=== PATIENT | male | born 1945 | race Caucasian/White ===

== ENCOUNTER 2016-10-24 09:00 | Inpatient (IN) | payer MEDICARE, OTHER ==
[~2016-10-24] VITALS: Ht 170.2 cm; Wt 122.5 kg
[~2016-10-24 09:00] MED LIST: ADVI200C5 PO; ARTH650T PO; BUPR15TA PO; FOLI1TAB2 PO; FURO40TA2 PO; KLOR1TAB77 PO; LOTRCRE TOP; MULTCAP PO; NATU400T PO; OCEA0.654; OMEP20CA3 PO; SERT-138 PO; SIMV20TA2 PO; THERTAB30 PO; THIA100T PO; VITA100T18 PO; VITA100T60 PO; VITA400C2 PO; WELLTAB40 PO; ZOCO20TA PO; kcl PO
[2016-10-24] MEDS: FUROSEMIDE 20 MG TAB PO SCH (09:00)
[2016-10-24 09:52] LABS: BASO % 0.3 % (0.0-1.0); EOS # 0.3 K/mm3 (0.0-0.50); LARGE UNSTAINED CELL # 0.1 K/mm3 (0.0-0.4); LARGE UNSTAINED CELL % 1.4 % (0.0-4.0); LYMPH # 1.2 K/mm3 (1.5-4.5); LYMPH % 13.5 % (24.0-44.0); MEAN CORPUSCULAR HGB CONC 35.1 g/dl (32.0-36.5); MEAN CORPUSCULAR VOLUME 88.4 fl (80.0-96.0); MONO # 0.5 K/mm3 (0.0-0.8); MONO % 5.9 % (0.0-5.0); NEUTROPHILS % 75.9 % (36.0-66.0); PLATELET COUNT, AUTOMATED 403 k/mm3 (150-450); WHITE BLOOD COUNT 9.2 K/mm3 (4.0-10.0)
[2016-10-24 10:09] LABS: ALBUMIN 3.5 GM/DL (3.2-5.2); ALBUMIN/GLOBULIN RATIO 0.67 (1.00-1.93); ALKALINE PHOSPHATASE 104 U/L (45-117); ALT/SGPT 16 U/L (12-78); ANION GAP 10 MEQ/L (8-16); AST/SGOT 18 U/L (15-37); BILIRUBIN,TOTAL 0.9 MG/DL (0.2-1.0); BLOOD UREA NITROGEN 11 MG/DL (7-18); CALCIUM LEVEL 9.4 MG/DL (8.8-10.2); CARBON DIOXIDE LEVEL 26 MEQ/L (21-32); CHLORIDE LEVEL 103 MEQ/L (98-107); CREATININE FOR GFR 0.94 MG/DL (0.70-1.30); GLOMERULAR FILTRATION RATE > 60.0 (>49); GLUCOSE, FASTING 123 MG/DL (80-110); POTASSIUM SERUM 3.8 MEQ/L (3.5-5.1); SODIUM LEVEL 139 MEQ/L (136-145); TOTAL PROTEIN 8.7 GM/DL (6.4-8.2)
--- NOTE | 2016-10-24 10:26 | REP ---
Bilateral hand series: Eight views. History: Question osteomyelitis. Swelling, redness and oozing. Findings: Four views of each hand are obtained. On the right hand, there is diffuse swelling dorsally over the metacarpals as well as along the radial side of the index finger and diffusely involving the thumb. There is some swelling on the right involving the proximal phalanges of the long, ring and small finger as well. No soft tissue gas is seen. No opaque foreign body is noted. No fracture or bony erosive change is seen to suggest osteomyelitis by radiographic criteria. On the left, there is some diffuse soft tissue swelling involving the thumb and to a lesser extent the index finger. No acute bony abnormality is seen. There is mild spurring of some of the DIP joints and the IP joint of the thumb as well as the first MCP joint of the thumb. There is a tiny opaque and probably metallic foreign body in the soft tissues of the index finger adjacent to the distal end of the proximal phalanx dorsally. No other abnormality. Impression: Bilateral areas of soft tissue swelling as above. Osteoarthritic changes. No evidence of osteomyelitis. Tiny metallic foreign body in the dorsal soft tissues of the index finger on the left. Signed by Isma Nieto MD 10/24/2016 06:33 P
[2016-10-24] MEDS ORDERED: CEFTAROLINE FOSAMIL 600 MG VIAL (TEFLARO) As Ordered ONE (10:37)
[2016-10-24 10:47] LABS: ERYTHROCYTE SEDIMENTATION RATE 49 mm/hr (0-20)
[2016-10-24] MEDS ORDERED: VITMTA PO (12:05)
[2016-10-24] MEDS ORDERED: SM A PO (12:05)
[2016-10-24] MEDS ORDERED: FURO20TA2 PO (12:05)
[2016-10-24] MEDS ORDERED: TRAM50TA2 PO (12:05)
[2016-10-24] MEDS ORDERED: NORCO, ANEXSIA 5/325MG TABLET (HYDROcodone/ACETAMINOPHEN) PO PRN (13:15)
[2016-10-24] MEDS ORDERED: ACETAMINOPHEN 650 MG SUPP PR PRN (13:15)
--- NOTE | 2016-10-24 15:13 | EDDOCDS ---
Physician Documentation [facility] Name: Elio Garcia Age: 71 yrs Sex: Male : 1945 Arrival Date: 10/24/2016 Time: 09:00 Bed I3 / M3 Private MD: Disposition: 10/24/16 10:44 Hospitalization ordered by Garcia Herrera for Inpatient Admission. Preliminary diagnosis are Cutaneous abscess of hand - bilateral, Cellulitis of right finger, Cellulitis of left finger. - Bed requested for 4 [place]. - Status is Inpatient Admission. jmk - Condition is Stable. - Problem is new. - Symptoms are unchanged. Historical: - Allergies: No known drug Allergies; - Home Meds: 1. bupropion HCl 300 mg Oral Tb24 1 tab once daily 2. Lasix 20 mg Oral tab 1 tab once daily 3. tramadol 50 mg Oral tab 1 tab every 6 hours as needed 4. aspirin 500 mg Oral tab every 4 hours as needed - PMHx: CHF; Depression; spinal stenosis; Arthritis; - PSHx: Appendectomy; left and right knee surgery; - Social history: Smoking status: Patient states former smoker of tobacco. No barriers to communication noted, The patient speaks fluent Yakut, Speaks appropriately for age. - Family history: Not pertinent. - : The pt / caregiver states he / she is not on anticoagulants. Home medication list is obtained from the patient. - Exposure Risk Screening:: None identified. Vital Signs: 10/24 09:14 BP 141 / 94; Pulse 93; Resp 16; Temp 98.6(TE); Pulse Ox 96% on R/A; Weight 121.56 kg / mlb1 267.99 lbs (R); Height 5 ft. 7 in. (170.18 cm) (R); Pain 0/10; 14:21 nb2 09:14 Body Mass Index 41.97 (121.56 kg, 170.18 cm) mlb1 14:21 Pt refused vital signs at this time. nb2 MDM: 09:19 IV Saline Lock ordered. btw 09:19 -Blood Culture (Adults Only), peripheral from different site, or from device/port/PICC btw etc. if present ordered. 09:20 CBC with Diff Ordered. EDMS 09:20 Complete Comphrensive Metabolic Ordered. EDMS 09:20 ESR Ordered. EDMS 09:20 CRP Ordered. EDMS 09:20 Lactic Acid (Pereira tube on ice) Ordered. EDMS 09:20 -Blood Culture Ordered. EDMS 09:21 Hand, Complete Ordered. EDMS 09:22 Wound Culture & GS - Most Extremities Ordered. EDMS 09:30 BLOOD CULTURES Ordered. EDMS 10:03 CBC with Diff Reviewed. btw 10:04 Financial registration complete. lg 10:19 -Blood Culture (Adults Only), peripheral from different site, or from device/port/PICC nb2 etc. if present complete. 10:19 Complete Comphrensive Metabolic Reviewed. btw 10:19 CRP Reviewed. btw 10:19 Lactic Acid (Pereira tube on ice) Reviewed. btw 10:22 ON LICENSE OF [facility] Payment Agreement was scanned into [employer] and attached to record. lg 10:31 Ceftaroline Fosamil 600 mg IV at calculated rate once over 30 mins; reconstitute with btw 20mL NS or SW, then dilulte in 50mL of NS, D5W or LR ordered. 12:42 CBC with Diff Reviewed. btw 12:42 ESR Reviewed. btw 12:42 Wound Culture & GS - Most Extremities Reviewed. btw 12:42 Hand, Complete Reviewed. btw 12:43 BED REQUEST+ADM ordered. EDMS 13:25 Admission / Observation Status ordered. EDMS 13:25 REGULAR DIET ordered. EDMS 14:43 Admission / Observation Status ordered. EDMS Administered Medications: 10:57 Drug: Ceftaroline Fosamil 600 mg [ceftaroline fosamil 600 mg intravenous solution] emma Route: IV; Rate: calculated rate; Infused Over: 30 mins; Site: left antecubital; 11:58 Follow up: Response: No Adverse Reaction; IV Status: Completed infusion; IV Intake: 50mlead Signatures: Dispatcher [employer] EDMS Kelsey Johnson RN Serjio HernandezRN RN Santo Padilla, Humberto Reg lg Benito Foreman RN RN mlb1 Dane Kowalski PA PA btw Kkia Michel,RN RN Sharon Zuniga2 The chart was reviewed and I authenticate all verbal orders and agree with the evaluation and treatment provided.Attachments: 10:22 ON LICENSE OF [facility] Payment Agreement lg MTDD
--- NOTE | 2016-10-24 15:13 | EDDOCDS ---
Nurse's Notes [facility] Name: Elio Garcia Age: 71 yrs Sex: Male : 1945 Arrival Date: 10/24/2016 Time: 09:00 Bed I3 / M3 Private MD: Diagnosis: Cutaneous abscess of hand-bilateral;Cellulitis of right finger;Cellulitis of left finger Presentation: 10/24 09:06 Presenting complaint: Patient states: Bilateral hand swelling with blisters and foul mlb1 smelling drainage states began Saturday. Adult Sepsis Screening: The patient does not have new or worsening altered mentation. Adult Sepsis Screening: Patient's respiratory rate is less than 22. Systolic blood pressure is greater than 100. Patient has a qSOFA score of 0- Negative Sepsis Screen. Suicide/Homicide risk assessment- the patient denies having any suicidal and/or homicidal ideations and does not present with any other emotional, behavioral or mental health complaints. Status: Patient is not a career services director or dependent. Transition of care: patient was not received from another setting of care. 09:06 Acuity: TARYN Level 3 mlb1 09:06 Method Of Arrival: Walkin/Carried/Asstd mlb1 Triage Assessment: 09:13 General: Appears in no apparent distress, Behavior is appropriate for age, cooperative. mlb1 Pain: Location: right hand and left hand Pain currently is 0 out of 10 on a pain scale. At worst was 9 out of 10 on a pain scale. Derm: Swollen area noted on right hand and left hand. Historical: - Allergies: No known drug Allergies; - Home Meds: 1. bupropion HCl 300 mg Oral Tb24 1 tab once daily 2. Lasix 20 mg Oral tab 1 tab once daily 3. tramadol 50 mg Oral tab 1 tab every 6 hours as needed 4. aspirin 500 mg Oral tab every 4 hours as needed - PMHx: CHF; Depression; spinal stenosis; Arthritis; - PSHx: Appendectomy; left and right knee surgery; - Social history: Smoking status: Patient states former smoker of tobacco. No barriers to communication noted, The patient speaks fluent Zimbabwean, Speaks appropriately for age. - Family history: Not pertinent. - : The pt / caregiver states he / she is not on anticoagulants. Home medication list is obtained from the patient. - Exposure Risk Screening:: None identified. Assessment: 09:36 General: Appears in no apparent distress, Behavior is appropriate for age, cooperative. ead Pain: Location: left hand and right hand. Neurological: Level of Consciousness is awake, alert, obeys commands, Oriented to person, place, time. Respiratory: Airway is patent Respiratory effort is even, unlabored. Derm: Skin is fragile, has lesions on right hand Skin is purple on right hand Swollen area noted on left hand and right hand. Musculoskeletal: Swelling present in left hand and right hand. 11:03 General: Appears reinforced NPO. antibiotics initiated. jmk 11:52 General: Appears in no apparent distress, comfortable. Neurological: No deficits noted. ead Respiratory: Airway is patent Respiratory effort is even, unlabored. 13:30 General: Appears examined by Ortho. awaiting admission orders.. jmk 15:08 General: Appears refused VS. assessment of hands is unchanged. SL intact. admitted/. [facility] Vital Signs: 09:14 BP 141 / 94; Pulse 93; Resp 16; Temp 98.6(TE); Pulse Ox 96% on R/A; Weight 121.56 kg mlb1 (R); Height 5 ft. 7 in. (170.18 cm) (R); Pain 0/10; 14:21 nb2 09:14 Body Mass Index 41.97 (121.56 kg, 170.18 cm) mlb1 14:21 Pt refused vital signs at this time. nb2 ED Course: 09:01 Patient visited by Danilo Suarez. mm15 09:01 Patient moved to Waiting mm15 09:06 Patient visited by Benito Foreman, NISREEN. mlb1 09:08 Patient moved to Triage 2 mcp 09:09 Dane Kowalski PA is PHCP. btw 09:09 Nicki Sanchez MD is Attending Physician. btw 09:09 Patient visited by Dane Kowalski PA. btw 09:09 Triage Initiated mlb1 09:15 Patient visited by Benito Foreman, NISREEN. mlb1 09:25 Patient moved to I3 / M3 jmk 09:32 Wound Culture & GS - Most Extremities Sent. jmk 09:34 Patient visited by Kika Michel RN. ead 09:34 -Blood Culture Sent. ead 09:34 Lactic Acid (Pereira tube on ice) Sent. ead 09:35 Complete Comphrensive Metabolic Sent. ead 09:35 CRP Sent. ead 09:35 ESR Sent. ead 09:35 CBC with Diff Sent. ead 09:35 Inserted saline lock: 20 gauge in left antecubital area and blood collected. The ead patient tolerated the procedure well. 10:22 [facility]LY [facility] Payment Agreement was scanned into [employer] and attached to record. lg 10:38 Patient visited by Kika Michel RN. ead 10:42 Garcia Herrera is Hospitalizing Provider. btw 11:04 Hand, Complete Returned. EDMS 13:30 Patient visited by Serjio Jaquez,NISREEN. jmk 14:22 Patient visited by Sharon Joseph. nb2 15:06 Carlos Alberto Griggs fish processor. nq 15:08 The patient / caregiver is instructed regarding the plan of care and ED course. jmk 15:08 No procedures done that require assistance. rehanak Administered Medications: 10:57 Drug: Ceftaroline Fosamil 600 mg [ceftaroline fosamil 600 mg intravenous solution] valeri Route: IV; Rate: calculated rate; Infused Over: 30 mins; Site: left antecubital; 11:58 Follow up: Response: No Adverse Reaction; IV Status: Completed infusion; IV Intake: 50mlead Intake: 11:58 IV: 50.00ml; Total: 50.00ml. ead Order Results: Lab Order: CBC with Diff; SPEC'M 10/24/16 09:27 Test: WHITE BLOOD COUNT; Value: 9.2; Range: 4.0-10.0; Units: K/mm3; Status: F Test: RED BLOOD COUNT; Value: 5.31; Range: 4.30-6.10; Units: M/mm3; Status: F Test: HEMOGLOBIN; Value: 16.5; Range: 14.0-18.0; Units: g/dl; Status: F Test: HEMATOCRIT; Value: 47.0; Range: 42.0-52.0; Units: %; Status: F Test: MEAN CORPUSCULAR VOLUME; Value: 88.4; Range: 80.0-96.0; Units: fl; Status: F Test: MEAN CORPUSCULAR HEMOGLOBIN; Value: 31.0; Range: 27.0-33.0; Units: pg; Status: F Test: MEAN CORPUSCULAR HGB CONC; Value: 35.1; Range: 32.0-36.5; Units: g/dl; Status: F Test: RED CELL DISTRIBUTION WIDTH; Value: 13.0; Range: 11.5-14.5; Units: %; Status: F Test: PLATELET COUNT, AUTOMATED; Value: 403; Range: 150-450; Units: k/mm3; Status: F Test: NEUTROPHILS %; Value: 75.9; Range: 36.0-66.0; Abnormal: Above high normal; Units: %; Status: F Test: LYMPH %; Value: 13.5; Range: 24.0-44.0; Abnormal: Below low normal; Units: %; Status: F Test: MONO %; Value: 5.9; Range: 0.0-5.0; Abnormal: Above high normal; Units: %; Status: F Test: EOS %; Value: 3.0; Range: 0.0-3.0; Units: %; Status: F Test: BASO %; Value: 0.3; Range: 0.0-1.0; Units: %; Status: F Test: LARGE UNSTAINED CELL %; Value: 1.4; Range: 0.0-4.0; Units: %; Status: F Test: NEUTROPHILS #; Value: 7.0; Range: 1.8-7.7; Units: K/mm3; Status: F Test: LYMPH #; Value: 1.2; Range: 1.5-4.5; Abnormal: Below low normal; Units: K/mm3; Status: F Test: MONO #; Value: 0.5; Range: 0.0-0.8; Units: K/mm3; Status: F Test: EOS #; Value: 0.3; Range: 0.0-0.50; Units: K/mm3; Status: F Test: BASO #; Value: 0.0; Range: 0.0-0.2; Units: K/mm3; Status: F Test: LARGE UNSTAINED CELL #; Value: 0.1; Range: 0.0-0.4; Units: K/mm3; Status: F Lab Order: Complete Comphrensive Metabolic; SPEC'M 10/24/16 09:27 Test: GLUCOSE, FASTING; Value: 123; Range: 80-110; Abnormal: Above high normal; Units: MG/DL; Status: F Test: BLOOD UREA NITROGEN; Value: 11; Range: 7-18; Units: MG/DL; Status: F Test: CREATININE FOR GFR; Value: 0.94; Range: 0.70-1.30; Units: MG/DL; Status: F Test: GLOMERULAR FILTRATION RATE; Value: > 60.0; Range: >49; Status: F Test: SODIUM LEVEL; Value: 139; Range: 136-145; Units: MEQ/L; Status: F Test: POTASSIUM SERUM; Value: 3.8; Range: 3.5-5.1; Units: MEQ/L; Status: F Test: CHLORIDE LEVEL; Value: 103; Range: 98-107; Units: MEQ/L; Status: F Test: CARBON DIOXIDE LEVEL; Value: 26; Range: 21-32; Units: MEQ/L; Status: F Test: ANION GAP; Value: 10; Range: 8-16; Units: MEQ/L; Status: F Test: CALCIUM LEVEL; Value: 9.4; Range: 8.8-10.2; Units: MG/DL; Status: F Test: AST/SGOT; Value: 18; Range: 15-37; Units: U/L; Status: F Test: ALT/SGPT; Value: 16; Range: 12-78; Units: U/L; Status: F Test: ALKALINE PHOSPHATASE; Value: 104; Range: 45-117; Units: U/L; Status: F Test: BILIRUBIN,TOTAL; Value: 0.9; Range: 0.2-1.0; Units: MG/DL; Status: F Test: TOTAL PROTEIN; Value: 8.7; Range: 6.4-8.2; Abnormal: Above high normal; Units: GM/DL; Status: F Test: ALBUMIN; Value: 3.5; Range: 3.2-5.2; Units: GM/DL; Status: F Test: ALBUMIN/GLOBULIN RATIO; Value: 0.67; Range: 1.00-1.93; Abnormal: Below low normal; Status: F Test Note: ; Units are mL/min/1.73 m2 Chronic Kidney Disease Staging per NKF: Stage I & II GFR >=60 Normal to Mildly Decreased Stage III GFR 30-59 Moderately Decreased Stage IV GFR 15-29 Severely Decreased Stage V GFR <15 Very Little GFR Left ESRD GFR <15 on PRESS BOX CUSTODIAN Lab Order: ESR; SPEC'M 10/24/16 Test: ERYTHROCYTE SEDIMENTATION RATE; Value: 49; Range: 0-20; Abnormal: Above high normal; Units: mm/hr; Status: F Lab Order: CRP; SPEC'M 10/24/16 Test: C REACTIVE PROTEIN QUANTITATIV; Value: 8.63; Range: 0.00-0.30; Abnormal: Above high normal; Units: MG/DL; Status: F Lab Order: Lactic Acid (Pereira tube on ice); SPEC'M 10/24/16 Test: LACTIC ACID LEVEL, LACTATE; Value: 1.9; Range: 0.4-2.0; Units: MMOL/L; Status: F Lab Order: Wound Culture & GS - Most Extremities; SPECM 10/24/16 Test: GRAM STAIN; Value: GRAM STAIN RESULT; Status: F Test: GRAM STAIN; Value: NO CELLS SEEN; Status: F Test: GRAM STAIN; Value: NO ORGANISMS SEEN; Status: F Radiology Order: Hand, Complete Test: Hand, Complete REASON FOR EXAMINATION: ? osteomyelitis; Bilateral hand series: Eight views.; ; History: Question osteomyelitis. Swelling, redness and oozing.; ; Findings: Four views of each hand are obtained. On the right hand, there is; diffuse swelling dorsally over the metacarpals as well as along the radial side; of the index finger and diffusely involving the thumb. There is some swelling on; the right involving the proximal phalanges of the long, ring and small finger as; well. No soft tissue gas is seen. No opaque foreign body is noted. No fracture; or bony erosive change is seen to suggest osteomyelitis by radiographic; criteria.; ; On the left, there is some diffuse soft tissue swelling involving the thumb and; to a lesser extent the index finger. No acute bony abnormality is seen. There; is mild spurring of some of the DIP joints and the IP joint of the thumb as well; as the first MCP joint of the thumb. There is a tiny opaque and probably; metallic foreign body in the soft tissues of the index finger adjacent to the; distal end of the proximal phalanx dorsally. No other abnormality.; ; Impression:; ; Bilateral areas of soft tissue swelling as above. Osteoarthritic changes. No; evidence of osteomyelitis. Tiny metallic foreign body in the dorsal soft tissues; of the index finger on the left.; ; ; ; ; Unreviewed; Outcome: 10:44 Decision to Hospitalize by Provider. btw 15:08 Discharge Assessment: Patient awake, alert and oriented x 3. No cognitive and/or k functional deficits noted. Patient verbalized understanding of disposition instructions. patient administered narcotics - no. The following High Risk Discharge criteria are identified: None. Admitted to Med/Surg accompanied by tech, via wheelchair, with chart. Condition: good. No special radiology studies were completed. Admission hand-off: Report called to anya purcell. Property :Personal belongings accompany Pt. 15:12 Patient left the ED. emma Signatures: Dispatcher [employer] EDSerjio Magaña,RN Simona Saldana RN Santo Chaudhry mcp, Benito Rasheed lg RN RN mlb1 Dane Kowalski PA PA btw Carlos Alberto Griggs Marlynn mm15 Kika Michel,RN RN Sharon Zuniga2 MONISHA
[2016-10-24 15:30] VITALS: BP 150/92
--- NOTE | 2016-10-24 15:58 | CR.PDOC ---
[facility] Consultation Consultation 10/24/16 Consultation PCP: [place] Allison Lawn CC: B/L Hand cellulitis HPI: 71yoM with a past medical history significant for osteoarthritis, history of CHF, depression who states he went to [email or web address] Saturday morning for shopping and notes that Saturday afternoon where he had been holding the cart there was a rash on his hands bilaterally. This subsequently quickly progressed with small erythematous fluid-filled blisters, erythema of his hands bilaterally , edema of his hands bilaterally and tenderness of the hands. He subsequently noted large fluid-filled pustules of the thumbs bilaterally which she states he drained a yellowish clear fluid prior to coming to the emergency department. At home he had been applying dry bandages, applying rubbing alcohol to his hands bilaterally and applying Neosporin however it did not seem to be helping. Denies any fevers, chills, weakness, fatigue, PETERS, CP, SOB, cough, palpitations, abdominal pain, N/V/D or changes in bowel or bladder habits. Upon presentation to the hospital the patient was found to have bilateral hand cellulitis, the patient was admitted to the orthopedic service. The hospitalist team was consulted to assist with medical management. PMHx: Depression Hyperlipidemia GERD Osteoarthritis-low back, bilateral knees History of esophageal varices- Bleed 2004 in [place], transfused x 4 units. History of cirrhosis CHF Morbid obesity. BMI 42 Alcohol use PSHX: Tonsillectomy Appendectomy Bilateral knee arthroscopy SOCHX: Resides in: [facility], lives alone. Relocated from [place] in 2004. 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 Illicit Drugs: Denies Recent travel: Denies Advanced directives: Denies FAMHX: Mother: , lung cancer Father: , old age Siblings: One brother Alive, well Children: Alive, well Unexpected deaths due to medical reasons: None. ROS: As noted in HPI, otherwise 11pt ROS of systems reviewed and remarkable only for reports right upper rib cage discomfort which he states is from a recent fall. He states he lost his balance getting up from his office chair. Denies any bruising. Does not recall when this occurred. PE: GEN: 71 yo M, appears stated age. Well-nourished, well developed. No acute distress. Alert and oriented x 3. Pleasant, interactive. HEENT: Normocephalic, atraumatic. Pupils are equal, round, and reactive to light. Extraocular movements are intact. No nystagmus appreciated. Sclera are nonicteric. Conjunctiva without injection. Nose midline. Nasal turbinates without bogginess. EACs both patent BL. TMs both visualized and smallwood with good cone of light, no bulging or erythema. No facial asymmetry. Moist mucous membranes. Dentition fair. Pharynx pink and moist, no cobblestoning. Neck supple , trachea midline. No lymphadenopathy or thyromegaly appreciated. CHEST: Regular rate and rhythm, +S1, +S2 LUNGS: Clear to auscultation bilaterally. No wheezes, rales, or rhonchi. Breathing appears symmetric and easy. Patient is speaking in full sentences. No accessory muscle use. ABD: Round, soft, non-tender, non-distended. +Bowel sounds throughout. No rebound or guarding. No costovertebral angle tenderness. Mild tenderness with palpation is noted in the right upper rib area. EXT: Pulses 2+ bilaterally dorsalis pedis and radial. No lower extremity edema appreciated. SKIN: There is diffuse erythema of the right thumb with previously appearing drained blister. There is diffuse erythema and edema of the index finger with pustules extending to the palmar aspect of the hand with warmth to palpation extending up to the wrist. There is also erythema and edema noted of the left thumb with previously drained blister as well as pustules noted of the left index finger with erythema and mild edema. Mild warmth with palpation. NEURO: Alert and oriented x 3. Cranial nerves III-XII are intact. No focal deficits appreciated. Bilateral hand XR: Bilateral areas of soft tissue swelling as above. Osteoarthritic changes. No evidence of osteomyelitis. Tiny metallic foreign body in the dorsal soft tissues of the index finger on the left. BLOOD CULTURES: 2 pending Wound culture pending A&P: 71yoM with a past medical history significant for osteoarthritis, history of CHF, depression who states he went to [email or web address] Saturday morning for shopping and notes that Saturday afternoon where he had been holding the cart there was a rash on his hands bilaterally. This subsequently quickly progressed with small erythematous fluid-filled blisters, erythema of his hands bilaterally , edema of his hands bilaterally and tenderness of the hands. He subsequently noted large fluid-filled pustules of the thumbs bilaterally which she states he drained a yellowish clear fluid prior to coming to the emergency department. The patient will be admitted to orthopedic service. Patient will be followed by Dr. Brown. Patient is discussed with Dr. Griggs. 1. Bilateral hand cellulitis. Possibly contact dermatitis with superimposed infection. Continue with IV Ceftaroline. Apply cool compresses. Trend CRP. Consider infectious disease/dermatology consultation if no improvement. Tylenol as needed/[place] as needed for pain. 2. CHF. Continue Lasix 20 mg by mouth daily. 3. Depression. Continue Wellbutrin 300 mg by mouth daily. 4. Osteoarthritis/chronic knee pain. Pain control as noted above. 5. History of alcohol use. Monitor for signs of withdrawal. Add Multivitamin/ folate/thiamine. DVT prophylaxis. The patient is a full code Vital Signs/I&O 141/94 93 16 98.6 96 room air Laboratory Data Labs 24H Laboratory Tests 2 10/24/16 09:27: Blood Urea Nitrogen 11, Creatinine 0.94, Sodium Level 139, Potassium Level 3.8, Chloride Level 103, Carbon Dioxide Level 26, Calcium Level 9.4, Aspartate Amino Transf (AST/SGOT) 18, Alanine Aminotransferase (ALT/SGPT) 16, Alkaline Phosphatase 104, Total Bilirubin 0.9, Total Protein 8.7H, Albumin 3.5, Albumin/ Globulin Ratio 0.67L, Anion Gap 10, White Blood Count 9.2, Red Blood Count 5.31 , Hemoglobin 16.5, Hematocrit 47.0, Mean Corpuscular Volume 88.4, Mean Corpuscular Hemoglobin 31.0, Mean Corpuscular Hemoglobin Concent 35.1, Red Cell Distribution Width 13.0, Platelet Count 403, Neutrophils (%) (Auto) 75.9H, Lymphocytes (%) (Auto) 13.5L, Monocytes (%) (Auto) 5.9H, Eosinophils (%) (Auto) 3.0, Basophils (%) (Auto) 0.3, Neutrophils # (Auto) 7.0, Lymphocytes # (Auto) 1.2L, Monocytes # (Auto) 0.5, Eosinophils # (Auto) 0.3, Basophils # (Auto) 0.0, C-Reactive Protein, Quantitative 8.63H, Erythrocyte Sedimentation Rate 49H, Glomerular Filtration Rate > 60.0, Lactic Acid Level 1.9, Large Unclassified Cells # 0.1, Large Unclassified Cells % 1.4 CBC/BMP Laboratory Tests 10/24/16 09:27 Calcium Level 9.4, Aspartate Amino Transf (AST/SGOT) 18, Alanine Aminotransferase (ALT/SGPT) 16, Alkaline Phosphatase 104, Total Bilirubin 0.9, Total Protein 8.7 H, Albumin 3.5, Red Blood Count 5.31, Mean Corpuscular Volume 88.4, Mean Corpuscular Hemoglobin 31.0, Mean Corpuscular Hemoglobin Concent 35.1 , Red Cell Distribution Width 13.0, Neutrophils (%) (Auto) 75.9 H, Lymphocytes ( %) (Auto) 13.5 L, Monocytes (%) (Auto) 5.9 H, Eosinophils (%) (Auto) 3.0, Basophils (%) (Auto) 0.3, Neutrophils # (Auto) 7.0, Lymphocytes # (Auto) 1.2 L, Monocytes # (Auto) 0.5, Eosinophils # (Auto) 0.3, Basophils # (Auto) 0.0 Microbiology Microbiology 10/24/16 Blood Culture, Received Pending 10/24/16 Blood Culture, Received Pending 10/24/16 Gram Stain - Final, Resulted 10/24/16 Wound Culture, Resulted Pending Allergies Coded Allergies: Ether (Verified Allergy, Unknown, ANAPHYLAXIS, 10/11/14) Eggs or Egg-derived Products (Verified Adverse Reaction, Intermediate, RASH, 10/24/16) Home Medications Scheduled Aspirin (Sm Aspirin) 325 Mg Tab 650 MG PO BID (Reported) Bupropion HCl (Wellbutrin Xl) 300 Mg Tab 300 MG PO QAM (Reported) Furosemide (Furosemide) 20 Mg Tab 20 MG PO BID (Reported) Multivitamins *[facility] STOCKED* (Thera M Plus *[facility] STOCKED*) 1 Tab Tab 1 TAB PO DAILY (Reported) Scheduled PRN Tramadol HCl (Tramadol HCl) 50 Mg Tab 50 MG PO Q6H PRN PRN PAIN (Reported) Edyta Luis Oct 24, 2016 15:58
[2016-10-24] MEDS: THIAMINE 100 MG TAB PO SCH (17:07)
[2016-10-24] MEDS: FOLIC ACID 1 MG TAB PO SCH (17:07)
[2016-10-24] MEDS: MULTIVITAMINS/MINERALS THERAP 1 TAB PO SCH (17:07)
[2016-10-24] MEDS: NORCO, ANEXSIA 5/325MG TABLET (HYDROcodone/ACETAMINOPHEN) PO PRN (18:03)
[2016-10-24 22:00] VITALS: BP 158/73
[2016-10-24] MEDS: CEFTAROLINE FOSAMIL 600 MG in D5W MINI-BAG PLUS 50 ML IV SCH (22:55)
[2016-10-25 06:00] VITALS: BP 137/79
[2016-10-25 06:50] LABS: MEAN CORPUSCULAR HEMOGLOBIN 31.1 pg (27.0-33.0); MEAN CORPUSCULAR HGB CONC 34.3 g/dl (32.0-36.5); MEAN CORPUSCULAR VOLUME 90.7 fl (80.0-96.0); WHITE BLOOD COUNT 7.7 K/mm3 (4.0-10.0)
[2016-10-25 06:53] LABS: ANION GAP 8 MEQ/L (8-16); BLOOD UREA NITROGEN 15 MG/DL (7-18); CALCIUM LEVEL 8.3 MG/DL (8.8-10.2); CARBON DIOXIDE LEVEL 26 MEQ/L (21-32); CHLORIDE LEVEL 106 MEQ/L (98-107); GLOMERULAR FILTRATION RATE > 60.0 (>49); GLUCOSE, FASTING 110 MG/DL (80-110); POTASSIUM SERUM 3.8 MEQ/L (3.5-5.1); SODIUM LEVEL 140 MEQ/L (136-145)
[2016-10-25] MEDS: FUROSEMIDE 20 MG TAB PO SCH (08:25)
[2016-10-25] MEDS: NORCO, ANEXSIA 5/325MG TABLET (HYDROcodone/ACETAMINOPHEN) PO PRN ×2 (08:25→22:08)
[2016-10-25] MEDS: THIAMINE 100 MG TAB PO SCH (08:26)
[2016-10-25] MEDS: FOLIC ACID 1 MG TAB PO SCH (08:26)
[2016-10-25] MEDS: MULTIVITAMINS/MINERALS THERAP 1 TAB PO SCH (08:26)
[2016-10-25] MEDS: CEFTAROLINE FOSAMIL 600 MG in D5W MINI-BAG PLUS 50 ML IV SCH ×2 (11:01→22:07)
[2016-10-25] MEDS: buPROPion **XL** TABLET 150MG (WELLBUTRIN XL) PO SCH (11:01)
--- NOTE | 2016-10-25 11:46 | IPN ---
DATE: 10/25/2016 Patient seen and examined at the bedside. Chart has been reviewed. This morning, patient complains of significant discomfort and pain in the right hand between the thumb and the first digit. He continues to have some serous drainage at the site. He complains of insomnia requesting for the examination and interview to be cut short due to feeling very tired and "groggy". Patient otherwise denies any fever or chills. No prior episode. States that this happened when he used his referral agent and a wipe to wipe down the shopping cart at [email or web address] with worsening symptoms for the past few days including blistering and serous drainage, worsening edema and pain at the site. Vital signs: Temperature 97.2, pulse 64, respiratory rate 18, blood pressure 137/79, 94% on room air. Generally, patient is awake, alert, oriented times three, slightly irritable due to lack of sleep. No icterus, no jaundice. Dry mucous membranes. Lungs: Clear to auscultation, no wheezing, rales or rhonchi. Heart: S1, S2. Sinus rhythm. Abdomen: Obese, soft, nontender, nondistended. Positive bowel sounds. Extremities: Patient has bilateral blistering erythematous painful blisters on bilateral hands between the thumb and the forefinger on the right. Diffuse erythema with blisters and pustules on finger, warm to palpation, extremely tender. LAB DATA: White count 7.7, hemoglobin 14. Hematocrit 42, platelet count 307. Sed rate 49, sodium 140, potassium 3.8, chloride 106, bicarbonate 26, BUN 15, creatinine 0.7, glucose 110, lactic acid 1.9. C-reactive protein of 6.65. Microbiology: Wound culture coagulase negative staphylococcus. Two sets of blood cultures are pending. ASSESSMENT AND PLAN: This is a 71-year-old male with history of depression, hyperlipidemia, reflux, osteoarthritis bilateral knees, esophageal varices with bleed 2005 transfuse 4 units of blood, liver cirrhosis, congestive heart failure (CHF), morbid obesity, body mass index (BMI) of 42, alcohol abuse, tonsillectomy , appendectomy, bilateral knee arthroplasty, presents to the emergency room with complaints of erythema, pain and swelling of bilateral hands after going to [email or web address] shopping and use the referral agent and referral agent wipe on the shopping cart. Patient then developed fluid filled blisters, significant erythema, pain and swelling, yellowish discharge from the site. Despite using rubbing alcohol and Neosporin, patient had worsening symptoms, presented for admission. IMPRESSION: 1. Contact dermatitis with possible secondary bacterial infection. Patient did receive IV ceftaroline. Continue with elevation. Dr. Zaidi, advanced wound care physician, will be consulted. Recommended elevation, non-adhesive dressing with foam, anti-inflammatories for pain. Dr. Brandi Orellana has also been consulted and continued on ceftaroline due to purulent drainage with possible secondary bacterial infection. Continue with full supportive care for now. Monitor for worsening symptoms. Rule out streptococcal infection No significant crepitus on examination. The rest of the hand and arm appear to be unaffected. 2. Congestive heart failure (CHF), compensated. Continue home medication, strict input and output, monitor patient's weight daily. 3. History of liver cirrhosis with esophageal varices with bleed in 2004 status post transfusion 4 units at that time. No active gastrointestinal (GI) bleed. No complaints or coffee ground emesis or black tarry stools, melena. 4. Morbid obesity. Body mass index (BMI) 42. Monitor for sleep apnea. Supplemental oxygen if desaturates at night. 5. Hyperlipidemia, stable. Check lipid panel. 6. Depression. Resume home medication. 7. Reflux. Continue on PPI. MTDD
--- NOTE | 2016-10-25 14:43 | HPE ---
DATE OF ADMISSION: 10/24/2016 REASON FOR ADMISSION: Bilateral hand infections. HISTORY OF PRESENT ILLNESS: He is a 71-year-old old right hand dominant male who was in his usual state of health until he came back from [employer] about 5 days ago after pushing the shopping cart around and he developed blistering over the thenar eminence and in the first web space between the index and thumb of both hands. It gradually got worse. He started treated it with Neosporin and alcohol wipes and hand land planner. Over the ensuing few days, he developed significant blistering and redness and then eventually the blisters popped, especially in the left hand, it started feeling better but on his right hand blistering is still in the process of evolving causing him pain, soreness and inability to flex and extend, especially the right index finger. The blistering did pop on the thumb on both hands and now that is feeling much better. He has not had any fevers or chills associated with this. But he presented to the emergency room and was seen by the emergency room staff and some of the drainage from some of the blistering were sent for culture and he was started Teflaro antibiotic. I was called because of the appearance of his hands to evaluate this and for treatment recommendations. PAST MEDICAL HISTORY: He has a past medical history of some depression and alcoholism, congestive heart failure, spinal stenosis, bilateral osteoarthritis of the knees. PAST SURGICAL HISTORY: Appendectomy and right and left arthroscopic surgeries on his knees. He gets his medical care mainly through the [place]. ALLERGIES: No known drug allergies. SOCIAL HISTORY: He has been a smoker in the past and he has tried to cut back on his drinking. He has a daughter who tends to watch over him but he lives independently in the [place], [place] area. 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 Again his care is through the [place] hospital. His last admission was for an alcohol-related withdrawal problems back in September of 2014, two years ago. It is also noteworthy that there has been a history of esophageal varices requiring transfusion. The last time he was here for that was in 2002. When I examined him, he is a very pleasant male here with his daughter. He is alert and oriented. He is morbidly obese but his blood pressure is 141/94, pulse 93, respirations 16, temperature 98.6, oxygen saturation is 96% on room air. He weights 121.56 kg, 5 feet 7 inches tall giving him a body mass index (BMI) of 42. His upper extremity examination on the right hand shows some significant redness, swelling and some induration but no fluctuance over the dorsum of the index finger extending down toward the dorsum of the index metacarpal and the thumb and there is early blistering all throughout that region. There is absolutely no erythema or tenderness along the volar aspect of his index finger. There is no tenderness over the flexor tendon into the palm. He actually can flex the DIP and the PIP joint fairly comfortably except he has pain dorsally because of the swelling there. In the thumb, flexor tendons are intact and there is no flexor tenosynovitis or tenderness along the volar aspect of the thumb. The thenar eminence itself, I don't detect its fluctuance of abscess in that region. But there is marked ecchymosis and redness throughout the dorsum of the that right hand. X-rays of the right hand do not show any acute fractures or lytic or blastic lesions or signs of osteomyelitis. The left hand shows that he has purplish discoloration and evidence of ruptured blistering that is now stabilized and is nontender over the thumb and the dorsum of the left index finger. Flexor tendon function is intact and there is no evidence of flexor tenosynovitis. X-rays of that left hand show no acute fractures. His laboratory studies show a white count of 9.2, hematocrit of 47 and a platelet count of 403. Glucose is 120, CRP is elevated at 8.63 with a sed rate of 49, lactate was 1.9. Gram stain of the fluid showed no cells and no organisms. His BMP shows a glucose of 123, BUN 11, creatinine 0.94, sodium 139, potassium 3.8, chloride 103, bicarbonate 26. Liver functions were actually normal. Albumin was normal at 3.5, and his total protein was actually a little bit elevated at 8.7. My impression overall is this has the appearance of some type of a severe contact dermitis or a skin inflammation reaction, probably to some type of a contact with some type of a chemical or a chemical burn. There does seem to be some associated cellulitis over the dorsum, especially the right hand. The left hand seems to be improve on its own. But I would advise that we admit him to the hospital for elevation and warm, moist soaks for especially the right hand and IV antibiotics and observation and hopefully, this will not turn into a surgical abscess that needs to be drained. Presently, I do not detect that but we will keep him on the IV Teflaro, which as already been started and will monitor his progress.
[2016-10-25 22:00] VITALS: BP 129/80
--- NOTE | 2016-10-26 00:20 | CR ---
DATE OF CONSULTATION: 10/25/2016 INFECTIOUS DISEASE CONSULTATION Asked to consult by Dr. Brown for evaluation of blistering lesions of both hands. HISTORY OF PRESENT ILLNESS: Mr. Garcia is a 71-year-old morbidly obese gentleman with a history of alcoholic liver cirrhosis who presented to the hospital with bilateral lesions of both hands involving the first and second fingers that occurred over 5 days. The patient states that it all started on Saturday after he went to [employer] to do some shopping. After he cleaned his cart and grabbed on the handle, he went home. He then developed that night lesions that were serous blisters that he started on the index fingers and they extended. They subsequently developed large vesicles and then became hemorrhagic. The patient kept cleaning them with rubbing alcohol and Neosporin. He said he probably cleaned about three times a day. He also did break one of the blisters with his knife after he sterilized it with alcohol. He came finally to the hospital after the pain in the hands was severe enough that he was concerned. He denied having any fever or chills. No nausea, vomiting or diarrhea. No abdominal pain, fever or chills. No increased shortness of breath. No cough or palpitations. He had no other complaints. The patient states he never had a history of significant dermatologic disease except eczema as a kid when he ate chocolate. He has no history of psoriasis. He has a history of continued alcohol abuse, and he has no interest in quitting. He denied any recent travel. PAST MEDICAL HISTORY: Significant for depression, hyperlipidemia, gastroesophageal reflux disease, osteoarthritis of both knees and back, history of esophageal varices with a bleed, alcoholic liver cirrhosis with continued alcohol abuse, congestive heart failure, morbid obesity. PAST SURGICAL HISTORY: Tonsillectomy, appendectomy, bilateral knee arthroscopy. ALLERGIES: To [facility] when he was 7 years old and had his appendectomy. SOCIAL HISTORY: He lives in [place]. He lives alone. He moved from [place] in 2004. He is . He has one daughter. 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 He drinks a quart of liquor per month, but I think he drinks more than that and he states he would like whiskey right now. FAMILY HISTORY: Mother of lung cancer. REVIEW OF SYSTEMS: Pretty benign except for some discomfort in the right upper acute ribcage and pain in both fingers. Lack of sleep for the past 5 days due to pain in his fingers and not being able to eat because of the pain in his fingers and he could not prepare himself food. He denies any nausea, vomiting, diarrhea , fever, chills, upper or lower extremity weakness. He states that both knees hurt and that he needs bilateral total knee replacement. On physical exam, obese gentleman in no acute distress, irritable, does not want to be bothered, especially by the exam and too many physicians. Temperature is 97.2, pulse 64, respirations 18, blood pressure 137/69, oxygen saturation 94% on room air. Heart: Normal S1, S2 distant. No murmurs, rubs or gallops. Abdomen: Morbidly obese, soft, nontender. He has a caput medusae on the abdomen and varicose veins superficially. He has bilateral gynecomastia. Lungs are clear. No wheezes, rales or rhonchi. Back: No costovertebral angle or lumbosacral tenderness. Extremities: Some varicose veins on lower extremities, but no clubbing, cyanosis or edema. No rashes. Skin: The whole body has no rash except for both hands, both thumb and index finger. He has large bullous lesions that are hemorrhagic, tender. On his left hand, he has two distinct very well circumscribed lesions that are nodular in shape and tender and are not contiguous; they measure about 2 x 1 cm each. Lesions on the right hand are contiguous and some of the blisters are older and have been popped open and are dried out at this point. There is some surrounding erythema of the hand, maybe extending 1 cm outside the margin of the bullous lesions. Joints: Normal range of motion. Back: Mild lumbosacral tenderness. LABORATORY DATA: White count is 9.2, hemoglobin 16.5, hematocrit 47, platelets 403. Usually his platelets are 120s from liver cirrhosis. ESR 49. Sodium 140, potassium 3.8, chloride 106, bicarbonate 26, BUN 15, creatinine 0.7, glucose 110 , calcium 8.3, CRP 6.65 down from 8.63. AST 18, ALT 16, alkaline phosphatase 104, total protein 8.7, albumin 3.5. Hand x-ray shows bilateral hand swelling with possibility of a foreign body on the dorsal aspect of the left index. IMPRESSION: This is a 71-year-old gentleman with a history of alcoholic liver cirrhosis, esophageal varices and bleed who has developed this bullous hemorrhagic lesions on both hands, both first and second fingers. This is not associated with any systemic symptoms. No white count, no fever, night sweats or other symptoms. This occurred 5 days ago. He clinically looks very well. He states he did try to pop one of the blisters with his house knife after cleaning it with alcohol and he might have developed a superficial infection. Differential for bullous hemorrhagic lesions is broad. This could be infectious in origin, although this does not look infectious. The patient could have had a superimposed bacterial infection due to trying to pop his blisters himself at home, a staph or strep. Cultures have been done and all there was with staph coag negative. Blood cultures have been negative. Vibrio vulnificus is a cause of cellulitis in alcoholics but usually not on fingers and bilaterally. Nonbacterial causes could be herpetic naveed, although, again, you do not expect it to be on both fingers. Less likely bullous pyoderma gangrenosum, atypical pyoderma could also have this manifestation. Vasculitis or definitely bullous cutaneous vasculitis is definitely in the differential as well. The differential would be also atypical porphyria or drug-induced porphyria. Will have to ask the patient if he has any new drug exposures. PLAN: Consult Dr. Hudson. I have called her already, and she is agreeable to see the patient tomorrow for possible biopsy. Continue ceftaroline for the time being, but he could probably be switched to some oral antibiotic. Methicillin-resistant Staphylococcus aureus (MRSA) screen was sent. Herpes PCR was ordered. Hepatitis C testing was done in 2014 and was negative. Thank you for consultation. MONISHA
[2016-10-26 06:00] VITALS: BP 135/71
[2016-10-26 06:30] LABS: MEAN CORPUSCULAR HEMOGLOBIN 29.9 pg (27.0-33.0); MEAN CORPUSCULAR VOLUME 90.6 fl (80.0-96.0); WHITE BLOOD COUNT 6.6 K/mm3 (4.0-10.0)
[2016-10-26 06:50] LABS: ANION GAP 11 MEQ/L (8-16); BLOOD UREA NITROGEN 17 MG/DL (7-18); CALCIUM LEVEL 8.4 MG/DL (8.8-10.2); CARBON DIOXIDE LEVEL 26 MEQ/L (21-32); CHLORIDE LEVEL 105 MEQ/L (98-107); CREATININE FOR GFR 0.72 MG/DL (0.70-1.30); GLOMERULAR FILTRATION RATE > 60.0 (>49); GLUCOSE, FASTING 108 MG/DL (80-110); POTASSIUM SERUM 3.6 MEQ/L (3.5-5.1); SODIUM LEVEL 142 MEQ/L (136-145)
[2016-10-26] MEDS ORDERED: LORazepam 2 MG/ML VIAL (J2060) IV PRN (07:00)
[2016-10-26] MEDS ORDERED: OXAZEPAM 10 MG CAP PO PRN (07:00)
[2016-10-26] MEDS: MULTIVITAMINS/MINERALS THERAP 1 TAB PO SCH (09:28)
[2016-10-26] MEDS: buPROPion **XL** TABLET 150MG (WELLBUTRIN XL) PO SCH (09:28)
[2016-10-26] MEDS: THIAMINE 100 MG TAB PO SCH (09:28)
[2016-10-26] MEDS: FUROSEMIDE 20 MG TAB PO SCH (09:28)
[2016-10-26] MEDS: FOLIC ACID 1 MG TAB PO SCH (09:29)
[2016-10-26] MEDS: CEFTAROLINE FOSAMIL 600 MG in D5W MINI-BAG PLUS 50 ML IV SCH ×2 (10:14→22:02)
[2016-10-26 12:00] VITALS: BP 142/73
--- NOTE | 2016-10-26 12:04 | IPN ---
DATE OF SERVICE: 10/24/2016 Patient seen and examined at the bedside. Chart has been reviewed. This morning, patient states that he continues to have severe tenderness at the right hand. Blistered area has been significantly improved from yesterday. No fever or chills. VITAL SIGNS: Temperature 97.4, pulse 66, respiratory rate 18, blood pressure 135/71, 86% on room air. GENERAL: Awake, alert, oriented times three. Answering questions appropriately. LUNGS: Clear to auscultation. No wheezing, rales or rhonchi. HEART: S1, S2. Sinus rhythm. ABDOMEN: Obese. Soft, nontender, nondistended. EXTREMITIES: Trace edema. SKIN EXAMINATION: Patient has blistering. Erythematous, painful blisters bilateral hands, between the thumb and forefinger on the right. Extremely tender to palpation. Improved erythema from yesterday. Right forefinger has, on the dorsal aspect between the MCP and PIP joint, full <<1:36>> lesion, which is hemorrhagic. Older blisters which have been popped open and dried out with surrounding erythema. LABORATORY DATA: White count 6.6, hemoglobin 13, hematocrit 42, platelet count 298. Sodium 142, potassium 2.6, chloride 105, bicarbonate 26, BUN 17, creatinine 0.72, glucose 108. C-reactive protein 4.6, decreased from admission of 8.63. MICROBIOLOGY: Right hand wound culture coag negative staphylococcus. Repeat wound culture at 10/25/2016 pending. Methicillin-resistant Staphylococcus aureus (MRSA) screen is pending. 10/25/2016, two sets of blood cultures, 10/24/2016 are still pending. No growth after 48 hours. 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 He then developed fluid-filled blisters, erythema and pain with rapid edema within a few hours. Patient treated this with alcohol and antibiotic ointments at home. Blisters opened and he developed significant spread of erythema, pain and swelling. IMPRESSION: 1. Bullous hemorrhagic lesions on the first and second digits of bilateral hand. Differential includes infectious versus inflammatory vasculitis. Due to the serosanguineous drainage, wound cultures obtained. Both cultures were obtained and patient is being empirically treated for contact dermatitis with underlying secondary bacterial infection. Currently on ceftaroline. Methicillin-resistant Staphylococcus aureus (MRSA) screen is still pending. Wound culture is current coag-negative. Staphylococcus preliminary read. We have consulted Dr. Brandi Orellana, who agrees with the present. Dr. Vicki Hudson, the electrical helper, has been consulted for biopsy to provide other differential diagnoses. 2. Congestive heart failure (CHF). Appears to be compensated on Lasix 20 mg daily. 3. Alcohol abuse. Currently on Serax, Ativan as needed, folic acid, multivitamin and thiamine. 4. Morbid obesity and probable sleep apnea. Oxygen supplement, if needed. 5. History of liver cirrhosis with esophageal varices, with bleed in 2004. Status post four units of blood transfusion at that time. No active complains of coffee-ground emesis, bloody or black stools or melena. Continue to watch patient's hemoglobin and hematocrit (H and H). No indication for transfusion. I believe him to be stable. 6. Depression. Stable. 7. Reflux. Continue on PPI. DISPOSITION: Patient is adamant about being discharged tomorrow; however, I did explain that we seem to be improving on IV ceftaroline and will need a month long course.
[2016-10-26 14:00] VITALS: BP 142/73
--- NOTE | 2016-10-26 14:44 | CR ---
DATE OF CONSULTATION: [id number] I was asked to see Mr. Garcia today for the evaluation of his hand rash. Mr. Garcia son was admitted on 10/25/2016 for the evaluation of a very painful blistering rash. The patient says that it began on Saturday evening. He attributes it to an event Saturday where he went to [employer]. He used Purell on the carts, which he saturated the surface before using and when he got home he washed his hands. Saw some blisters and applied alcohol, followed by Neosporin to the surface. That night and progressing through the next few days he began noticing more painful swelling and blisters symmetrically located on the dorsum of his hands, right greater than left. He finally came to the emergency room on Saturday. The patient denies any contact with fish tanks. He denied any fevers or chills. He denies having any lesions like this in the past and denies any other lesions on his skin. Since hospitalization, he has improved. Initially he was cultured, which only grew out one bottle of Staphylococcus epidermidis. He has been placed on a combination of ceftaroline and pain medications with improvement. PMHx: Past medical history is notable for alcoholic cirrhosis and depression. Allergies: The patient denies any allergies. PE: On physical examination today I view a chronically ill-appearing, but lively and conversant man in no apparent distress. He has a remarkable combination of violaceous erythema, edema and bulla formation involving the dorsum of his right hand thumb and index finger but not involving his third, fourth or fifth fingers and without involvement of his palm, and a dry hemorrhagic desquamating area on his left thumb and several deeply violaceous hemorrhagic bullae over several joints on his left index finger. The affected area seem mildly tender to touch. He allowed me to debride a large portion of the roof of the bulla over the right index finger without much discomfort. Cultures were obtained for herpes simplex (PCR) and bacterial culture. LABORATORIES: He has an improving white count and C-reactive protein (CRP) over the last three days, although his WBC was never outside the range of normal. He has normal liver and renal function. An antinuclear antibody (YFN), herpes simplex virus (HSV), immunoglobulin G (IgG) are pending. A bacterial culture from skin shows only Staph epi at this time. IMPRESSION: Mr. Garcia has a very interesting appearing eruption on both hands. If he had this only on one hand I would be convinced it was infectious, either atypical mycobacterial, bacterial, or herpes simplex virus, but with it being in a symmetrical pattern on both hands with the right much worse in the left, and having somewhat linear border on the dorsum of the right hand, I think this is likely to be some type of caustic burn complicated by secondary infection. Additional differential could include a vasculitis or an atypical pyoderma gangrenosum or Sweet's-like picture. His laboratories do not support Sweet's syndrome. RECOMMENDATIONS: 1. I will send other culture after debriding the roof of the blister for herpes simplex virus (HSV) and bacteria. 2. I would just suggest a aircraft engine specialist, like Dr. Zaidi, see him and make recommendations for caring for these wounds. Until then, I applied some Vaseline gauze and draped them loosely over the exposed tissue. 3. If he develops any new lesions, I would consider taking a biopsy. As he is improving at this time and is not anxious for a procedure, I think we can put off the biopsy now. 4. It does appear that the antibiotics have helped and I would continue those as per infectious disease (ID). 5. Would advise against him applying the purell and alcohol to his hands in the future even though we are not entirely sure what combination of products caused this reaction 6. Please contact me if you think his eruption is spreading, involving additional sites or fails to improve with current treatment and I will do a biopsy. PROCEDURE: In a sterile manner, the eschar and hemorrhagic debris was debrided from his right hand and index finger using scissors and forceps without any pain or bleeding. The patient tolerated well and the wound is loosely dressed with petrolatum impregnated gauze. Thank you for this consultation. Vicki Hudson MD [facility]
--- NOTE | 2016-10-26 16:13 | EDDOCDS ---
Physician Documentation [facility] Name: Elio Garcia Age: 71 yrs Sex: Male : 1945 Arrival Date: 10/24/2016 Time: 09:00 Bed I3 / M3 Private MD: Disposition: 10/24/16 10:44 Hospitalization ordered by Garcia Herrera for Inpatient Admission. Preliminary diagnosis are Cutaneous abscess of hand - bilateral, Cellulitis of right finger, Cellulitis of left finger. - Bed requested for 4 [place]. - Status is Inpatient Admission. jmk - Condition is Stable. - Problem is new. - Symptoms are unchanged. Historical: - Allergies: No known drug Allergies; - Home Meds: 1. bupropion HCl 300 mg Oral Tb24 1 tab once daily 2. Lasix 20 mg Oral tab 1 tab once daily 3. tramadol 50 mg Oral tab 1 tab every 6 hours as needed 4. aspirin 500 mg Oral tab every 4 hours as needed - PMHx: CHF; Depression; spinal stenosis; Arthritis; - PSHx: Appendectomy; left and right knee surgery; - Social history: Smoking status: Patient states former smoker of tobacco. No barriers to communication noted, The patient speaks fluent Syriac, Speaks appropriately for age. - Family history: Not pertinent. - : The pt / caregiver states he / she is not on anticoagulants. Home medication list is obtained from the patient. - Exposure Risk Screening:: None identified. Vital Signs: 10/24 09:14 BP 141 / 94; Pulse 93; Resp 16; Temp 98.6(TE); Pulse Ox 96% on R/A; Weight 121.56 kg / mlb1 267.99 lbs (R); Height 5 ft. 7 in. (170.18 cm) (R); Pain 0/10; 14:21 nb2 09:14 Body Mass Index 41.97 (121.56 kg, 170.18 cm) mlb1 14:21 Pt refused vital signs at this time. nb2 MDM: 09:19 IV Saline Lock ordered. btw 09:19 -Blood Culture (Adults Only), peripheral from different site, or from device/port/PICC btw etc. if present ordered. 09:20 CBC with Diff Ordered. EDMS 09:20 Complete Comphrensive Metabolic Ordered. EDMS 09:20 ESR Ordered. EDMS 09:20 CRP Ordered. EDMS 09:20 Lactic Acid (Pereira tube on ice) Ordered. EDMS 09:20 -Blood Culture Ordered. EDMS 09:21 Hand, Complete Ordered. EDMS 09:22 Wound Culture & GS - Most Extremities Ordered. EDMS 09:30 BLOOD CULTURES Ordered. EDMS 10:03 CBC with Diff Reviewed. btw 10:04 Financial registration complete. lg 10:19 -Blood Culture (Adults Only), peripheral from different site, or from device/port/PICC nb2 etc. if present complete. 10:19 Complete Comphrensive Metabolic Reviewed. btw 10:19 CRP Reviewed. btw 10:19 Lactic Acid (Pereira tube on ice) Reviewed. btw 10:22 [facility] Payment Agreement was scanned into [employer] and attached to record. lg 10:31 Ceftaroline Fosamil 600 mg IV at calculated rate once over 30 mins; reconstitute with btw 20mL NS or SW, then dilulte in 50mL of NS, D5W or LR ordered. 12:42 CBC with Diff Reviewed. btw 12:42 ESR Reviewed. btw 12:42 Wound Culture & GS - Most Extremities Reviewed. btw 12:42 Hand, Complete Reviewed. btw 12:43 BED REQUEST+ADM ordered. EDMS 13:25 Admission / Observation Status ordered. EDMS 13:25 REGULAR DIET ordered. EDMS 14:43 Admission / Observation Status ordered. EDMS 01 12:13 T-Sheet-- Draft Copy was scanned into [employer] and attached to record. gb Administered Medications: 10/24 10:57 Drug: Ceftaroline Fosamil 600 mg [ceftaroline fosamil 600 mg intravenous solution] emma Route: IV; Rate: calculated rate; Infused Over: 30 mins; Site: left antecubital; 11:58 Follow up: Response: No Adverse Reaction; IV Status: Completed infusion; IV Intake: 50mlead Signatures: Dispatcher [employer] EDMS Kelsey Johnson RN Serjio Hernandez,RN RN Monica Oshea, Reg Reg gb Santo Hoang, Reg Reg lg Benito Foreman RN RN mlb1 Dane Kowalski PA PA btw Kika Michel,RN RN Sharon Zuniga2 The chart was reviewed and I authenticate all verbal orders and agree with the evaluation and treatment provided.Attachments: 10: [facility] Payment Agreement lg 10/25 12:13 T-Sheet-- Draft Copy gb Chart Complete MTDD
--- NOTE | 2016-10-26 16:14 | EDDOCDS ---
Nurse's Notes [facility] Name: Elio Garcia Age: 71 yrs Sex: Male : 1945 Arrival Date: 10/24/2016 Time: 09:00 Bed I3 / M3 Private MD: Diagnosis: Cutaneous abscess of hand-bilateral;Cellulitis of right finger;Cellulitis of left finger Presentation: 10/24 09:06 Presenting complaint: Patient states: Bilateral hand swelling with blisters and foul mlb1 smelling drainage states began Saturday. Adult Sepsis Screening: The patient does not have new or worsening altered mentation. Adult Sepsis Screening: Patient's respiratory rate is less than 22. Systolic blood pressure is greater than 100. Patient has a qSOFA score of 0- Negative Sepsis Screen. Suicide/Homicide risk assessment- the patient denies having any suicidal and/or homicidal ideations and does not present with any other emotional, behavioral or mental health complaints. Status: Patient is not a mechanical service specialist or dependent. Transition of care: patient was not received from another setting of care. 09:06 Acuity: TARYN Level 3 mlb1 09:06 Method Of Arrival: Walkin/Carried/Asstd mlb1 Triage Assessment: 09:13 General: Appears in no apparent distress, Behavior is appropriate for age, cooperative. mlb1 Pain: Location: right hand and left hand Pain currently is 0 out of 10 on a pain scale. At worst was 9 out of 10 on a pain scale. Derm: Swollen area noted on right hand and left hand. Historical: - Allergies: No known drug Allergies; - Home Meds: 1. bupropion HCl 300 mg Oral Tb24 1 tab once daily 2. Lasix 20 mg Oral tab 1 tab once daily 3. tramadol 50 mg Oral tab 1 tab every 6 hours as needed 4. aspirin 500 mg Oral tab every 4 hours as needed - PMHx: CHF; Depression; spinal stenosis; Arthritis; - PSHx: Appendectomy; left and right knee surgery; - Social history: Smoking status: Patient states former smoker of tobacco. No barriers to communication noted, The patient speaks fluent Canadian, Speaks appropriately for age. - Family history: Not pertinent. - : The pt / caregiver states he / she is not on anticoagulants. Home medication list is obtained from the patient. - Exposure Risk Screening:: None identified. Assessment: 09:36 General: Appears in no apparent distress, Behavior is appropriate for age, cooperative. ead Pain: Location: left hand and right hand. Neurological: Level of Consciousness is awake, alert, obeys commands, Oriented to person, place, time. Respiratory: Airway is patent Respiratory effort is even, unlabored. Derm: Skin is fragile, has lesions on right hand Skin is purple on right hand Swollen area noted on left hand and right hand. Musculoskeletal: Swelling present in left hand and right hand. 11:03 General: Appears reinforced NPO. antibiotics initiated. jmk 11:52 General: Appears in no apparent distress, comfortable. Neurological: No deficits noted. ead Respiratory: Airway is patent Respiratory effort is even, unlabored. 13:30 General: Appears examined by Ortho. awaiting admission orders.. jmk 15:08 General: Appears refused VS. assessment of hands is unchanged. SL intact. admitted/. [facility] Vital Signs: 09:14 BP 141 / 94; Pulse 93; Resp 16; Temp 98.6(TE); Pulse Ox 96% on R/A; Weight 121.56 kg mlb1 (R); Height 5 ft. 7 in. (170.18 cm) (R); Pain 0/10; 14:21 nb2 09:14 Body Mass Index 41.97 (121.56 kg, 170.18 cm) mlb1 14:21 Pt refused vital signs at this time. nb2 ED Course: 09:01 Patient visited by Danilo Suarez. mm15 09:01 Patient moved to Waiting mm15 09:06 Patient visited by Benito Foreman, NISREEN. mlb1 09:08 Patient moved to Triage 2 mcp 09:09 Dane Kowalski PA is PHCP. btw 09:09 Nicki Sanchez MD is Attending Physician. btw 09:09 Patient visited by Dane Kowalski PA. btw 09:09 Triage Initiated mlb1 09:15 Patient visited by Benito Foreman, NISREEN. mlb1 09:25 Patient moved to I3 / M3 jmk 09:32 Wound Culture & GS - Most Extremities Sent. jmk 09:34 Patient visited by Kika Michel RN. ead 09:34 -Blood Culture Sent. ead 09:34 Lactic Acid (Pereira tube on ice) Sent. ead 09:35 Complete Comphrensive Metabolic Sent. ead 09:35 CRP Sent. ead 09:35 ESR Sent. ead 09:35 CBC with Diff Sent. ead 09:35 Inserted saline lock: 20 gauge in left antecubital area and blood collected. The ead patient tolerated the procedure well. 10:22 [facility] Payment Agreement was scanned into [employer] and attached to record. lg 10:38 Patient visited by Kika Michel,RN. ead 10:42 Garcia Herrera is Hospitalizing Provider. btw 11:04 Hand, Complete Returned. EDMS 13:30 Patient visited by Serjio Jaquez,NISREEN. jmk 14:22 Patient visited by Sharon Joseph. nb2 15:06 Carlos Alberto Griggs trust operations assistant. nq 15:08 The patient / caregiver is instructed regarding the plan of care and ED course. jmk 15:08 No procedures done that require assistance. jmk 10/25 12:13 T-Sheet-- Draft Copy was scanned into [employer] and attached to record. gb Administered Medications: 10/24 10:57 Drug: Ceftaroline Fosamil 600 mg [ceftaroline fosamil 600 mg intravenous solution] [facility] Route: IV; Rate: calculated rate; Infused Over: 30 mins; Site: left antecubital; 11:58 Follow up: Response: No Adverse Reaction; IV Status: Completed infusion; IV Intake: 50mlead Intake: 11:58 IV: 50.00ml; Total: 50.00ml. ead Order Results: Lab Order: CBC with Diff; SPEC'M 10/24/16 09:27 Test: WHITE BLOOD COUNT; Value: 9.2; Range: 4.0-10.0; Units: K/mm3; Status: F Test: RED BLOOD COUNT; Value: 5.31; Range: 4.30-6.10; Units: M/mm3; Status: F Test: HEMOGLOBIN; Value: 16.5; Range: 14.0-18.0; Units: g/dl; Status: F Test: HEMATOCRIT; Value: 47.0; Range: 42.0-52.0; Units: %; Status: F Test: MEAN CORPUSCULAR VOLUME; Value: 88.4; Range: 80.0-96.0; Units: fl; Status: F Test: MEAN CORPUSCULAR HEMOGLOBIN; Value: 31.0; Range: 27.0-33.0; Units: pg; Status: F Test: MEAN CORPUSCULAR HGB CONC; Value: 35.1; Range: 32.0-36.5; Units: g/dl; Status: F Test: RED CELL DISTRIBUTION WIDTH; Value: 13.0; Range: 11.5-14.5; Units: %; Status: F Test: PLATELET COUNT, AUTOMATED; Value: 403; Range: 150-450; Units: k/mm3; Status: F Test: NEUTROPHILS %; Value: 75.9; Range: 36.0-66.0; Abnormal: Above high normal; Units: %; Status: F Test: LYMPH %; Value: 13.5; Range: 24.0-44.0; Abnormal: Below low normal; Units: %; Status: F Test: MONO %; Value: 5.9; Range: 0.0-5.0; Abnormal: Above high normal; Units: %; Status: F Test: EOS %; Value: 3.0; Range: 0.0-3.0; Units: %; Status: F Test: BASO %; Value: 0.3; Range: 0.0-1.0; Units: %; Status: F Test: LARGE UNSTAINED CELL %; Value: 1.4; Range: 0.0-4.0; Units: %; Status: F Test: NEUTROPHILS #; Value: 7.0; Range: 1.8-7.7; Units: K/mm3; Status: F Test: LYMPH #; Value: 1.2; Range: 1.5-4.5; Abnormal: Below low normal; Units: K/mm3; Status: F Test: MONO #; Value: 0.5; Range: 0.0-0.8; Units: K/mm3; Status: F Test: EOS #; Value: 0.3; Range: 0.0-0.50; Units: K/mm3; Status: F Test: BASO #; Value: 0.0; Range: 0.0-0.2; Units: K/mm3; Status: F Test: LARGE UNSTAINED CELL #; Value: 0.1; Range: 0.0-0.4; Units: K/mm3; Status: F Lab Order: Complete Comphrensive Metabolic; SPEC'M 10/24/16 09:27 Test: GLUCOSE, FASTING; Value: 123; Range: 80-110; Abnormal: Above high normal; Units: MG/DL; Status: F Test: BLOOD UREA NITROGEN; Value: 11; Range: 7-18; Units: MG/DL; Status: F Test: CREATININE FOR GFR; Value: 0.94; Range: 0.70-1.30; Units: MG/DL; Status: F Test: GLOMERULAR FILTRATION RATE; Value: > 60.0; Range: >49; Status: F Test: SODIUM LEVEL; Value: 139; Range: 136-145; Units: MEQ/L; Status: F Test: POTASSIUM SERUM; Value: 3.8; Range: 3.5-5.1; Units: MEQ/L; Status: F Test: CHLORIDE LEVEL; Value: 103; Range: 98-107; Units: MEQ/L; Status: F Test: CARBON DIOXIDE LEVEL; Value: 26; Range: 21-32; Units: MEQ/L; Status: F Test: ANION GAP; Value: 10; Range: 8-16; Units: MEQ/L; Status: F Test: CALCIUM LEVEL; Value: 9.4; Range: 8.8-10.2; Units: MG/DL; Status: F Test: AST/SGOT; Value: 18; Range: 15-37; Units: U/L; Status: F Test: ALT/SGPT; Value: 16; Range: 12-78; Units: U/L; Status: F Test: ALKALINE PHOSPHATASE; Value: 104; Range: 45-117; Units: U/L; Status: F Test: BILIRUBIN,TOTAL; Value: 0.9; Range: 0.2-1.0; Units: MG/DL; Status: F Test: TOTAL PROTEIN; Value: 8.7; Range: 6.4-8.2; Abnormal: Above high normal; Units: GM/DL; Status: F Test: ALBUMIN; Value: 3.5; Range: 3.2-5.2; Units: GM/DL; Status: F Test: ALBUMIN/GLOBULIN RATIO; Value: 0.67; Range: 1.00-1.93; Abnormal: Below low normal; Status: F Test Note: ; Units are mL/min/1.73 m2 Chronic Kidney Disease Staging per NKF: Stage I & II GFR >=60 Normal to Mildly Decreased Stage III GFR 30-59 Moderately Decreased Stage IV GFR 15-29 Severely Decreased Stage V GFR <15 Very Little GFR Left ESRD GFR <15 on WOOL HANDLER Lab Order: ESR; [facility] 10/24/16 Test: ERYTHROCYTE SEDIMENTATION RATE; Value: 49; Range: 0-20; Abnormal: Above high normal; Units: mm/hr; Status: F Lab Order: CRP; [facility] 10/24/16 Test: C REACTIVE PROTEIN QUANTITATIV; Value: 8.63; Range: 0.00-0.30; Abnormal: Above high normal; Units: MG/DL; Status: F Lab Order: Lactic Acid (Pereira tube on ice); [facility] 10/24/16 Test: LACTIC ACID LEVEL, LACTATE; Value: 1.9; Range: 0.4-2.0; Units: MMOL/L; Status: F Lab Order: Wound Culture & GS - Most Extremities; [facility] 10/24/16 Test: GRAM STAIN; Value: GRAM STAIN RESULT; Status: F Test: GRAM STAIN; Value: NO CELLS SEEN; Status: F Test: GRAM STAIN; Value: NO ORGANISMS SEEN; Status: F Radiology Order: Hand, Complete Test: Hand, Complete REASON FOR EXAMINATION: ? osteomyelitis; Bilateral hand series: Eight views.; ; History: Question osteomyelitis. Swelling, redness and oozing.; ; Findings: Four views of each hand are obtained. On the right hand, there is; diffuse swelling dorsally over the metacarpals as well as along the radial side; of the index finger and diffusely involving the thumb. There is some swelling on; the right involving the proximal phalanges of the long, ring and small finger as; well. No soft tissue gas is seen. No opaque foreign body is noted. No fracture; or bony erosive change is seen to suggest osteomyelitis by radiographic; criteria.; ; On the left, there is some diffuse soft tissue swelling involving the thumb and; to a lesser extent the index finger. No acute bony abnormality is seen. There; is mild spurring of some of the DIP joints and the IP joint of the thumb as well; as the first MCP joint of the thumb. There is a tiny opaque and probably; metallic foreign body in the soft tissues of the index finger adjacent to the; distal end of the proximal phalanx dorsally. No other abnormality.; ; Impression:; ; Bilateral areas of soft tissue swelling as above. Osteoarthritic changes. No; evidence of osteomyelitis. Tiny metallic foreign body in the dorsal soft tissues; of the index finger on the left.; ; ; ; ; Unreviewed; Outcome: 10:44 Decision to Hospitalize by Provider. btw 15:08 Discharge Assessment: Patient awake, alert and oriented x 3. No cognitive and/or k functional deficits noted. Patient verbalized understanding of disposition instructions. patient administered narcotics - no. The following High Risk Discharge criteria are identified: None. Admitted to Med/Surg accompanied by tech, via wheelchair, with chart. Condition: good. No special radiology studies were completed. Admission hand-off: Report called to anya purcell. Property :Personal belongings accompany Pt. 15:12 Patient left the ED. [facility] Signatures: Dispatcher [employer] EDMS Serjio JaquezRN Simona Saldana RN Monica Muniz mcp, Reg Reg gb Santo Hoang, Reg Reg lg Benito Foreman RN RN mlb1 Dane Kowalski PA PA btw Carlos Alberto Griggs Marlynn mm15 Kika Michel,RN RN Sharon Zuniga nb2 Chart Complete MTDD
--- NOTE | 2016-10-26 16:14 | EDDOCDS ---
Physician Documentation [facility] Name: Elio Garcia Age: 71 yrs Sex: Male : 1945 Arrival Date: 10/24/2016 Time: 09:00 Bed I3 / M3 Private MD: Disposition: 10/24/16 10:44 Hospitalization ordered by Garcia Herrera for Inpatient Admission. Preliminary diagnosis are Cutaneous abscess of hand - bilateral, Cellulitis of right finger, Cellulitis of left finger. - Bed requested for 4 [place]. - Status is Inpatient Admission. jmk - Condition is Stable. - Problem is new. - Symptoms are unchanged. Historical: - Allergies: No known drug Allergies; - Home Meds: 1. bupropion HCl 300 mg Oral Tb24 1 tab once daily 2. Lasix 20 mg Oral tab 1 tab once daily 3. tramadol 50 mg Oral tab 1 tab every 6 hours as needed 4. aspirin 500 mg Oral tab every 4 hours as needed - PMHx: CHF; Depression; spinal stenosis; Arthritis; - PSHx: Appendectomy; left and right knee surgery; - Social history: Smoking status: Patient states former smoker of tobacco. No barriers to communication noted, The patient speaks fluent Polish, Speaks appropriately for age. - Family history: Not pertinent. - : The pt / caregiver states he / she is not on anticoagulants. Home medication list is obtained from the patient. - Exposure Risk Screening:: None identified. Vital Signs: 10/24 09:14 BP 141 / 94; Pulse 93; Resp 16; Temp 98.6(TE); Pulse Ox 96% on R/A; Weight 121.56 kg / mlb1 267.99 lbs (R); Height 5 ft. 7 in. (170.18 cm) (R); Pain 0/10; 14:21 nb2 09:14 Body Mass Index 41.97 (121.56 kg, 170.18 cm) mlb1 14:21 Pt refused vital signs at this time. nb2 MDM: 09:19 IV Saline Lock ordered. btw 09:19 -Blood Culture (Adults Only), peripheral from different site, or from device/port/PICC btw etc. if present ordered. 09:20 CBC with Diff Ordered. EDMS 09:20 Complete Comphrensive Metabolic Ordered. EDMS 09:20 ESR Ordered. EDMS 09:20 CRP Ordered. EDMS 09:20 Lactic Acid (Pereira tube on ice) Ordered. EDMS 09:20 -Blood Culture Ordered. EDMS 09:21 Hand, Complete Ordered. EDMS 09:22 Wound Culture & GS - Most Extremities Ordered. EDMS 09:30 BLOOD CULTURES Ordered. EDMS 10:03 CBC with Diff Reviewed. btw 10:04 Financial registration complete. lg 10:19 -Blood Culture (Adults Only), peripheral from different site, or from device/port/PICC nb2 etc. if present complete. 10:19 Complete Comphrensive Metabolic Reviewed. btw 10:19 CRP Reviewed. btw 10:19 Lactic Acid (Pereira tube on ice) Reviewed. btw 10:22 [facility] Payment Agreement was scanned into [email or web address] and attached to record. lg 10:31 Ceftaroline Fosamil 600 mg IV at calculated rate once over 30 mins; reconstitute with btw 20mL NS or SW, then dilulte in 50mL of NS, D5W or LR ordered. 12:42 CBC with Diff Reviewed. btw 12:42 ESR Reviewed. btw 12:42 Wound Culture & GS - Most Extremities Reviewed. btw 12:42 Hand, Complete Reviewed. btw 12:43 BED REQUEST+ADM ordered. EDMS 13:25 Admission / Observation Status ordered. EDMS 13:25 REGULAR DIET ordered. EDMS 14:43 Admission / Observation Status ordered. EDMS 01 12:13 T-Sheet-- Draft Copy was scanned into [email or web address] and attached to record. gb Administered Medications: 10/24 10:57 Drug: Ceftaroline Fosamil 600 mg [ceftaroline fosamil 600 mg intravenous solution] emma Route: IV; Rate: calculated rate; Infused Over: 30 mins; Site: left antecubital; 11:58 Follow up: Response: No Adverse Reaction; IV Status: Completed infusion; IV Intake: 50mlead Signatures: Dispatcher [employer] EDMS Kelsey Johnson RN Serjio Hernandez,RN RN Monica Oshea, Reg Reg gb Santo Hoang, Reg Reg lg Benito Foreman RN RN mlb1 Dane Kowalski PA PA btw Kika Michel,RN RN Sharon Zuniga2 The chart was reviewed and I authenticate all verbal orders and agree with the evaluation and treatment provided.Attachments: 10: [facility] Payment Agreement lg 10/25 12:13 T-Sheet-- Draft Copy gb Chart Complete MTDD
[2016-10-26] MEDS: NORCO, ANEXSIA 5/325MG TABLET (HYDROcodone/ACETAMINOPHEN) PO PRN (20:28)
[2016-10-26] MEDS ORDERED: BACITAB3 PO (21:35)
[2016-10-26] MEDS ORDERED: BACT800T5 PO (21:35)
[2016-10-26 22:00] VITALS: BP 128/60
--- NOTE | 2016-10-26 23:07 | IPN ---
DATE: 10/26/2016 Mr. Garcia seems to be doing much better today. He is less irritable. He states the pain is a little better. He had no fever or chills. On physical exam the blisters are more dry. He has deeply vivacious papules over several joints of the left index finger that are mildly tender to touch. Dr. Hudson debrided right index finger without discomfort. Cultures were sent for herpes as well as bacterial culture. No biopsy was done. Temperature is 97.2, pulse 65, respirations 18, blood pressure 142/73, O2 saturation 95% on room air. White count is 6.6, hemoglobin 32.9, hematocrit 42.2, platelets 290. Sodium 142, potassium 3.6 chloride 105, bicarb 26, BUN 17, creatinine 0.72, glucose 108, calcium 8.4, magnesium 4.61 down from 8.63. Blood cultures two sets are negative. Wound culture had staph coag negative. A repeat wound culture was done as well as herpes PCR and they are pending. IMPRESSION: Cutaneous bullous lesions on the dorsum of both hands, symmetrical. Unusual manifestation of an infectious disease to be bilateral like that. Bacterial culture and herpes have been sent and are pending. The patient has improved with broad-spectrum antibiotics. While waiting for results of cultures, the patient could be discharged home tomorrow on Bactrim DS 1 tablet by mouth twice a day for one more week. Case has been discussed with Dr. Hudson who agrees with the plan. Some other labs are still pending, an YFN, HSC 1 and 2. IgG and will be reviewed when available.
[2016-10-27 06:00] VITALS: BP 145/82
[2016-10-27 06:05] LABS: MEAN CORPUSCULAR HEMOGLOBIN 30.3 pg (27.0-33.0); MEAN CORPUSCULAR HGB CONC 33.1 g/dl (32.0-36.5); MEAN CORPUSCULAR VOLUME 91.5 fl (80.0-96.0); WHITE BLOOD COUNT 6.6 K/mm3 (4.0-10.0)
[2016-10-27 06:21] LABS: ANION GAP 9 MEQ/L (8-16); BLOOD UREA NITROGEN 16 MG/DL (7-18); CALCIUM LEVEL 8.6 MG/DL (8.8-10.2); CARBON DIOXIDE LEVEL 26 MEQ/L (21-32); CHLORIDE LEVEL 106 MEQ/L (98-107); CREATININE FOR GFR 0.86 MG/DL (0.70-1.30); GLOMERULAR FILTRATION RATE > 60.0 (>49); GLUCOSE, FASTING 117 MG/DL (80-110); POTASSIUM SERUM 3.8 MEQ/L (3.5-5.1); SODIUM LEVEL 141 MEQ/L (136-145)
[2016-10-27 09:00] VITALS: BP 130/67
[2016-10-27] MEDS: THIAMINE 100 MG TAB PO SCH (09:02)
[2016-10-27] MEDS: MULTIVITAMINS/MINERALS THERAP 1 TAB PO SCH (09:03)
[2016-10-27] MEDS: FUROSEMIDE 20 MG TAB PO SCH (09:03)
[2016-10-27] MEDS: FOLIC ACID 1 MG TAB PO SCH (09:03)
[2016-10-27] MEDS: buPROPion **XL** TABLET 150MG (WELLBUTRIN XL) PO SCH (09:03)
[2016-10-27] MEDS ORDERED: BACT800T5 PO (09:47)
[2016-10-27] MEDS ORDERED: BACITAB3 PO (09:47)
[2016-10-27] MEDS: CEFTAROLINE FOSAMIL 600 MG in D5W MINI-BAG PLUS 50 ML IV SCH (10:04)
--- NOTE | 2016-10-29 08:30 | DSES ---
DATE OF ADMISSION: 10/24/2016 DATE OF DISCHARGE: CONSULTANTS DURING THIS ADMISSION: Dr. Garcia Herrera, orthopedic surgery. Infectious disease specialist, Dr. Brandi Orellana. Windscreen Fitter, Dr. Vicki Hudson. PRIMARY DISCHARGE DIAGNOSIS: 1. Contact dermatitis with secondary bacterial infection and staphylococcus aureus. 2. Congestive heart failure (CHF) compensated. 3. Alcohol abuse. 4. Stable morbid obesity. 5. Probable sleep apnea. 6. History of liver cirrhosis. 7. Esophageal varices with prior bleed in 2004. 8. Depression. 9. Reflux. DISCHARGE MEDICATIONS: - Bactrim one table by mouth twice daily to complete a 7 day course, 14 tablets dispensed - Bacid one tablet by mouth twice daily with meals for 7 days, 14 tablets - aspirin 325 - Wellbutrin 300 daily every morning - Lasix 20 twice daily - multivitamin one tablet daily - Tramadol 50 every 6 hours as needed HOSPITAL COURSE: This is a 71-year-old male with history of morbid obesity, alcoholic liver cirrhosis, presented to the emergency room with complaints of lesions on bilateral hands involving the first and second digits over the past week which began when he went to [employer] to do some shopping, cleaned his cart and he grabbed onto the handles. In the evening, patient developed blisters on the index finger which extended, became hemorrhagic with large vesicular lesions. Patient then cleaned them with alcohol and placed Neosporin, cleaning about 3 times a day. Patient took a knife after sterilizing the area with alcohol, then opened the blisters. Patient developed a rapidly spreading erythema, purulent drainage and presented to the emergency room for evaluation. He was found to have a severe secondary bacterial infection secondary to opening the skin with underlying chemical burn and contact dermatitis. Wound cultures. Dr. Garcia Herrera evaluated the patient. No surgical need for debridement. Wound cultures grew out staphylococcus aureus which were sensitive to oxacillin. He was placed on ceftaroline with significant improvement over the next [address] Vicki Hudson was consulted for biopsy and debridement. Patient had significant clinical improvement and was stabilized for discharge to followup with Dr. Zaidi, wound care technician, general surgeon within a week of discharge. Recommendations from infectious disease was to continue Bactrim for the next 7 days as well as dressing changes per Dr. Zaidi were to be Xeroform dressing between the affected areas on the fingers, wrapped on Kerlix, to be changed every other day with immediate followup within a week in his office. LABS ON DISCHARGE: White count 6.6, hemoglobin 4, hematocrit 42, platelet count 354. Sodium 141, potassium 3.8, chloride 106, bicarbonate 26, BUN 16, creatinine 0.86, glucose 117. C-reactive protein on admission was 8.6, discharge of 3.9. MICROBIOLOGY: Right hand wound culture staphylococcus aureus sensitive to oxacillin. Imaging study: Hand x-ray 10/24/2016 bilateral soft tissue swelling , osteoarthritis, no evidence of osteomyelitis, tiny metallic foreign body in the dorsal soft tissue of the index finger on the left. MONISHA
== END 2016-10-27 12:18 | disposition home or self-care (01) | DRG 603 ==
LOC: M ED 09:00 → INTOOBSV 13:12 → M ED INP 13:12 → M MSPAV 15:29 → OBSVTOIN 15:38
PROVIDERS: ADMIT Orthopaedic Surgery; ATTEND General Practice
PROC: 0HCFXZZ Extirpation of Matter from Right Hand Skin, External Approach (ICD-10-PCS; principal; 2016-10-26)
DX: L03.113 Cellulitis of right upper limb (principal); Z68.41 Body mass index [BMI] 40.0-44.9, adult; I85.00 Esophageal varices without bleeding; L03.114 Cellulitis of left upper limb; E66.01 Morbid (severe) obesity due to excess calories; G47.30 Sleep apnea, unspecified; K21.9 Gastro-esophageal reflux disease without esophagitis; F32.9 Major depressive disorder, single episode, unspecified; K70.30 Alcoholic cirrhosis of liver without ascites; E78.5 Hyperlipidemia, unspecified; I50.9 Heart failure, unspecified; F10.10 Alcohol abuse, uncomplicated; B95.61 Methicillin susceptible Staphylococcus aureus infection as the cause of diseases classified elsewhere; L25.3 Unspecified contact dermatitis due to other chemical products; M17.0 Bilateral primary osteoarthritis of knee; Z91.012 Allergy to eggs; Z91.09 Other allergy status, other than to drugs and biological substances; Z79.899 Other long term (current) drug therapy

== ENCOUNTER 2017-11-27 09:16 | Day surgery (SDC) | payer MEDICARE ==
[~2017-11-27 09:16] MED LIST changes: -ADVI200C5 PO; -ARTH650T PO; -BUPR15TA PO; -FOLI1TAB2 PO; -FURO40TA2 PO; -KLOR1TAB77 PO; +LIDOCAINE 2% INJ 100 MG/5 ML SDV (FOR ANES.) As Ordered; -LOTRCRE TOP; -MULTCAP PO; -NATU400T PO; -OCEA0.654; -OMEP20CA3 PO; +PROPOFOL 200 MG/20 ML VIAL As Ordered; -SERT-138 PO; -SIMV20TA2 PO; -THERTAB30 PO; -THIA100T PO; -VITA100T18 PO; -VITA100T60 PO; -VITA400C2 PO; -WELLTAB40 PO; -ZOCO20TA PO; -kcl PO
[2017-11-27] MEDS: NS 1,000 ML IV (09:42)
== END 2017-11-27 11:25 | disposition home or self-care (01) ==
LOC: M OPP 09:16
DX: Z12.11 Encounter for screening for malignant neoplasm of colon (principal); K57.30 Diverticulosis of large intestine without perforation or abscess without bleeding; E11.9 Type 2 diabetes mellitus without complications; M19.90 Unspecified osteoarthritis, unspecified site; M54.9 Dorsalgia, unspecified; F41.9 Anxiety disorder, unspecified; F32.9 Major depressive disorder, single episode, unspecified; J00 Acute nasopharyngitis [common cold]; J45.909 Unspecified asthma, uncomplicated; Z91.012 Allergy to eggs; Z91.048 Other nonmedicinal substance allergy status; Z79.82 Long term (current) use of aspirin; Z79.899 Other long term (current) drug therapy; Z87.891 Personal history of nicotine dependence; Z80.1 Family history of malignant neoplasm of trachea, bronchus and lung
CPT/HCPCS: G0121

== ENCOUNTER 2018-07-16 20:44 | Inpatient (IN) | payer MEDICARE ==
[2018-07-16] MEDS: NS 500 ML IV (21:45)
[2018-07-16 22:05] LABS: BASO % 0.4 % (0.0-1.0); EOS # 0.1 10^3/uL (0.0-0.50); EOS % 0.8 % (0.0-3.0); HEMOGLOBIN 16.1 g/dl (13.5-17.5); IMMATURE GRANULOCYTE % 0.4 % (0-3.0); LYMPH # 1.2 10^3/uL (1.5-4.5); LYMPH % 13.9 % (24.0-44.0); MEAN CORPUSCULAR HGB CONC 35.8 g/dl (32.0-36.5); MEAN CORPUSCULAR VOLUME 89.5 fl (80.0-96.0); MONO # 0.6 10^3/uL (0.0-0.8); MONO % 7.5 % (0.0-5.0); NEUTROPHILS # 6.4 10^3/uL (1.8-7.7); PLATELET COUNT, AUTOMATED 207 10^3/uL (150-450); RED BLOOD COUNT 5.03 10^6/uL (4.30-6.10); RED CELL DISTRIBUTION WIDTH 13.2 % (11.5-14.5); WHITE BLOOD COUNT 8.3 10^3/uL (4.0-10.0)
[2018-07-16 22:15] LABS: INR 1.16
[2018-07-16 22:16] LABS: PARTIAL THROMBOPLASTIN TIME 27.5 SECONDS (25.4-37.6)
[2018-07-16 22:26] LABS: AMMONIA 20 uMOL/L (<32)
[2018-07-16 22:31] LABS: ALBUMIN/GLOBULIN RATIO 1.08 (1.00-1.93); ALKALINE PHOSPHATASE 110 U/L (45-117); ALT/SGPT 53 U/L (12-78); AMYLASE 34 U/L (25-115); ANION GAP 14 MEQ/L (8-16); AST/SGOT 93 U/L (7-37); BILIRUBIN,DIRECT 0.9 MG/DL (0.0-0.2); BILIRUBIN,TOTAL 2.5 MG/DL (0.2-1.0); BLOOD UREA NITROGEN 16 MG/DL (7-18); CALCIUM LEVEL 10.6 MG/DL (8.8-10.2); CARBON DIOXIDE LEVEL 27 MEQ/L (21-32); CHLORIDE LEVEL 98 MEQ/L (98-107); CPK CREATINE PHOSPHOKINASE 176 U/L (39-308); CREATININE FOR GFR 0.92 MG/DL (0.70-1.30); ETHYL ALCOHOL (ETHANOL) 0.008 % (0.000-0.010); GLOMERULAR FILTRATION RATE > 60.0 (>42); GLUCOSE, FASTING 164 MG/DL (70-100); LIPASE 491 U/L (73-393); MB/CK RELATIVE INDEX 0.74 (< OR =4); SODIUM LEVEL 139 MEQ/L (136-145); TOTAL PROTEIN 7.7 GM/DL (6.4-8.2); TROPONIN I < 0.02 NG/ML (< 0.10)
[2018-07-16 23:30] LABS: MAGNESIUM LEVEL 1.4 MG/DL (1.8-2.4)
[2018-07-16] MEDS: KCL 10MEQ/100ML SWI (KRUN) 10 MEQ in APPROPRIATE DILUENT 1 EA IV (23:44)
[2018-07-16] MEDS: NS 1,000 ML IV (23:44)
[2018-07-17] MEDS ORDERED: ONDANSETRON 4MG/2ML VIAL (J2405) IV (00:30)
[2018-07-17] MEDS: MAG SULF 1GM/100ML (MAG RUN) 1 GM in APPROPRIATE DILUENT 1 EA IV ×2 (01:59→17:27)
[2018-07-17] MEDS: NS 1,000 ML IV ×3 (01:59→20:24)
[2018-07-17] MEDS: PANTOPRAZOLE 40MG INJ (PROTONIX) (C9113) IV (06:06)
[2018-07-17 07:09] LABS: MEAN CORPUSCULAR HGB CONC 35.9 g/dl (32.0-36.5); PLATELET COUNT, AUTOMATED 138 10^3/uL (150-450); RED BLOOD COUNT 4.38 10^6/uL (4.30-6.10); RED CELL DISTRIBUTION WIDTH 13.2 % (11.5-14.5)
[2018-07-17 07:39] LABS: ALKALINE PHOSPHATASE 92 U/L (45-117); ALT/SGPT 47 U/L (12-78); ANION GAP 9 MEQ/L (8-16); AST/SGOT 80 U/L (7-37); BLOOD UREA NITROGEN 16 MG/DL (7-18); CARBON DIOXIDE LEVEL 27 MEQ/L (21-32); CHLORIDE LEVEL 106 MEQ/L (98-107); CREATININE FOR GFR 0.64 MG/DL (0.70-1.30); GLOMERULAR FILTRATION RATE > 60.0 (>42); GLUCOSE, FASTING 139 MG/DL (70-100); POTASSIUM SERUM 2.4 MEQ/L (3.5-5.1); SODIUM LEVEL 142 MEQ/L (136-145)
[2018-07-17 07:40] LABS: ALBUMIN/GLOBULIN RATIO 0.83 (1.00-1.93); BILIRUBIN,TOTAL 2.3 MG/DL (0.2-1.0); TOTAL PROTEIN 6.6 GM/DL (6.4-8.2)
[2018-07-17] MEDS: KCL 10MEQ/100ML SWI (KRUN) 10 MEQ in APPROPRIATE DILUENT 1 EA IV (08:12)
[2018-07-17 08:29] LABS: MAGNESIUM LEVEL 1.8 MG/DL (1.8-2.4)
[2018-07-17] MEDS: THIAMINE HCL 200 MG/2 ML VIAL (J3411) IV (10:53)
[2018-07-17] MEDS: POTASSIUM CHLORIDE 10 MEQ SR TABLET PO ×2 (10:54→20:23)
[2018-07-17] MEDS: FOLIC ACID 1 MG in NS 50 ML IV (10:55)
[2018-07-17] MEDS ORDERED: PILL CRUSHER/CUTTER 1 EACH XX (12:00)
[2018-07-17] MEDS ORDERED: GLUCOSE 4 GM CHEW TABLET PO (15:15)
[2018-07-17] MEDS ORDERED: DEXTROSE 50% 50 ML SYRINGE IV (15:15)
[2018-07-17] MEDS ORDERED: GLUCAGON FOR INJ 1 MG VIAL (J1610) SC (15:15)
[2018-07-17] MEDS: NYSTATIN 100,000 UNITS/GM TOPICAL PWD 15 GM TOP ×2 (15:25→20:25)
[2018-07-17 16:44] LABS: BEDSIDE GLUCOSE 137 MG/DL (83-110)
[2018-07-17] MEDS: HumaLOG INSULIN (NovoLOG) PER UNIT SC ×2 (17:28→18:00)
[2018-07-17 20:15] LABS: BEDSIDE GLUCOSE 144 MG/DL (83-110)
[2018-07-17] MEDS: MORPHINE 4 MG/ML 1ML VIAL/SYRINGE (J2270) IV (20:23)
[2018-07-17 23:57] LABS: BEDSIDE GLUCOSE 111 MG/DL (83-110)
[2018-07-18] MEDS: HumaLOG INSULIN (NovoLOG) PER UNIT SC ×4 (06:00→18:43)
[2018-07-18] MEDS: PANTOPRAZOLE 40MG INJ (PROTONIX) (C9113) IV (06:28)
[2018-07-18] MEDS: NS 1,000 ML IV (06:28)
[2018-07-18 06:37] LABS: ALBUMIN 2.8 GM/DL (3.2-5.2); ALBUMIN/GLOBULIN RATIO 0.82 (1.00-1.93); ALKALINE PHOSPHATASE 88 U/L (45-117); ALT/SGPT 47 U/L (12-78); ANION GAP 6 MEQ/L (8-16); AST/SGOT 74 U/L (7-37); BILIRUBIN,TOTAL 1.2 MG/DL (0.2-1.0); BLOOD UREA NITROGEN 19 MG/DL (7-18); CALCIUM LEVEL 8.2 MG/DL (8.8-10.2); CARBON DIOXIDE LEVEL 30 MEQ/L (21-32); CHLORIDE LEVEL 106 MEQ/L (98-107); GLOMERULAR FILTRATION RATE > 60.0 (>42); GLUCOSE, FASTING 114 MG/DL (70-100); POTASSIUM SERUM 3.6 MEQ/L (3.5-5.1); SODIUM LEVEL 142 MEQ/L (136-145); TOTAL PROTEIN 6.2 GM/DL (6.4-8.2)
[2018-07-18] MEDS: FOLIC ACID 1 MG in NS 50 ML IV (09:06)
[2018-07-18] MEDS: THIAMINE HCL 200 MG/2 ML VIAL (J3411) IV (09:06)
[2018-07-18] MEDS: POTASSIUM CHLORIDE 10 MEQ SR TABLET PO ×2 (09:07→21:07)
[2018-07-18] MEDS: FLUBLOK(EGG FREE)(QUAD)INFLUENZA VACC 0.5ML SYRINGE (90682)18YRS&OLDER IM (09:08)
[2018-07-18] MEDS: NYSTATIN 100,000 UNITS/GM TOPICAL PWD 15 GM TOP ×2 (09:09→21:09)
[2018-07-18 12:00] LABS: BEDSIDE GLUCOSE 136 MG/DL (83-110)
[2018-07-18] MEDS ORDERED: OXAZEPAM 10 MG CAP PO (13:15)
[2018-07-18] MEDS: MORPHINE 4 MG/ML 1ML VIAL/SYRINGE (J2270) IV (14:53)
[2018-07-18] MEDS: ASPIRIN 325 MG TAB PO ×2 (15:11→21:08)
[2018-07-18] MEDS: GABAPENTIN 100 MG CAP PO ×2 (15:12→21:08)
[2018-07-18] MEDS: buPROPion **XL** TABLET 150MG (WELLBUTRIN XL) PO (15:13)
[2018-07-18 18:21] LABS: BEDSIDE GLUCOSE 122 MG/DL (83-110)
[2018-07-18] MEDS: LORazepam 2 MG/ML VIAL (J2060) IV (21:08)
[2018-07-18] MEDS: ACETAMINOPHEN TAB 650MG DOSE (2X325MG) PO (21:08)
[2018-07-19 00:41] LABS: BEDSIDE GLUCOSE 107 MG/DL (83-110)
[2018-07-19] MEDS: HumaLOG INSULIN (NovoLOG) PER UNIT SC ×4 (06:00→18:27)
[2018-07-19 06:05] LABS: HEMATOCRIT 36.8 % (42.0-52.0); HEMOGLOBIN 12.6 g/dl (13.5-17.5); MEAN CORPUSCULAR HEMOGLOBIN 32.2 pg (27.0-33.0); MEAN CORPUSCULAR HGB CONC 34.2 g/dl (32.0-36.5); MEAN CORPUSCULAR VOLUME 94.1 fl (80.0-96.0); PLATELET COUNT, AUTOMATED 136 10^3/uL (150-450); RED BLOOD COUNT 3.91 10^6/uL (4.30-6.10); RED CELL DISTRIBUTION WIDTH 14.1 % (11.5-14.5); WHITE BLOOD COUNT 4.6 10^3/uL (4.0-10.0)
[2018-07-19 06:48] LABS: ALBUMIN 2.7 GM/DL (3.2-5.2); ALBUMIN/GLOBULIN RATIO 0.79 (1.00-1.93); ALKALINE PHOSPHATASE 85 U/L (45-117); ALT/SGPT 44 U/L (12-78); ANION GAP 8 MEQ/L (8-16); AST/SGOT 68 U/L (7-37); BLOOD UREA NITROGEN 16 MG/DL (7-18); CARBON DIOXIDE LEVEL 27 MEQ/L (21-32); CHLORIDE LEVEL 108 MEQ/L (98-107); CREATININE FOR GFR 0.54 MG/DL (0.70-1.30); GLOMERULAR FILTRATION RATE > 60.0 (>42); GLUCOSE, FASTING 88 MG/DL (70-100); POTASSIUM SERUM 3.2 MEQ/L (3.5-5.1); SODIUM LEVEL 143 MEQ/L (136-145); TOTAL PROTEIN 6.1 GM/DL (6.4-8.2)
[2018-07-19 06:48] LABS: BEDSIDE GLUCOSE 100 MG/DL (83-110)
[2018-07-19 07:59] LABS: MAGNESIUM LEVEL 1.8 MG/DL (1.8-2.4)
[2018-07-19] MEDS: THIAMINE 100 MG TAB PO (09:17)
[2018-07-19] MEDS: FOLIC ACID 1 MG TAB PO (09:17)
[2018-07-19] MEDS: GABAPENTIN 100 MG CAP PO (09:17)
[2018-07-19] MEDS: POTASSIUM CHLORIDE 10 MEQ SR TABLET PO ×2 (09:17→21:37)
[2018-07-19] MEDS: MULTIVITAMINS/MINERALS THERAP 1 TAB PO (09:17)
[2018-07-19] MEDS: ASPIRIN 325 MG TAB PO ×2 (09:17→21:37)
[2018-07-19] MEDS: NYSTATIN 100,000 UNITS/GM TOPICAL PWD 15 GM TOP ×2 (09:18→21:38)
[2018-07-19] MEDS: buPROPion **XL** TABLET 150MG (WELLBUTRIN XL) PO (09:19)
[2018-07-19 11:59] LABS: BEDSIDE GLUCOSE 94 MG/DL (83-110)
[2018-07-19] MEDS: MAG SULF 1GM/100ML (MAG RUN) 1 GM in APPROPRIATE DILUENT 1 EA IV (16:08)
[2018-07-19 17:56] LABS: BEDSIDE GLUCOSE 155 MG/DL (83-110)
[2018-07-19] MEDS: ACETAMINOPHEN TAB 650MG DOSE (2X325MG) PO (21:36)
[2018-07-20 01:40] LABS: BEDSIDE GLUCOSE 179 MG/DL (83-110)
[2018-07-20] MEDS: HumaLOG INSULIN (NovoLOG) PER UNIT SC ×4 (06:00→18:00)
[2018-07-20 06:21] LABS: HEMATOCRIT 36.2 % (42.0-52.0); HEMOGLOBIN 12.2 g/dl (13.5-17.5); MEAN CORPUSCULAR HEMOGLOBIN 31.5 pg (27.0-33.0); MEAN CORPUSCULAR HGB CONC 33.7 g/dl (32.0-36.5); MEAN CORPUSCULAR VOLUME 93.5 fl (80.0-96.0); PLATELET COUNT, AUTOMATED 147 10^3/uL (150-450); RED BLOOD COUNT 3.87 10^6/uL (4.30-6.10); RED CELL DISTRIBUTION WIDTH 14.2 % (11.5-14.5); WHITE BLOOD COUNT 4.4 10^3/uL (4.0-10.0)
[2018-07-20 06:34] LABS: BEDSIDE GLUCOSE 97 MG/DL (83-110)
[2018-07-20 06:48] LABS: ALBUMIN 2.6 GM/DL (3.2-5.2); ALBUMIN/GLOBULIN RATIO 0.74 (1.00-1.93); ALKALINE PHOSPHATASE 131 U/L (45-117); ALT/SGPT 49 U/L (12-78); ANION GAP 8 MEQ/L (8-16); AST/SGOT 81 U/L (7-37); BILIRUBIN,TOTAL 0.6 MG/DL (0.2-1.0); BLOOD UREA NITROGEN 13 MG/DL (7-18); CALCIUM LEVEL 8.3 MG/DL (8.8-10.2); CARBON DIOXIDE LEVEL 26 MEQ/L (21-32); CHLORIDE LEVEL 107 MEQ/L (98-107); CREATININE FOR GFR 0.55 MG/DL (0.70-1.30); GLOMERULAR FILTRATION RATE > 60.0 (>42); GLUCOSE, FASTING 96 MG/DL (70-100); POTASSIUM SERUM 3.4 MEQ/L (3.5-5.1); SODIUM LEVEL 141 MEQ/L (136-145); TOTAL PROTEIN 6.1 GM/DL (6.4-8.2)
[2018-07-20] MEDS: ASPIRIN 325 MG TAB PO ×2 (09:33→21:47)
[2018-07-20] MEDS: THIAMINE 100 MG TAB PO (09:34)
[2018-07-20] MEDS: buPROPion **XL** TABLET 150MG (WELLBUTRIN XL) PO (09:34)
[2018-07-20] MEDS: POTASSIUM CHLORIDE 10 MEQ SR TABLET PO ×2 (09:34→21:47)
[2018-07-20] MEDS: MULTIVITAMINS/MINERALS THERAP 1 TAB PO (09:34)
[2018-07-20] MEDS: FOLIC ACID 1 MG TAB PO (09:34)
[2018-07-20] MEDS: NYSTATIN 100,000 UNITS/GM TOPICAL PWD 15 GM TOP ×2 (09:35→21:48)
[2018-07-20 11:56] LABS: BEDSIDE GLUCOSE 143 MG/DL (83-110)
[2018-07-20 17:31] LABS: BEDSIDE GLUCOSE 131 MG/DL (83-110)
[2018-07-21 00:18] LABS: BEDSIDE GLUCOSE 142 MG/DL (83-110)
[2018-07-21] MEDS: HumaLOG INSULIN (NovoLOG) PER UNIT SC ×2 (00:40→06:00)
[2018-07-21 06:09] LABS: BEDSIDE GLUCOSE 97 MG/DL (83-110)
[2018-07-21 06:26] LABS: HEMATOCRIT 36.5 % (42.0-52.0); HEMOGLOBIN 12.5 g/dl (13.5-17.5); MEAN CORPUSCULAR HEMOGLOBIN 32.1 pg (27.0-33.0); MEAN CORPUSCULAR HGB CONC 34.2 g/dl (32.0-36.5); MEAN CORPUSCULAR VOLUME 93.6 fl (80.0-96.0); PLATELET COUNT, AUTOMATED 172 10^3/uL (150-450); RED CELL DISTRIBUTION WIDTH 14.6 % (11.5-14.5); WHITE BLOOD COUNT 4.8 10^3/uL (4.0-10.0)
[2018-07-21 06:52] LABS: ALBUMIN 2.7 GM/DL (3.2-5.2); ALBUMIN/GLOBULIN RATIO 0.77 (1.00-1.93); ALKALINE PHOSPHATASE 122 U/L (45-117); ALT/SGPT 47 U/L (12-78); ANION GAP 6 MEQ/L (8-16); AST/SGOT 64 U/L (7-37); BILIRUBIN,TOTAL 0.7 MG/DL (0.2-1.0); BLOOD UREA NITROGEN 8 MG/DL (7-18); CALCIUM LEVEL 8.3 MG/DL (8.8-10.2); CARBON DIOXIDE LEVEL 27 MEQ/L (21-32); CHLORIDE LEVEL 109 MEQ/L (98-107); CREATININE FOR GFR 0.63 MG/DL (0.70-1.30); GLOMERULAR FILTRATION RATE > 60.0 (>42); GLUCOSE, FASTING 102 MG/DL (70-100); SODIUM LEVEL 142 MEQ/L (136-145); TOTAL PROTEIN 6.2 GM/DL (6.4-8.2)
[2018-07-21] MEDS: ASPIRIN 325 MG TAB PO (09:05)
[2018-07-21] MEDS: FOLIC ACID 1 MG TAB PO (09:05)
[2018-07-21] MEDS: buPROPion **XL** TABLET 150MG (WELLBUTRIN XL) PO (09:05)
[2018-07-21] MEDS: THIAMINE 100 MG TAB PO (09:05)
[2018-07-21] MEDS: MULTIVITAMINS/MINERALS THERAP 1 TAB PO (09:05)
[2018-07-21] MEDS: POTASSIUM CHLORIDE 10 MEQ SR TABLET PO (09:05)
[2018-07-21] MEDS: NYSTATIN 100,000 UNITS/GM TOPICAL PWD 15 GM TOP (09:06)
[2018-07-21 11:30] LABS: BEDSIDE GLUCOSE 155 MG/DL (83-110)
== END 2018-07-21 15:44 | disposition home health service (06) | DRG 440 ==
LOC: M ED INP 07-17 00:16 → M MSPAV 07-17 01:25 → M ED 20:44
DX: K85.20 Alcohol induced acute pancreatitis without necrosis or infection (principal); F32.9 Major depressive disorder, single episode, unspecified; J44.9 Chronic obstructive pulmonary disease, unspecified; E87.6 Hypokalemia; E83.42 Hypomagnesemia; F10.129 Alcohol abuse with intoxication, unspecified; F41.9 Anxiety disorder, unspecified

== ENCOUNTER 2018-09-17 09:00 | Emergency (ER) | payer MEDICARE ==
[~2018-09-17] VITALS: Ht 172.7 cm; Wt 105.9 kg
[~2018-09-17 09:00] MED LIST changes: +ADVI200C5 PO; +ARTH650T11 PO; +ASPI325T PO; +BACITAB PO; +BACT800T5 PO; +BUPR15TA PO; +FOLI1TAB5 PO; +FURO20TA2 PO; +FURO40TA2 PO; +GLUC500T53 PO; +JOINCAP2 PO; +KLOR1TAB77 PO; -LIDOCAINE 2% INJ 100 MG/5 ML SDV (FOR ANES.) As Ordered; +LOTRCRE TOP; +MULTCAP PO; +NATU400T PO; +OCEA0.654; +OMEP20CA3 PO; -PROPOFOL 200 MG/20 ML VIAL As Ordered; +SERT-138 PO; +SIMV20TA2 PO; +SM A PO; +THERTAB30 PO; +THIA100T7 PO; +TRAM50TA2 PO; +VITA100T60 PO; +VITA100T8 PO; +VITA100T88 PO; +VITA400C7 PO; +VITMTA PO; +WELLTAB40 PO; +ZOCO20TA PO; +kcl PO
[2018-09-17 09:41] LABS: BASO % 0.6 % (0.0-1.0); EOS # 0.2 10^3/uL (0.0-0.50); EOS % 2.5 % (0.0-3.0); HEMATOCRIT 41.9 % (42.0-52.0); HEMOGLOBIN 14.4 g/dl (13.5-17.5); LYMPH # 0.9 10^3/uL (1.5-4.5); LYMPH % 13.6 % (24.0-44.0); MEAN CORPUSCULAR HEMOGLOBIN 31.2 pg (27.0-33.0); MEAN CORPUSCULAR HGB CONC 34.4 g/dl (32.0-36.5); MEAN CORPUSCULAR VOLUME 90.9 fl (80.0-96.0); MONO # 0.4 10^3/uL (0.0-0.8); NEUTROPHILS # 5.3 10^3/uL (1.8-7.7); NEUTROPHILS % 76.9 % (36.0-66.0); PLATELET COUNT, AUTOMATED 215 10^3/uL (150-450); RED BLOOD COUNT 4.61 10^6/uL (4.30-6.10); WHITE BLOOD COUNT 6.8 10^3/uL (4.0-10.0)
--- NOTE | 2018-09-17 09:42 | REP ---
CT cervical spine without contrast HISTORY: Fall COMPARISON: None There is no acute fracture or subluxation. Disc bulges with associated osteophyte formation are present at the C3-4 through C6-7 levels. There is minimal narrowing of the spinal canal. Uncinate process and/or facet hypertrophy are present at the C2-3 through C7-T1 levels. These findings produce minimal to severe narrowing of the neural foramina. The C2-3 through C7-T1 intervertebral discs are decreased in height consistent with disc degeneration. There are 2 mm of anterior subluxation of C7 on T1. IMPRESSION: 1. There is no acute fracture or subluxation. 2. There is cervical spondylosis at the C2-3 through C7-T1 levels. Electronically Signed by Karthik Cruz MD 09/17/2018 09:34 A
--- NOTE | 2018-09-17 09:44 | REP ---
CT Head without contrast HISTORY: Trauma COMPARISON: None Areas of decreased attenuation are present in the periventricular white matter. This represents small-vessel ischemic disease. There is no intraparenchymal hemorrhage, acute infarct, mass or midline shift. The ventricular system and cortical sulci as well as subarachnoid space in the posterior fossa are dilated consistent with moderate volume loss. There is no extra cerebral collection. There is no fracture. The visualized sinuses are clear. IMPRESSION: 1. Small vessel ischemic disease. 2. Moderate volume loss. Electronically Signed by Karthik Cruz MD 09/17/2018 09:36 A
[2018-09-17] MEDS ORDERED: MECLIZINE 25 MG TABLET PO ONE (09:45)
[2018-09-17] MEDS ORDERED: ONDANSETRON 4MG/2ML VIAL (J2405) IV ONE (09:45)
[2018-09-17 09:51] LABS: INR 1.14; PARTIAL THROMBOPLASTIN TIME 35.4 SECONDS (25.4-37.6); PROTHROMBIN TIME 14.7 SECONDS (12.1-14.4)
--- NOTE | 2018-09-17 09:57 | REP ---
Chest x-ray: Sitting AP view. History: Trauma. Comparison study: October 12, 2014. Findings: The lungs are symmetrically aerated. There is a diffuse interstitial fibrosis pattern in the periphery of the lung noriega unchanged. No new infiltrate is seen. Pleural angles are sharp. Heart is not enlarged. Mediastinum is not widened. The aorta slightly tortuous. No rib or other fracture is appreciated. There are osteoarthritic changes in the right shoulder. Impression: No active disease. Some interstitial fibrosis. Electronically Signed by Isma Nieto MD 09/17/2018 08:28 P
[2018-09-17 10:22] LABS: ALBUMIN 3.4 GM/DL (3.2-5.2); ALT/SGPT 26 U/L (12-78); AMYLASE 18 U/L (25-115); BILIRUBIN,DIRECT 0.3 MG/DL (0.0-0.2); BLOOD UREA NITROGEN 9 MG/DL (7-18); CALCIUM LEVEL 8.5 MG/DL (8.8-10.2); CARBON DIOXIDE LEVEL 24 MEQ/L (21-32); CHLORIDE LEVEL 106 MEQ/L (98-107); CK-MB VALUE MASS < 1.0 NG/ML (<3.6); CPK CREATINE PHOSPHOKINASE 99 U/L (39-308); CREATININE FOR GFR 0.53 MG/DL (0.70-1.30); ETHYL ALCOHOL (ETHANOL) < 0.003 % (0.000-0.010); GLOMERULAR FILTRATION RATE > 60.0 (>42); GLUCOSE, FASTING 90 MG/DL (70-100); LIPASE 48 U/L (73-393); MB/CK RELATIVE INDEX 1.01 (< OR =4); POTASSIUM SERUM 4.1 MEQ/L (3.5-5.1); SODIUM LEVEL 141 MEQ/L (136-145); TOTAL PROTEIN 6.8 GM/DL (6.4-8.2); TROPONIN I < 0.02 NG/ML (< 0.10)
[2018-09-17 10:24] LABS: AMPHETAMINES LEVEL URINE NEGATIVE (NEGATIVE); BARBITURATES URINE NEGATIVE (NEGATIVE); BENZODIAZEPINES URINE NEGATIVE (NEGATIVE); CANNABINOIDS URINE NEGATIVE (NEGATIVE); COCAINE METABOLITE URINE NEGATIVE (NEGATIVE); METHADONE URINE NEGATIVE (NEGATIVE); OPIATES URINE NEGATIVE (NEGATIVE); PHENCYCLIDINE URINE NEGATIVE (NEGATIVE)
--- NOTE | 2018-09-17 10:38 | ECGEPIP ---
Stationary ECG Study [facility] - ED Test Date: 2018-09-17 Pat Name: TYSON NGUYEN Department: Room: - Gender: M Records Associate: [facility] : 1945 Requested By: Fransisca Griffin Order Number: [id number] Reading MD: Laura Lugo Measurements Intervals [place] Rate: 69 P: 12 [place]: 156 QRS: -18 QRSD: 89 T: 8 QT: 421 QTc: 454 Interpretive Statements SINUS RHYTHM POSSIBLE ANTERIOR MYOCARDIAL INFARCTION, PROBABLY OLD ?PRIOR INFERIOR INFARCT DECREASED RATE 07/16/18 Electronically Signed On 09-17-2018 10:38:34 EST by Laura Lugo
[2018-09-17] MEDS ORDERED: MECL-86 PO (12:38)
[2018-09-17 12:44] VITALS: BP 186/84
== END 2018-09-17 12:50 | disposition home or self-care (01) ==
LOC: M ED 09:00 → EDBD 09:00 → M ED 12:50
DX: S06.0X0A Concussion without loss of consciousness, initial encounter (principal); R42 Dizziness and giddiness; X58.XXXA Exposure to other specified factors, initial encounter; Y92.410 Unspecified street and highway as the place of occurrence of the external cause; I50.9 Heart failure, unspecified; E11.9 Type 2 diabetes mellitus without complications; F32.9 Major depressive disorder, single episode, unspecified; F41.9 Anxiety disorder, unspecified
CPT/HCPCS: 36415; 70450; 71045; 72125; 80048; 80076; 80307; 82150; 82550; 82553; 83605; 83690; 84484; 85025; 85610; 85730; 86850; 86900; 86901; 93005; 93041; 94760; 96374; 99285; G0480; J2405

== ENCOUNTER 2018-10-11 21:42 | Emergency (ER) | payer MEDICARE, OTHER ==
[~2018-10-11 21:42] MED LIST changes: +FOLI1TAB11 PO; -FOLI1TAB5 PO; +MECL-86 PO
[2018-10-11] MEDS ORDERED: PANTOPRAZOLE 40MG INJ (PROTONIX) (C9113) IV ONE (22:15)
[2018-10-11] MEDS ORDERED: METOCLOPRAMIDE INJ 10MG/2ML VIAL (J2765) IV ONE (22:15)
[2018-10-11] MEDS ORDERED: NS 1,000 ML IV ONE (22:15)
[2018-10-11 22:53] LABS: BASO % 0.7 % (0.0-1.0); EOS # 0.1 10^3/uL (0.0-0.50); HEMOGLOBIN 14.5 g/dl (13.5-17.5); LYMPH # 0.7 10^3/uL (1.5-4.5); MEAN CORPUSCULAR HEMOGLOBIN 31.8 pg (27.0-33.0); MEAN CORPUSCULAR HGB CONC 34.5 g/dl (32.0-36.5); MEAN CORPUSCULAR VOLUME 92.1 fl (80.0-96.0); MONO # 0.7 10^3/uL (0.0-0.8); MONO % 12.4 % (0.0-5.0); NEUTROPHILS # 4.5 10^3/uL (1.8-7.7); NEUTROPHILS % 74.6 % (36.0-66.0); PLATELET COUNT, AUTOMATED 162 10^3/uL (150-450); RED BLOOD COUNT 4.56 10^6/uL (4.30-6.10)
[2018-10-11 23:15] LABS: ALBUMIN 3.7 GM/DL (3.2-5.2); ALT/SGPT 41 U/L (12-78); BILIRUBIN,DIRECT 0.4 MG/DL (0.0-0.2); BILIRUBIN,TOTAL 0.8 MG/DL (0.2-1.0); BLOOD UREA NITROGEN 9 MG/DL (7-18); CALCIUM LEVEL 8.5 MG/DL (8.8-10.2); CARBON DIOXIDE LEVEL 19 MEQ/L (21-32); CHLORIDE LEVEL 99 MEQ/L (98-107); CREATININE FOR GFR 0.74 MG/DL (0.70-1.30); GLOMERULAR FILTRATION RATE > 60.0 (>42); GLUCOSE, FASTING 118 MG/DL (70-100); LIPASE 251 U/L (73-393); POTASSIUM SERUM 3.5 MEQ/L (3.5-5.1); SODIUM LEVEL 138 MEQ/L (136-145); TOTAL PROTEIN 7.8 GM/DL (6.4-8.2)
[2018-10-11] MEDS ORDERED: PROT1TAB2 PO (23:23)
[2018-10-11] MEDS ORDERED: ZOFR4TAB16 PO (23:23)
[2018-10-12 00:01] VITALS: BP 140/92
--- NOTE | 2018-10-12 08:51 | REP ---
KUB: Two views presented. History: Constipation. No comparison study. Findings: Two views of the abdomen demonstrate an S-shaped lumbar roto scoliotic curve and fairly advanced degenerative disc disease in the lumbar spine. There are mild osteoarthritic changes at the hips and some vascular calcifications noted. The bowel gas pattern is normal. There are three calcified gallstones visible in the right upper quadrant. Psoas margins are symmetric. Flank stripes appear intact. No mass organomegaly is seen. Impression: Cholelithiasis. Normal bowel gas pattern. Degenerative spondylosis and scoliosis in the lumbar spine. Electronically Signed by Isma Nieto MD 10/12/2018 08:43 A
== END 2018-10-12 00:03 | disposition home or self-care (01) ==
LOC: M ED 21:42
DX: K52.9 Noninfective gastroenteritis and colitis, unspecified (principal); R05 Cough; E11.9 Type 2 diabetes mellitus without complications; I10 Essential (primary) hypertension; K21.9 Gastro-esophageal reflux disease without esophagitis; F10.10 Alcohol abuse, uncomplicated; F17.200 Nicotine dependence, unspecified, uncomplicated; Z91.012 Allergy to eggs; Z91.048 Other nonmedicinal substance allergy status; Z79.899 Other long term (current) drug therapy; Z79.82 Long term (current) use of aspirin
CPT/HCPCS: 74018; 80048; 80076; 83690; 85025; 96374; 96375; 99284; C9113; J2765

== ENCOUNTER 2018-10-14 10:23 | Emergency (ER) | payer OTHER ==
[~2018-10-14] VITALS: Ht 175.3 cm; Wt 105.5 kg
[~2018-10-14 10:23] MED LIST changes: +PROT1TAB2 PO; +ZOFR4TAB16 PO
[2018-10-14 10:52] LABS: BASO % 0.5 % (0.0-1.0); EOS # 0.2 10^3/uL (0.0-0.50); EOS % 4.5 % (0.0-3.0); HEMATOCRIT 38.4 % (42.0-52.0); HEMOGLOBIN 13.7 g/dl (13.5-17.5); LYMPH # 0.5 10^3/uL (1.5-4.5); LYMPH % 13.8 % (24.0-44.0); MEAN CORPUSCULAR HEMOGLOBIN 32.2 pg (27.0-33.0); MEAN CORPUSCULAR HGB CONC 35.7 g/dl (32.0-36.5); MEAN CORPUSCULAR VOLUME 90.4 fl (80.0-96.0); MONO # 0.4 10^3/uL (0.0-0.8); MONO % 11.2 % (0.0-5.0); NEUTROPHILS # 2.6 10^3/uL (1.8-7.7); NEUTROPHILS % 69.5 % (36.0-66.0); PLATELET COUNT, AUTOMATED 103 10^3/uL (150-450); RED BLOOD COUNT 4.25 10^6/uL (4.30-6.10); WHITE BLOOD COUNT 3.8 10^3/uL (4.0-10.0)
[2018-10-14 11:05] LABS: INR 1.21; PROTHROMBIN TIME 15.5 SECONDS (12.1-14.4)
[2018-10-14 11:06] LABS: PARTIAL THROMBOPLASTIN TIME 32.5 SECONDS (25.4-37.6)
--- NOTE | 2018-10-14 11:18 | REP ---
CT Head without contrast HISTORY: Fall COMPARISON: 09/17/2018 Areas of decreased attenuation are present in the periventricular white matter. This represents small-vessel ischemic disease. There is no intraparenchymal hemorrhage, acute infarct, mass or midline shift. The ventricular system and cortical sulci as well as subarachnoid space in the posterior fossa are dilated consistent with moderate volume loss. There is no extra cerebral collection. There is no fracture. The visualized sinuses are clear. IMPRESSION: 1. Small vessel ischemic disease. 2. Moderate volume loss. Electronically Signed by Karthik Cruz MD 10/14/2018 11:09 A
[2018-10-14 11:21] LABS: ACETAMINOPHEN LEVEL < 2.0 UG/ML (10.0-30.0); ALBUMIN 3.5 GM/DL (3.2-5.2); ALT/SGPT 90 U/L (12-78); BILIRUBIN,DIRECT 0.6 MG/DL (0.0-0.2); BILIRUBIN,TOTAL 1.2 MG/DL (0.2-1.0); BLOOD UREA NITROGEN 3 MG/DL (7-18); CALCIUM LEVEL 8.7 MG/DL (8.8-10.2); CARBON DIOXIDE LEVEL 27 MEQ/L (21-32); CHLORIDE LEVEL 101 MEQ/L (98-107); CK-MB VALUE MASS < 1.0 NG/ML (<3.6); CPK CREATINE PHOSPHOKINASE 128 U/L (39-308); ETHYL ALCOHOL (ETHANOL) 0.198 % (0.000-0.010); FREE T4 1.18 NG/DL (0.76-1.46); GLOMERULAR FILTRATION RATE > 60.0 (>42); GLUCOSE, FASTING 142 MG/DL (70-100); LIPASE 297 U/L (73-393); MB/CK RELATIVE INDEX 0.78 (< OR =4); POTASSIUM SERUM 3.1 MEQ/L (3.5-5.1); SALICYLATE LEVEL < 1.7 MG/DL (5.0-30.0); SODIUM LEVEL 139 MEQ/L (136-145); THYROID STIMULATING HORMONE 0.729 uIU/ML (0.358-3.740); TOTAL PROTEIN 7.3 GM/DL (6.4-8.2); TROPONIN I < 0.02 NG/ML (< 0.10)
--- NOTE | 2018-10-14 11:23 | REP ---
CT cervical spine without contrast HISTORY: Fall COMPARISON: 09/17/2018 There is no acute fracture. Disc bulges with associated osteophyte formation are present at the C3-4 through C6-7 levels. There is minimal narrowing of the spinal canal. Uncinate process and/or facet hypertrophy are present at the C2-3 through C7-T1 levels. These findings produce minimal to severe narrowing of the neural foramina. The C2-3 through C7-T1 intervertebral discs are decreased in height consistent with disc degeneration. There are 2 mm of anterior subluxation of C7 on T1. IMPRESSION: 1. There is no acute fracture. 2. There is cervical spondylosis at the C2-3 through C7-T1 levels. Electronically Signed by Karthik Cruz MD 10/14/2018 11:15 A
--- NOTE | 2018-10-14 11:52 | REP ---
CHEST X-RAY: Single AP view. HISTORY: Chest pain. COMPARISON STUDY: September 17, 2018. FINDINGS: EKG monitoring electrodes overlie the chest. Interstitial markings are somewhat prominent as on prior study consistent with peripheral pattern of interstitial fibrosis. Heart is not enlarged. No acute infiltrate is seen. The aorta is tortuous. IMPRESSION: Prominent interstitial markings. No acute disease seen. Electronically Signed by Isma Nieto MD 10/14/2018 06:01 P
--- NOTE | 2018-10-14 11:53 | REP ---
AP PELVIS, ONE VIEW: HISTORY: Fall. There is no acute fracture or dislocation. There is mild and minimal narrowing of the right and left hip joint spaces respectively. There is sclerosis in the acetabulum bilaterally. IMPRESSION: Degenerative change as described above. Electronically Signed by Karthik Cruz MD 10/14/2018 12:08 P
--- NOTE | 2018-10-14 12:00 | REP ---
BILATERAL HIPS, FOUR VIEWS: HISTORY: Fall. RIGHT HIP: There is no acute fracture or dislocation. There is mild narrowing of the joint space with associated sclerosis. IMPRESSION: There is no acute fracture or dislocation. LEFT HIP: There is no acute fracture or dislocation. There is minimal narrowing of the joint space with associated sclerosis. IMPRESSION: There is no acute fracture or dislocation. Electronically Signed by Karthik Cruz MD 10/14/2018 12:08 P
[2018-10-14 13:45] LABS: AMPHETAMINES LEVEL URINE NEGATIVE (NEGATIVE); BARBITURATES URINE NEGATIVE (NEGATIVE); BENZODIAZEPINES URINE NEGATIVE (NEGATIVE); CANNABINOIDS URINE NEGATIVE (NEGATIVE); COCAINE METABOLITE URINE NEGATIVE (NEGATIVE); METHADONE URINE NEGATIVE (NEGATIVE); OPIATES URINE NEGATIVE (NEGATIVE); PHENCYCLIDINE URINE NEGATIVE (NEGATIVE)
[2018-10-14 14:00] VITALS: BP 165/81
--- NOTE | 2018-10-14 20:02 | ECGEPIP ---
Stationary ECG Study [facility] - ED Test Date: 2018-10-14 Pat Name: TYSON NGUYEN Department: Room: - Gender: M Financial Services Rep: : 1945 Requested By: Fransisca Griffin Order Number: [id number] Reading MD: Fransisca Griffin Measurements Intervals [place] Rate: 79 P: 5 [place]: 134 QRS: -15 QRSD: 91 T: -8 QT: 393 QTc: 451 Interpretive Statements SINUS RHYTHM SHORT [place] INTERVAL POSSIBLE ANTERIOR MYOCARDIAL INFARCTION, PROBABLY OLD NONSPECIFIC ST T WAVE CHANGES INFERIOR WALL MA AGE UNDETERMINED CW RATE INCREASED NONSPECIFIC ST T WAVE CHANGES Electronically Signed On 10-14-2018 20:02:24 EST by Fransisca Griffin
== END 2018-10-14 14:01 | disposition home or self-care (01) ==
LOC: EDBD 10:23 → M ED 10:23
DX: S09.90XA Unspecified injury of head, initial encounter (principal); F10.10 Alcohol abuse, uncomplicated; W01.0XXA Fall on same level from slipping, tripping and stumbling without subsequent striking against object, initial encounter; Y92.098 Other place in other non-institutional residence as the place of occurrence of the external cause; M25.551 Pain in right hip; M25.552 Pain in left hip; K21.9 Gastro-esophageal reflux disease without esophagitis; Z87.19 Personal history of other diseases of the digestive system; M54.9 Dorsalgia, unspecified; F41.9 Anxiety disorder, unspecified; F32.9 Major depressive disorder, single episode, unspecified; J45.909 Unspecified asthma, uncomplicated; Z91.012 Allergy to eggs; Z91.048 Other nonmedicinal substance allergy status; Z79.899 Other long term (current) drug therapy; Z79.82 Long term (current) use of aspirin
CPT/HCPCS: 36415; 70450; 71045; 72125; 72170; 73502; 80048; 80076; 80307; 82550; 82553; 83690; 84439; 84443; 84484; 85025; 85610; 85730; 93005; 93041; 94760; 99285; G0480

== ENCOUNTER 2019-02-24 19:19 | Inpatient (IN) | payer MEDICARE, OTHER ==
[~2019-02-24] VITALS: Ht 170.2 cm; Wt 112.9 kg
[~2019-02-24 19:19] MED LIST changes: +ASPI-1 PO; -ASPI325T PO; +ASPI325T55 PO; -SM A PO
--- NOTE | 2019-02-24 20:26 | REP ---
Clinical: Trauma. Comparison: 09/17/2018 . Findings: Age-related atrophy with periventricular leukomalacia and microvascular ischemic changes are appreciated. The ventricles and sulci are symmetric. Pereira-white differentiation is maintained. There is no evidence for acute intracranial hemorrhage, mass/mass effect, pathology or infarction. No extra-axial fluid collection. Calvarium is intact. Paranasal sinuses and mastoid air cells are clear. Impression: Atrophy and microvascular ischemic changes. No acute intracranial hemorrhage, infarction, or mass/mass effect. Electronically Signed by Henry Cantu MD 02/24/2019 08:18 P
--- NOTE | 2019-02-24 20:33 | REP ---
Clinical: Trauma. Technique: Axial noncontrast images from the lung bases to the pubic symphysis with coronal and sagittal re-formations. Comparison: None Findings: Lung bases demonstrate fibrosis and scarring. Visualized heart and pericardium normal. The liver appears shrunken with a multi nodular contour consistent with cirrhosis. Spleen, pancreas, bilateral adrenal glands and kidneys are normal for noncontrast evaluation. Cholelithiasis noted without acute cholecystitis. The enteric system is without obstruction or acute inflammatory process. Pelvis demonstrates normal bladder and age appropriate prostate/seminal vesicles. No ascites. No free air. No significant adenopathy. Abdominal aorta without aneurysm. Musculoskeletal structures demonstrate advanced degenerative disc osteophyte complexes without obvious acute fracture. Impression: 1. No acute abdominopelvic pathology or trauma/injury appreciated. No ascites. No focal inflammatory stranding. No free air. No adenopathy. 2. Shrunken nodular liver most compatible with cirrhosis. 3. Cholelithiasis. 4. Fibrosis and scarring at the bilateral lung bases. Electronically Signed by Henry Cantu MD 02/24/2019 08:24 P
--- NOTE | 2019-02-24 20:37 | REP ---
Clinical: Trauma. Technique: Axial noncontrast images from T11 through mid sacrum with coronal and sagittal re-formations. Findings: Advanced degenerative disc osteophyte complexes noted throughout the entire lumbosacral spine including marked osteophytosis, subchondral sclerosis/heterogeneity, disc space narrowing / obliteration, and significant hypertrophic facet changes. There is no evidence for acute fracture / compression injury or subluxation. Alignment is relatively maintained. The spinous processes are intact. The paravertebral soft tissues are normal. Impression: Marked degenerative disc osteophyte complexes throughout the lumbosacral spine without evidence for acute fracture / compression injury or subluxation. Electronically Signed by Henry Cantu MD 02/24/2019 08:29 P
--- NOTE | 2019-02-24 20:39 | REP ---
Clinical: Trauma. Technique: PA and lateral views of the left knee. Findings: Moderate/early advanced tricompartmental osteoarthritic degenerative changes are appreciated. No definite acute fracture dislocation. Impression: No definite acute fracture. Electronically Signed by Henry Cantu MD 02/24/2019 08:30 P
[2019-02-24 20:45] LABS: BASO # 0.1 10^3/uL (0.0-0.2); BASO % 0.7 % (0.0-1.0); EOS # 0.2 10^3/uL (0.0-0.50); HEMATOCRIT 41.1 % (42.0-52.0); HEMOGLOBIN 14.4 g/dl (13.5-17.5); LYMPH # 0.9 10^3/uL (1.5-4.5); LYMPH % 7.5 % (24.0-44.0); MEAN CORPUSCULAR HEMOGLOBIN 32.1 pg (27.0-33.0); MEAN CORPUSCULAR VOLUME 91.7 fl (80.0-96.0); MONO # 0.8 10^3/uL (0.0-0.8); MONO % 6.6 % (0.0-5.0); NEUTROPHILS # 10.1 10^3/uL (1.8-7.7); NEUTROPHILS % 82.6 % (36.0-66.0); PLATELET COUNT, AUTOMATED 254 10^3/uL (150-450); RED BLOOD COUNT 4.48 10^6/uL (4.30-6.10); WHITE BLOOD COUNT 12.2 10^3/uL (4.0-10.0)
[2019-02-24 21:10] LABS: ALBUMIN 2.8 GM/DL (3.2-5.2); ALT/SGPT 45 U/L (12-78); BILIRUBIN,DIRECT 0.7 MG/DL (0.0-0.2); BILIRUBIN,TOTAL 1.8 MG/DL (0.2-1.0); BLOOD UREA NITROGEN 11 MG/DL (7-18); CALCIUM LEVEL 7.8 MG/DL (8.8-10.2); CARBON DIOXIDE LEVEL 32 MEQ/L (21-32); CHLORIDE LEVEL 98 MEQ/L (98-107); CREATININE FOR GFR 0.58 MG/DL (0.70-1.30); ETHYL ALCOHOL (ETHANOL) < 0.003 % (0.000-0.010); FREE THYROXINE INDEX 3.3 % (1.4-3.8); GLOMERULAR FILTRATION RATE > 60.0 (>42); GLUCOSE, FASTING 133 MG/DL (70-100); SODIUM LEVEL 140 MEQ/L (136-145); T UPTAKE 36 % (33-40); THYROXINE (T4) 9.2 UG/DL (4.5-12.0); TOTAL PROTEIN 7.1 GM/DL (6.4-8.2)
[2019-02-24] MEDS ORDERED: MULTIVITAMIN -ADULT INJECTION 10 ML, THIAMINE INJection 100 MG, FOLIC ACID 1 MG in NS 1... IV ONE (21:30)
[2019-02-24] MEDS ORDERED: POTASSIUM CHLORIDE 10 MEQ SR TABLET PO ONE (21:30)
[2019-02-24] MEDS ORDERED: OMEP-218 PO (22:02)
[2019-02-24] MEDS ORDERED: NYST10CR EXT (22:02)
[2019-02-24] MEDS ORDERED: VIAG100T PO (22:02)
[2019-02-24] MEDS ORDERED: ONDA4TAB5 PO (22:02)
[2019-02-24] MEDS ORDERED: THIA100T7 PO (22:02)
[2019-02-24] MEDS ORDERED: FURO20TA2 PO (22:02)
[2019-02-24] MEDS ORDERED: ONDANSETRON 4 MG TAB (S0181) PO PRN (23:30)
[2019-02-24] MEDS ORDERED: LORazepam 2 MG TAB PO PRN (23:30)
[2019-02-24 23:40] VITALS: BP_SYST 137; BP_SYST 143; BP_DIAS 78; BP_DIAS 90
[2019-02-25] MEDS: LORazepam 1 MG TAB PO SCH ×4 (00:49→17:57)
[2019-02-25 01:20] LABS: CPK CREATINE PHOSPHOKINASE 543 U/L (39-308)
--- NOTE | 2019-02-25 03:16 | HPEPDOC ---
General Date of Admission February 24, 2019 at 22:01 Date of Service: February 25, 2019 Other Providers Primary care provider: [facility] Attending Physician: ALFREDITO FU MD Chief Complaint The patient is a 74-year-old male admitted with a reason for visit of FALL. Source: Patient, Family, Old records Exam Limitations: No limitations Associated Symptoms: Weakness History of Present Illness Mr. Garcia is a 74-year-old male who presents to [facility]'s Emergency Department for fall. Patient is accompanied by his only daughter who provides a significant portion of his history. She states that the patient is a chronic alcoholic who consumes excessive amounts of whiskey which she is unable to quantify. She states that she had called her father on Saturday and he made no mention of the fact that he had fallen. She attempted to call him Saturday and Saturday, but he did not answer the phone. She says that when he did not answer the door at his low income apartment, she had the door opened and found him on the ground laying in his own excrement. The patient states that he had fallen secondary to his "bad knees" and that he was unable to reach the phone consistently. He was unable to call for help as it was over the holiday weekend. His daughter says that his apartment is in a deplorable state and uninhabitable. She states that his bathroom is covered in feces. However, patient states that he is not incontinent of stool or urine and is able to perform ADLs. The patient's daughter states that she already has patient established with Medicaid and has an application in at [facility]. She had previously filed ELY paperwork in August; however, that paperwork is only valid for 60 or 90 days and has since relapsed. Daughter states that she is physically and emotionally unable to care for her father, but keeps returning to care for him because she is an only child and her father has no one else. She states that he did briefly live with her and her family for 2.5 months from June 2018 to September 2018 until his current living arrangement was made. She states that his previous living arrangement kept his belongings to off-set the cost of damages. She has previously called [employer], but that her father will not allow them access to his home so they are unable to intervene. She states that his current living arrangement may not last much longer. Patient and daughter state that he is visually hallucinating. He says that he is watching TV on the ceiling. It is not a good show as it is something Estonian and he cannot understand it. He does not have the sensation of bugs crawling on him. He is alert and oriented and able to correctly give me his name, date of , and current year. He states that he does have chronic back pain and that he is developing some numbness/tingling in his right small finger. Emergency Department evaluation revealed a mild neutrophilic leukocytosis of 12.2, mild hypokalemia fo 3.0, indirect hyperbilirubinemia of 1.1, AST > ALT (65, 45), normal platelets, prolonged PTT of 15.5, negative EtOH level of < 0.003. CT lumbar spine, knee x-ray, and CT head were unremarkable. CT abdomen and pelvis revealed cirrhosis and cholelithiasis. Hospitalist service was consulted and patient was admitted for further medical management. Home Medications Scheduled Aspirin (Aspirin) 325 Mg Tab, 650 MG PO BID, (Reported) Bupropion HCl (Wellbutrin Xl) 300 Mg Tab, 300 MG PO DAILY, (Reported) Furosemide (Furosemide) 20 Mg Tablet, 20 MG PO DAILY, (Reported) Multivitamins (Thera M Plus Tablet) 1 Tab Tab, 1 TAB PO DAILY, (Reported) Omeprazole (Omeprazole) 20 Mg Capsule.dr, 20 MG PO DAILY, (Reported) Thiamine HCl (Thiamine HCl) 100 Mg Tablet, 100 MG PO DAILY, (Reported) Scheduled PRN Nystatin (Nystatin) 15 Gm Cream..g., 1 DOSE EXT TID PRN for RASH, (Reported) USES UNDER BREASTS Ondansetron HCl (Ondansetron HCl) 4 Mg Tablet, 4 MG PO Q8H PRN for NAUSEA, (Reported) Sildenafil Citrate (Viagra) 100 Mg Tablet, 100 MG PO DAILY PRN for ERECTILE DYSFUNCTION, (Reported) Allergies Coded Allergies: ether (Verified Allergy, Severe, ANAPHYLAXIS, 02/24/19) egg (Verified Allergy, Mild, RASH, 02/24/19) GME ATTESTATION My faculty preceptor for this patient encounter was physically present during the encounter and was fully available. All aspects of the patient interview, examination, medical decision making process, and medical care plan development were reviewed and approved by the faculty preceptor. The faculty preceptor is aware and concurs with the plan as stated in the body of this note and will attest to such by his/her cosignature. Past Medical History Medical History 1. Alcoholic cirrhosis 2. Alcohol dependence 3. History of alcoholic hepatitis 4. Pancreatitis 5. Anxiety 6. Erectile dysfunction 7. GERD 8. Nausea Surgical History 1. EGD 2. Colonoscopy 3. Appendectomy 4. B/L knee surgery Family History Father: , 60s, cancer Mother: , 69, lung cancer Siblings - Brother: Alive, 77, healthy Social History * Smoker: former Smoker Alcohol: heavy Drugs: marijuana (remote history) Patient lives independently in low income housing. He has been twice. He has one adult daughter. He has a remote history of tobacco dependence. He currently consumes copious amounts of alcohol daily. He completed basic tim anya in the . 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 A-FIB/CHADSVASC A-FIB History Current/History of A-Fib/PAF?: No Review of Systems Constitutional: Reports: Weakness; Denies: Chills, Fever, Night Sweats Eyes: Denies: Pain, Vision change, Conjunctivae inflammation, Eyelid inflammation ENT: Denies: Head Aches, Dysphagia, Sinus Congestion, Post Nasal Drip, Sore Th roat, Epistaxis Skin: Denies: Rash, Lesions, Jaundice Pulmonary: Denies: Dyspnea, Cough, Pleuritic Chest Pain Cardiovascular: Denies: Chest Pain, Palpitations, Orthopnea, Paroxysmal Noc. Dyspnea, Edema, Lt Headedness Gastrointestinal: Denies: Nausea, Vomiting, Abdominal Pain, Diarrhea, Constipation, Melena, Hematochezia Genitourinary: Denies: Dysuria, Frequency, Incontinence, Hematuria Hematologic: Denies: Bruising, Bleeding Excessively Endocrine: Denies: Polydipsia, Polyphagia Musculoskeletal: Reports: Back Pain; Denies: Neck Pain Neurological: Reports: Weakness; Denies: Numbness Physical Examination General Exam: Positive: Alert, Cooperative Eye Exam: Positive: PERRLA, Conjunctiva & lids normal, EOMI; Negative: Sclera icteric, Ptosis ENT Exam: Positive: Mucous membr. moist/pink, Pharynx Normal, Tongue Midline, Nares Patent, Other ENT (abrasion on left cheondoism, upper and lower dentures in poor repair); Negative: Pharyngeal Edema Neck Exam: Positive: Supple, +2 carotid pulse wo bruit; Negative: JVD, thyromegaly, Lymphadenopathy Chest Exam: Positive: Clear to auscultation, Normal air movement; Negative: Rales, Rhonchi, Wheezing, Diminished Heart Exam: Positive: Rate Normal, Regular Rhythm, Normal S1, Normal S2; Negative: Gallops, Murmurs, Rubs Telemetry: Positive: Sinus Abdomen Exam: Positive: Normal bowel sounds, Soft; Negative: Tenderness, Hepatospenomegaly, Mass, Hernia Extremity Exam: Positive: Edema (trace, B/L), Normal pulses, Tenderness (along anterior tibia, right); Negative: Clubbing, Cyanosis Skin Exam: Positive: Breakdown (low back, buttocks), Other skin issue (excoritated erythematous confluent macular rash noted under B/L breasts, B/L inguinal folds, posterior thighs); Negative: Rash Neuro Exam: Positive: Normal Speech, Cranial Nerves 3-12 NL, Other (B/L LE myoclonus, B/L UE tremulousness) Psych Exam: Positive: Oriented x [address] Other physical findings 1. CT lumbar spine without contrast on 02/24/2019 - Marked degenerative disc osteophyte complexes throughout the lumbosacral spine without evidence for acute fracture / compression injury or subluxation. 2. Left AP/lateral knee x-ray on 02/24/2019 - No definite acute fracture. 3. CT head without contrast on 02/24/2019 - Atrophy and microvascular ischemic changes. No acute intracranial hemorrhage, infarction, or mass/mass effect. 4. CT abdomen and pelvis without contrast on 02/24/2019 - No acute abdominopelvic pathology or trauma/injury appreciated. No ascites. No focal inflammatory stranding. No free air. No adenopathy. Shrunken nodular liver most compatible with cirrhosis. Cholelithiasis. Fibrosis and scarring at the bilateral lung bases. Vital Signs Vital Signs Date Time Temp Pulse Resp B/P (MAP) Pulse Ox O2 Delivery O2 Flow Rate FiO2 02/24/19 23:25 137/78 02/24/19 23:04 80 20 98 Room Air 02/24/19 21:11 99.2 Laboratory Data Labs 24H Laboratory Tests 2 02/24/19 20:16: Immature Granulocyte % (Auto) 0.6, White Blood Count 12.2H, Red Blood Count 4. 48, Hemoglobin 14.4, Hematocrit 41.1L, Mean Corpuscular Volume 91.7, Mean Corpuscular Hemoglobin 32.1, Mean Corpuscular Hemoglobin Concent 35.0, Red Cell Distribution Width 14.2, Platelet Count 254, Neutrophils (%) (Auto) 82.6H, Lymphocytes (%) (Auto) 7.5L, Monocytes (%) (Auto) 6.6H, Eosinophils (%) (Auto) 2.0, Basophils (%) (Auto) 0.7, Neutrophils # (Auto) 10.1H, Lymphocytes # (Auto) 0.9L, Monocytes # (Auto) 0.8, Eosinophils # (Auto) 0.2, Basophils # (Auto) 0.1, Nucleated Red Blood Cells % (auto) 0.0, Anion Gap 10, Glomerular Filtration Rate > 60.0, Calcium Level 7.8L, Aspartate Amino Transf (AST/SGOT) 65H, Alanine Aminotransferase (ALT/SGPT) 45, Alkaline Phosphatase 109, Total Bilirubin 1.8H, Direct Bilirubin 0.7H, Ammonia 27, Total Protein 7.1, Albumin 2.8L, Albumin/Globulin Ratio 0.65L, Thyroid Stimulating Hormone (TSH) 2.510, Free Thyroxine Index 3.3, Thyroxine (T4) 9.2, Triiodothyronine (T3) Uptake 36, Ethyl Alcohol Level < 0.003 CBC/BMP Laboratory Tests 02/24/19 20:16 Red Blood Count 4.48, Mean Corpuscular Volume 91.7, Mean Corpuscular Hemoglobin 32.1, Mean Corpuscular Hemoglobin Concent 35.0, Red Cell Distribution Width 14.2, Neutrophils (%) (Auto) 82.6 H, Lymphocytes (%) (Auto) 7.5 L, Monocytes (%) (Auto) 6.6 H, Eosinophils (%) (Auto) 2.0, Basophils (%) (Auto) 0.7, Neutrophils # (Auto) 10.1 H, Lymphocytes # (Auto) 0.9 L, Monocytes # (Auto) 0.8, Eosinophils # (Auto) 0.2, Basophils # (Auto) 0.1 Plan / VTE VTE Prophylaxis Ordered?: Yes (TEDs and sequentials) Plan Plan 1. Fall - Likely mechanical. No head trauma sustained. Imaging unremarkable. No syncope. Lactic acid unremarkable. Obtaining CPK level. Patient at high risk for deep tissue injury and infection due to length of time spent on the ground without assistance. Wound care ordered. Fall risk precautions in place. 2. Alcohol dependence with alcohol withdrawal - Patient is hallucinating. CIWA protocol initiated with Lorazepam PRN. Lorazepam 1mg PO Q6H. Complete banana bag. Initiate Folic Acid, multivitamin, and Thiamine. Patient may have a regular diet. EtOH level unremarkable. No physical stigmata of liver disease noted on examination, including caput medusa or spider telangiectasias. Ammonia level unremarkable. 3. Neutrophilic leukocytosis - Likely reactive given that there are no other s ystemic or constitutional symptoms indicating an infective process. Monitor with daily labs. 4. Electrolyte abnormalities - Likely result of nutritional deficiency. Potassium supplementation provided. Corrected calcium is 8.8. No supplementation required at this time. 5. Indirect hyperbilirubinemia with transaminitis - Likely secondary to alcohol dependence. Monitor with daily labs. Ammonia level unremarkable. 6. Rhabdomyolysis and weakness - Completed banana bag. Initiated NS @ 125 mL s/hr. Daily labs. PT and OT ordered. 7. GERD - Continue Omeprazole. 8. Anxiety/depression - Continue Bupropion. 9. Intertrigo - Continue Nystatin. 10. Deep tissue injuries - Wound care had been ordered. Due to patient reported as being found down on ground for an extended amount of time he is at significantly increased risk for deep tissue injuries, pressure wounds, ulcers, and infection. Disposition Admit: Med/Surg Anticipated hospitalization: Observation Attending: Diet: Continue Current (regular diet) Activity: Continue Current (OOB encourage ambulation with assist) Therapy: PT, OT Pt and Family Services: Other PFS (potential placement) Medications: Replete Electrolytes PO Diagnostics: Check Labs, Repeat Labs in AM, Obtain Cultures Anticipated Discharge: Assisted EILEEN GARCIA DO February 25, 2019 00:36 ALFREDITO FU MD February 25, 2019 06:06
[2019-02-25] MEDS: NS 1,000 ML IV SCH ×3 (03:45→18:54)
[2019-02-25 06:00] VITALS: BP 136/65
[2019-02-25 07:03] LABS: HEMATOCRIT 41.2 % (42.0-52.0); HEMOGLOBIN 13.9 g/dl (13.5-17.5); MEAN CORPUSCULAR HEMOGLOBIN 31.2 pg (27.0-33.0); MEAN CORPUSCULAR HGB CONC 33.7 g/dl (32.0-36.5); MEAN CORPUSCULAR VOLUME 92.6 fl (80.0-96.0); PLATELET COUNT, AUTOMATED 219 10^3/uL (150-450); RED BLOOD COUNT 4.45 10^6/uL (4.30-6.10); WHITE BLOOD COUNT 9.6 10^3/uL (4.0-10.0)
[2019-02-25 07:36] LABS: ALBUMIN 2.7 GM/DL (3.2-5.2); ALT/SGPT 38 U/L (12-78); BILIRUBIN,TOTAL 1.7 MG/DL (0.2-1.0); BLOOD UREA NITROGEN 11 MG/DL (7-18); CALCIUM LEVEL 7.9 MG/DL (8.8-10.2); CARBON DIOXIDE LEVEL 28 MEQ/L (21-32); CHLORIDE LEVEL 102 MEQ/L (98-107); CPK CREATINE PHOSPHOKINASE 407 U/L (39-308); CREATININE FOR GFR 0.65 MG/DL (0.70-1.30); GLOMERULAR FILTRATION RATE > 60.0 (>42); GLUCOSE, FASTING 103 MG/DL (70-100); POTASSIUM SERUM 2.8 MEQ/L (3.5-5.1); SODIUM LEVEL 140 MEQ/L (136-145); TOTAL PROTEIN 6.9 GM/DL (6.4-8.2)
[2019-02-25 08:00] VITALS: BP 136/65
[2019-02-25] MEDS ORDERED: POTASSIUM CHLORIDE 10 MEQ SR TABLET PO ONE (08:00)
[2019-02-25 08:59] LABS: MAGNESIUM LEVEL 1.3 MG/DL (1.8-2.4)
[2019-02-25] MEDS ORDERED: THIAMINE 100 MG TAB PO SCH (09:00)
[2019-02-25] MEDS ORDERED: FUROSEMIDE 20 MG TAB PO SCH (09:00)
[2019-02-25] MEDS: buPROPion **XL** TABLET 150MG (WELLBUTRIN XL) PO SCH (10:32)
[2019-02-25] MEDS: OMEPRAZOLE 20 MG CAP PO SCH (10:32)
[2019-02-25] MEDS: FOLIC ACID 1 MG TAB PO SCH (10:33)
[2019-02-25] MEDS: ASPIRIN 325 MG TAB PO SCH ×2 (10:33→21:39)
[2019-02-25] MEDS: MULTIVITAMINS/MINERALS THERAP 1 TAB PO SCH (10:33)
[2019-02-25] MEDS: BALMEX CREAM 60GM TOP SCH ×2 (10:34→21:40)
--- NOTE | 2019-02-25 11:24 | IPNPDOC ---
Subjective Date Seen The patient was seen on 02/25/19. Subjective Chief Complaint/HPI As per patient, his visual hallucination are going away again interviewed patient in detail. He drinks about a liter and a half of a letter every other day. Denies any other new complaints at the present time General: Denies: ROS Unobtainable, Chills, Night Sweats, Fatigue, Malaise, Normal Appetite, Other Symptoms Constitutional: Denies: Chills, Fever, Malaise, Night Sweats, Weakness, Fatigue, Weight Loss, Lethargy, Other Eyes: Denies: Pain, Vision change, Conjunctivae inflammation, Eyelid inflammation, Redness, Other ENT: Denies: Head Aches, Ear Pain, Dysphagia, Sinus Congestion, Post Nasal Drip, Sore Throat, Epistaxis, Other Symptoms Skin: Denies: Rash, Lesions, Jaundice, Bruising, Itching, Dry, Breakdown, Nail Changes, Other Pulmonary: Denies: Dyspnea, Cough, Pleuritic Chest Pain, Other Symptoms Cardiovascular: Denies: Chest Pain, Palpitations, Orthopnea, Paroxysmal Noc. Dyspnea, Edema, Lt Headedness, Other Symptoms Gastrointestinal: Denies: Nausea, Vomiting, Abdominal Pain, Diarrhea, Constipation, Melena, Hematochezia, Other Symptoms Genitourinary: Denies: Dysuria, Frequency, Incontinence, Hematuria, Retention, Other Symptoms Hematologic: Denies: Bruising, Bleeding Excessively, Petecchia, Purpura, Enla rged Lymph Nodes, Other Hematologic Endocrine: Denies: Polydipsia, Polyphagia, Polyuria, Heat Intolerance, Cold Intolerance, Other Endocrine Sx Musculoskeletal: Denies: Neck Pain, Back Pain, Shoulder Pain, Arm Pain, Hand Pain, Leg Pain, Foot Pain, Joint Pain, Muscle Pain, Spasms, Other Symptoms Neurological: Denies: Weakness, Numbness, Incoordination, Change in speech, Confusion, Seizures, Other Symptoms Psych: Reports: Other Psych (visual hallucinations) Objective Physical Examination General Exam: Positive: Alert, Cooperative Eye Exam: Positive: PERRLA, Conjunctiva & lids normal, EOMI; Negative: Sclera icteric, Ptosis ENT Exam: Positive: Mucous membr. moist/pink, Pharynx Normal, Tongue Midline, Nares Patent, Other ENT (abrasion on left mandaeism, upper and lower dentures in poor repair); Negative: Pharyngeal Edema Neck Exam: Positive: Supple, +2 carotid pulse wo bruit; Negative: JVD, thyromegaly, Lymphadenopathy Chest Exam: Positive: Clear to auscultation, Normal air movement; Negative: Rales, Rhonchi, Wheezing, Diminished Heart Exam: Positive: Rate Normal, Regular Rhythm, Normal S1, Normal S2; Negative: Gallops, Murmurs, Rubs Telemetry: Positive: Sinus Abdomen Exam: Positive: Normal bowel sounds, Soft; Negative: Tenderness, Hepatospenomegaly, Mass, Hernia Extremity Exam: Positive: Edema (trace, B/L), Normal pulses, Tenderness (along anterior tibia, right); Negative: Clubbing, Cyanosis Skin Exam: Positive: Breakdown (low back, buttocks), Other skin issue (excoritated erythematous confluent macular rash noted under B/L breasts, B/L inguinal folds, posterior thighs); Negative: Rash Neuro Exam: Positive: Normal Speech, Cranial Nerves 3-12 NL, Other (B/L LE myoclonus, B/L UE tremulousness) Psych Exam: Positive: Oriented x 3 Assessment /Plan Problems (1) Alcohol withdrawal hallucinosis Status: Acute Response to Treatment: Stable Problem Text: Will start patient on CIWAprotocol Start benzodiazepine, thiamine, folic acid and multivitamins Close monitoring IV fluids Patient has a placement issues discussed with case management. We'll try to find a placement for him Plan/VTE VTE Prophylaxis Ordered?: Yes (TEDs and sequentials) Plan Diet: Continue Current (regular diet) Activity: Continue Current (OOB encourage ambulation with assist) Therapy: PT, OT Pt and Family Services: Other PFS (potential placement) Medications: Replete Electrolytes PO Diagnostics: Check Labs, Repeat Labs in AM, Obtain Cultures Anticipated Discharge: Intermediate VS, I&O, 24H, Fishbone Vital Signs/I&O Vital Signs Date Time Temp Pulse Resp B/P (MAP) Pulse Ox O2 Delivery O2 Flow Rate FiO2 02/25/19 06:00 98.6 86 18 136/65 (88) 95 02/24/19 23:04 Room Air I&O- Last 24 Hours up to 6 AM 02/25/19 06:00 Intake Total 600 ml Output Total 0 ml Balance 600 ml Laboratory Data 24H LABS Laboratory Tests 2 02/24/19 20:16: Immature Granulocyte % (Auto) 0.6, White Blood Count 12.2H, Red Blood Count 4.48, Hemoglobin 14.4, Hematocrit 41.1L, Mean Corpuscular Volume 91.7, Mean Corpuscular Hemoglobin 32.1, Mean Corpuscular Hemoglobin Concent 35.0, Red Cell Distribution Width 14.2, Platelet Count 254, Neutrophils (%) (Auto) 82.6H, Lymphocytes (%) (Auto) 7.5L, Monocytes (%) (Auto) 6.6H, Eosinophils (%) (Auto) 2.0, Basophils (%) (Auto) 0.7, Neutrophils # (Auto) 10.1H, Lymphocytes # (Auto) 0.9L, Monocytes # (Auto) 0.8, Eosinophils # (Auto) 0.2, Basophils # (Auto) 0.1, Nucleated Red Blood Cells % (auto) 0.0, Anion Gap 10, Glomerular Filtration Rate > 60.0, Calcium Level 7.8L, Aspartate Amino Transf (AST/SGOT) 65H, Alanine Aminotransferase (ALT/SGPT) 45, Alkaline Phosphatase 109, Total Bilirubin 1.8H, Direct Bilirubin 0.7H, Ammonia 27, Total Creatine Kinase 543H, Total Protein 7.1, Albumin 2.8L, Albumin/Globulin Ratio 0.65L, Thyroid Stimulating Hormone (TSH) 2.510, Free Thyroxine Index 3.3, Thyroxine (T4) 9.2, Triiodothyronine (T3) Uptake 36, Ethyl Alcohol Level < 0.003 02/25/19 06:31: Nucleated Red Blood Cells % (auto) 0.0, Anion Gap 10, Glomerular Filtration Rate > 60.0, Calcium Level 7.9L, Aspartate Amino Transf (AST/SGOT) 55H, Alanine Aminotransferase (ALT/SGPT) 38, Alkaline Phosphatase 103, Total Bilirubin 1.7H, Total Creatine Kinase 407H, Total Protein 6.9, Albumin 2.7L, Albumin/Globulin Ratio 0.64L, Blood Urea Nitrogen 11, Creatinine 0.65L, Sodium Level 140, Potassium Level 2.8*L, Chloride Level 102, Carbon Dioxide Level 28, Magnesium Level 1.3L CBC/BMP Laboratory Tests 02/24/19 20:16 Red Blood Count 4.48, Mean Corpuscular Volume 91.7, Mean Corpuscular Hemoglobin 32.1, Mean Corpuscular Hemoglobin Concent 35.0, Red Cell Distribution Width 14.2, Neutrophils (%) (Auto) 82.6 H, Lymphocytes (%) (Auto) 7.5 L, Monocytes (%) (Auto) 6.6 H, Eosinophils (%) (Auto) 2.0, Basophils (%) (Auto) 0.7, Neutrophils # (Auto) 10.1 H, Lymphocytes # (Auto) 0.9 L, Monocytes # (Auto) 0.8, Eosinophils # (Auto) 0.2, Basophils # (Auto) 0.1 02/25/19 06:31 Red Blood Count 4.45, Mean Corpuscular Volume 92.6, Mean Corpuscular Hemoglobin 31.2, Mean Corpuscular Hemoglobin Concent 33.7, Red Cell Distribution Width 14.5, Calcium Level 7.9 L, Aspartate Amino Transf (AST/SGOT) 55 H, Alanine Aminotransferase (ALT/SGPT) 38, Total Creatine Kinase 407 H, Alkaline Phosphatase 103, Total Bilirubin 1.7 H, Total Protein 6.9, Albumin 2.7 L ISHA TOMPKINS MD February 25, 2019 11:24
[2019-02-25] MEDS ORDERED: LORazepam 2 MG TAB PO PRN (11:30)
[2019-02-25 14:00] VITALS: BP 148/73
[2019-02-25] MEDS: ACETAMINOPHEN TAB 650MG DOSE (2X325MG) PO PRN (17:57)
[2019-02-25] MEDS: THIAMINE 100 MG TAB PO SCH (21:39)
[2019-02-25 22:00] VITALS: BP 124/62
[2019-02-26] MEDS: LORazepam 1 MG TAB PO SCH ×3 (00:07→12:56)
[2019-02-26] MEDS: NS 1,000 ML IV SCH ×3 (02:55→19:55)
[2019-02-26 06:00] VITALS: BP_SYST 123; BP_SYST 124; BP_DIAS 62
[2019-02-26 06:15] LABS: HEMATOCRIT 35.9 % (42.0-52.0); HEMOGLOBIN 12.2 g/dl (13.5-17.5); MEAN CORPUSCULAR HEMOGLOBIN 32.5 pg (27.0-33.0); MEAN CORPUSCULAR VOLUME 95.7 fl (80.0-96.0); PLATELET COUNT, AUTOMATED 150 10^3/uL (150-450); RED BLOOD COUNT 3.75 10^6/uL (4.30-6.10); WHITE BLOOD COUNT 6.4 10^3/uL (4.0-10.0)
[2019-02-26 06:36] LABS: ALBUMIN 2.3 GM/DL (3.2-5.2); ALT/SGPT 34 U/L (12-78); BILIRUBIN,TOTAL 0.8 MG/DL (0.2-1.0); BLOOD UREA NITROGEN 10 MG/DL (7-18); CALCIUM LEVEL 7.3 MG/DL (8.8-10.2); CARBON DIOXIDE LEVEL 26 MEQ/L (21-32); CHLORIDE LEVEL 109 MEQ/L (98-107); CPK CREATINE PHOSPHOKINASE 251 U/L (39-308); GLOMERULAR FILTRATION RATE > 60.0 (>42); GLUCOSE, FASTING 103 MG/DL (70-100); MAGNESIUM LEVEL 1.1 MG/DL (1.8-2.4); POTASSIUM SERUM 2.9 MEQ/L (3.5-5.1); SODIUM LEVEL 143 MEQ/L (136-145); TOTAL PROTEIN 5.9 GM/DL (6.4-8.2)
[2019-02-26] MEDS ORDERED: POTASSIUM CHLORIDE 10 MEQ SR TABLET PO ONE ×2 (06:56→09:00)
[2019-02-26] MEDS ORDERED: MAG SULF 1GM/100ML (MAG RUN) 1 GM in APPROPRIATE DILUENT 1 EA IV ONE ×2 (08:15→17:00)
[2019-02-26] MEDS ORDERED: FOLIC ACID 1 MG TAB PO SCH (09:00)
[2019-02-26] MEDS ORDERED: MULTIVITAMINS/MINERALS THERAP 1 TAB PO SCH (09:00)
[2019-02-26] MEDS: FOLIC ACID 1 MG TAB PO SCH (10:04)
[2019-02-26] MEDS: buPROPion **XL** TABLET 150MG (WELLBUTRIN XL) PO SCH (10:05)
[2019-02-26] MEDS: OMEPRAZOLE 20 MG CAP PO SCH (10:05)
[2019-02-26] MEDS: MULTIVITAMINS/MINERALS THERAP 1 TAB PO SCH (10:05)
[2019-02-26] MEDS: THIAMINE 100 MG TAB PO SCH ×2 (10:05→20:39)
[2019-02-26] MEDS: ASPIRIN 325 MG TAB PO SCH ×2 (10:05→20:39)
[2019-02-26] MEDS: ACETAMINOPHEN TAB 650MG DOSE (2X325MG) PO PRN (10:05)
[2019-02-26] MEDS: BALMEX CREAM 60GM TOP SCH ×2 (10:07→20:39)
[2019-02-26 14:00] VITALS: BP 127/72
[2019-02-26] MEDS: POTASSIUM CHLORIDE 10 MEQ SR TABLET PO SCH (20:38)
[2019-02-26 22:00] VITALS: BP 121/68
[2019-02-27] MEDS: NS 1,000 ML IV SCH ×3 (03:44→20:06)
[2019-02-27 06:00] VITALS: BP 122/68
[2019-02-27 07:12] LABS: HEMATOCRIT 35.9 % (42.0-52.0); HEMOGLOBIN 12.2 g/dl (13.5-17.5); MEAN CORPUSCULAR HEMOGLOBIN 32.8 pg (27.0-33.0); MEAN CORPUSCULAR VOLUME 96.5 fl (80.0-96.0); PLATELET COUNT, AUTOMATED 156 10^3/uL (150-450); RED BLOOD COUNT 3.72 10^6/uL (4.30-6.10); WHITE BLOOD COUNT 5.2 10^3/uL (4.0-10.0)
[2019-02-27 08:04] LABS: ALBUMIN 2.1 GM/DL (3.2-5.2); ALT/SGPT 36 U/L (12-78); BILIRUBIN,TOTAL 0.8 MG/DL (0.2-1.0); BLOOD UREA NITROGEN 6 MG/DL (7-18); CALCIUM LEVEL 6.8 MG/DL (8.8-10.2); CARBON DIOXIDE LEVEL 25 MEQ/L (21-32); CHLORIDE LEVEL 111 MEQ/L (98-107); CPK CREATINE PHOSPHOKINASE 236 U/L (39-308); CREATININE FOR GFR 0.56 MG/DL (0.70-1.30); GLOMERULAR FILTRATION RATE > 60.0 (>42); GLUCOSE, FASTING 104 MG/DL (70-100); MAGNESIUM LEVEL 1.5 MG/DL (1.8-2.4); POTASSIUM SERUM 3.7 MEQ/L (3.5-5.1); SODIUM LEVEL 143 MEQ/L (136-145); TOTAL PROTEIN 6.1 GM/DL (6.4-8.2)
[2019-02-27] MEDS: NYSTATIN 100,000 UNITS/GM TOPICAL PWD 15 GM TOP SCH ×2 (09:00→20:07)
[2019-02-27] MEDS: BALMEX CREAM 60GM TOP SCH ×2 (09:49→20:06)
[2019-02-27] MEDS: buPROPion **XL** TABLET 150MG (WELLBUTRIN XL) PO SCH (09:50)
[2019-02-27] MEDS: POTASSIUM CHLORIDE 10 MEQ SR TABLET PO SCH ×2 (09:50→20:06)
[2019-02-27] MEDS: MULTIVITAMINS/MINERALS THERAP 1 TAB PO SCH (09:50)
[2019-02-27] MEDS: OMEPRAZOLE 20 MG CAP PO SCH (09:50)
[2019-02-27] MEDS: FOLIC ACID 1 MG TAB PO SCH (09:50)
[2019-02-27] MEDS: NYSTATIN CREAM 15 GM EXT PRN (09:50)
[2019-02-27] MEDS: ASPIRIN 325 MG TAB PO SCH ×2 (09:50→20:06)
[2019-02-27] MEDS: THIAMINE 100 MG TAB PO SCH ×2 (09:50→20:06)
[2019-02-27 14:00] VITALS: BP 124/67
[2019-02-27] MEDS ORDERED: HumaLOG INSULIN (NovoLOG) PER UNIT SC ONE (18:15)
[2019-02-27 22:00] VITALS: BP 133/74
[2019-02-28] MEDS: NS 1,000 ML IV SCH ×3 (04:00→20:48)
[2019-02-28 06:00] VITALS: BP 134/76
[2019-02-28 06:41] LABS: HEMATOCRIT 37.4 % (42.0-52.0); HEMOGLOBIN 12.5 g/dl (13.5-17.5); MEAN CORPUSCULAR HEMOGLOBIN 31.3 pg (27.0-33.0); MEAN CORPUSCULAR HGB CONC 33.4 g/dl (32.0-36.5); MEAN CORPUSCULAR VOLUME 93.7 fl (80.0-96.0); PLATELET COUNT, AUTOMATED 145 10^3/uL (150-450); RED BLOOD COUNT 3.99 10^6/uL (4.30-6.10); WHITE BLOOD COUNT 5.8 10^3/uL (4.0-10.0)
[2019-02-28 07:04] LABS: ALBUMIN 2.3 GM/DL (3.2-5.2); ALT/SGPT 43 U/L (12-78); BILIRUBIN,TOTAL 0.7 MG/DL (0.2-1.0); BLOOD UREA NITROGEN 5 MG/DL (7-18); CALCIUM LEVEL 7.8 MG/DL (8.8-10.2); CARBON DIOXIDE LEVEL 24 MEQ/L (21-32); CHLORIDE LEVEL 107 MEQ/L (98-107); CPK CREATINE PHOSPHOKINASE 156 U/L (39-308); CREATININE FOR GFR 0.56 MG/DL (0.70-1.30); GLOMERULAR FILTRATION RATE > 60.0 (>42); GLUCOSE, FASTING 114 MG/DL (70-100); POTASSIUM SERUM 4.2 MEQ/L (3.5-5.1); SODIUM LEVEL 140 MEQ/L (136-145); TOTAL PROTEIN 6.6 GM/DL (6.4-8.2)
[2019-02-28 08:34] VITALS: BP 165/86
[2019-02-28] MEDS: OMEPRAZOLE 20 MG CAP PO SCH (08:54)
[2019-02-28] MEDS: buPROPion **XL** TABLET 150MG (WELLBUTRIN XL) PO SCH (08:55)
[2019-02-28] MEDS: FOLIC ACID 1 MG TAB PO SCH (08:55)
[2019-02-28] MEDS: MULTIVITAMINS/MINERALS THERAP 1 TAB PO SCH (08:55)
[2019-02-28] MEDS: POTASSIUM CHLORIDE 10 MEQ SR TABLET PO SCH ×2 (08:56→20:47)
[2019-02-28] MEDS: ASPIRIN 325 MG TAB PO SCH ×2 (08:56→20:47)
[2019-02-28] MEDS: NYSTATIN CREAM 15 GM EXT PRN (08:57)
[2019-02-28] MEDS: BALMEX CREAM 60GM TOP SCH ×2 (08:58→20:47)
[2019-02-28] MEDS: NYSTATIN 100,000 UNITS/GM TOPICAL PWD 15 GM TOP SCH ×2 (08:58→20:48)
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
[2019-02-28 14:00] VITALS: BP 134/76
[2019-02-28 22:00] VITALS: BP 131/81
[2019-03-01] MEDS: ACETAMINOPHEN TAB 650MG DOSE (2X325MG) PO PRN ×2 (04:40→20:52)
[2019-03-01 06:00] VITALS: BP 129/66
[2019-03-01 06:35] LABS: HEMOGLOBIN 13.4 g/dl (13.5-17.5); MEAN CORPUSCULAR HEMOGLOBIN 31.5 pg (27.0-33.0); MEAN CORPUSCULAR HGB CONC 33.5 g/dl (32.0-36.5); MEAN CORPUSCULAR VOLUME 94.1 fl (80.0-96.0); PLATELET COUNT, AUTOMATED 151 10^3/uL (150-450); RED BLOOD COUNT 4.25 10^6/uL (4.30-6.10); WHITE BLOOD COUNT 5.9 10^3/uL (4.0-10.0)
[2019-03-01 07:22] LABS: ALBUMIN 2.5 GM/DL (3.2-5.2); ALT/SGPT 49 U/L (12-78); BILIRUBIN,TOTAL 1.1 MG/DL (0.2-1.0); BLOOD UREA NITROGEN 6 MG/DL (7-18); CALCIUM LEVEL 8.4 MG/DL (8.8-10.2); CARBON DIOXIDE LEVEL 27 MEQ/L (21-32); CHLORIDE LEVEL 107 MEQ/L (98-107); CPK CREATINE PHOSPHOKINASE 96 U/L (39-308); GLOMERULAR FILTRATION RATE > 60.0 (>42); GLUCOSE, FASTING 103 MG/DL (70-100); MAGNESIUM LEVEL 1.6 MG/DL (1.8-2.4); POTASSIUM SERUM 4.9 MEQ/L (3.5-5.1); SODIUM LEVEL 141 MEQ/L (136-145)
[2019-03-01] MEDS: OMEPRAZOLE 20 MG CAP PO SCH (08:26)
[2019-03-01] MEDS: ASPIRIN 325 MG TAB PO SCH ×2 (08:26→20:52)
[2019-03-01] MEDS: POTASSIUM CHLORIDE 10 MEQ SR TABLET PO SCH ×3 (08:26→20:51)
[2019-03-01] MEDS: MULTIVITAMINS/MINERALS THERAP 1 TAB PO SCH (08:26)
[2019-03-01] MEDS: FOLIC ACID 1 MG TAB PO SCH (08:26)
[2019-03-01] MEDS: buPROPion **XL** TABLET 150MG (WELLBUTRIN XL) PO SCH (08:26)
[2019-03-01] MEDS: NYSTATIN 100,000 UNITS/GM TOPICAL PWD 15 GM TOP SCH ×2 (08:27→20:52)
[2019-03-01] MEDS: BALMEX CREAM 60GM TOP SCH ×2 (08:27→20:52)
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
[2019-03-01 14:00] VITALS: BP 142/80
[2019-03-01 22:00] VITALS: BP 123/74
[2019-03-02 06:00] VITALS: BP 139/88
[2019-03-02 06:22] LABS: HEMATOCRIT 38.9 % (42.0-52.0); MEAN CORPUSCULAR HEMOGLOBIN 32.2 pg (27.0-33.0); MEAN CORPUSCULAR HGB CONC 33.4 g/dl (32.0-36.5); MEAN CORPUSCULAR VOLUME 96.3 fl (80.0-96.0); PLATELET COUNT, AUTOMATED 153 10^3/uL (150-450); RED BLOOD COUNT 4.04 10^6/uL (4.30-6.10); WHITE BLOOD COUNT 5.6 10^3/uL (4.0-10.0)
[2019-03-02 06:55] LABS: ALBUMIN 2.3 GM/DL (3.2-5.2); ALT/SGPT 51 U/L (12-78); BILIRUBIN,TOTAL 0.8 MG/DL (0.2-1.0); BLOOD UREA NITROGEN 11 MG/DL (7-18); CALCIUM LEVEL 7.9 MG/DL (8.8-10.2); CARBON DIOXIDE LEVEL 27 MEQ/L (21-32); CHLORIDE LEVEL 107 MEQ/L (98-107); CPK CREATINE PHOSPHOKINASE 59 U/L (39-308); CREATININE FOR GFR 0.65 MG/DL (0.70-1.30); GLOMERULAR FILTRATION RATE > 60.0 (>42); GLUCOSE, FASTING 120 MG/DL (70-100); POTASSIUM SERUM 4.2 MEQ/L (3.5-5.1); SODIUM LEVEL 139 MEQ/L (136-145)
[2019-03-02 06:56] LABS: TOTAL PROTEIN 6.8 GM/DL (6.4-8.2)
[2019-03-02] MEDS: ASPIRIN 325 MG TAB PO SCH ×2 (08:19→21:05)
[2019-03-02] MEDS: OMEPRAZOLE 20 MG CAP PO SCH (08:19)
[2019-03-02] MEDS: MULTIVITAMINS/MINERALS THERAP 1 TAB PO SCH (08:20)
[2019-03-02] MEDS: BALMEX CREAM 60GM TOP SCH ×2 (08:20→21:06)
[2019-03-02] MEDS: buPROPion **XL** TABLET 150MG (WELLBUTRIN XL) PO SCH (08:20)
[2019-03-02] MEDS: FOLIC ACID 1 MG TAB PO SCH (08:20)
[2019-03-02] MEDS: NYSTATIN 100,000 UNITS/GM TOPICAL PWD 15 GM TOP SCH ×2 (08:21→21:07)
[2019-03-02] MEDS: POTASSIUM CHLORIDE 10 MEQ SR TABLET PO SCH ×2 (09:41→21:06)
[2019-03-02] MEDS: ACETAMINOPHEN TAB 650MG DOSE (2X325MG) PO PRN ×2 (09:41→21:06)
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
[2019-03-02 14:00] VITALS: BP 136/85
[2019-03-02] MEDS: FLUCONAZOLE 100 MG TAB PO SCH (21:05)
[2019-03-02 22:00] VITALS: BP 104/64
[2019-03-03 06:00] VITALS: BP 148/86
[2019-03-03 06:09] LABS: HEMATOCRIT 40.1 % (42.0-52.0); HEMOGLOBIN 13.4 g/dl (13.5-17.5); MEAN CORPUSCULAR HEMOGLOBIN 32.4 pg (27.0-33.0); MEAN CORPUSCULAR HGB CONC 33.4 g/dl (32.0-36.5); MEAN CORPUSCULAR VOLUME 97.1 fl (80.0-96.0); PLATELET COUNT, AUTOMATED 164 10^3/uL (150-450); RED BLOOD COUNT 4.13 10^6/uL (4.30-6.10); WHITE BLOOD COUNT 4.9 10^3/uL (4.0-10.0)
[2019-03-03 06:37] LABS: ALBUMIN 2.6 GM/DL (3.2-5.2); ALT/SGPT 52 U/L (12-78); BILIRUBIN,TOTAL 0.6 MG/DL (0.2-1.0); BLOOD UREA NITROGEN 11 MG/DL (7-18); CALCIUM LEVEL 8.6 MG/DL (8.8-10.2); CARBON DIOXIDE LEVEL 25 MEQ/L (21-32); CHLORIDE LEVEL 108 MEQ/L (98-107); CPK CREATINE PHOSPHOKINASE 52 U/L (39-308); CREATININE FOR GFR 0.71 MG/DL (0.70-1.30); GLOMERULAR FILTRATION RATE > 60.0 (>42); GLUCOSE, FASTING 108 MG/DL (70-100); POTASSIUM SERUM 4.3 MEQ/L (3.5-5.1); SODIUM LEVEL 140 MEQ/L (136-145); TOTAL PROTEIN 7.1 GM/DL (6.4-8.2)
[2019-03-03] MEDS: FOLIC ACID 1 MG TAB PO SCH (09:19)
[2019-03-03] MEDS: buPROPion **XL** TABLET 150MG (WELLBUTRIN XL) PO SCH (09:19)
[2019-03-03] MEDS: POTASSIUM CHLORIDE 10 MEQ SR TABLET PO SCH ×2 (09:19→21:55)
[2019-03-03] MEDS: ASPIRIN 325 MG TAB PO SCH (09:19)
[2019-03-03] MEDS: OMEPRAZOLE 20 MG CAP PO SCH (09:19)
[2019-03-03] MEDS: MULTIVITAMINS/MINERALS THERAP 1 TAB PO SCH (09:19)
[2019-03-03] MEDS: BALMEX CREAM 60GM TOP SCH ×2 (09:20→21:56)
[2019-03-03] MEDS: NYSTATIN 100,000 UNITS/GM TOPICAL PWD 15 GM TOP SCH ×2 (09:20→21:56)
[2019-03-03] MEDS: FLUCONAZOLE 100 MG TAB PO SCH ×2 (09:20→21:55)
[2019-03-03 14:00] VITALS: BP 140/82
--- NOTE | 2019-03-03 17:14 | IPNPDOC ---
Subjective Date Seen The patient was seen on 03/03/19. Subjective Chief Complaint/HPI The patient has no complaints. His appetite is very good. He feels unsteady while ambulating. Denies a fever, chills, nausea, vomiting, or diarrhea. Denies chest pain or palpitation. General: Reports: Normal Appetite Constitutional: Denies: Chills, Fever, Malaise, Night Sweats, Weakness, Fatigue, Weight Loss, Lethargy, Other Eyes: Denies: Pain, Vision change, Conjunctivae inflammation, Eyelid inflammation, Redness, Other ENT: Denies: Head Aches, Ear Pain, Dysphagia, Sinus Congestion, Post Nasal Drip, Sore Throat, Epistaxis, Other Symptoms Skin: Denies: Rash, Lesions, Jaundice, Bruising, Itching, Dry, Breakdown, Nail Changes, Other Pulmonary: Denies: Dyspnea, Cough, Pleuritic Chest Pain, Other Symptoms Cardiovascular: Denies: Chest Pain, Palpitations, Orthopnea, Paroxysmal Noc. Dyspnea, Edema, Lt Headedness, Other Symptoms Gastrointestinal: Denies: Nausea, Vomiting, Abdominal Pain, Diarrhea, Constipation, Melena, Hematochezia, Other Symptoms Genitourinary: Denies: Dysuria, Frequency, Incontinence, Hematuria, Retention, Other Symptoms Hematologic: Denies: Bruising, Bleeding Excessively, Petecchia, Purpura, Enla rged Lymph Nodes, Other Hematologic Endocrine: Denies: Polydipsia, Polyphagia, Polyuria, Heat Intolerance, Cold Intolerance, Other Endocrine Sx Musculoskeletal: Denies: Neck Pain, Back Pain, Shoulder Pain, Arm Pain, Hand Pain, Leg Pain, Foot Pain, Joint Pain, Muscle Pain, Spasms, Other Symptoms Neurological: Reports: Other Symptoms (unsteady gait) Psych: Denies: Mood Normal, Anxiety, Depression, Memory Issues, Thoughts of Self Harm, Anger, Thoughts of Harming Other, Other Psych Objective Physical Examination General Exam: Positive: Alert, Cooperative Eye Exam: Positive: PERRLA, Conjunctiva & lids normal, EOMI Neck Exam: Positive: Supple, +2 carotid pulse wo bruit Chest Exam: Positive: Clear to auscultation, Normal air movement Heart Exam: Positive: Rate Normal, Regular Rhythm, Normal S1, Normal S2 Telemetry: Positive: Sinus Abdomen Exam: Positive: Normal bowel sounds, Soft Extremity Exam: Positive: Edema (trace, B/L), Normal pulses, Tenderness (along anterior tibia, right) Psych Exam: Positive: Mental status NL, Mood NL, Oriented x 3 Assessment /Plan Problems (1) Alcohol withdrawal hallucinosis Status: Acute Response to Treatment: Stable Problem Text: # Alcohol withdrawal and hallucination and physical deconditioning. - Currently, he does not have evidence of alcohol withdrawal. He is Off CIWA protocol. Patient is clinically been doing very well. - Cont. folic acid and thiamine. - Cont. work with PT # Skin fungal infection - Cont. fluconazole # Depression - Cont. wellbutrin. # Hypokalemia - Continue KCl. # Cardiovascular risk reduction? - The patient was taking aspirin 650 bid? The patient is 74 yo M with unsteady gait. Will stop it and start aspirin 81 mg daily. # Disposition - Discussed with case management. We'll try to get her placement for patient, especially at least subacute rehabilitation facility for his deconditioning. Plan/VTE VTE Prophylaxis Ordered?: Yes (heparin) Plan Diet: Continue Current (regular diet) Activity: Continue Current (OOB encourage ambulation with assist) Therapy: PT, OT Pt and Family Services: Other PFS (potential placement) Medications: Replete Electrolytes PO Diagnostics: Check Labs, Repeat Labs in AM, Obtain Cultures Anticipated [facility]charge: [facility], [facility]&O, 24H, [facility] Vital Signs/I&O Vital Signs Date Time Temp Pulse Resp B/P (MAP) Pulse Ox O2 Delivery O2 Flow Rate FiO2 03/03/19 14:00 98.2 73 16 140/82 (101) 96 I&O- Last 24 Hours up to 6 AM 03/03/19 06:00 Intake Total 1920 ml Output Total 1355 ml Balance 565 ml Laboratory Data 24H LABS Laboratory Tests 2 03/03/19 05:41: Nucleated Red Blood Cells % (auto) 0.0, Anion Gap 7L, Glomerular Filtration Rate > 60.0, Blood Urea Nitrogen 11, Creatinine 0.71, Sodium Level 140, Potassium Level 4.3, Chloride Level 108H, Carbon Dioxide Level 25, Calcium Level 8.6L, Aspartate Amino Transf (AST/SGOT) 84H, Alanine Aminotransferase (ALT/SGPT) 52, Total Creatine Kinase 52, Alkaline Phosphatase 109, Total Bilirubin 0.6, Total Protein 7.1, Albumin 2.6L, Albumin/Globulin Ratio 0.58L CBC/BMP Laboratory Tests 03/03/19 05:41 Red Blood Count 4.13 L, Mean Corpuscular Volume 97.1 H, Mean Corpuscular Hemoglobin 32.4, Mean Corpuscular Hemoglobin Concent 33.4, Red Cell Distribution Width 14.9 H, Calcium Level 8.6 L, Aspartate Amino Transf (AST/SGOT) 84 H, Ala nine Aminotransferase (ALT/SGPT) 52, Total Creatine Kinase 52, Alkaline Phosphatase 109, Total Bilirubin 0.6, Total Protein 7.1, Albumin 2.6 L HERBERT JIN MD Mar 03, 2019 17:14
[2019-03-03] MEDS: ACETAMINOPHEN TAB 650MG DOSE (2X325MG) PO PRN (18:54)
[2019-03-03] MEDS: HEPARIN SOD (PORCINE) 5000 UNITS/ML VIAL SQ SCH (21:55)
[2019-03-03 22:00] VITALS: BP 142/72
[2019-03-04] MEDS: ACETAMINOPHEN TAB 650MG DOSE (2X325MG) PO PRN ×3 (01:15→22:43)
[2019-03-04 06:00] VITALS: BP 142/77
[2019-03-04] MEDS: OMEPRAZOLE 20 MG CAP PO SCH (08:33)
[2019-03-04] MEDS: MULTIVITAMINS/MINERALS THERAP 1 TAB PO SCH (08:33)
[2019-03-04] MEDS: FOLIC ACID 1 MG TAB PO SCH (08:33)
[2019-03-04] MEDS: ASPIRIN 81 MG ENTERIC TAB PO SCH (08:33)
[2019-03-04] MEDS: FLUCONAZOLE 100 MG TAB PO SCH ×2 (08:33→22:43)
[2019-03-04] MEDS: buPROPion **XL** TABLET 150MG (WELLBUTRIN XL) PO SCH (08:33)
[2019-03-04] MEDS: POTASSIUM CHLORIDE 10 MEQ SR TABLET PO SCH ×2 (08:34→22:43)
[2019-03-04] MEDS: NYSTATIN 100,000 UNITS/GM TOPICAL PWD 15 GM TOP SCH ×2 (08:34→22:44)
[2019-03-04] MEDS: HEPARIN SOD (PORCINE) 5000 UNITS/ML VIAL SQ SCH ×2 (08:34→22:43)
[2019-03-04] MEDS: BALMEX CREAM 60GM TOP SCH ×2 (08:35→22:44)
[2019-03-04] MEDS ORDERED: ASPIRIN 325 MG TAB PO SCH (09:00)
[2019-03-04 14:33] VITALS: BP 125/70
[2019-03-04 22:00] VITALS: BP 122/71
[2019-03-05 06:00] VITALS: BP 145/86
[2019-03-05] MEDS: MULTIVITAMINS/MINERALS THERAP 1 TAB PO SCH (09:00)
[2019-03-05] MEDS: FLUCONAZOLE 100 MG TAB PO SCH ×2 (09:00→21:43)
[2019-03-05] MEDS: OMEPRAZOLE 20 MG CAP PO SCH (09:00)
[2019-03-05] MEDS: buPROPion **XL** TABLET 150MG (WELLBUTRIN XL) PO SCH (09:00)
[2019-03-05] MEDS: ASPIRIN 81 MG ENTERIC TAB PO SCH (09:00)
[2019-03-05] MEDS: POTASSIUM CHLORIDE 10 MEQ SR TABLET PO SCH ×2 (09:00→21:44)
[2019-03-05] MEDS: NYSTATIN 100,000 UNITS/GM TOPICAL PWD 15 GM TOP SCH ×2 (09:01→21:45)
[2019-03-05] MEDS: HEPARIN SOD (PORCINE) 5000 UNITS/ML VIAL SQ SCH ×2 (09:01→21:44)
[2019-03-05] MEDS: BALMEX CREAM 60GM TOP SCH ×2 (09:01→21:00)
[2019-03-05] MEDS: FOLIC ACID 1 MG TAB PO SCH (09:02)
[2019-03-05] MEDS: ACETAMINOPHEN TAB 650MG DOSE (2X325MG) PO PRN ×2 (12:10→19:37)
[2019-03-05 14:00] VITALS: BP 151/84
--- NOTE | 2019-03-05 18:40 | IPNPDOC ---
Subjective Date Seen The patient was seen on 03/05/19. Subjective Chief Complaint/HPI No complaints. He still feels unsafe to ambulate by himself, but he is trying to use the bathroom not asking help from nursing staff. No other complaints. General: Denies: ROS Unobtainable, Chills, Night Sweats, Fatigue, Malaise, Normal Appetite, Other Symptoms Constitutional: Denies: Chills, Fever, Malaise, Night Sweats, Weakness, Fatigue, Weight Loss, Lethargy, Other Eyes: Denies: Pain, Vision change, Conjunctivae inflammation, Eyelid inflammation, Redness, Other ENT: Denies: Head Aches, Ear Pain, Dysphagia, Sinus Congestion, Post Nasal Drip, Sore Throat, Epistaxis, Other Symptoms Skin: Denies: Rash, Lesions, Jaundice, Bruising, Itching, Dry, Breakdown, Nail Changes, Other Pulmonary: Denies: Dyspnea, Cough Cardiovascular: Denies: Chest Pain, Palpitations, Orthopnea, Paroxysmal Noc. Dyspnea, Edema, Lt Headedness, Other Symptoms Gastrointestinal: Denies: Nausea, Vomiting, Abdominal Pain, Diarrhea, Constipation, Melena, Hematochezia, Other Symptoms Genitourinary: Denies: Dysuria, Frequency, Incontinence, Hematuria, Retention, Other Symptoms Hematologic: Denies: Bruising, Bleeding Excessively, Petecchia, Purpura, Enlarged Lymph Nodes, Other Hematologic Endocrine: Denies: Polydipsia, Polyphagia, Polyuria, Heat Intolerance, Cold Intolerance, Other Endocrine Sx Musculoskeletal: Denies: Neck Pain, Back Pain, Shoulder Pain, Arm Pain, Hand Pain, Leg Pain, Foot Pain, Joint Pain, Muscle Pain, Spasms, Other Symptoms Neurological: Reports: Incoordination Psych: Denies: Mood Normal, Anxiety, Depression, Memory Issues, Thoughts of Self Harm, Anger, Thoughts of Harming Other, Other Psych Objective Physical Examination General Exam: Positive: Alert, Cooperative Eye Exam: Positive: PERRLA, Conjunctiva & lids normal, EOMI Neck Exam: Positive: Supple, +2 carotid pulse wo bruit Chest Exam: Positive: Clear to auscultation, Normal air movement Heart Exam: Positive: Rate Normal, Regular Rhythm, Normal S1, Normal S2 Telemetry: Positive: Sinus Abdomen Exam: Positive: Normal bowel sounds, Soft Extremity Exam: Positive: Edema (trace, B/L), Normal pulses, Tenderness (along anterior tibia, right) Psych Exam: Positive: Mental status NL, Mood NL, Oriented x 3 Assessment /Plan Problems (1) Alcohol withdrawal hallucinosis Status: Acute Response to Treatment: Stable Problem Text: # Alcohol withdrawal and hallucination and physical deconditioning. - Currently, he does not have evidence of alcohol withdrawal. He is Off CIWA protocol. Patient is clinically been doing very well. - Cont. folic acid and thiamine. - Cont. work with PT # Skin fungal infection - Cont. fluconazole # Depression - Cont. wellbutrin. # Hypokalemia - Continue KCl. # Cardiovascular risk reduction? - The patient was taking aspirin 650 bid? The patient is 74 yo M with unsteady gait. Will stop it and start aspirin 81 mg daily. # Disposition - Discussed with case management. We'll try to get her placement for patient, especially at least subacute rehabilitation facility for his deconditioning. Plan/VTE VTE Prophylaxis Ordered?: Yes (heparin) Plan Diet: Continue Current (regular diet) Activity: Continue Current (OOB encourage ambulation with assist) Therapy: PT, OT Pt and Family Services: Other PFS (potential placement) Medications: Replete Electrolytes PO Diagnostics: Check Labs, Repeat Labs in AM, Obtain Cultures Anticipated Discharge: Longterm VS, I&O, 24H, [facility] Vital Signs/I&O Vital Signs Date Time Temp Pulse Resp B/P (MAP) Pulse Ox O2 Delivery O2 Flow Rate FiO2 03/05/19 14:00 97.4 73 19 151/84 (106) 96 I&O- Last 24 Hours up to 6 AM 03/05/19 06:00 Intake Total 2480 ml Output Total 1050 ml Balance 1430 ml HERBERT JIN MD Mar 05, 2019 18:40
[2019-03-05 22:00] VITALS: BP 130/71
[2019-03-06 06:00] VITALS: BP 130/73
[2019-03-06] MEDS: ASPIRIN 81 MG ENTERIC TAB PO SCH (08:53)
[2019-03-06] MEDS: OMEPRAZOLE 20 MG CAP PO SCH (08:53)
[2019-03-06] MEDS: FLUCONAZOLE 100 MG TAB PO SCH ×2 (08:54→21:24)
[2019-03-06] MEDS: POTASSIUM CHLORIDE 10 MEQ SR TABLET PO SCH ×2 (08:54→21:24)
[2019-03-06] MEDS: MULTIVITAMINS/MINERALS THERAP 1 TAB PO SCH (08:54)
[2019-03-06] MEDS: FOLIC ACID 1 MG TAB PO SCH (08:54)
[2019-03-06] MEDS: HEPARIN SOD (PORCINE) 5000 UNITS/ML VIAL SQ SCH ×2 (08:54→21:24)
[2019-03-06] MEDS: buPROPion **XL** TABLET 150MG (WELLBUTRIN XL) PO SCH (08:54)
[2019-03-06] MEDS: BALMEX CREAM 60GM TOP SCH ×2 (08:55→21:25)
[2019-03-06] MEDS: ACETAMINOPHEN TAB 650MG DOSE (2X325MG) PO PRN ×2 (08:57→17:28)
[2019-03-06] MEDS: NYSTATIN 100,000 UNITS/GM TOPICAL PWD 15 GM TOP SCH ×2 (08:59→21:25)
[2019-03-06 21:14] VITALS: BP 131/73
--- NOTE | 2019-03-06 21:58 | IPNPDOC ---
Subjective Date Seen The patient was seen on 03/06/19. Subjective Chief Complaint/HPI No complaints. He feels better everyday. Physical strength is not there as he expects, but improving. No other complaints. General: Denies: ROS Unobtainable, Chills, Night Sweats, Fatigue, Malaise, Normal Appetite, Other Symptoms Constitutional: Denies: Chills, Fever, Malaise, Night Sweats, Weakness, Fatigue, Weight Loss, Lethargy, Other Eyes: Denies: Pain, Vision change, Conjunctivae inflammation, Eyelid inflammation, Redness, Other ENT: Denies: Head Aches, Ear Pain, Dysphagia, Sinus Congestion, Post Nasal Drip, Sore Throat, Epistaxis, Other Symptoms Skin: Denies: Rash, Lesions, Jaundice, Bruising, Itching, Dry, Breakdown, Nail Changes, Other Pulmonary: Denies: Dyspnea, Cough, Pleuritic Chest Pain, Other Symptoms Cardiovascular: Denies: Chest Pain, Palpitations, Orthopnea, Paroxysmal Noc. Dyspnea, Edema, Lt Headedness, Other Symptoms Gastrointestinal: Denies: Nausea, Vomiting, Abdominal Pain, Diarrhea, Constipation, Melena, Hematochezia, Other Symptoms Genitourinary: Denies: Dysuria, Frequency, Incontinence, Hematuria, Retention, Other Symptoms Hematologic: Denies: Bruising, Bleeding Excessively, Petecchia, Purpura, Enlarged Lymph Nodes, Other Hematologic Endocrine: Denies: Polydipsia, Polyphagia, Polyuria, Heat Intolerance, Cold Intolerance, Other Endocrine Sx Musculoskeletal: Reports: Other Symptoms (weakness) Neurological: Denies: Weakness, Numbness, Incoordination, Change in speech, Confusion, Seizures, Other Symptoms Psych: Denies: Mood Normal, Anxiety, Depression, Memory Issues, Thoughts of Self Harm, Anger, Thoughts of Harming Other, Other Psych Objective Physical Examination General Exam: Positive: Alert, Cooperative Eye Exam: Positive: PERRLA, Conjunctiva & lids normal, EOMI Neck Exam: Positive: Supple, +2 carotid pulse wo bruit Chest Exam: Positive: Clear to auscultation, Normal air movement Heart Exam: Positive: Rate Normal, Regular Rhythm, Normal S1, Normal S2 Telemetry: Positive: Sinus Abdomen Exam: Positive: Normal bowel sounds, Soft Extremity Exam: Positive: Edema (trace, B/L), Normal pulses, Tenderness (along anterior tibia, right) Psych Exam: Positive: Mental status NL, Mood NL, Oriented x 3 Assessment /Plan Problems (1) Alcohol withdrawal hallucinosis Status: Acute Response to Treatment: Stable Problem Text: # Alcohol withdrawal and hallucination and physical deconditioning. - Currently, he does not have evidence of alcohol withdrawal. He is Off CIWA protocol. Patient is clinically been doing very well. - Cont. folic acid and thiamine. - Cont. work with PT # Skin fungal infection - Cont. fluconazole # Depression - Cont. wellbutrin. # Hypokalemia - Continue KCl. # Cardiovascular risk reduction? - The patient was taking aspirin 650 bid? The patient is 74 yo M with unsteady gait. Will stop it and start aspirin 81 mg daily. # Disposition - Discussed with case management. We'll try to get her placement for patient, especially at least subacute rehabilitation facility for his deconditioning. Plan/VTE VTE Prophylaxis Ordered?: Yes (heparin) Plan Diet: Continue Current (regular diet) Activity: Continue Current (OOB encourage ambulation with assist) Therapy: PT, OT Pt and Family Services: Other PFS (potential placement) Medications: Replete Electrolytes PO Diagnostics: Check Labs, Repeat Labs in AM, Obtain Cultures Anticipated Discharge: Long Term VS, I&O, 24H, Fishbone Vital Signs/I&O Vital Signs Date Time Temp Pulse Resp B/P (MAP) Pulse Ox O2 Delivery O2 Flow Rate FiO2 03/06/19 21:14 98.1 64 18 131/73 (92) 03/06/19 06:00 96 I&O- Last 24 Hours up to 6 AM 03/06/19 06:00 Intake Total 2325 ml Output Total 1725 ml Balance 600 ml HERBERT JIN MD Mar 06, 2019 21:58
[2019-03-07 06:37] VITALS: BP 143/71
[2019-03-07] MEDS: ACETAMINOPHEN TAB 650MG DOSE (2X325MG) PO PRN ×2 (07:43→19:05)
[2019-03-07] MEDS: MULTIVITAMINS/MINERALS THERAP 1 TAB PO SCH (08:15)
[2019-03-07] MEDS: ASPIRIN 81 MG ENTERIC TAB PO SCH (08:15)
[2019-03-07] MEDS: OMEPRAZOLE 20 MG CAP PO SCH (08:15)
[2019-03-07] MEDS: FOLIC ACID 1 MG TAB PO SCH (08:15)
[2019-03-07] MEDS: FLUCONAZOLE 100 MG TAB PO SCH ×2 (08:15→20:01)
[2019-03-07] MEDS: buPROPion **XL** TABLET 150MG (WELLBUTRIN XL) PO SCH (08:16)
[2019-03-07] MEDS: HEPARIN SOD (PORCINE) 5000 UNITS/ML VIAL SQ SCH ×2 (08:16→20:01)
[2019-03-07] MEDS: POTASSIUM CHLORIDE 10 MEQ SR TABLET PO SCH ×2 (08:16→20:01)
[2019-03-07] MEDS: BALMEX CREAM 60GM TOP SCH ×2 (08:17→20:04)
[2019-03-07] MEDS: NYSTATIN 100,000 UNITS/GM TOPICAL PWD 15 GM TOP SCH ×2 (08:18→20:03)
--- NOTE | 2019-03-07 13:26 | IPNPDOC ---
Subjective Date Seen The patient was seen on 03/07/19. Subjective Chief Complaint/HPI He is physically recovering. Currently, he is able to walk with the walker, much improved. No other complaints. General: Denies: ROS Unobtainable, Chills, Night Sweats, Fatigue, Malaise, Normal Appetite, Other Symptoms Constitutional: Denies: Chills, Fever, Malaise, Night Sweats, Weakness, Fatigue, Weight Loss, Lethargy, Other Eyes: Denies: Pain, Vision change, Conjunctivae inflammation, Eyelid inflammation, Redness, Other ENT: Denies: Head Aches, Ear Pain, Dysphagia, Sinus Congestion, Post Nasal Drip, Sore Throat, Epistaxis, Other Symptoms Skin: Denies: Rash, Lesions, Jaundice, Bruising, Itching, Dry, Breakdown, Nail Changes, Other Pulmonary: Denies: Dyspnea, Cough, Pleuritic Chest Pain, Other Symptoms Cardiovascular: Denies: Chest Pain, Palpitations, Orthopnea, Paroxysmal Noc. Dyspnea, Edema, Lt Headedness, Other Symptoms Gastrointestinal: Denies: Nausea, Vomiting, Abdominal Pain, Diarrhea, Constipation, Melena, Hematochezia, Other Symptoms Genitourinary: Denies: Dysuria, Frequency, Incontinence, Hematuria, Retention, Other Symptoms Hematologic: Denies: Bruising, Bleeding Excessively, Petecchia, Purpura, Enlarged Lymph Nodes, Other Hematologic Endocrine: Denies: Polydipsia, Polyphagia, Polyuria, Heat Intolerance, Cold Intolerance, Other Endocrine Sx Musculoskeletal: Denies: Neck Pain, Back Pain, Shoulder Pain, Arm Pain, Hand Pain, Leg Pain, Foot Pain, Joint Pain, Muscle Pain, Spasms, Other Symptoms Neurological: Reports: Incoordination Psych: Denies: Mood Normal, Anxiety, Depression, Memory Issues, Thoughts of Self Harm, Anger, Thoughts of Harming Other, Other Psych Objective Physical Examination General Exam: Positive: Alert, Cooperative Eye Exam: Positive: PERRLA, Conjunctiva & lids normal, EOMI Neck Exam: Positive: Supple, +2 carotid pulse wo bruit Chest Exam: Positive: Clear to auscultation, Normal air movement Heart Exam: Positive: Rate Normal, Regular Rhythm, Normal S1, Normal S2 Telemetry: Positive: Sinus Abdomen Exam: Positive: Normal bowel sounds, Soft Extremity Exam: Positive: Edema (trace, B/L), Normal pulses, Tenderness (along anterior tibia, right) Psych Exam: Positive: Mental status NL, Mood NL, Oriented x 3 Assessment /Plan Problems (1) Alcohol withdrawal hallucinosis Status: Acute Response to Treatment: Stable Problem Text: # Alcohol withdrawal and hallucination and physical deconditioning. - Currently, he does not have evidence of alcohol withdrawal. He is Off CIWA protocol. Patient is clinically been doing very well. - Cont. folic acid and thiamine. - Cont. work with PT # Skin fungal infection - Cont. fluconazole # Depression - Cont. wellbutrin. # Hypokalemia - Continue KCl. # Cardiovascular risk reduction? - The patient was taking aspirin 650 bid? The patient is 74 yo M with unsteady gait. Continue aspirin 81 mg daily. # Disposition - Discussed with case management. We'll try to get her placement for patient, especially at least subacute rehabilitation facility for his deconditioning. Plan/VTE VTE Prophylaxis Ordered?: Yes (heparin) Plan Diet: Continue Current (regular diet) Activity: Continue Current (OOB encourage ambulation with assist) Therapy: PT, OT Pt and Family Services: Other PFS (potential placement) Medications: Replete Electrolytes PO Diagnostics: Check Labs, Repeat Labs in AM, Obtain Cultures Anticipated Discharge: Jail VS, I&O, 24H, Fishbone Vital Signs/I&O Vital Signs Date Time Temp Pulse Resp B/P (MAP) Pulse Ox O2 Delivery O2 Flow Rate FiO2 03/07/19 06:37 97.2 77 20 143/71 (95) 96 I&O- Last 24 Hours up to 6 AM 03/07/19 06:00 Intake Total 1800 ml Output Total 800 ml Balance 1000 ml HERBERT JIN MD Mar 07, 2019 13:26
[2019-03-07 14:00] VITALS: BP 148/86
[2019-03-07 22:00] VITALS: BP 136/69
[2019-03-08 06:00] VITALS: BP 163/87
[2019-03-08] MEDS: POTASSIUM CHLORIDE 10 MEQ SR TABLET PO SCH ×2 (08:20→20:26)
[2019-03-08] MEDS: OMEPRAZOLE 20 MG CAP PO SCH (08:20)
[2019-03-08] MEDS: FLUCONAZOLE 100 MG TAB PO SCH ×2 (08:20→20:26)
[2019-03-08] MEDS: HEPARIN SOD (PORCINE) 5000 UNITS/ML VIAL SQ SCH ×2 (08:21→20:26)
[2019-03-08] MEDS: ASPIRIN 81 MG ENTERIC TAB PO SCH (08:21)
[2019-03-08] MEDS: buPROPion **XL** TABLET 150MG (WELLBUTRIN XL) PO SCH (08:21)
[2019-03-08] MEDS: FOLIC ACID 1 MG TAB PO SCH (08:21)
[2019-03-08] MEDS: ACETAMINOPHEN TAB 650MG DOSE (2X325MG) PO PRN ×3 (08:21→20:27)
[2019-03-08] MEDS: MULTIVITAMINS/MINERALS THERAP 1 TAB PO SCH (08:21)
[2019-03-08] MEDS: NYSTATIN 100,000 UNITS/GM TOPICAL PWD 15 GM TOP SCH ×2 (08:22→20:27)
[2019-03-08] MEDS: BALMEX CREAM 60GM TOP SCH ×2 (08:23→20:28)
--- NOTE | 2019-03-08 13:00 | IPNPDOC ---
Subjective Date Seen The patient was seen on 03/08/19. Subjective Chief Complaint/HPI He has persistent back pain. Physically weak, but can ambulate with a walker. No other complaints. General: Denies: ROS Unobtainable, Chills, Night Sweats, Fatigue, Malaise, Normal Appetite, Other Symptoms Constitutional: Denies: Chills, Fever, Malaise, Night Sweats, Weakness, Fatigue, Weight Loss, Lethargy, Other Eyes: Denies: Pain, Vision change, Conjunctivae inflammation, Eyelid inflammation, Redness, Other ENT: Denies: Head Aches, Ear Pain, Dysphagia, Sinus Congestion, Post Nasal Drip, Sore Throat, Epistaxis, Other Symptoms Skin: Denies: Rash, Lesions, Jaundice, Bruising, Itching, Dry, Breakdown, Nail Changes, Other Pulmonary: Denies: Dyspnea, Cough, Pleuritic Chest Pain, Other Symptoms Cardiovascular: Denies: Chest Pain, Palpitations, Orthopnea, Paroxysmal Noc. Dyspnea, Edema, Lt Headedness, Other Symptoms Gastrointestinal: Denies: Nausea, Vomiting, Abdominal Pain, Diarrhea, Constipation, Melena, Hematochezia, Other Symptoms Genitourinary: Denies: Dysuria, Frequency, Incontinence, Hematuria, Retention, Other Symptoms Hematologic: Denies: Bruising, Bleeding Excessively, Petecchia, Purpura, Enlarged Lymph Nodes, Other Hematologic Endocrine: Denies: Polydipsia, Polyphagia, Polyuria, Heat Intolerance, Cold Intolerance, Other Endocrine Sx Musculoskeletal: Reports: Back Pain Neurological: Denies: Weakness, Numbness, Incoordination, Change in speech, Confusion, Seizures, Other Symptoms Psych: Denies: Mood Normal, Anxiety, Depression, Memory Issues, Thoughts of Self Harm, Anger, Thoughts of Harming Other, Other Psych Objective Physical Examination General Exam: Positive: Alert, Cooperative Eye Exam: Positive: PERRLA, Conjunctiva & lids normal, EOMI Neck Exam: Positive: Supple, +2 carotid pulse wo bruit Chest Exam: Positive: Clear to auscultation, Normal air movement Heart Exam: Positive: Rate Normal, Regular Rhythm, Normal S1, Normal S2 Telemetry: Positive: Sinus Abdomen Exam: Positive: Normal bowel sounds, Soft Extremity Exam: Positive: Edema (trace, B/L), Normal pulses, Tenderness (along anterior tibia, right) Psych Exam: Positive: Mental status NL, Mood NL, Oriented x 3 Assessment /Plan Problems (1) Alcohol withdrawal hallucinosis Status: Acute Response to Treatment: Stable Problem Text: # Alcohol withdrawal and hallucination and physical deconditioning. - Currently, he does not have evidence of alcohol withdrawal. He is Off CIWA protocol. Patient is clinically been doing very well. - Cont. folic acid and thiamine. - Cont. work with PT # Skin fungal infection - Cont. fluconazole # Depression - Cont. wellbutrin. # Hypokalemia - Continue KCl. # Cardiovascular risk reduction? - The patient was taking aspirin 650 bid? The patient is 74 yo M with unsteady gait. Continue aspirin 81 mg daily. # Disposition - Discussed with case management. We'll try to get her placement for patient, especially at least subacute rehabilitation facility for his deconditioning. Plan/VTE VTE Prophylaxis Ordered?: Yes (heparin) Plan Diet: Continue Current (regular diet) Activity: Continue Current (OOB encourage ambulation with assist) Therapy: PT, OT Pt and Family Services: Other PFS (potential placement) Medications: Replete Electrolytes PO Diagnostics: Check Labs, Repeat Labs in AM, Obtain Cultures Anticipated Discharge: Half-Way VS, I&O, 24H, [facility] Vital Signs/I&O Vital Signs Date Time Temp Pulse Resp B/P (MAP) Pulse Ox O2 Delivery O2 Flow Rate FiO2 03/08/19 06:00 97.7 74 18 163/87 (112) 94 I&O- Last 24 Hours up to 6 AM 03/08/19 06:00 Intake Total 1740 ml Output Total 1000 ml Balance 740 ml HERBERT JIN MD Mar 08, 2019 13:00
[2019-03-08 22:00] VITALS: BP 138/80
[2019-03-09 06:00] VITALS: BP 130/78
[2019-03-09] MEDS: OMEPRAZOLE 20 MG CAP PO SCH (09:41)
[2019-03-09] MEDS: ASPIRIN 81 MG ENTERIC TAB PO SCH (09:41)
[2019-03-09] MEDS: buPROPion **XL** TABLET 150MG (WELLBUTRIN XL) PO SCH (09:41)
[2019-03-09] MEDS: POTASSIUM CHLORIDE 10 MEQ SR TABLET PO SCH ×2 (09:42→21:01)
[2019-03-09] MEDS: HEPARIN SOD (PORCINE) 5000 UNITS/ML VIAL SQ SCH ×2 (09:42→21:01)
[2019-03-09] MEDS: FLUCONAZOLE 100 MG TAB PO SCH ×2 (09:42→21:01)
[2019-03-09] MEDS: MULTIVITAMINS/MINERALS THERAP 1 TAB PO SCH (09:42)
[2019-03-09] MEDS: FOLIC ACID 1 MG TAB PO SCH (09:42)
[2019-03-09] MEDS: ACETAMINOPHEN TAB 650MG DOSE (2X325MG) PO PRN ×2 (09:43→18:38)
[2019-03-09] MEDS: BALMEX CREAM 60GM TOP SCH ×2 (09:43→21:00)
[2019-03-09] MEDS: NYSTATIN 100,000 UNITS/GM TOPICAL PWD 15 GM TOP SCH ×2 (09:43→21:00)
--- NOTE | 2019-03-09 11:54 | IPNPDOC ---
Subjective Date Seen The patient was seen on 03/09/19. Subjective Chief Complaint/HPI The patient has chronic back pain. No other complaints. He tries to work with PT and ambulate more today. General: Denies: ROS Unobtainable, Chills, Night Sweats, Fatigue, Malaise, Normal Appetite, Other Symptoms Constitutional: Denies: Chills, Fever, Malaise, Night Sweats, Weakness, Fatigue, Weight Loss, Lethargy, Other Eyes: Denies: Pain, Vision change, Conjunctivae inflammation, Eyelid inflammation, Redness, Other ENT: Denies: Head Aches, Ear Pain, Dysphagia, Sinus Congestion, Post Nasal Drip, Sore Throat, Epistaxis, Other Symptoms Skin: Denies: Rash, Lesions, Jaundice, Bruising, Itching, Dry, Breakdown, Nail Changes, Other Pulmonary: Denies: Dyspnea, Cough, Pleuritic Chest Pain, Other Symptoms Cardiovascular: Denies: Chest Pain, Palpitations, Orthopnea, Paroxysmal Noc. Dyspnea, Edema, Lt Headedness, Other Symptoms Gastrointestinal: Denies: Nausea, Vomiting, Abdominal Pain, Diarrhea, Constipation, Melena, Hematochezia, Other Symptoms Genitourinary: Denies: Dysuria, Frequency, Incontinence, Hematuria, Retention, Other Symptoms Hematologic: Denies: Bruising, Bleeding Excessively, Petecchia, Purpura, Enlarged Lymph Nodes, Other Hematologic Endocrine: Denies: Polydipsia, Polyphagia, Polyuria, Heat Intolerance, Cold Intolerance, Other Endocrine Sx Musculoskeletal: Reports: Back Pain Neurological: Denies: Weakness, Numbness, Incoordination, Change in speech, Confusion, Seizures, Other Symptoms Psych: Denies: Mood Normal, Anxiety, Depression, Memory Issues, Thoughts of Self Harm, Anger, Thoughts of Harming Other, Other Psych Objective Physical Examination General Exam: Positive: Alert, Cooperative Eye Exam: Positive: PERRLA, Conjunctiva & lids normal, EOMI Neck Exam: Positive: Supple, +2 carotid pulse wo bruit Chest Exam: Positive: Clear to auscultation, Normal air movement Heart Exam: Positive: Rate Normal, Regular Rhythm, Normal S1, Normal S2 Telemetry: Positive: Sinus Abdomen Exam: Positive: Normal bowel sounds, Soft Extremity Exam: Positive: Edema (trace, B/L), Normal pulses, Tenderness (along anterior tibia, right) Psych Exam: Positive: Mental status NL, Mood NL, Oriented x 3 Assessment /Plan Problems (1) Alcohol withdrawal hallucinosis Status: Acute Response to Treatment: Stable Problem Text: # Alcohol withdrawal and hallucination and physical deconditioning. - Currently, he does not have evidence of alcohol withdrawal. He is Off CIWA protocol. Patient is clinically been doing very well. - Cont. folic acid and thiamine. - Cont. work with PT # Skin fungal infection - Cont. fluconazole # Depression - Cont. wellbutrin. # Hypokalemia - Continue KCl. # Cardiovascular risk reduction? - The patient was taking aspirin 650 bid? The patient is 74 yo M with unsteady gait. Continue aspirin 81 mg daily. # Disposition - Discussed with case management. We'll try to get her placement for patient, especially at least subacute rehabilitation facility for his deconditioning. Plan/VTE VTE Prophylaxis Ordered?: Yes (heparin) Plan Diet: Continue Current (regular diet) Activity: Continue Current (OOB encourage ambulation with assist) Therapy: PT, OT Pt and Family Services: Other PFS (potential placement) Medications: Replete Electrolytes PO Diagnostics: Check Labs, Repeat Labs in AM, Obtain Cultures Anticipated Discharge: Alf VS, I&O, 24H, Fishbone Vital Signs/I&O Vital Signs Date Time Temp Pulse Resp B/P (MAP) Pulse Ox O2 Delivery O2 Flow Rate FiO2 03/09/19 06:00 97.0 75 20 130/78 (95) 95 I&O- Last 24 Hours up to 6 AM 03/09/19 06:00 Intake Total 1320 ml Output Total 2400 ml Balance -1080 ml HERBERT JIN MD Mar 09, 2019 11:54
[2019-03-09 14:00] VITALS: BP 155/88
[2019-03-09 22:00] VITALS: BP 153/86
[2019-03-10 06:00] VITALS: BP 133/81
[2019-03-10] MEDS: POTASSIUM CHLORIDE 10 MEQ SR TABLET PO SCH ×2 (09:33→22:05)
[2019-03-10] MEDS: KETOCONAZOLE 2% CREAM TOP SCH (09:33)
[2019-03-10] MEDS: ACETAMINOPHEN TAB 650MG DOSE (2X325MG) PO PRN ×4 (09:33→22:05)
[2019-03-10] MEDS: HEPARIN SOD (PORCINE) 5000 UNITS/ML VIAL SQ SCH ×2 (09:34→22:04)
[2019-03-10] MEDS: OMEPRAZOLE 20 MG CAP PO SCH (09:34)
[2019-03-10] MEDS: buPROPion **XL** TABLET 150MG (WELLBUTRIN XL) PO SCH (09:34)
[2019-03-10] MEDS: FLUCONAZOLE 100 MG TAB PO SCH ×2 (09:34→22:05)
[2019-03-10] MEDS: MULTIVITAMINS/MINERALS THERAP 1 TAB PO SCH (09:34)
[2019-03-10] MEDS: FOLIC ACID 1 MG TAB PO SCH (09:34)
[2019-03-10] MEDS: ASPIRIN 81 MG ENTERIC TAB PO SCH (09:34)
[2019-03-10] MEDS: BALMEX CREAM 60GM TOP SCH ×2 (09:34→22:06)
--- NOTE | 2019-03-10 10:56 | IPNPDOC ---
Date Seen The patient was seen on 03/10/19. Progress Note SUBJECTIVE: Patient is a 74-year-old male with hallucinations and alcohol withdrawal. Patient is evaluated at bedside this morning. He is si tting on the edge of the bed. Occupational therapy is present. Patient states that he slept very well last evening. He offers up no complaints except that his lower denture causes pain and friction against his lower gum line. He has had dentures for years. There no bleeding. He states that he has pain due to grinding his teeth, during the day and at night. Usually Tylenol is effective at controlling his pain. OBJECTIVE PHYSICAL EXAMINATION: VITAL SIGNS: Please see below. GENERAL: Well nourished, well developed male, alert and conversant, answers questions appropriately, no acute distress. HEENT: Atraumatic, normocephalic, PERRL, EOMI, oral mucosa appears pink and moist, nasal septum appears midline, nares are patent, lower gum line is tender to palpation, although no abrasions, lesions, or active bleeding are noted. CARDIOVASCULAR: Regular rate and rhythm, normal S1 and S2, no murmur, rub, click. RESPIRATORY: Clear to auscultation bilaterally, adequate inspiratory and expiratory airway excursion, symmetric airway entry, no focal consolidations, no wheeze, rhonchi, crackles. ABDOMINAL: Obese, soft, non-tender, non-distended, erythematous plaques noted in abdominal folds and breast folds. EXTREMITIES: Without edema, cyanosis, or clubbing, peripheral pulses equal and symmetrical, +2. NEUROLOGICAL: CN II-XII grossly intact. PSYCHOLOGICAL: Mood and affect appropriate. LABORATORY DATA, IMAGING STUDIES, MICROBIOLOGY: Please see below. DVT prophylaxis ordered?: Heparin 5,000 units SQ Q12H. ASSESSMENT AND PLAN: This is a 74-year-old male with hallucinations and alcohol withdrawal. PROBLEMS: 1. Alcohol withdrawal with hallucinosis S/P CIWA protocol Fall risk precautions OT, PT --> continue with rehabilitation once discharged C/W Folic Acid, Multivitamin, Thiamine 2. 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 Intertrigo D/C Nystatin Start Ketoconazole topical C/W Fluconazole 4. Depression C/W Bupropion DISPOSITION: ALC status. Requires rehabilitation. I saw and evaluated the patient. I agree with the findings and plan of care as documented in the resident's note VS, I&O, 24H, Fishbone Vital Signs/I&O Vital Signs Date Time Temp Pulse Resp B/P (MAP) Pulse Ox O2 Delivery O2 Flow Rate FiO2 03/10/19 06:00 98.6 72 18 133/81 (98) 95 I&O- Last 24 Hours up to 6 AM 03/10/19 06:00 Intake Total 2350 ml Output Total 1000 ml Balance 1350 ml EILEEN GARCIA DO Mar 10, 2019 10:56 ANYA RODRIGUEZ MD Mar 14, 2019 16:33
[2019-03-10] MEDS: THIAMINE 100 MG TAB PO SCH (14:28)
[2019-03-10 20:00] VITALS: BP 131/80
[2019-03-11] MEDS: ACETAMINOPHEN TAB 650MG DOSE (2X325MG) PO PRN ×3 (02:46→21:02)
[2019-03-11 05:22] VITALS: BP 131/78
[2019-03-11] MEDS: FOLIC ACID 1 MG TAB PO SCH (08:29)
[2019-03-11] MEDS: HEPARIN SOD (PORCINE) 5000 UNITS/ML VIAL SQ SCH ×2 (08:29→21:03)
[2019-03-11] MEDS: OMEPRAZOLE 20 MG CAP PO SCH (08:29)
[2019-03-11] MEDS: THIAMINE 100 MG TAB PO SCH (08:29)
[2019-03-11] MEDS: FLUCONAZOLE 100 MG TAB PO SCH ×2 (08:29→21:02)
[2019-03-11] MEDS: MULTIVITAMINS/MINERALS THERAP 1 TAB PO SCH (08:29)
[2019-03-11] MEDS: ASPIRIN 81 MG ENTERIC TAB PO SCH (08:29)
[2019-03-11] MEDS: buPROPion **XL** TABLET 150MG (WELLBUTRIN XL) PO SCH (08:29)
[2019-03-11] MEDS: KETOCONAZOLE 2% CREAM TOP SCH (08:30)
[2019-03-11] MEDS: BALMEX CREAM 60GM TOP SCH ×2 (08:30→21:03)
[2019-03-11] MEDS: POTASSIUM CHLORIDE 10 MEQ SR TABLET PO SCH ×2 (08:30→21:03)
[2019-03-11] MEDS: BENZOCAINE 10% 9GM TUBE (ANBESOL) MT PRN (14:39)
[2019-03-12 06:00] VITALS: BP 146/89
[2019-03-12] MEDS: FLUCONAZOLE 100 MG TAB PO SCH (09:09)
[2019-03-12] MEDS: POTASSIUM CHLORIDE 10 MEQ SR TABLET PO SCH ×2 (09:09→20:37)
[2019-03-12] MEDS: MULTIVITAMINS/MINERALS THERAP 1 TAB PO SCH (09:09)
[2019-03-12] MEDS: OMEPRAZOLE 20 MG CAP PO SCH (09:09)
[2019-03-12] MEDS: buPROPion **XL** TABLET 150MG (WELLBUTRIN XL) PO SCH (09:09)
[2019-03-12] MEDS: ASPIRIN 81 MG ENTERIC TAB PO SCH (09:09)
[2019-03-12] MEDS: BALMEX CREAM 60GM TOP SCH ×2 (09:10→20:38)
[2019-03-12] MEDS: THIAMINE 100 MG TAB PO SCH (09:10)
[2019-03-12] MEDS: FOLIC ACID 1 MG TAB PO SCH (09:10)
[2019-03-12] MEDS: KETOCONAZOLE 2% CREAM TOP SCH (09:10)
[2019-03-12] MEDS: HEPARIN SOD (PORCINE) 5000 UNITS/ML VIAL SQ SCH ×2 (09:10→20:37)
[2019-03-12] MEDS: ACETAMINOPHEN TAB 650MG DOSE (2X325MG) PO PRN ×3 (09:17→22:24)
[2019-03-12 14:00] VITALS: BP 150/87
[2019-03-13] MEDS: ACETAMINOPHEN TAB 650MG DOSE (2X325MG) PO PRN ×2 (02:42→08:32)
[2019-03-13 06:00] VITALS: BP 152/89
[2019-03-13] MEDS ORDERED: KLOR10TA76 PO (07:01)
[2019-03-13] MEDS ORDERED: BUPR150T3 PO (07:01)
[2019-03-13] MEDS ORDERED: Benzocaine Gel MT (07:01)
[2019-03-13] MEDS ORDERED: Zinc Oxide TOP (07:01)
[2019-03-13] MEDS ORDERED: OMEP-218 PO (07:01)
[2019-03-13] MEDS ORDERED: VITMTA PO (07:01)
[2019-03-13] MEDS ORDERED: FOLI1TAB11 PO (07:01)
[2019-03-13] MEDS ORDERED: ASPI81TAEC PO (07:01)
[2019-03-13] MEDS ORDERED: THIA100TA PO (07:01)
[2019-03-13] MEDS ORDERED: KETO2CR TOP (07:01)
[2019-03-13] MEDS ORDERED: ACET1TAB55 PO (07:01)
[2019-03-13] MEDS ORDERED: ONDA4TAB5 PO (07:01)
[2019-03-13] MEDS ORDERED: HEPA500011 SQ (07:01)
[2019-03-13] MEDS: POTASSIUM CHLORIDE 10 MEQ SR TABLET PO SCH (08:30)
[2019-03-13] MEDS: ASPIRIN 81 MG ENTERIC TAB PO SCH (08:30)
[2019-03-13] MEDS: HEPARIN SOD (PORCINE) 5000 UNITS/ML VIAL SQ SCH (08:31)
[2019-03-13] MEDS: THIAMINE 100 MG TAB PO SCH (08:31)
[2019-03-13] MEDS: MULTIVITAMINS/MINERALS THERAP 1 TAB PO SCH (08:31)
[2019-03-13] MEDS: FOLIC ACID 1 MG TAB PO SCH (08:31)
[2019-03-13] MEDS: BALMEX CREAM 60GM TOP SCH (08:31)
[2019-03-13] MEDS: OMEPRAZOLE 20 MG CAP PO SCH (08:31)
[2019-03-13] MEDS: buPROPion **XL** TABLET 150MG (WELLBUTRIN XL) PO SCH (08:31)
[2019-03-13] MEDS: KETOCONAZOLE 2% CREAM TOP SCH (08:32)
[2019-03-13] MEDS: BENZOCAINE 10% 9GM TUBE (ANBESOL) MT PRN (08:38)
--- NOTE | 2019-03-13 11:03 | DS.PDOC ---
Discharge Summary General Date of Admission February 26, 2019 at 12:26 Date of Discharge 03/13/2019 Attending Physician: ANYA RODRIGUEZ MD Discharge Summary PROCEDURES PERFORMED DURING STAY: None. ADMITTING DIAGNOSES: 1. Fall. 2. Alcohol dependence with alcohol withdrawal and hallucinations. 3. Neutrophilic leukocytosis. 4. Electrolyte abnormalities. 5. Indirect hyperbilirubinemia with transaminitis. 6. Rhabdomyolysis. 7. Anxiety/depression. 8. Intertrigo. 9. Deep tissue injuries. DISCHARGE DIAGNOSES: 1. Alcohol withdrawal with hallucinosis. 2. 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 3. Intertrigo. 4. Depression. COMPLICATIONS/CHIEF COMPLAINT: Alcohol Withdrawal Hallucinosis. HISTORY OF PRESENT ILLNESS: Mr. Garcia is a 74-year-old male who presents to [facility]'s Emergency Department for fall. Patient is accompanied by his only daughter who provides a significant portion of his history. She states that the patient is a chronic alcoholic who consumes excessive amounts of whiskey which she is unable to quantify. She states that she had called her father on Saturday and he made no mention of the fact that he had fallen. She attempted to call him Saturday and Saturday, but he did not answer the phone. She says that when he did not answer the door at his low income apartment, she had the door opened and found him on the ground laying in his own excrement. The patient states that he had fallen secondary to his "bad knees" and that he was unable to reach the phone consistently. He was unable to call for help as it was over the holiday weekend. His daughter says that his apartment is in a deplorable state and uninhabitable. She states that his bathroom is covered in feces. However, patient states that he is not incontinent of stool or urine and is able to perform ADLs. The patient's daughter states that she already has patient established with Medicaid and has an application in at [facility]. She had previously filed ELY paperwork in August; however, that paperwork is only valid for 60 or 90 days and has since relapsed. Daughter states that she is physically and emotionally unable to care for her father, but keeps returning to care for him because she is an only child and her father has no one else. She states that he did briefly live with her and her family for 2.5 months from June 2018 to September 2018 until his current living arrangement was made. She states that his previous living arrangement kept his belongings to off-set the cost of damages. She has previously called [employer], but that her father will not allow them access to his home so they are unable to intervene. She states that his current living arrang ement may not last much longer. Patient and daughter state that he is visually hallucinating. He says that he is watching TV on the ceiling. It is not a good show as it is something Belgian and he cannot understand it. He does not have the sensation of bugs crawling on him. He is alert and oriented and able to correctly give me his name, date of , and current year. He states that he does have chronic back pain and that he is developing some numbness/tingling in his right small finger. Emergency Department evaluation revealed a mild neutrophilic leukocytosis of 12.2, mild hypokalemia fo 3.0, indirect hyperbilirubinemia of 1.1, AST > ALT (65, 45), normal platelets, prolonged PTT of 15.5, negative EtOH level of < 0.003. CT lumbar spine, knee x-ray, and CT head were unremarkable. CT abdomen and pelvis revealed cirrhosis and cholelithiasis. Hospitalist service was consulted and patient was admitted for further medical management. HOSPITAL COURSE: Patient was admitted. CIWA protocol instituted with Ativan scheduled and eventually discontinued once patient stabilized. Started Folic Acid, Multivitamin, and Thiamine. Electrolytes derangements supplemented. Started IVF and ordered PT/OT. Discussed with PFS regarding possible placement. Patient progressed well with PT/OT. Wound care ordered. Started oral Fluconazole for intertrigo. Discontinued topical Nystatin and switched to topical Ketoconazole. Patient developed pain associated with lower dentures. Started Benzocaine gel. Recommend follow-up out-patient with dentist for possible denture adjustment. Patient approved for short-term rehabilitation at longterm. He clinically improved throughout hospitalization and was safe at time of discharge. DISCHARGE MEDICATIONS: Please see below. ALLERGIES: Please see below. PHYSICAL EXAMINATION ON DISCHARGE: VITAL SIGNS: Please see below. GENERAL: Well nourished, well developed male, alert and conversant, answers questions appropriately, no acute distress. HEENT: Atraumatic, normocephalic, PERRL, EOMI, oral mucosa appears pink and moist, nasal septum appears midline, nares are patent, lower gum line is tender to palpation, although no abrasions, lesions, or active bleeding are noted. CARDIOVASCULAR: Regular rate and rhythm, normal S1 and S2, no murmur, rub, click. RESPIRATORY: Clear to auscultation bilaterally, adequate inspiratory and expiratory airway excursion, symmetric airway entry, no focal consolidations, no wheeze, rhonchi, crackles. ABDOMINAL: Obese, soft, pain with palpation in RUQ due to isolated, rubbery, smooth, mobile elongated mass approximately 2cm in length most consistent with lipoma, non-distended, erythematous plaques noted in abdominal folds and breast folds. EXTREMITIES: Without edema, cyanosis, or clubbing, peripheral pulses equal and symmetrical, +2. NEUROLOGICAL: CN II-XII grossly intact. PSYCHOLOGICAL: Mood and affect appropriate. LABORATORY DATA: Please see below. IMAGIN. CT L-spine without contrast - Marked degenerative disc osteophyte complexes throughout the lumbosacral spine without evidence for acute fracture / compression injury or subluxation. 2. Left knee x-ray, AP and lateral - No definite acute fracture. 3. CT head without contrast - Atrophy and microvascular ischemic changes. No acute intracranial hemorrhage, infarction, or mass/mass effect. 4. CT abdomen and pelvis without contrast - No acute abdominopelvic pathology or trauma/injury appreciated. No ascites. No focal inflammatory stranding. No free air. No adenopathy. Shrunken nodular liver most compatible with cirrhosis. Cholelithiasis. Fibrosis and scarring at the bilateral lung bases. PROGNOSIS: Stable. ACTIVITY: Stand-by assist, rolling walker. DIET: Regular. DISCHARGE PLAN: Problem: Managing health at home Goal: Improve health & wellness Instructions: Follow DC Instruction DISPOSITION: [facility]. DISCHARGE INSTRUCTIONS: 1. Discharged to [facility], 7th floor. 2. Follow-up with Dr. Ocampo in 7-10 days. 3. Make an appointment with a dentist for possible adjustments to dentures. 4. Take medications as prescribed. ITEMS TO FOLLOWUP ON ON OUTPATIENT: 1. Alcohol dependence. DISCHARGE CONDITION: Stable. I saw and evaluated the patient. I agree with the findings and plan of care as documented in the resident's note. I spent 45 minutes coordinating this patient's discharge. Vital Signs/I&Os Vital Signs Date Time Temp Pulse Resp B/P (MAP) Pulse Ox O2 Delivery O2 Flow Rate FiO2 03/13/19 06:00 98.0 85 19 152/89 (110) 98 I&O- Last 24 Hours up to 6 AM 03/13/19 06:00 Intake Total 2180 ml Output Total 1350 ml Balance 830 ml Discharge Medications Scheduled Aspirin (Aspirin EC) 81 Mg Tablet.dr, 81 MG PO DAILY Bupropion Hcl (Bupropion Xl) 150 Mg Tab.er.24h, 300 MG PO DAILY Folic Acid (Folic Acid) 1 Mg Tablet, 1 MG PO DAILY Heparin Sodium,Porcine (Heparin Sodium) 5,000 Unit/1 Ml Vial, 5,000 UNITS SQ Q12H Ketoconazole (Ketoconazole) 15 Gm Cream..g., 0 DOSE TOP DAILY Multivitamins (Thera M Plus Tablet) 1 Each Tablet, 1 TAB PO DAILY Omeprazole (Omeprazole) 20 Mg Capsule.dr, 20 MG PO DAILY Potassium Chloride (Klor-Con M10) 10 Meq Tab.er.prt, 40 MEQ PO BID Thiamine Hcl (Vitamin B-1) 100 Mg Tablet, 100 MG PO DAILY [Zinc Oxide] 1 DOSE/57 GM CREAM, 0 DOSE TOP BID Scheduled PRN Acetaminophen (Acetaminophen) 325 Mg Tablet, 650 MG PO Q4HP PRN for PAIN OR FEVER Ondansetron HCl (Ondansetron HCl) 4 Mg Tablet, 4 MG PO Q8H PRN for NAUSEA [Benzocaine Gel] 1 DOSE/9 GM GEL, 0 DOSE MT QID PRN for DENTURE PAIN Allergies Coded Allergies: ether (Verified Allergy, Severe, ANAPHYLAXIS, 02/24/19) egg (Verified Allergy, Mild, RASH, 02/24/19) EILEEN GARCIA DO Mar 13, 2019 11:03 ANYA RODRIGUEZ MD Mar 14, 2019 16:47
== END 2019-03-13 10:34 | DRG 897 ==
LOC: M ED 19:19 → M ED INP 22:01 → M MS5PR 23:40 → OBSVTOIN 02-26 12:26
PROVIDERS: ADMIT Internal Medicine; ATTEND Internal Medicine
DX: F10.251 Alcohol dependence with alcohol-induced psychotic disorder with hallucinations (principal); M62.82 Rhabdomyolysis; F10.231 Alcohol dependence with withdrawal delirium; R74.0 Nonspecific elevation of levels of transaminase and lactic acid dehydrogenase [LDH]; B36.9 Superficial mycosis, unspecified; E87.6 Hypokalemia; F41.9 Anxiety disorder, unspecified; F32.9 Major depressive disorder, single episode, unspecified; F45.8 Other somatoform disorders; L30.4 Erythema intertrigo; D72.829 Elevated white blood cell count, unspecified; Z79.899 Other long term (current) drug therapy; Z91.012 Allergy to eggs; Z79.82 Long term (current) use of aspirin; Z88.4 Allergy status to anesthetic agent; K70.30 Alcoholic cirrhosis of liver without ascites; K80.20 Calculus of gallbladder without cholecystitis without obstruction; K70.10 Alcoholic hepatitis without ascites; K21.9 Gastro-esophageal reflux disease without esophagitis; N52.9 Male erectile dysfunction, unspecified; M51.36 Other intervertebral disc degeneration, lumbar region

== ENCOUNTER 2019-04-16 20:43 | Inpatient (IN) | payer OTHER, MEDICARE, MEDICAID ==
[~2019-04-16] VITALS: Ht 182.9 cm; Wt 101.6 kg
[~2019-04-16 20:43] MED LIST changes: +ACET1TAB55 PO; +ASPI81TAEC PO; +BUPR150T3 PO; +Benzocaine Gel MT; +HEPA500011 SQ; +KETO2CR TOP; +KLOR10TA76 PO; +NYST10CR EXT; +OMEP-218 PO; -OMEP20CA3 PO; +OMEP20CA4 PO; +ONDA4TAB5 PO; +THIA100TA PO; +VIAG100T PO; +Zinc Oxide TOP
[2019-04-16 21:40] LABS: BASO % 0.3 % (0.0-1.0); EOS % 0.1 % (0.0-3.0); HEMATOCRIT 43.2 % (42.0-52.0); HEMOGLOBIN 15.2 g/dl (13.5-17.5); LYMPH # 0.6 10^3/uL (1.5-4.5); LYMPH % 6.7 % (24.0-44.0); MEAN CORPUSCULAR HGB CONC 35.2 g/dl (32.0-36.5); MEAN CORPUSCULAR VOLUME 93.7 fl (80.0-96.0); MONO # 0.8 10^3/uL (0.0-0.8); MONO % 8.9 % (0.0-5.0); NEUTROPHILS # 7.4 10^3/uL (1.8-7.7); NEUTROPHILS % 83.5 % (36.0-66.0); PLATELET COUNT, AUTOMATED 153 10^3/uL (150-450); RED BLOOD COUNT 4.61 10^6/uL (4.30-6.10); WHITE BLOOD COUNT 8.9 10^3/uL (4.0-10.0)
[2019-04-16 22:16] LABS: ALBUMIN 3.6 GM/DL (3.2-5.2); ALT/SGPT 87 U/L (12-78); BILIRUBIN,DIRECT 1.4 MG/DL (0.0-0.2); BILIRUBIN,TOTAL 2.9 MG/DL (0.2-1.0); BLOOD UREA NITROGEN 44 MG/DL (7-18); CALCIUM LEVEL 9.8 MG/DL (8.8-10.2); CARBON DIOXIDE LEVEL 25 MEQ/L (21-32); CHLORIDE LEVEL 108 MEQ/L (98-107); CK-MB VALUE MASS 1.9 NG/ML (<3.6); CPK CREATINE PHOSPHOKINASE 87 U/L (39-308); CREATININE FOR GFR 1.57 MG/DL (0.70-1.30); GLOMERULAR FILTRATION RATE 46.5 (>42); GLUCOSE, FASTING 159 MG/DL (70-100); MB/CK RELATIVE INDEX 2.18 (< OR =4); POTASSIUM SERUM 3.5 MEQ/L (3.5-5.1); SODIUM LEVEL 150 MEQ/L (136-145); THYROID STIMULATING HORMONE 0.484 uIU/ML (0.358-3.740); TOTAL PROTEIN 8.3 GM/DL (6.4-8.2); TROPONIN I < 0.02 NG/ML (< 0.10)
[2019-04-16 22:17] LABS: ETHYL ALCOHOL (ETHANOL) < 0.003 % (0.000-0.010)
[2019-04-16] MEDS ORDERED: NS IV ONE (22:45)
[2019-04-16] MEDS ORDERED: DILUENT IV ONE (22:45)
[2019-04-16] MEDS ORDERED: ISOVUE-370 76% 100ML VIAL (Q9967) As Ordered ONE (22:59)
[2019-04-16 23:41] LABS: BACTERIA, URINE SMALL AMOUNT; MUCUS, URINE MOD AMOUNT (NEGATIVE); SQUAMOUS EPITHELIAL CELL URINE SMALL AMOUNT /hpf (SMALL AMT); WHITE BLOOD CELL CAST, URINE 0-1 /lpf
--- NOTE | 2019-04-16 23:56 | REPVR ---
EXAM: CT Head Without Contrast EXAM DATE/TIME: 04/16/2019 11:18 PM CLINICAL HISTORY: 74 years old, male; Altered mental status/memory loss; Additional info: Fall injury; AMS TECHNIQUE: Imaging protocol: Computed tomography images of the head without contrast. Radiation optimization: All CT scans at this facility use at least one of these dose optimization techniques: automated exposure control; mA and/or kV adjustment per patient size (includes targeted exams where dose is matched to clinical indication); or iterative reconstruction. COMPARISON: CT Head without contrast 02/24/2019 8:00 PM FINDINGS: Brain: Patchy areas of hypoattenuation in the periventricular and subcortical white matter, consistent with chronic small vessel ischemic disease. No CT evidence of acute intracranial hemorrhage or acute territorial infarction. No significant mass effect or midline shift. Basal cisterns patent. Ventricles: Prominence of the cortical sulci, cisterns and ventricular system, consistent with cerebral and cerebellar volume loss. Bones/joints: No acute osseous abnormality. Sinuses: Minimal ethmoid mucosal thickening. Mastoid air cells: Grossly unremarkable. Soft tissues: Grossly unremarkable. IMPRESSION: 1. No CT evidence of acute intracranial pathology. 2. Additional findings, as above. Electronically signed by: Benito Hatch On 04/16/2019 23:56:24 PM
--- NOTE | 2019-04-16 23:59 | REPVR ---
EXAM: CT Cervical Spine Without Contrast EXAM DATE/TIME: 04/16/2019 11:18 PM CLINICAL HISTORY: 74 years old, male; Other: AMS, fall; Additional info: Fall injury; AMS TECHNIQUE: Imaging protocol: Computed tomography images of the cervical spine without contrast. Coronal and sagittal reformatted images were created and reviewed. Radiation optimization: All CT scans at this facility use at least one of these dose optimization techniques: automated exposure control; mA and/or kV adjustment per patient size (includes targeted exams where dose is matched to clinical indication); or iterative reconstruction. COMPARISON: CT Spine,cervical w/o contrast 10/14/2018 10:50 AM FINDINGS: Vertebrae: Osteopenia. Mild reversal of the normal cervical lordosis. Minimal anterolisthesis of C4 on C5. Mild retrolisthesis of C5 on C6 and C6 on C7. Mild anterolisthesis of C7 on T1. Alignment otherwise anatomic. Levoscoliosis. No CT evidence of acute fracture, dislocation or subluxation. Vertebral body heights maintained. Discs/Spinal canal/Neural foramina: Multilevel degenerative changes, characterized by disc space narrowing, osteophytosis and uncovertebral and facet joint hypertrophy. Multilevel spinal canal and neural foraminal stenosis. Soft tissues: Grossly unremarkable. Lungs: Grossly unremarkable. IMPRESSION: 1. No CT evidence of acute cervical spine traumatic injury. 2. Additional findings, as above. Electronically signed by: Benito Hatch On 04/16/2019 23:59:38 PM
[2019-04-17] VITALS (9 sets, daily range): BP systolic 126–139; BP diastolic 59–72
--- NOTE | 2019-04-17 00:02 | REPVR ---
EXAM: CT Abdomen and Pelvis With Contrast EXAM DATE/TIME: 04/16/2019 11:18 PM CLINICAL HISTORY: 74 years old, male; Other: AMS , fall; Additional info: Abdominal pain TECHNIQUE: Imaging protocol: Axial computed tomography images of the abdomen and pelvis with intravenous contrast. Coronal and sagittal reformatted images were created and reviewed. Radiation optimization: All CT scans at this facility use at least one of these dose optimization techniques: automated exposure control; mA and/or kV adjustment per patient size (includes targeted exams where dose is matched to clinical indication); or iterative reconstruction. Contrast material: ISOVUE 370; Contrast volume: 100 ml; Contrast route: IV; COMPARISON: CT ABD PELVIS W/O CONTRAST 02/24/2019 8:00 PM FINDINGS: Lungs: Linear stranding and groundglass at the lung bases, likely due to atelectasis and/or scarring. Mediastinum: Small hiatal hernia. Liver: Diffuse hepatic steatosis. Nodular hepatic contour, consistent with cirrhosis. Gallbladder and bile ducts: Cholelithiasis and mild gallbladder distention. Pancreas: Unremarkable. Spleen: Unremarkable. Adrenals: Unremarkable. Kidneys and ureters: 8 mm low density left renal lesion, too small to characterize. No radiodense calculi. No hydronephrosis. Stomach and bowel: No bowel wall thickening. No obstruction. No pneumatosis. Appendix: Appendix not identified with certainty but no right lower quadrant inflammatory change to suggest acute appendicitis. Intraperitoneal space: No free fluid. No organized fluid collection. No free air. Vasculature: Mild atherosclerotic disease. No aneurysm or dissection. Lymph nodes: No pathologically enlarged lymph nodes. Bladder: Unremarkable. Reproductive: Unremarkable. Bones/joints: No acute osseous abnormality. Osteopenia. Degenerative changes. Soft tissues: Unremarkable. IMPRESSION: 1. No CT evidence of acute intra-abdominal or pelvic traumatic injury. 2. Additional findings, as above. COMMENT: Consistent with the [employer]'s Incidental Findings Committee Report (J Am Guerita Radiol 2010): Unless the patient's specific circumstances suggest otherwise, any liver lesion 0.5 cm or less, any cystic kidney lesion less than 1.0 cm, and/or any adrenal lesion 1.0 cm or less not otherwise characterized in this report as possessing suspicious or indeterminate imaging features is/are highly likely to be benign and do not require follow-up imaging or biopsy. Electronically signed by: Benito Hatch On 04/17/2019 00:02:21 AM
--- NOTE | 2019-04-17 01:13 | HPEPDOC ---
General Date of Admission Apr 17, 2019 at 00:58 Date of Service: Apr 17, 2019 Attending Physician: ISHA TOMPKINS MD Chief Complaint The patient is a 74-year-old male admitted with a reason for visit of Altered Mental Status. History of Present Illness Patient is a 74-year-old male, past medical history significant for alcohol abuse, liver cirrhosis secondary to alcohol abuse, admitted on account of acute mental status change. Patient had recently been discharged from [facility] where he had been a resident for 2 weeks after discharge from this facility. Admission had been due to alcohol abuse, intoxication and fall. Daughter states she had not talked to patient since Saturday and went to check on him. When she got to the house. He was sitting in a chair, dry heaving and unable to talk. She called EMS services and he was brought to the emergency room. In the ED, alcohol level was undetectable.lactic acid was elevated at 3.1, CT brain was negative for acute intracranial process. CT abdomen and pelvis showed cholelithiasis and gallbladder distention. Patient had no complaints of abdominal pain, nausea, vomiting. Daughter also mentioned that since patient wa s discharged, he has been on a heavy olivares, drinking scotch and whiskey. He fell on Saturday,about 5 days ago, EMS services came and assessed him at home and left him.. Patient was unable to provide any history, was cooperative with exam, but seemed very weak and unable to turn in the stretcher when asked for assessment. Home Medications Unable to Obtain Active Prescriptions or Reported Meds Allergies Coded Allergies: ether (Verified Allergy, Severe, ANAPHYLAXIS, 02/24/19) egg (Verified Allergy, Mild, RASH, 02/24/19) Past Medical History Medical History Obesity. Alcohol abuse Liver cirrhosis. Degenerative disc disease Surgical History Knee surgery Family History Father: Cancer Mother: Cancer Social History * Smoker: Denies Alcohol: heavy (1.5 liter scotch/whiskey) Drugs: denies A-FIB/CHADSVASC A-FIB History Current/History of A-Fib/PAF?: No Current PO Anticoag Therapy: No Review of Systems Other systems Review of systems not completed due to mental status Physical Examination Other physical findings GENERAL: frail appearing SKIN : intertrigo to bilateral groin folds with erythema HEENT: Atraumatic, normocephalic, PERRL, moist mucous membrane CARDIOVASCULAR: Regular rate and rhythm, S1S2, no JVD, no edema, distal pulses + and palpable RESP: CTAB, no accessory muscle use noted ABDOMEN: BS+ non distended non tender MS: no joint deformities NEURO: Alert to self PSYCH: no anxiety or agitation, appropriate mood and affect. Vital Signs Vital Signs Date Time Temp Pulse Resp B/P (MAP) Pulse Ox O2 Delivery O2 Flow Rate FiO2 04/17/19 00:15 98.6 04/17/19 00:00 82 138/72 (94) 97 Room Air 04/16/19 22:00 18 Laboratory Data Labs 24H Laboratory Tests 2 04/16/19 21:27: Immature Granulocyte % (Auto) 0.5, White Blood Count 8.9, Red Blood Count 4.61, Hemoglobin 15.2, Hematocrit 43.2, Mean Corpuscular Volume 93.7, Mean Corpuscular Hemoglobin 33.0, Mean Corpuscular Hemoglobin Concent 35.2, Red Cell Distribution Width 15.6H, Platelet Count 153, Neutrophils (%) (Auto) 83.5H, Lymphocytes (%) (Auto) 6.7L, Monocytes (%) (Auto) 8.9H, Eosinophils (%) (Auto) 0.1, Basophils (%) (Auto) 0.3, Neutrophils # (Auto) 7.4, Lymphocytes # (Auto) 0.6L, Monocytes # (Auto) 0.8, Eosinophils # (Auto) 0.0, Basophils # (Auto) 0.0, Nucleated Red Blood Cells % (auto) 0.0, Anion Gap 17H, Glomerular Filtration Rate 46.5, Lactic Acid Level 3.1*H, Calcium Level 9.8, Aspartate Amino Transf (AST/SGOT) 140H, Alanine Aminotransferase (ALT/SGPT) 87H, Alkaline Phosphatase 122H, Total Bilirubin 2.9H, Direct Bilirubin 1.4H, Ammonia 19, Total Creatine Kinase 87, Creatine Kinase MB 1.9, Creatine Kinase MB Relative Index 2.18, Troponin I < 0.02, Total Protein 8.3H, Albumin 3.6, Albumin/Globulin Ratio 0.77L, Thyroid Stimulating Hormone (TSH) 0.484, Ethyl Alcohol Level < 0.003 04/16/19 22:55: Urine Color SHELLEY, Urine Appearance HAZY, Urine pH 6.0, Urine Specific [place] 1.020, Urine Protein 1+H, Urine Glucose (UA) NEGATIVE, Urine Ketones 1+H, Urine Blood NEGATIVE, Urine Nitrite NEGATIVE, Urine Bilirubin 1+H, Urine Urobilinogen 4.0H, Urine Leukocyte Esterase NEGATIVE, Urine Sediment Examination PERFORMED, Urine WBC (Auto) 7H, Urine RBC (Auto) 2, Urine Hyaline Casts (Auto) 11, Urine Bacteria (Auto) NEGATIVE, Urine RBC 3-5H, Urine WBC 10-15H, Urine Squamous Epithelial Cells SMALL AMOUNT, Urine Bacteria SMALL AMOUNTH, Urine Cellular Casts 1H, Urine Hyaline Casts 3-5H, Urine White Blood Cell Casts 0-1, Urine Mucus MOD AMOUNTH, Urine Sperm (Auto) CBC/BMP Laboratory Tests 04/16/19 21:27 Red Blood Count 4.61, Mean Corpuscular Volume 93.7, Mean Corpuscular Hemoglobin 33.0, Mean Corpuscular Hemoglobin Concent 35.2, Red Cell Distribution Width 15.6 H, Neutrophils (%) (Auto) 83.5 H, Lymphocytes (%) (Auto) 6.7 L, Monocytes (%) (Auto) 8.9 H, Eosinophils (%) (Auto) 0.1, Basophils (%) (Auto) 0.3, Neutrophils # (Auto) 7.4, Lymphocytes # (Auto) 0.6 L, Monocytes # (Auto) 0.8, Eosinophils # (Auto) 0.0, Basophils # (Auto) 0.0 Microbiology Microbiology 04/16/19 Blood Culture, Received Pending 04/16/19 Blood Culture, Received Pending 04/16/19 Urine Culture, Received Pending Assessment/Plan Toxic encephalopathy -With heavy alcohol abuse -Presenting with elevated lactic acid, likely secondary to alcohol abuse -will be continued at 80 mL per hour after fluid bolus is completed Alcohol abuse -Place on alcohol withdrawal protocol -Evaluate electrolytes and replete as indicated Hyponatremia -Sodium levels 150 possibly due to dehydration -Change every fluids to half-normal saline at 80 mL per hour -. Recheck electrolytes in the am and adjust management as indicated Frequent falls -Likely due to heavy alcohol abuse -PTOT consults -follow recommendations by PT/OT Intertrigo -Nystatin cream to bilateral groin folds DVT prophylaxis -Lovenox subcutaneous daily Plan / VTE VTE Prophylaxis Ordered?: Yes SKYLER DIXON Apr 17, 2019 01:13
[2019-04-17] MEDS: POTASSIUM CHLORIDE INJ 40 MEQ in NS 0.45% 1,000 ML IV SCH ×2 (01:25→10:00)
[2019-04-17] MEDS ORDERED: LORazepam 2 MG TAB PO PRN (01:30)
[2019-04-17] MEDS ORDERED: NS 1,000 ML IV SCH (01:30)
[2019-04-17] MEDS ORDERED: NS 0.45% 1,000 ML IV SCH (01:45)
[2019-04-17] MEDS: THIAMINE 100 MG TAB PO SCH ×3 (04:07→20:38)
--- NOTE | 2019-04-17 05:59 | ECGEPIP ---
[facility] - ED Test Date: 2019-04-16 Pat Name: TYSON NGUYEN Department: Room: - Gender: Male Fountain Manager: BERENICE : 1945 Requested By: KAYLEEN Dukes Order Number: [id number] Reading MD: Matthew Head Measurements Intervals [place] Rate: 91 P: 22 PA: 127 QRS: QRSD: 89 T: 13 QT: 355 QTc: 437 Interpretive Statements SINUS RHYTHM WITH OCCASIONAL SUPRAVENTRICULAR PREMATURE COMPLEXES POSSIBLE ANTERIOR MYOCARDIAL INFARCTION, PROBABLY OLD NSTTW ABNORMALITIES SIMILAR TO 10/14/18 Electronically Signed on 04-17-2019 5:58:48 EDT by Matthew Head
[2019-04-17] MEDS ORDERED: FOLI1TAB11 PO (07:14)
[2019-04-17] MEDS ORDERED: OMEP20CA4 PO (07:14)
[2019-04-17] MEDS ORDERED: ECOT81TA5 PO (07:14)
[2019-04-17] MEDS ORDERED: MULTCAP PO (07:14)
[2019-04-17] MEDS ORDERED: FLUC10TA PO (07:18)
[2019-04-17] MEDS ORDERED: BUPR300T34 PO (07:18)
[2019-04-17] MEDS ORDERED: POTA10TA17 PO (07:18)
[2019-04-17] MEDS ORDERED: ASPI-1 PO (07:18)
[2019-04-17] MEDS ORDERED: DESI13CR2 TOP (07:18)
[2019-04-17] MEDS ORDERED: ONDA4TAB5 PO (07:22)
[2019-04-17] MEDS ORDERED: QC A650T3 PO (07:22)
[2019-04-17] MEDS ORDERED: NYST1POW9 TOP ×2 (07:22)
[2019-04-17] MEDS ORDERED: PHARMACY COMMENT (07:25)
[2019-04-17 08:08] LABS: BASO % 0.3 % (0.0-1.0); EOS # 0.1 10^3/uL (0.0-0.50); EOS % 0.9 % (0.0-3.0); HEMATOCRIT 36.9 % (42.0-52.0); LYMPH # 0.8 10^3/uL (1.5-4.5); LYMPH % 11.9 % (24.0-44.0); MEAN CORPUSCULAR HEMOGLOBIN 32.1 pg (27.0-33.0); MEAN CORPUSCULAR HGB CONC 35.2 g/dl (32.0-36.5); MEAN CORPUSCULAR VOLUME 91.1 fl (80.0-96.0); MONO # 0.7 10^3/uL (0.0-0.8); MONO % 9.9 % (0.0-5.0); NEUTROPHILS # 5.2 10^3/uL (1.8-7.7); NEUTROPHILS % 76.6 % (36.0-66.0); PLATELET COUNT, AUTOMATED 115 10^3/uL (150-450); RED BLOOD COUNT 4.05 10^6/uL (4.30-6.10); WHITE BLOOD COUNT 6.8 10^3/uL (4.0-10.0)
[2019-04-17] MEDS: FOLIC ACID 1 MG TAB PO SCH (08:10)
[2019-04-17] MEDS: MULTIVITAMINS/MINERALS THERAP 1 TAB PO SCH (08:10)
[2019-04-17] MEDS: ENOXAPARIN 40 MG/0.4 ML SYRINGE (J1650) SC SCH (08:11)
[2019-04-17 08:29] LABS: BLOOD UREA NITROGEN 32 MG/DL (7-18); CALCIUM LEVEL 8.5 MG/DL (8.8-10.2); CARBON DIOXIDE LEVEL 29 MEQ/L (21-32); CHLORIDE LEVEL 113 MEQ/L (98-107); CREATININE FOR GFR 1.16 MG/DL (0.70-1.30); GLOMERULAR FILTRATION RATE > 60.0 (>42); GLUCOSE, FASTING 127 MG/DL (70-100); MAGNESIUM LEVEL 1.9 MG/DL (1.8-2.4); SODIUM LEVEL 152 MEQ/L (136-145)
[2019-04-17 08:37] LABS: POTASSIUM SERUM 2.5 MEQ/L (3.5-5.1)
[2019-04-17] MEDS ORDERED: POTASSIUM CHLORIDE 10 MEQ SR TABLET PO ONE ×4 (09:00→16:30)
[2019-04-17 10:19] LABS: ALT/SGPT 68 U/L (12-78); BILIRUBIN,TOTAL 2.4 MG/DL (0.2-1.0); TOTAL PROTEIN 6.9 GM/DL (6.4-8.2)
[2019-04-17] MEDS: DOXYCYCLINE HYCLATE 100 MG TAB PO SCH ×2 (12:53→20:38)
[2019-04-17 14:29] LABS: BASO % 0.4 % (0.0-1.0); EOS # 0.2 10^3/uL (0.0-0.50); EOS % 2.2 % (0.0-3.0); HEMATOCRIT 37.9 % (42.0-52.0); LYMPH # 0.8 10^3/uL (1.5-4.5); MEAN CORPUSCULAR HGB CONC 34.3 g/dl (32.0-36.5); MEAN CORPUSCULAR VOLUME 93.3 fl (80.0-96.0); MONO # 0.6 10^3/uL (0.0-0.8); MONO % 8.4 % (0.0-5.0); NEUTROPHILS # 5.7 10^3/uL (1.8-7.7); NEUTROPHILS % 77.6 % (36.0-66.0); PLATELET COUNT, AUTOMATED 108 10^3/uL (150-450); RED BLOOD COUNT 4.06 10^6/uL (4.30-6.10); WHITE BLOOD COUNT 7.4 10^3/uL (4.0-10.0)
[2019-04-17 14:55] LABS: ALBUMIN 2.9 GM/DL (3.2-5.2); ALT/SGPT 63 U/L (12-78); BILIRUBIN,TOTAL 2.6 MG/DL (0.2-1.0); BLOOD UREA NITROGEN 28 MG/DL (7-18); CALCIUM LEVEL 8.7 MG/DL (8.8-10.2); CARBON DIOXIDE LEVEL 30 MEQ/L (21-32); CHLORIDE LEVEL 109 MEQ/L (98-107); CREATININE FOR GFR 0.98 MG/DL (0.70-1.30); GLOMERULAR FILTRATION RATE > 60.0 (>42); GLUCOSE, FASTING 156 MG/DL (70-100); MAGNESIUM LEVEL 1.8 MG/DL (1.8-2.4); POTASSIUM SERUM 2.9 MEQ/L (3.5-5.1); SODIUM LEVEL 146 MEQ/L (136-145); TOTAL PROTEIN 6.9 GM/DL (6.4-8.2)
--- NOTE | 2019-04-17 15:49 | IPNPDOC ---
Text Note Date of Service The patient was seen on 04/17/19. 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 Patient was discharged from [facility] 2 weeks ago, and since that point he has apparently has consumed 5 large bottles of liquor, as per his daughter. In the emergency room, patient's alcohol level was undetectable, he did have acute kidney injury and lactic acidosis. Imaging was negative for any acute process Patient was seen and examined at the bedside. . Currently, patient does not report any pain. He is oriented only to person and place. He is currently not oriented to time. Did not appear to be in any distress. Denies chest pain, shortness of breath or palpitations. Has had a bowel movement this morning. Objective: Vitals (See below) General: Lying in bed, no acute distress, comfortable, AAOx3 HEENT: NC, AT CVS: RRR, +S1S2 Lungs: Fair air entry b/l, -w/r/r Abdomen: Soft, ND, NT, obese Extremities: - Edema, - Calf tenderness Assessment and plan: Acute metabolic encephalopathy - possibly 2/2 chronic alcohol abuse - Currently, patient is oriented to person and place, not to time - Does not appear to have any focal neurologic deficits - Remains hemodynamically stable and afebrile - Mild electrode abnormalities are noted, however have been improving - No evidence of infection - CT head 04/16: 1. No CT evidence of acute intracranial pathology. 2. Additional findings, as above. - CT cervical spine 04/16: 1. No CT evidence of acute cervical spine traumatic injury. 2. Additional findings, as above. - c/w gentle IV fluid hydration - Will get MRI to evaluate Alcohol abuse - Does not appear to have any withdrawal symptoms at this time - Remains hemodynamically stable - c/w Thiamine, Folate and MVI Liver cirrhosis - Mild elevation of AST / ALT; has improved - CT ab/pelvis 04/16: 1. No CT evidence of acute intra-abdominal or pelvic traumatic injury. 2. Additional findings, as above. - Will trend liver enzymes Hypernatremia - Currently is improving - c/w 1/2 NS with supplemental potassium Hypokalemia - Will supplement Frequent falls - c/w fall precautions - c/w PT / OT as tolerated - Patient may require assisted placement Intertrigo - c/w Nystatin GI prophylaxis - Will start Protonix DVT prophylaxis - c/w Lovenox VS,Fishbone, I+O VS, Fishbone, I+O Laboratory Tests 04/16/19 21:27 Red Blood Count 4.61, Mean Corpuscular Volume 93.7, Mean Corpuscular Hemoglobin 33.0, Mean Corpuscular Hemoglobin Concent 35.2, Red Cell Distribution Width 15.6 H, Neutrophils (%) (Auto) 83.5 H, Lymphocytes (%) (Auto) 6.7 L, Monocytes (%) (Auto) 8.9 H, Eosinophils (%) (Auto) 0.1, Basophils (%) (Auto) 0.3, Neutrophils # (Auto) 7.4, Lymphocytes # (Auto) 0.6 L, Monocytes # (Auto) 0.8, Eosinophils # (Auto) 0.0, Basophils # (Auto) 0.0 04/17/19 07:46 Red Blood Count 4.05 L, Mean Corpuscular Volume 91.1, Mean Corpuscular Hemoglobin 32.1, Mean Corpuscular Hemoglobin Concent 35.2, Red Cell Distribution Width 15.4 H, Neutrophils (%) (Auto) 76.6 H, Lymphocytes (%) (Auto) 11.9 L, Monocytes (%) (Auto) 9.9 H, Eosinophils (%) (Auto) 0.9, Basophils (%) (Auto) 0.3, Neutrophils # (Auto) 5.2, Lymphocytes # (Auto) 0.8 L, Monocytes # (Auto) 0.7, Eosinophils # (Auto) 0.1, Basophils # (Auto) 0.0, Calcium Level 8.5 L, Aspartate Amino Transf (AST/SGOT) 108 H, Alanine Aminotransferase (ALT/SGPT) 68, Alkaline Phosphatase 103, Total Bilirubin 2.4 H, Total Protein 6.9, Albumin 3.0 L 04/17/19 14:21 Red Blood Count 4.06 L, Mean Corpuscular Volume 93.3, Mean Corpuscular Hemoglobin 32.0, Mean Corpuscular Hemoglobin Concent 34.3, Red Cell Distribution Width 15.4 H, Neutrophils (%) (Auto) 77.6 H, Lymphocytes (%) (Auto) 11.0 L, Monocytes (%) (Auto) 8.4 H, Eosinophils (%) (Auto) 2.2, Basophils (%) (Auto) 0.4, Neutrophils # (Auto) 5.7, Lymphocytes # (Auto) 0.8 L, Monocytes # (Auto) 0.6, Eosinophils # (Auto) 0.2, Basophils # (Auto) 0.0, Calcium Level 8.7 L, Aspartate Amino Transf (AST/SGOT) 108 H, Alanine Aminotransferase (ALT/SGPT) 63, Alkaline Phosphatase 98, Total Bilirubin 2.6 H, Total Protein 6.9, Albumin 2.9 L Vital Signs Date Time Temp Pulse Resp B/P (MAP) Pulse Ox O2 Delivery O2 Flow Rate FiO2 04/17/19 14:00 93 138/72 04/17/19 12:00 97.3 17 99 04/17/19 06:00 Room Air I&O- Last 24 Hours up to 6 AM 04/17/19 06:00 Intake Total 3050 ml Balance 3050 ml MAX WEAVER MD Apr 17, 2019 15:49
[2019-04-17] MEDS: NYSTATIN 100,000 UNITS/GM TOPICAL PWD 15 GM TOP SCH (15:58)
--- NOTE | 2019-04-17 16:01 | REP ---
MRI brain without contrast: History: Confusion. Comparison head CT study is from the previous day. Technique: Axial and sagittal imaging planes are utilized for T1 and T2-weighted scans. Sequences include spin-echo, fast spin echo, FLAIR, and diffusion weighted sequences. MRI findings: No bony calvarial lesion is seen. There is mild motion artifact on this sagittal sequence. Diffusion weighted scan shows no evidence to suggest acute ischemia. There is no evidence of intracranial hemorrhage. There is moderate generalized volume loss as seen on the CT. No mass or extra-axial fluid collection is seen. Impression: Moderate generalized volume loss. No evidence of acute ischemia or other acute intracranial abnormality. Electronically Signed by Isma Nieto MD 04/17/2019 04:56 P
[2019-04-17 19:07] LABS: INR 1.62
[2019-04-17] MEDS: PANTOPRAZOLE 40MG INJ (PROTONIX) (C9113) IV SCH (20:39)
[2019-04-18 04:00] VITALS: BP 122/84
[2019-04-18 05:40] LABS: HEMATOCRIT 36.8 % (42.0-52.0); HEMOGLOBIN 12.5 g/dl (13.5-17.5); MEAN CORPUSCULAR HEMOGLOBIN 32.1 pg (27.0-33.0); MEAN CORPUSCULAR VOLUME 94.4 fl (80.0-96.0); WHITE BLOOD COUNT 3.9 10^3/uL (4.0-10.0)
[2019-04-18 06:00] VITALS: BP 128/76
[2019-04-18 06:00] LABS: PLATELET COUNT, AUTOMATED 84 10^3/uL (150-450)
[2019-04-18 06:14] LABS: ALBUMIN 2.5 GM/DL (3.2-5.2); ALT/SGPT 53 U/L (12-78); BILIRUBIN,TOTAL 1.9 MG/DL (0.2-1.0); BLOOD UREA NITROGEN 15 MG/DL (7-18); CALCIUM LEVEL 8.2 MG/DL (8.8-10.2); CARBON DIOXIDE LEVEL 27 MEQ/L (21-32); CHLORIDE LEVEL 112 MEQ/L (98-107); CREATININE FOR GFR 0.78 MG/DL (0.70-1.30); GLOMERULAR FILTRATION RATE > 60.0 (>42); GLUCOSE, FASTING 104 MG/DL (70-100); MAGNESIUM LEVEL 1.6 MG/DL (1.8-2.4); POTASSIUM SERUM 3.2 MEQ/L (3.5-5.1); SODIUM LEVEL 145 MEQ/L (136-145); TOTAL PROTEIN 6.1 GM/DL (6.4-8.2)
[2019-04-18] MEDS ORDERED: POTASSIUM CHLORIDE 10 MEQ SR TABLET PO ONE ×2 (07:15→09:15)
[2019-04-18] MEDS: LACTULOSE 20 GM/30 ML SYRUP UD PO SCH ×3 (07:51→17:37)
[2019-04-18 08:00] VITALS: BP_SYST 138; BP_DIAS 69; BP_DIAS 79
[2019-04-18] MEDS: FOLIC ACID 1 MG TAB PO SCH (09:18)
[2019-04-18] MEDS: THIAMINE 100 MG TAB PO SCH ×2 (09:18→21:39)
[2019-04-18] MEDS: PANTOPRAZOLE 40MG INJ (PROTONIX) (C9113) IV SCH ×2 (09:18→21:39)
[2019-04-18] MEDS: MULTIVITAMINS/MINERALS THERAP 1 TAB PO SCH (09:18)
[2019-04-18] MEDS: DOXYCYCLINE HYCLATE 100 MG TAB PO SCH ×2 (09:18→21:39)
[2019-04-18] MEDS: NYSTATIN 100,000 UNITS/GM TOPICAL PWD 15 GM TOP SCH (09:19)
[2019-04-18] MEDS: ENOXAPARIN 40 MG/0.4 ML SYRINGE (J1650) SC SCH (09:19)
--- NOTE | 2019-04-18 11:22 | IPNPDOC ---
Text Note Date of Service The patient was seen on 04/18/19. 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 Patient was discharged from [facility] 2 weeks ago, and since that point he has apparently has consumed 5 large bottles of liquor, as per his daughter. In the emergency room, patient's alcohol level was undetectable, he did have acute kidney injury and lactic acidosis. Imaging was negative for any acute process Patient was seen and examined at the bedside. Patient appears to have improved significantly this morning. . He is oriented to person, place and season. Reports he never knows the date/ time. Patient has reported with the president is. Denies chest pain, shortness of breath or palpitations. Denies nausea, vomiting, abdominal pain, has had a normal bowel movement this morning. Denies discomfort with urination. Objective: Vitals (See below) General: Lying in bed, no acute distress, comfortable, AAOx3 HEENT: NC, AT CVS: RRR, +S1S2 Lungs: Fair air entry b/l, no evidence of rhonchi, rales or wheezing Abdomen: Soft, nondistended, without tenderness, obese Extremities: No evidence of lower extremity edema, - Calf tenderness Assessment and plan: Acute metabolic encephalopathy - possibly 2/2 chronic alcohol abuse - Currently, patient is oriented to person and place, never to date/time - Does not appear to have any focal neurologic deficits - Remains hemodynamically stable and afebrile - Mild electrode abnormalities are noted - near resolved - No evidence of infection - CT head 04/16: 1. No CT evidence of acute intracranial pathology. 2. Additional findings, as above. - CT cervical spine 04/16: 1. No CT evidence of acute cervical spine traumatic injury. 2. Additional findings, as above. - MRI 04/17: Moderate generalized volume loss. No evidence of acute ischemia or other acute intracranial abnormality. - Will DC IV fluid hydration s/p LORNA - Cr has improved back down to baseline - Will DC IV fluid hydration Alcohol abuse - Does not appear to have any withdrawal symptoms at this time - Remains hemodynamically stable - c/w Thiamine, Folate and MVI Liver cirrhosis - Mild elevation of AST / ALT; has improved - CT ab/pelvis 04/16: 1. No CT evidence of acute intra-abdominal or pelvic traumatic injury. 2. Additional findings, as above. - Will trend liver enzymes s/p Hypernatremia - Currently is improving - s/p IV fluids Hypokalemia - Will again supplement Frequent falls - c/w fall precautions - c/w PT / OT as tolerated - Patient may require prison placement Intertrigo - c/w Nystatin GI prophylaxis - c/w Protonix DVT prophylaxis - c/w Lovenox Disposition: - Will c/w Physical therapy VS,Fishbone, I+O VS, Fishbone, I+O Laboratory Tests 04/17/19 14:21 Red Blood Count 4.06 L, Mean Corpuscular Volume 93.3, Mean Corpuscular Hemoglobin 32.0, Mean Corpuscular Hemoglobin Concent 34.3, Red Cell Distribution Width 15.4 H, Neutrophils (%) (Auto) 77.6 H, Lymphocytes (%) (Auto) 11.0 L, [place] cytes (%) (Auto) 8.4 H, Eosinophils (%) (Auto) 2.2, Basophils (%) (Auto) 0.4, Neutrophils # (Auto) 5.7, Lymphocytes # (Auto) 0.8 L, Monocytes # (Auto) 0.6, Eosinophils # (Auto) 0.2, Basophils # (Auto) 0.0, Calcium Level 8.7 L, Aspartate Amino Transf (AST/SGOT) 108 H, Alanine Aminotransferase (ALT/SGPT) 63, Alkaline Phosphatase 98, Total Bilirubin 2.6 H, Total Protein 6.9, Albumin 2.9 L 04/18/19 04:57 Red Blood Count 3.90 L, Mean Corpuscular Volume 94.4, Mean Corpuscular He moglobin 32.1, Mean Corpuscular Hemoglobin Concent 34.0, Red Cell Distribution Width 15.6 H, Calcium Level 8.2 L, Aspartate Amino Transf (AST/SGOT) 77 H, Alanine Aminotransferase (ALT/SGPT) 53, Alkaline Phosphatase 95, Total Bilirubin 1.9 H, Total Protein 6.1 L, Albumin 2.5 L Vital Signs Date Time Temp Pulse Resp B/P (MAP) Pulse Ox O2 Delivery O2 Flow Rate FiO2 04/18/19 08:00 98.0 77 17 138/69 (92) 98 04/17/19 06:00 Room Air I&O- Last 24 Hours up to 6 AM 04/18/19 06:00 Intake Total 4520 ml Output Total 300 ml Balance 4220 ml MAX WEAVER MD Apr 18, 2019 11:22
[2019-04-18 12:00] VITALS: BP 142/74
[2019-04-18 14:00] VITALS: BP 142/74
[2019-04-18 16:45] VITALS: BP 145/82
[2019-04-19] MEDS: LACTULOSE 20 GM/30 ML SYRUP UD PO SCH ×2 (00:33→05:39)
[2019-04-19 06:00] VITALS: BP 138/80
[2019-04-19 08:06] LABS: BASO # 0.1 10^3/uL (0.0-0.2); BASO % 0.9 % (0.0-1.0); EOS # 0.4 10^3/uL (0.0-0.50); HEMATOCRIT 37.2 % (42.0-52.0); HEMOGLOBIN 12.9 g/dl (13.5-17.5); LYMPH # 1.1 10^3/uL (1.5-4.5); LYMPH % 20.2 % (24.0-44.0); MEAN CORPUSCULAR HEMOGLOBIN 32.7 pg (27.0-33.0); MEAN CORPUSCULAR HGB CONC 34.7 g/dl (32.0-36.5); MEAN CORPUSCULAR VOLUME 94.4 fl (80.0-96.0); MONO # 0.5 10^3/uL (0.0-0.8); MONO % 9.9 % (0.0-5.0); NEUTROPHILS # 3.3 10^3/uL (1.8-7.7); NEUTROPHILS % 60.7 % (36.0-66.0); RED BLOOD COUNT 3.94 10^6/uL (4.30-6.10); WHITE BLOOD COUNT 5.4 10^3/uL (4.0-10.0)
[2019-04-19 08:08] LABS: PLATELET COUNT, AUTOMATED 92 10^3/uL (150-450)
[2019-04-19 08:29] LABS: ALBUMIN 2.8 GM/DL (3.2-5.2); ALT/SGPT 58 U/L (12-78); BILIRUBIN,TOTAL 1.7 MG/DL (0.2-1.0); BLOOD UREA NITROGEN 9 MG/DL (7-18); CALCIUM LEVEL 8.4 MG/DL (8.8-10.2); CARBON DIOXIDE LEVEL 28 MEQ/L (21-32); CHLORIDE LEVEL 106 MEQ/L (98-107); CREATININE FOR GFR 0.74 MG/DL (0.70-1.30); GLOMERULAR FILTRATION RATE > 60.0 (>42); GLUCOSE, FASTING 139 MG/DL (70-100); MAGNESIUM LEVEL 1.3 MG/DL (1.8-2.4); POTASSIUM SERUM 3.2 MEQ/L (3.5-5.1); SODIUM LEVEL 142 MEQ/L (136-145); TOTAL PROTEIN 6.3 GM/DL (6.4-8.2)
[2019-04-19] MEDS: PANTOPRAZOLE 40MG INJ (PROTONIX) (C9113) IV SCH (09:49)
[2019-04-19] MEDS: MULTIVITAMINS/MINERALS THERAP 1 TAB PO SCH (09:51)
[2019-04-19] MEDS: ENOXAPARIN 40 MG/0.4 ML SYRINGE (J1650) SC SCH (09:51)
[2019-04-19] MEDS: NYSTATIN 100,000 UNITS/GM TOPICAL PWD 15 GM TOP SCH (09:51)
[2019-04-19] MEDS: THIAMINE 100 MG TAB PO SCH (09:51)
[2019-04-19] MEDS: FOLIC ACID 1 MG TAB PO SCH (09:51)
[2019-04-19] MEDS: DOXYCYCLINE HYCLATE 100 MG TAB PO SCH ×2 (09:51→21:43)
--- NOTE | 2019-04-19 12:24 | IPNPDOC ---
Text Note Date of Service The patient was seen on 04/19/19. 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 Patient was discharged from [facility] 2 weeks ago, and since that point he has apparently has consumed 5 large bottles of liquor, as per his daughter. In the emergency room, patient's alcohol level was undetectable, he did have acute kidney injury and lactic acidosis. Imaging was negative for any acute process Patient was seen and examined at the bedside. Currently, patient reports that he's feeling better than the point arrival to the ER. Still reports weakness and has worked with physical therapy. Reports a normal appetite. Denies nausea, vomiting, abdominal pain. Has had several normal bowel movements. Denies any discomfort with urination. . She denies chest pain, shortness of breath or palpitations. Objective: Vitals (See below) General: Lying in bed, no acute distress, comfortable, AAOx3 HEENT: NC, AT CVS: RRR, +S1S2 Lungs: Air entry remains fair bilaterally without any evidence of rhonchi, rales or wheezing Abdomen: Abdomen is soft without distention or tenderness, patient is morbidly obese Extremities: Lower extremities are free of any edema, - Calf tenderness Assessment and plan: s/p Acute metabolic encephalopathy - possibly 2/2 chronic alcohol abuse and dehydration - Currently, patient is oriented to person and place, - currently is still not aware of date; but is aware of year - Does not appear to have any focal neurologic deficits - Remains hemodynamically stable and afebrile - Mild electrode abnormalities are noted - near resolved - No evidence of infection - CT head 04/16: 1. No CT evidence of acute intracranial pathology. 2. Additional findings, as above. - CT cervical spine 04/16: 1. No CT evidence of acute cervical spine traumatic injury. 2. Additional findings, as above. - MRI 04/17: Moderate generalized volume loss. No evidence of acute ischemia or other acute intracranial abnormality. - s/p IV fluid hydration s/p LORNA - Cr has improved back down to baseline - s/p IV fluid hydration Alcohol abuse - Does not appear to have any withdrawal symptoms at this time - Remains hemodynamically stable - c/w Thiamine, Folate and MVI Liver cirrhosis - Mild elevation of AST / ALT; has improved - CT ab/pelvis 04/16: 1. No CT evidence of acute intra-abdominal or pelvic traumatic injury. 2. Additional findings, as above. - Will trend liver enzymes s/p Hypernatremia - Currently is improving - s/p IV fluids Hypokalemia - Potassium levels have improved; will continue with supplementation Hypomagnesemia - Will supplement Frequent falls - c/w fall precautions - c/w PT / OT as tolerated - Patient may require [place] [facility] Intertrigo - c/w Nystatin GI prophylaxis - c/w Protonix DVT prophylaxis - c/w Lovenox Disposition: - Will c/w Physical therapy VS,Fishbone, I+O VS, Fishbone, I+O Laboratory Tests 04/19/19 07:40 Red Blood Count 3.94 L, Mean Corpuscular Volume 94.4, Mean Corpuscular Hemoglobin 32.7, Mean Corpuscular Hemoglobin Concent 34.7, Red Cell Distribution Width 15.1 H, Neutrophils (%) (Auto) 60.7, Lymphocytes (%) (Auto) 20.2 L, Monocytes (%) (Auto) 9.9 H, Eosinophils (%) (Auto) 7.0 H, Basophils (%) (Auto) 0.9, Neutrophils # (Auto) 3.3, Lymphocytes # (Auto) 1.1 L, Monocytes # (Auto) 0.5, Eosinophils # (Auto) 0.4, Basophils # (Auto) 0.1, Calcium Level 8.4 L, Aspartate Amino Transf (AST/SGOT) 87 H, Alanine Aminotransferase (ALT/SGPT) 58, Alkaline Phosphatase 127 H, Total Bilirubin 1.7 H, Total Protein 6.3 L, Albumin 2.8 L Vital Signs Date Time Temp Pulse Resp B/P (MAP) Pulse Ox O2 Delivery O2 Flow Rate FiO2 04/19/19 06:00 98.2 88 19 138/80 (99) 98 04/17/19 06:00 Room Air I&O- Last 24 Hours up to 6 AM 04/19/19 06:00 Intake Total 1760 ml Output Total 0 ml Balance 1760 ml MAX WEAVER MD Apr 19, 2019 12:24
[2019-04-19] MEDS ORDERED: POTASSIUM CHLORIDE 10 MEQ SR TABLET PO ONE (12:30)
[2019-04-19 14:00] VITALS: BP 145/60
[2019-04-19] MEDS: MAGNESIUM OXIDE 400 MG TAB (MAG-OX) PO SCH ×2 (16:54→21:44)
[2019-04-19 18:59] VITALS: BP 165/76
[2019-04-19] MEDS: PANTOPRAZOLE 40MG TAB (PROTONIX) PO SCH (21:43)
[2019-04-19 22:00] VITALS: BP 150/80
[2019-04-19] MEDS ORDERED: oxyCODONE 5MG TAB PO ONE (23:40)
[2019-04-20 06:00] VITALS: BP 142/82
[2019-04-20 06:13] LABS: BASO # 0.1 10^3/uL (0.0-0.2); BASO % 0.9 % (0.0-1.0); EOS # 0.4 10^3/uL (0.0-0.50); EOS % 7.5 % (0.0-3.0); HEMATOCRIT 36.4 % (42.0-52.0); HEMOGLOBIN 12.4 g/dl (13.5-17.5); LYMPH # 1.1 10^3/uL (1.5-4.5); LYMPH % 18.9 % (24.0-44.0); MEAN CORPUSCULAR HEMOGLOBIN 32.7 pg (27.0-33.0); MEAN CORPUSCULAR HGB CONC 34.1 g/dl (32.0-36.5); MONO # 0.6 10^3/uL (0.0-0.8); NEUTROPHILS # 3.5 10^3/uL (1.8-7.7); NEUTROPHILS % 59.8 % (36.0-66.0); PLATELET COUNT, AUTOMATED 103 10^3/uL (150-450); RED BLOOD COUNT 3.79 10^6/uL (4.30-6.10); WHITE BLOOD COUNT 5.8 10^3/uL (4.0-10.0)
[2019-04-20 06:39] LABS: ALBUMIN 2.7 GM/DL (3.2-5.2); ALT/SGPT 59 U/L (12-78); BILIRUBIN,TOTAL 1.4 MG/DL (0.2-1.0); BLOOD UREA NITROGEN 11 MG/DL (7-18); CALCIUM LEVEL 8.3 MG/DL (8.8-10.2); CARBON DIOXIDE LEVEL 28 MEQ/L (21-32); CHLORIDE LEVEL 105 MEQ/L (98-107); CREATININE FOR GFR 0.72 MG/DL (0.70-1.30); GLOMERULAR FILTRATION RATE > 60.0 (>42); GLUCOSE, FASTING 159 MG/DL (70-100); MAGNESIUM LEVEL 1.4 MG/DL (1.8-2.4); POTASSIUM SERUM 3.2 MEQ/L (3.5-5.1); SODIUM LEVEL 139 MEQ/L (136-145); TOTAL PROTEIN 6.5 GM/DL (6.4-8.2)
[2019-04-20] MEDS: ENOXAPARIN 40 MG/0.4 ML SYRINGE (J1650) SC SCH (08:28)
[2019-04-20] MEDS: PANTOPRAZOLE 40MG TAB (PROTONIX) PO SCH ×2 (08:29→22:14)
[2019-04-20] MEDS: DOXYCYCLINE HYCLATE 100 MG TAB PO SCH ×2 (08:29→22:14)
[2019-04-20] MEDS: MAGNESIUM OXIDE 400 MG TAB (MAG-OX) PO SCH ×3 (08:29→22:14)
[2019-04-20] MEDS: FOLIC ACID 1 MG TAB PO SCH (08:29)
[2019-04-20] MEDS: MULTIVITAMINS/MINERALS THERAP 1 TAB PO SCH (08:29)
[2019-04-20] MEDS: POTASSIUM CHLORIDE 10 MEQ SR TABLET PO SCH ×2 (08:29→22:15)
[2019-04-20] MEDS: NYSTATIN 100,000 UNITS/GM TOPICAL PWD 15 GM TOP SCH (09:00)
--- NOTE | 2019-04-20 12:03 | IPNPDOC ---
Text Note Date of Service The patient was seen on 04/20/19. 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 emergency room because he was found very confused at home with generalized weakness. Patient was discharged from [facility] 2 weeks ago, and since that point he has apparently has consumed 5 large bottles of liquor, as per his daughter. In the emergency room, patient's alcohol level was undetectable, he did have acute kidney injury and lactic acidosis. Imaging was negative for any acute process Patient was seen and examined at the bedside. Patient reports his mentation is doing much better. Reports he can think clearly now. Denies any CP, SOB or palpitations. Denies any N/V, abdominal pain. Has had normal BMs. Denies any urinary discomfort. Has been slow to progress with PT. Objective: Vitals (See below) General: Lying in bed, no acute distress, comfortable, AAOx3 HEENT: NC, AT CVS: RRR, +S1S2 Lungs: Air entry is fair bilaterally. No evidence of rhonchi, rales or wheezing Abdomen: Obese but remains soft without distention or tenderness Extremities: No evidence of LE edema, - Calf tenderness Assessment and plan: s/p Acute metabolic encephalopathy - possibly 2/2 chronic alcohol abuse and dehydration - Patient appears to be fully oriented - No focal neurologic deficits - Remains hemodynamically stable and afebrile - s/p electrolyte abnormalities - mild abnormalities being supplemented - No evidence of infection - CT head 04/16: 1. No CT evidence of acute intracranial pathology. 2. Additional findings, as above. - CT cervical spine 04/16: 1. No CT evidence of acute cervical spine traumatic injury. 2. Additional findings, as above. - MRI 04/17: Moderate generalized volume loss. No evidence of acute ischemia or other acute intracranial abnormality. - s/p IV fluid hydration - Will continue with physical therapy; likely patient will require subacute rehabilitation prior to going home s/p LORNA - Cr has improved back down to baseline - s/p IV fluid hydration Alcohol abuse - Does not appear to have any withdrawal symptoms at this time - Remains hemodynamically stable - c/w Thiamine, Folate and MVI Liver cirrhosis - Mild elevation of AST / ALT; has improved - CT ab/pelvis 04/16: 1. No CT evidence of acute intra-abdominal or pelvic traumatic injury. 2. Additional findings, as above. - Will trend liver enzymes s/p Hypernatremia - Currently is improving - s/p IV fluids Hypokalemia - Will c/w supplementation Hypomagnesemia - Will c/w supplementation Frequent falls - c/w fall precautions - c/w PT / OT as tolerated - Patient may require half-way placement Intertrigo - c/w Nystatin GI prophylaxis - c/w Protonix DVT prophylaxis - c/w Lovenox Disposition: - Will c/w Physical therapy VS,Fishbone, I+O VS, Fishbone, I+O Laboratory Tests 04/20/19 05:44 Red Blood Count 3.79 L, Mean Corpuscular Volume 96.0, Mean Corpuscular Hemoglobin 32.7, Mean Corpuscular Hemoglobin Concent 34.1, Red Cell Distribution Width 15.4 H, Neutrophils (%) (Auto) 59.8, Lymphocytes (%) (Auto) 18.9 L, Monocytes (%) (Auto) 11.0 H, Eosinophils (%) (Auto) 7.5 H, Basophils (%) (Auto) 0.9, Neutrophils # (Auto) 3.5, Lymphocytes # (Auto) 1.1 L, Monocytes # (Auto) 0.6, Eosinophils # (Auto) 0.4, Basophils # (Auto) 0.1, Calcium Level 8.3 L, Aspartate Amino Transf (AST/SGOT) 90 H, Alanine Aminotransferase (ALT/SGPT) 59, Alkaline Phosphatase 161 H, Total Bilirubin 1.4 H, Total Protein 6.5, Albumin 2.7 L Vital Signs Date Time Temp Pulse Resp B/P (MAP) Pulse Ox O2 Delivery O2 Flow Rate FiO2 04/20/19 06:00 97.3 80 19 142/82 (102) 98 04/17/19 06:00 Room Air I&O- Last 24 Hours up to 6 AM 04/20/19 06:00 Intake Total 3432 ml Balance 3432 ml MAX WEAVER MD Apr 20, 2019 12:03
[2019-04-20] MEDS: traMADol 50 MG TAB PO PRN ×2 (17:00→22:24)
[2019-04-20 22:00] VITALS: BP 132/78
[2019-04-21 06:00] VITALS: BP 162/82
[2019-04-21 06:23] LABS: BASO # 0.1 10^3/uL (0.0-0.2); BASO % 0.9 % (0.0-1.0); EOS # 0.5 10^3/uL (0.0-0.50); EOS % 8.6 % (0.0-3.0); HEMATOCRIT 35.6 % (42.0-52.0); HEMOGLOBIN 12.1 g/dl (13.5-17.5); LYMPH % 17.3 % (24.0-44.0); MEAN CORPUSCULAR HEMOGLOBIN 32.8 pg (27.0-33.0); MEAN CORPUSCULAR VOLUME 96.5 fl (80.0-96.0); MONO # 0.8 10^3/uL (0.0-0.8); MONO % 14.2 % (0.0-5.0); NEUTROPHILS # 3.3 10^3/uL (1.8-7.7); NEUTROPHILS % 57.2 % (36.0-66.0); PLATELET COUNT, AUTOMATED 125 10^3/uL (150-450); RED BLOOD COUNT 3.69 10^6/uL (4.30-6.10); WHITE BLOOD COUNT 5.7 10^3/uL (4.0-10.0)
[2019-04-21 06:44] LABS: ALBUMIN 2.5 GM/DL (3.2-5.2); ALT/SGPT 69 U/L (12-78); BILIRUBIN,TOTAL 1.3 MG/DL (0.2-1.0); BLOOD UREA NITROGEN 11 MG/DL (7-18); CALCIUM LEVEL 8.2 MG/DL (8.8-10.2); CARBON DIOXIDE LEVEL 31 MEQ/L (21-32); CHLORIDE LEVEL 104 MEQ/L (98-107); CREATININE FOR GFR 0.71 MG/DL (0.70-1.30); GLOMERULAR FILTRATION RATE > 60.0 (>42); GLUCOSE, FASTING 137 MG/DL (70-100); MAGNESIUM LEVEL 1.4 MG/DL (1.8-2.4); POTASSIUM SERUM 3.4 MEQ/L (3.5-5.1); SODIUM LEVEL 140 MEQ/L (136-145); TOTAL PROTEIN 6.2 GM/DL (6.4-8.2)
[2019-04-21] MEDS: NYSTATIN 100,000 UNITS/GM TOPICAL PWD 15 GM TOP SCH (09:00)
[2019-04-21] MEDS: POTASSIUM CHLORIDE 10 MEQ SR TABLET PO SCH ×2 (09:42→20:32)
[2019-04-21] MEDS: ENOXAPARIN 40 MG/0.4 ML SYRINGE (J1650) SC SCH (09:42)
[2019-04-21] MEDS: MULTIVITAMINS/MINERALS THERAP 1 TAB PO SCH (09:42)
[2019-04-21] MEDS: MAGNESIUM OXIDE 400 MG TAB (MAG-OX) PO SCH ×3 (09:42→20:32)
[2019-04-21] MEDS: PANTOPRAZOLE 40MG TAB (PROTONIX) PO SCH ×2 (09:43→20:32)
[2019-04-21] MEDS: FOLIC ACID 1 MG TAB PO SCH (09:43)
[2019-04-21] MEDS: DOXYCYCLINE HYCLATE 100 MG TAB PO SCH ×2 (09:43→20:32)
--- NOTE | 2019-04-21 09:47 | IPNPDOC ---
Date Seen The patient was seen on 04/21/19. Progress Note Subjective: Patient was seen and examined at the bedside. Patient requesting a regular diet. He agrees with rehab, and is cooperative with physical therapy. Denies any CP, SOB or palpitations. Denies any N/V, abdominal pain. Has had normal BMs. Denies any urinary discomfort. Objective: Vitals (See below) General: Lying in bed, no acute distress, comfortable, AAOx3 HEENT: NC, AT CVS: RRR, +S1S2 Lungs: Air entry is fair bilaterally. 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 Patient was discharged from [facility] 2 weeks ago, and since that point he has shanda arently has consumed 5 large bottles of liquor, as per his daughter. In the emergency room, patient's alcohol level was undetectable, he did have acute kidney injury and lactic acidosis. Imaging was negative for any acute process s/p Acute metabolic encephalopathy - possibly 2/2 chronic alcohol abuse and dehydration - Patient appears to be fully oriented - No focal neurologic deficits - Remains hemodynamically stable and afebrile - s/p electrolyte abnormalities - mild abnormalities being supplemented - No evidence of infection - CT head 04/16: 1. No CT evidence of acute intracranial pathology. 2. Additional findings, as above. - CT cervical spine 04/16: 1. No CT evidence of acute cervical spine traumatic injury. 2. Additional findings, as above. - MRI 04/17: Moderate generalized volume loss. No evidence of acute ischemia or other acute intracranial abnormality. - s/p IV fluid hydration - Will continue with physical therapy; likely patient will require subacute rehabilitation prior to going home s/p LORNA - Cr has improved back down to baseline - s/p IV fluid hydration Alcohol abuse - Does not appear to have any withdrawal symptoms at this time - Remains hemodynamically stable - c/w Thiamine, Folate and MVI Liver cirrhosis - Mild elevation of AST / ALT; has improved - CT ab/pelvis 04/16: 1. No CT evidence of acute intra-abdominal or pelvic traumatic injury. 2. Additional findings, as above. - Will trend liver enzymes s/p Hypernatremia - Currently is improving - s/p IV fluids Hypokalemia - Will c/w supplementation Hypomagnesemia - Will c/w supplementation Frequent falls - c/w fall precautions - c/w PT / OT as tolerated - Patient may require intermediate frame tender placement Intertrigo - c/w Nystatin GI prophylaxis - c/w Protonix DVT prophylaxis - c/w Lovenox Disposition: - awaiting acceptance to [facility] Acute Rehab VS, I&O, 24H, [facility], 1928–1983 Vital Signs/I&O Vital Signs Date Time Temp Pulse Resp B/P (MAP) Pulse Ox O2 Delivery O2 Flow Rate FiO2 04/21/19 06:00 98.4 73 18 162/82 (108) 97 04/17/19 06:00 Room Air I&O- Last 24 Hours up to 6 AM 04/21/19 06:00 Intake Total 1695 ml Output Total 880 ml Balance 815 ml Laboratory Data 24H LABS Laboratory Tests 2 04/21/19 05:20: Immature Granulocyte % (Auto) 1.8, White Blood Count 5.7, Red Blood Count 3.69L, Hemoglobin 12.1L, Hematocrit 35.6L, Mean Corpuscular Volume 96.5H, Mean Corpuscular Hemoglobin 32.8, Mean Corpuscular Hemoglobin Concent 34.0, Red Cell Distribution Width 16.0H, Platelet Count 125L, Neutrophils (%) (Auto) 57.2, Lymphocytes (%) (Auto) 17.3L, Monocytes (%) (Auto) 14.2H, Eosinophils (%) (Auto) 8.6H, Basophils (%) (Auto) 0.9, Neutrophils # (Auto) 3.3, Lymphocytes # (Auto) 1.0L, Monocytes # (Auto) 0.8, Eosinophils # (Auto) 0.5, Basophils # (Auto) 0.1, Nucleated Red Blood Cells % (auto) 0.0, Anion Gap 5L, Glomerular Filtration Rate > 60.0, Blood Urea Nitrogen 11, Creatinine 0.71, Sodium Level 140, Potassium Level 3.4L, Chloride Level 104, Carbon Dioxide Level 31, Calcium Level 8.2L, Aspartate Amino Transf (AST/SGOT) 113H, Alanine Aminotransferase (ALT/SGPT) 69, Alkaline Phosphatase 144H, Total Bilirubin 1.3H, Total Protein 6.2L, Albumin 2.5L, Magnesium Level 1.4L, Albumin/Globulin Ratio 0.68L CBC/BMP Laboratory Tests 04/21/19 05:20 Red Blood Count 3.69 L, Mean Corpuscular Volume 96.5 H, Mean Corpuscular Hemoglobin 32.8, Mean Corpuscular Hemoglobin Concent 34.0, Red Cell Distribution Width 16.0 H, Neutrophils (%) (Auto) 57.2, Lymphocytes (%) (Auto) 17.3 L, Monocytes (%) (Auto) 14.2 H, Eosinophils (%) (Auto) 8.6 H, Basophils (%) (Auto) 0.9, Neutrophils # (Auto) 3.3, Lymphocytes # (Auto) 1.0 L, Monocytes # (Auto) 0.8, Eosinophils # (Auto) 0.5, Basophils # (Auto) 0.1, Calcium Level 8.2 L, Aspartate Amino Transf (AST/SGOT) 113 H, Alanine Aminotransferase (ALT/SGPT) 69, Alkaline Phosphatase 144 H, Total Bilirubin 1.3 H, Total Protein 6.2 L, Albumin 2.5 L Microbiology Microbiology 04/16/19 Blood Culture - Preliminary, Resulted No Growth after 72 hours. All specime... 04/16/19 Blood Culture - Preliminary, Resulted No Growth after 72 hours. All specime... 04/16/19 Urine Culture - Final, Complete TI CARPENTER MD Apr 21, 2019 09:31
[2019-04-21 14:00] VITALS: BP 113/58
[2019-04-21 22:00] VITALS: BP 132/70
[2019-04-22 06:00] VITALS: BP 129/63
[2019-04-22 06:11] LABS: BASO % 0.7 % (0.0-1.0); EOS # 0.4 10^3/uL (0.0-0.50); EOS % 6.5 % (0.0-3.0); HEMATOCRIT 36.2 % (42.0-52.0); HEMOGLOBIN 12.2 g/dl (13.5-17.5); LYMPH # 0.7 10^3/uL (1.5-4.5); LYMPH % 13.6 % (24.0-44.0); MEAN CORPUSCULAR HEMOGLOBIN 32.5 pg (27.0-33.0); MEAN CORPUSCULAR HGB CONC 33.7 g/dl (32.0-36.5); MEAN CORPUSCULAR VOLUME 96.5 fl (80.0-96.0); MONO # 0.9 10^3/uL (0.0-0.8); MONO % 16.7 % (0.0-5.0); NEUTROPHILS # 3.3 10^3/uL (1.8-7.7); NEUTROPHILS % 60.6 % (36.0-66.0); PLATELET COUNT, AUTOMATED 152 10^3/uL (150-450); RED BLOOD COUNT 3.75 10^6/uL (4.30-6.10); WHITE BLOOD COUNT 5.4 10^3/uL (4.0-10.0)
[2019-04-22 06:44] LABS: ALBUMIN 2.4 GM/DL (3.2-5.2); ALT/SGPT 85 U/L (12-78); BILIRUBIN,TOTAL 1.1 MG/DL (0.2-1.0); BLOOD UREA NITROGEN 9 MG/DL (7-18); CALCIUM LEVEL 8.3 MG/DL (8.8-10.2); CARBON DIOXIDE LEVEL 30 MEQ/L (21-32); CHLORIDE LEVEL 108 MEQ/L (98-107); CREATININE FOR GFR 0.69 MG/DL (0.70-1.30); GLOMERULAR FILTRATION RATE > 60.0 (>42); GLUCOSE, FASTING 122 MG/DL (70-100); MAGNESIUM LEVEL 1.6 MG/DL (1.8-2.4); POTASSIUM SERUM 3.6 MEQ/L (3.5-5.1); SODIUM LEVEL 142 MEQ/L (136-145); TOTAL PROTEIN 6.4 GM/DL (6.4-8.2)
[2019-04-22] MEDS: DOXYCYCLINE HYCLATE 100 MG TAB PO SCH (08:59)
[2019-04-22] MEDS: FOLIC ACID 1 MG TAB PO SCH (09:00)
[2019-04-22] MEDS: MULTIVITAMINS/MINERALS THERAP 1 TAB PO SCH (09:00)
[2019-04-22] MEDS: PANTOPRAZOLE 40MG TAB (PROTONIX) PO SCH ×2 (09:00→20:43)
[2019-04-22] MEDS: ENOXAPARIN 40 MG/0.4 ML SYRINGE (J1650) SC SCH (09:00)
[2019-04-22] MEDS ORDERED: MAGNESIUM OXIDE 400 MG TAB (MAG-OX) PO SCH ×2 (09:00→21:00)
[2019-04-22] MEDS: NYSTATIN 100,000 UNITS/GM TOPICAL PWD 15 GM TOP SCH (09:00)
[2019-04-22] MEDS: MAGNESIUM OXIDE 400 MG TAB (MAG-OX) PO SCH ×3 (09:00→20:43)
[2019-04-22] MEDS: POTASSIUM CHLORIDE 10 MEQ SR TABLET PO SCH ×2 (09:00→20:43)
--- NOTE | 2019-04-22 09:18 | IPNPDOC ---
Date Seen The patient was seen on 04/22/19. Progress Note Subjective: Patient was seen and examined at the bedside. Daughter requesting postponing pt's discharge as she will be out of town 04/26-04/29, until she returns. Patient requested a regular diet yesterday, and had a good breakfast this morning. "I'm so full. I need a nap." He agrees with rehab, and is cooperative with physical therapy. Denies any CP, SOB or palpitations. Denies any N/V, abd ominal pain. Has had normal BMs. Denies any urinary discomfort. Objective: Vitals (See below) General: Lying in bed, no acute distress, comfortable, AAOx3 HEENT: NC, AT CVS: RRR, +S1S2 Lungs: Air entry is fair bilaterally. 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 Patient was discharged from [facility] 2 weeks ago, and since that point he has apparently has consumed 5 large bottles of liquor, as per his daughter. In the emergency room, patient's alcohol level was undetectable, he did have acute kidney injury and lactic acidosis. Imaging was negative for any acute process s/p Acute metabolic encephalopathy - possibly 2/2 chronic alcohol abuse and dehydration - Patient appears to be fully oriented - No focal neurologic deficits - Remains hemodynamically stable and afebrile - s/p electrolyte abnormalities - mild abnormalities being supplemented - No evidence of infection - CT head 04/16: 1. No CT evidence of acute intracranial pathology. 2. Additional findings, as above. - CT cervical spine 04/16: 1. No CT evidence of acute cervical spine traumatic i njury. 2. Additional findings, as above. - MRI 04/17: Moderate generalized volume loss. No evidence of acute ischemia or other acute intracranial abnormality. - s/p IV fluid hydration - Will continue with physical therapy; likely patient will require subacute rehabilitation prior to going home s/p LORNA - Cr has improved back down to baseline - s/p IV fluid hydration Alcohol abuse - Does not appear to have any withdrawal symptoms at this time - Remains hemodynamically stable - c/w Thiamine, Folate and MVI Liver cirrhosis - Mild elevation of AST / ALT; has improved - CT ab/pelvis 04/16: 1. No CT evidence of acute intra-abdominal or pelvic traumatic injury. 2. Additional findings, as above. 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75L, Hemoglobin 12.2L, Hematocrit 36.2L, Mean Corpuscular Volume 96.5H, Mean Corpuscular Hemoglobin 32.5, Mean Corpuscular Hemoglobin Concent 33.7, Red Cell Distribution Width 16.8H, Platelet Count 152, Neutrophils (%) (Auto) 60.6, Lymphocytes (%) (Auto) 13.6L, Monocytes (%) (Auto) 16.7H, Eosinophils (%) (Auto) 6.5H, Basophils (%) (Auto) 0.7, Neutrophils # (Auto) 3.3, Lymphocytes # (Auto) 0.7L, Monocytes # (Auto) 0.9H, Eosinophils # (Auto) 0.4, Basophils # (Auto) 0.0, Nucleated Red Blood Cells % (auto) 0.0, Anion Gap 4L, Glomerular Filtration Rate > 60.0, Blood Urea Nitrogen 9, Creatinine 0.69L, Sodium Level 142, Potassium Level 3.6, Chloride Level 108H, Carbon Dioxide Level 30, Calcium Level 8.3L, Aspartate Amino Transf (AST/SGOT) 156H, Alanine Aminotransferase (ALT/SGPT) 85H, Alkaline Phosphatase 174H, Total Bilirubin 1.1H, Total Protein 6.4, Albumin 2.4L , Magnesium Level 1.6L, Albumin/Globulin Ratio 0.60L CBC/BMP Laboratory Tests 04/22/19 05:33 Red Blood Count 3.75 L, Mean Corpuscular Volume 96.5 H, Mean Corpuscular Hemoglobin 32.5, Mean Corpuscular Hemoglobin Concent 33.7, Red Cell Distribution Width 16.8 H, Neutrophils (%) (Auto) 60.6, Lymphocytes (%) (Auto) 13.6 L, Monocytes (%) (Auto) 16.7 H, Eosinophils (%) (Auto) 6.5 H, Basophils (%) (Auto) 0.7, Neutrophils # (Auto) 3.3, Lymphocytes # (Auto) 0.7 L, Monocytes # (Auto) 0.9 H, Eosinophils # (Auto) 0.4, Basophils # (Auto) 0.0, Calcium Level 8.3 L, Aspartate Amino Transf (AST/SGOT) 156 H, Alanine Aminotransferase (ALT/SGPT) 85 H, Alkaline Phosphatase 174 H, Total Bilirubin 1.1 H, Total Protein 6.4, Albumin 2.4 L Microbiology Microbiology 04/16/19 Blood Culture - Final, Complete NO GROWTH AFTER 5 DAYS 04/16/19 Blood Culture - Final, Complete NO GROWTH AFTER 5 DAYS 04/16/19 Urine Culture - Final, Complete TI CARPENTER MD Apr 22, 2019 08:49
[2019-04-22] MEDS ORDERED: MAG SULF 1GM/100ML (MAG RUN) 1 GM in APPROPRIATE DILUENT 1 EA IV SCH (10:00)
[2019-04-22 14:00] VITALS: BP 126/74
[2019-04-22] MEDS: traMADol 50 MG TAB PO PRN (16:03)
[2019-04-22 22:00] VITALS: BP 134/63
[2019-04-23 06:00] VITALS: BP 131/70
[2019-04-23 06:15] LABS: BASO # 0.1 10^3/uL (0.0-0.2); BASO % 1.2 % (0.0-1.0); EOS # 0.4 10^3/uL (0.0-0.50); EOS % 6.9 % (0.0-3.0); HEMATOCRIT 34.5 % (42.0-52.0); HEMOGLOBIN 11.5 g/dl (13.5-17.5); LYMPH # 0.7 10^3/uL (1.5-4.5); LYMPH % 13.7 % (24.0-44.0); MEAN CORPUSCULAR HGB CONC 33.3 g/dl (32.0-36.5); MEAN CORPUSCULAR VOLUME 96.1 fl (80.0-96.0); MONO % 20.4 % (0.0-5.0); NEUTROPHILS # 2.9 10^3/uL (1.8-7.7); PLATELET COUNT, AUTOMATED 165 10^3/uL (150-450); RED BLOOD COUNT 3.59 10^6/uL (4.30-6.10); WHITE BLOOD COUNT 5.1 10^3/uL (4.0-10.0)
[2019-04-23 06:48] LABS: ALBUMIN 2.4 GM/DL (3.2-5.2); ALT/SGPT 96 U/L (12-78); BILIRUBIN,TOTAL 1.1 MG/DL (0.2-1.0); BLOOD UREA NITROGEN 8 MG/DL (7-18); CALCIUM LEVEL 8.6 MG/DL (8.8-10.2); CARBON DIOXIDE LEVEL 30 MEQ/L (21-32); CHLORIDE LEVEL 107 MEQ/L (98-107); CREATININE FOR GFR 0.68 MG/DL (0.70-1.30); GLOMERULAR FILTRATION RATE > 60.0 (>42); GLUCOSE, FASTING 148 MG/DL (70-100); MAGNESIUM LEVEL 1.7 MG/DL (1.8-2.4); POTASSIUM SERUM 3.7 MEQ/L (3.5-5.1); SODIUM LEVEL 140 MEQ/L (136-145); TOTAL PROTEIN 6.2 GM/DL (6.4-8.2)
[2019-04-23] MEDS: MAGNESIUM OXIDE 400 MG TAB (MAG-OX) PO SCH ×3 (08:29→20:45)
[2019-04-23] MEDS: POTASSIUM CHLORIDE 10 MEQ SR TABLET PO SCH ×2 (08:29→20:45)
[2019-04-23] MEDS: PANTOPRAZOLE 40MG TAB (PROTONIX) PO SCH ×2 (08:29→20:45)
[2019-04-23] MEDS: MULTIVITAMINS/MINERALS THERAP 1 TAB PO SCH (08:29)
[2019-04-23] MEDS: FOLIC ACID 1 MG TAB PO SCH (08:29)
[2019-04-23] MEDS: ENOXAPARIN 40 MG/0.4 ML SYRINGE (J1650) SC SCH (08:30)
[2019-04-23] MEDS: NYSTATIN 100,000 UNITS/GM TOPICAL PWD 15 GM TOP SCH (08:30)
--- NOTE | 2019-04-23 10:52 | IPNPDOC ---
Date Seen The patient was seen on 04/23/19. Progress Note Subjective: Patient was seen and examined at the bedside. Daughter requesting postponing pt's discharge as she will be out of town 04/26-04/29, until she returns. "I'm just waiting for a bed, right?" He agrees with rehab, and is cooperative with physical therapy. Denies any CP, SOB or palpitations. Denies any N/V, abdominal pain. Has had normal BMs. Denies any urinary discomfort. No other i ssues per RN. Pt has been sleeping well, and no DT's restlessness or tremors Objective: Vitals (See below) General: Lying in bed, no acute distress, comfortable, AAOx3 HEENT: NC, AT CVS: RRR, +S1S2 Lungs: Air entry is fair bilaterally. No evidence of rhonchi, rales or wheezing Abdomen: Obese but remains soft without distention or tenderness Extremities: No evidence of LE edema, - Calf tenderness Assessment and plan: Patient is a 74-year-old male with a PMHx of Alcohol abuse, Liver Ci rrhosis 2/2 EtoH, multiple admissions for encephalopathy 2/2 acute intoxication / withdrawal, presented to [facility] emergency room because he was found very confused at home with generalized weakness. Patient was discharged from [facility] 2 weeks ago, and since that point he has apparently has consumed 5 large bottles of liquor, as per his daughter. In the emergency room, patient's alcohol level was undetectable, he did have acute kidney injury and lactic acidosis. Imaging was negative for any acute process s/p Acute metabolic encephalopathy - possibly 2/2 chronic alcohol abuse and dehydration - Patient appears to be fully oriented - No focal neurologic deficits - Remains hemodynamically stable and afebrile - s/p electrolyte abnormalities - mild abnormalities being supplemented - No evidence of infection - CT head 04/16: 1. No CT evidence of acute intracranial pathology. 2. Additional findings, as above. - CT cervical spine 04/16: 1. No CT evidence of acute cervical spine traumatic injury. 2. Additional findings, as above. - MRI 04/17: Moderate generalized volume loss. No evidence of acute ischemia or other acute intracranial abnormality. - s/p IV fluid hydration - Will continue with physical therapy; likely patient will require subacute rehabilitation prior to going home s/p LORNA - Cr has improved back down to baseline - s/p IV fluid hydration Alcohol abuse - Does not appear to have any withdrawal symptoms at this time - Remains hemodynamically stable - c/w Thiamine, Folate and MVI Liver cirrhosis - Mild elevation of AST / ALT; has improved - CT ab/pelvis 04/16: 1. No CT evidence of acute intra-abdominal or pelvic traumatic injury. 2. Additional findings, as above. - Will trend liver enzymes s/p Hypernatremia - Currently is improving - s/p IV fluids Hypokalemia - Will c/w supplementation Hypomagnesemia - Will c/w supplementation Frequent falls - c/w fall precautions - c/w PT / OT as tolerated - Patient may require halfway placement Intertrigo - c/w Nystatin GI prophylaxis - c/w Protonix DVT prophylaxis - c/w Lovenox Disposition: - awaiting acceptance to [facility] Acute Rehab VS, I&O, 24H, Fishbone Vital Signs/I&O Vital Signs Date Time Temp Pulse Resp B/P (MAP) Pulse Ox O2 Delivery O2 Flow Rate FiO2 04/23/19 06:00 98.2 72 17 131/70 (90) 94 04/17/19 06:00 Room Air I&O- Last 24 Hours up to 6 AM 04/23/19 06:00 Intake Total 3095 ml Output Total 400 ml Balance 2695 ml Laboratory Data 24H LABS Laboratory Tests 2 04/23/19 05:26: Immature Granulocyte % (Auto) 1.8, White Blood Count 5.1, Red Blood Count 3.59L, Hemoglobin 11.5L, Hematocrit 34.5L, Mean Corpuscular Volume 96.1H, Mean Corpuscular Hemoglobin 32.0, Mean Corpuscular Hemoglobin Concent 33.3, Red Cell Distribution Width 17.2H, Platelet Count 165, Neutrophils (%) (Auto) 56.0, Lymphocytes (%) (Auto) 13.7L, Monocytes (%) (Auto) 20.4H, Eosinophils (%) (Auto) 6.9H, Basophils (%) (Auto) 1.2H, Neutrophils # (Auto) 2.9, Lymphocytes # (Auto) 0.7L, Monocytes # (Auto) 1.0H, Eosinophils # (Auto) 0.4, Basophils # (Auto) 0.1, Nucleated Red Blood Cells % (auto) 0.0, Anion Gap 3L, Glomerular Filtration Rate > 60.0, Blood Urea Nitrogen 8, Creatinine 0.68L, Sodium Level 140, Potassium Level 3.7, Chloride Level 107, Carbon Dioxide Level 30, Calcium Level 8.6L, Aspartate Amino Transf (AST/SGOT) 153H, Alanine Aminotransferase (ALT/SGPT) 96H, Alkaline Phosphatase 166H, Total Bilirubin 1.1H, Total Protein 6.2L, Albumin 2.4L, Magnesium Level 1.7L, Albumin/Globulin Ratio 0.63L CBC/BMP Laboratory Tests 04/23/19 05:26 Red Blood Count 3.59 L, Mean Corpuscular Volume 96.1 H, Mean Corpuscular Hemoglobin 32.0, Mean Corpuscular Hemoglobin Concent 33.3, Red Cell Distribution Width 17.2 H, Neutrophils (%) (Auto) 56.0, Lymphocytes (%) (Auto) 13.7 L, Monocytes (%) (Auto) 20.4 H, Eosinophils (%) (Auto) 6.9 H, Basophils (%) (Auto) 1.2 H, Neutrophils # (Auto) 2.9, Lymphocytes # (Auto) 0.7 L, Monocytes # (Auto) 1.0 H, Eosinophils # (Auto) 0.4, Basophils # (Auto) 0.1, Calcium Level 8.6 L, Aspartate Amino Transf (AST/SGOT) 153 H, Alanine Aminotransferase (ALT/SGPT) 96 H, Alkaline Phosphatase 166 H, Total Bilirubin 1.1 H, Total Protein 6.2 L, Albumin 2.4 L Microbiology Microbiology 04/16/19 Blood Culture - Final, Complete NO GROWTH AFTER 5 DAYS 04/16/19 Blood Culture - Final, Complete NO GROWTH AFTER 5 DAYS 04/16/19 Urine Culture - Final, Complete TI CARPENTER MD Apr 23, 2019 09:54
[2019-04-23 14:00] VITALS: BP 126/60
[2019-04-23 22:00] VITALS: BP 138/77
[2019-04-24] MEDS: traMADol 50 MG TAB PO PRN ×3 (00:12→17:24)
[2019-04-24 06:00] VITALS: BP 117/64
[2019-04-24 06:52] LABS: BASO # 0.1 10^3/uL (0.0-0.2); BASO % 1.1 % (0.0-1.0); EOS # 0.3 10^3/uL (0.0-0.50); HEMATOCRIT 35.9 % (42.0-52.0); LYMPH # 0.9 10^3/uL (1.5-4.5); LYMPH % 15.7 % (24.0-44.0); MEAN CORPUSCULAR HEMOGLOBIN 32.1 pg (27.0-33.0); MEAN CORPUSCULAR HGB CONC 33.4 g/dl (32.0-36.5); MONO # 0.8 10^3/uL (0.0-0.8); MONO % 13.9 % (0.0-5.0); NEUTROPHILS # 3.4 10^3/uL (1.8-7.7); NEUTROPHILS % 61.9 % (36.0-66.0); PLATELET COUNT, AUTOMATED 190 10^3/uL (150-450); RED BLOOD COUNT 3.74 10^6/uL (4.30-6.10); WHITE BLOOD COUNT 5.5 10^3/uL (4.0-10.0)
[2019-04-24 07:18] LABS: ALBUMIN 2.5 GM/DL (3.2-5.2); ALT/SGPT 110 U/L (12-78); BILIRUBIN,TOTAL 1.2 MG/DL (0.2-1.0); BLOOD UREA NITROGEN 7 MG/DL (7-18); CALCIUM LEVEL 8.6 MG/DL (8.8-10.2); CARBON DIOXIDE LEVEL 27 MEQ/L (21-32); CHLORIDE LEVEL 108 MEQ/L (98-107); CREATININE FOR GFR 0.72 MG/DL (0.70-1.30); GLOMERULAR FILTRATION RATE > 60.0 (>42); GLUCOSE, FASTING 115 MG/DL (70-100); MAGNESIUM LEVEL 1.9 MG/DL (1.8-2.4); POTASSIUM SERUM 3.6 MEQ/L (3.5-5.1); SODIUM LEVEL 142 MEQ/L (136-145); TOTAL PROTEIN 6.6 GM/DL (6.4-8.2)
[2019-04-24] MEDS: MULTIVITAMINS/MINERALS THERAP 1 TAB PO SCH (09:42)
[2019-04-24] MEDS: MAGNESIUM OXIDE 400 MG TAB (MAG-OX) PO SCH ×3 (09:42→20:32)
[2019-04-24] MEDS: NYSTATIN 100,000 UNITS/GM TOPICAL PWD 15 GM TOP SCH (09:42)
[2019-04-24] MEDS: PANTOPRAZOLE 40MG TAB (PROTONIX) PO SCH ×2 (09:42→20:31)
[2019-04-24] MEDS: FOLIC ACID 1 MG TAB PO SCH (09:42)
[2019-04-24] MEDS: POTASSIUM CHLORIDE 10 MEQ SR TABLET PO SCH ×2 (09:42→20:31)
[2019-04-24] MEDS: ENOXAPARIN 40 MG/0.4 ML SYRINGE (J1650) SC SCH (09:43)
[2019-04-24 14:00] VITALS: BP 120/74
[2019-04-24 22:00] VITALS: BP 116/62
[2019-04-25 06:00] VITALS: BP 124/62
[2019-04-25] MEDS: MULTIVITAMINS/MINERALS THERAP 1 TAB PO SCH (09:26)
[2019-04-25] MEDS: FOLIC ACID 1 MG TAB PO SCH (09:26)
[2019-04-25] MEDS: PANTOPRAZOLE 40MG TAB (PROTONIX) PO SCH ×2 (09:26→20:52)
[2019-04-25] MEDS: POTASSIUM CHLORIDE 10 MEQ SR TABLET PO SCH ×2 (09:27→21:00)
[2019-04-25] MEDS: MAGNESIUM OXIDE 400 MG TAB (MAG-OX) PO SCH ×3 (09:27→20:53)
[2019-04-25] MEDS: traMADol 50 MG TAB PO PRN (09:27)
[2019-04-25] MEDS: NYSTATIN 100,000 UNITS/GM TOPICAL PWD 15 GM TOP SCH (09:28)
[2019-04-25] MEDS: ENOXAPARIN 40 MG/0.4 ML SYRINGE (J1650) SC SCH (09:28)
[2019-04-25 22:00] VITALS: BP 114/57
[2019-04-26 06:00] VITALS: BP 154/74
[2019-04-26] MEDS: FOLIC ACID 1 MG TAB PO SCH (09:00)
[2019-04-26] MEDS: MAGNESIUM OXIDE 400 MG TAB (MAG-OX) PO SCH ×3 (10:42→19:51)
[2019-04-26] MEDS: PANTOPRAZOLE 40MG TAB (PROTONIX) PO SCH ×2 (10:43→19:50)
[2019-04-26] MEDS: MULTIVITAMINS/MINERALS THERAP 1 TAB PO SCH (10:43)
[2019-04-26] MEDS: POTASSIUM CHLORIDE 10 MEQ SR TABLET PO SCH ×2 (10:43→19:54)
[2019-04-26] MEDS: traMADol 50 MG TAB PO PRN ×2 (10:45→17:48)
[2019-04-26] MEDS: ENOXAPARIN 40 MG/0.4 ML SYRINGE (J1650) SC SCH (10:46)
[2019-04-26] MEDS: NYSTATIN 100,000 UNITS/GM TOPICAL PWD 15 GM TOP SCH (10:47)
[2019-04-26 14:00] VITALS: BP 129/73
[2019-04-26 22:00] VITALS: BP 164/79
[2019-04-27] MEDS: traMADol 50 MG TAB PO PRN (01:28)
[2019-04-27 06:00] VITALS: BP 153/82
[2019-04-27 08:00] LABS: HEMATOCRIT 39.5 % (42.0-52.0); MEAN CORPUSCULAR HEMOGLOBIN 32.3 pg (27.0-33.0); MEAN CORPUSCULAR HGB CONC 32.9 g/dl (32.0-36.5); MEAN CORPUSCULAR VOLUME 98.3 fl (80.0-96.0); PLATELET COUNT, AUTOMATED 212 10^3/uL (150-450); RED BLOOD COUNT 4.02 10^6/uL (4.30-6.10); WHITE BLOOD COUNT 7.3 10^3/uL (4.0-10.0)
[2019-04-27 08:20] LABS: BLOOD UREA NITROGEN 8 MG/DL (7-18); CALCIUM LEVEL 8.2 MG/DL (8.8-10.2); CARBON DIOXIDE LEVEL 22 MEQ/L (21-32); CHLORIDE LEVEL 107 MEQ/L (98-107); CREATININE FOR GFR 0.65 MG/DL (0.70-1.30); GLOMERULAR FILTRATION RATE > 60.0 (>42); GLUCOSE, FASTING 99 MG/DL (70-100); SODIUM LEVEL 138 MEQ/L (136-145)
[2019-04-27] MEDS: MULTIVITAMINS/MINERALS THERAP 1 TAB PO SCH (08:27)
[2019-04-27] MEDS: PANTOPRAZOLE 40MG TAB (PROTONIX) PO SCH ×2 (08:27→22:44)
[2019-04-27] MEDS: MAGNESIUM OXIDE 400 MG TAB (MAG-OX) PO SCH ×3 (08:27→22:44)
[2019-04-27] MEDS: ENOXAPARIN 40 MG/0.4 ML SYRINGE (J1650) SC SCH (08:27)
[2019-04-27] MEDS: FOLIC ACID 1 MG TAB PO SCH (08:27)
[2019-04-27] MEDS: POTASSIUM CHLORIDE 10 MEQ SR TABLET PO SCH ×2 (08:27→22:45)
[2019-04-27] MEDS: NYSTATIN 100,000 UNITS/GM TOPICAL PWD 15 GM TOP SCH (08:28)
[2019-04-27 22:00] VITALS: BP 139/79
[2019-04-28 05:42] VITALS: BP 117/63
[2019-04-28] MEDS: POTASSIUM CHLORIDE 10 MEQ SR TABLET PO SCH ×2 (08:39→22:28)
[2019-04-28] MEDS: MAGNESIUM OXIDE 400 MG TAB (MAG-OX) PO SCH ×3 (08:40→22:28)
[2019-04-28] MEDS: MULTIVITAMINS/MINERALS THERAP 1 TAB PO SCH (08:40)
[2019-04-28] MEDS: PANTOPRAZOLE 40MG TAB (PROTONIX) PO SCH ×2 (08:40→22:29)
[2019-04-28] MEDS: FOLIC ACID 1 MG TAB PO SCH (08:40)
[2019-04-28] MEDS: ENOXAPARIN 40 MG/0.4 ML SYRINGE (J1650) SC SCH (08:40)
[2019-04-28] MEDS: NYSTATIN 100,000 UNITS/GM TOPICAL PWD 15 GM TOP SCH (08:41)
[2019-04-28] MEDS: traMADol 50 MG TAB PO PRN (13:40)
[2019-04-28 14:00] VITALS: BP 128/74
[2019-04-28 22:00] VITALS: BP 138/64
[2019-04-29 06:00] VITALS: BP 133/69
[2019-04-29] MEDS: MAGNESIUM OXIDE 400 MG TAB (MAG-OX) PO SCH ×3 (10:05→21:11)
[2019-04-29] MEDS: MULTIVITAMINS/MINERALS THERAP 1 TAB PO SCH (10:05)
[2019-04-29] MEDS: PANTOPRAZOLE 40MG TAB (PROTONIX) PO SCH ×2 (10:06→21:12)
[2019-04-29] MEDS: FOLIC ACID 1 MG TAB PO SCH (10:06)
[2019-04-29] MEDS: POTASSIUM CHLORIDE 10 MEQ SR TABLET PO SCH ×2 (10:06→21:12)
[2019-04-29] MEDS: ENOXAPARIN 40 MG/0.4 ML SYRINGE (J1650) SC SCH (10:07)
[2019-04-29] MEDS: traMADol 50 MG TAB PO PRN ×2 (10:07→17:01)
[2019-04-29] MEDS: NYSTATIN 100,000 UNITS/GM TOPICAL PWD 15 GM TOP SCH (10:07)
[2019-04-29 14:00] VITALS: BP 119/64
[2019-04-29 22:00] VITALS: BP 114/57
[2019-04-30 06:00] VITALS: BP 124/67
[2019-04-30] MEDS: PANTOPRAZOLE 40MG TAB (PROTONIX) PO SCH (09:21)
[2019-04-30] MEDS: POTASSIUM CHLORIDE 10 MEQ SR TABLET PO SCH (09:21)
[2019-04-30] MEDS: FOLIC ACID 1 MG TAB PO SCH (09:21)
[2019-04-30] MEDS: ENOXAPARIN 40 MG/0.4 ML SYRINGE (J1650) SC SCH (09:21)
[2019-04-30] MEDS: MAGNESIUM OXIDE 400 MG TAB (MAG-OX) PO SCH (09:21)
[2019-04-30] MEDS: MULTIVITAMINS/MINERALS THERAP 1 TAB PO SCH (09:21)
[2019-04-30] MEDS: NYSTATIN 100,000 UNITS/GM TOPICAL PWD 15 GM TOP SCH (09:23)
[2019-04-30] MEDS: traMADol 50 MG TAB PO PRN (09:42)
--- NOTE | 2019-05-22 13:08 | DS.PDOC ---
Discharge Summary General Date of Admission Apr 17, 2019 at 00:58 Date of Discharge Apr 30, 2019 Discharge Summary Discharge Diagnoses: s/p Acute metabolic encephalopathy - possibly 2/2 chronic alcohol abuse and dehydration s/p LORNA Alcohol abuse Liver cirrhosis s/p Hypernatremia Hypokalemia Hypomagnesemia Frequent falls Intertrigo Discharge Medications: pls see below History of Presenting illness: Patient is a 74-year-old male with a PMHx of Alcohol abuse, Liver Cirrhosis 2/2 EtoH, multiple admissions for encephalopathy 2/2 acute intoxication / withdrawal, presented to [facility] emergency room because he was found very confused at home with generalized weakness. Patient was discharged from [facility] 2 weeks ago, and since that point he has apparently has consumed 5 large bottles of liquor, as per his daughter. In the emergency room, patient's alcohol level was undetectable, he did have acute kidney injury and lactic acidosis. Imaging was negative for any acute process. Hospital Course: s/p Acute metabolic encephalopathy - possibly 2/2 chronic alcohol abuse and dehydration - Patient appears to be fully oriented - No focal neurologic deficits - Remains hemodynamically stable and afebrile - s/p electrolyte abnormalities - mild abnormalities being supplemented - No evidence of infection - CT head 04/16: 1. No CT evidence of acute intracranial pathology. 2. Additional findings, as above. - CT cervical spine 04/16: 1. No CT evidence of acute cervical spine traumatic injury. 2. Additional findings, as above. - MRI 04/17: Moderate generalized volume loss. No evidence of acute ischemia or other acute intracranial abnormality. - s/p IV fluid hydration - Will continue with physical therapy; likely patient will require subacute rehabilitation prior to going home s/p LORNA - Cr has improved back down to baseline - s/p IV fluid hydration Alcohol abuse - Does not appear to have any withdrawal symptoms at this time - Remains hemodynamically stable - c/w Thiamine, Folate and MVI Liver cirrhosis - Mild elevation of AST / ALT; has improved - CT ab/pelvis 04/16: 1. No CT evidence of acute intra-abdominal or pelvic traumatic injury. 2. Additional findings, as above. - Will trend liver enzymes s/p Hypernatremia - Currently is improving - s/p IV fluids Hypokalemia - Will c/w supplementation Hypomagnesemia - Will c/w supplementation Frequent falls - c/w fall precautions - c/w PT / OT as tolerated - Patient may require group home placement Intertrigo - c/w Nystatin GI prophylaxis - c/w Protonix DVT prophylaxis - c/w Lovenox Disposition: - transferred to [facility] Acute Rehab Discharge Physical Examination: Vitals (See below) General: Lying in bed, no acute distress, comfortable, AAOx3 HEENT: NC, AT CVS: RRR, +S1S2 Lungs: Air entry is fair bilaterally. No evidence of rhonchi, rales or wheezing Abdomen: Obese but remains soft without distention or tenderness Extremities: No evidence of LE edema, - Calf tenderness Discharge laboratory data, imaging studies, microbiology: pls see below Time spent on hospital discharge: 32 minutes Discharge Medications Scheduled Aspirin (Aspirin) 325 Mg Tablet, 650 MG PO BID, (Reported) Bupropion HCl (Bupropion Xl) 300 Mg Tab.er.24h, 300 MG PO DAILY, (Reported) Fluconazole (Diflucan) 100 Mg Tablet, 100 MG PO BID, (Reported) Folic Acid (Folic Acid) 1 Mg Tablet, 1 MG PO DAILY, (Reported) Multivitamin (Multivitamins) 1 Each Capsule, 1 CAP PO DAILY, (Reported) Nystatin (Nystatin Powder) 15 Gm Powder, 1 APLCT TOP BID, (Reported) APPLY TO GROIN AND ABDOMINAL FOLDS Omeprazole (Omeprazole) 20 Mg Capsule.dr, 20 MG PO DAILY, (Reported) Potassium Chloride (Potassium Chloride) 10 Meq Tab.er.prt, 40 MEQ PO BID, (Reported) Zinc Oxide (Desitin) 454 Gm Cream..g., 1 APLCT TOP BID, (Reported) APPLY TO BUTTOCKS AND THEN LEAVE OPEN TO AIR Scheduled PRN Acetaminophen (Acetaminophen 8 Hour) 650 Mg Tablet.er, 650 MG PO Q4H PRN for PAIN, (Reported) Nystatin (Nystatin Powder) 15 Gm Powder, 1 APLCT TOP TID PRN for RASH, (Reported) APPLY TO RASH UNDER BREASTS Ondansetron HCl (Ondansetron HCl) 4 Mg Tablet, 4 MG PO Q8H PRN for NAUSEA OR VOMITING, (Reported) Miscellaneous Medications [Pharmacy Comment] , (Reported) MED LIST OBTAINED FROM [facility] WHEN PATIENT WAS DISCHARGED. PATIENT UNABLE TO VERIFY MEDICATIONS. PHARMACY VERIFIED ONDANSETRON 4MG ONLY. Allergies Coded Allergies: ether (Verified Allergy, Severe, ANAPHYLAXIS, 5/28/19) egg (Verified Allergy, Mild, RASH, 02/24/19) TI CARPENTER MD May 22, 2019 13:07
== END 2019-04-30 14:05 | DRG 71 ==
LOC: M ED 20:43 → M ED INP 04-17 00:58 → M PCU 04-17 06:29 → M MSPAV 04-18 16:41
PROVIDERS: ADMIT Internal Medicine; ATTEND General Practice
DX: G93.41 Metabolic encephalopathy (principal); E87.0 Hyperosmolality and hypernatremia; N17.9 Acute kidney failure, unspecified; E87.2 Acidosis; F10.10 Alcohol abuse, uncomplicated; K70.30 Alcoholic cirrhosis of liver without ascites; R29.6 Repeated falls; L30.4 Erythema intertrigo; E86.0 Dehydration; E83.42 Hypomagnesemia; E87.6 Hypokalemia; K80.20 Calculus of gallbladder without cholecystitis without obstruction; E66.9 Obesity, unspecified

== ENCOUNTER → 2019-05-20 | Outpatient (REF) ==
[~2019-05-20] MED LIST changes: +BUPR300T34 PO; +DESI13CR2 TOP; +ECOT81TA5 PO; +FLUC10TA PO; +NYST1POW9 TOP; +PHARMACY COMMENT; +POTA10TA17 PO; +QC A650T3 PO
[2019-05-20 07:13] LABS: BLOOD UREA NITROGEN 16 MG/DL (7-18); CALCIUM LEVEL 8.4 MG/DL (8.8-10.2); CARBON DIOXIDE LEVEL 24 MEQ/L (21-32); CHLORIDE LEVEL 109 MEQ/L (98-107); CREATININE FOR GFR 0.72 MG/DL (0.70-1.30); GLOMERULAR FILTRATION RATE > 60.0 (>42); GLUCOSE, FASTING 151 MG/DL (70-100); POTASSIUM SERUM 3.9 MEQ/L (3.5-5.1); SODIUM LEVEL 143 MEQ/L (136-145)
== END ==
LOC: SKLAB7 07:00
PROVIDERS: ATTEND Internal Medicine
DX: E87.5 Hyperkalemia (principal)

== ENCOUNTER 2019-06-30 20:42 | Inpatient (IN) | payer OTHER, MEDICARE, MEDICAID ==
--- NOTE | 2019-06-30 21:49 | REPVR ---
PROCEDURE INFORMATION: Exam: CT Head without contrast Exam date and time: 06/30/2019 9:28 PM Clinical history: 74 years old, male; Altered mental status/memory loss; Confusion or disorientation TECHNIQUE: Imaging protocol: Computed tomography of the head without contrast. Radiation optimization: All CT scans at this facility use at least one of these dose optimization techniques: automated exposure control; mA and/or kV adjustment per patient size (includes targeted exams where dose is matched to clinical indication); or iterative reconstruction. COMPARISON: CT Head without contrast 04/16/2019 11:13 PM FINDINGS: Brain: There is mild prominence of the peripheral sulci. Ventricles: There is moderate prominence of the central ventricular system. Bones/joints: Unremarkable. No acute fracture. Sinuses: Visualized sinuses are unremarkable. No fluid levels. Mastoid air cells: Visualized mastoid air cells are well aerated. Soft tissues: Unremarkable. IMPRESSION: There has been no change from 04/16/2019 with mild atrophy. No acute interval intracranial process is identified. Electronically signed by: Joe Braswell On 06/30/2019 21:48:53 PM
[2019-06-30] MEDS: NS 1,000 ML IV SCH ×2 (21:53→23:05)
--- NOTE | 2019-06-30 21:53 | REPVR ---
PROCEDURE INFORMATION: Exam: CT Chest Without Contrast Exam date and time: 06/30/2019 9:28 PM Clinical history: 74 years old, male; Other: AMS; Additional info: Altered mental status TECHNIQUE: Imaging protocol: Computed tomography of the chest without contrast. Radiation optimization: All CT scans at this facility use at least one of these dose optimization techniques: automated exposure control; mA and/or kV adjustment per patient size (includes targeted exams where dose is matched to clinical indication); or iterative reconstruction. COMPARISON: No relevant prior studies available. FINDINGS: Lungs: Mild interstitial coarsening with minimal scattered fibro-atelectatic change. Pleural space: Unremarkable. No pneumothorax. No pleural effusion. Heart: Unremarkable. No cardiomegaly. No pericardial effusion. Pulmonary arteries: The main pulmonary artery measures 28 mm. Aorta: The ascending thoracic aorta measures 36 mm. Other veins: Probable distal paraesophageal portal venous collaterals. Lymph nodes: Unremarkable. No enlarged lymph nodes. Liver: Nodular liver with fatty infiltration. Gallbladder and bile ducts: There are a few gallstones in the gallbladder. Bones/joints: Mild thoracic kyphosis with degenerative changes. Soft tissues: Unremarkable. IMPRESSION: 1. Hepatic cirrhosis with fatty infiltration. There is suggestion of portal venous collaterals around the distal esophagus. 2. Mild interstitial coarsening with minimal scattered fibro-atelectatic change. 3. Otherwise negative CT chest. Electronically signed by: Joe Braswell On 06/30/2019 21:52:56 PM
[2019-06-30 21:57] LABS: BASO % 0.2 % (0.0-1.0); HEMATOCRIT 42.6 % (42.0-52.0); HEMOGLOBIN 14.9 g/dl (13.5-17.5); LYMPH # 0.3 10^3/uL (1.5-5.0); LYMPH % 2.9 % (24.0-44.0); MEAN CORPUSCULAR HEMOGLOBIN 32.1 pg (27.0-33.0); MEAN CORPUSCULAR VOLUME 91.8 fl (80.0-96.0); MONO # 0.8 10^3/uL (0.0-0.8); MONO % 6.7 % (0.0-5.0); NEUTROPHILS # 10.3 10^3/uL (1.5-8.5); NEUTROPHILS % 89.4 % (36.0-66.0); PLATELET COUNT, AUTOMATED 111 10^3/uL (150-450); RED BLOOD COUNT 4.64 10^6/uL (4.30-6.10); WHITE BLOOD COUNT 11.5 10^3/uL (4.0-10.0)
--- NOTE | 2019-06-30 21:58 | REPVR ---
PROCEDURE INFORMATION: Exam: CT Abdomen and pelvis without contrast Exam date and time: 06/30/2019 9:28 PM Clinical history: 74 years old, male; Other: AMS; Additional info: Gen abd pain TECHNIQUE: Imaging protocol: Computed tomography of the abdomen and pelvis without contrast. Radiation optimization: All CT scans at this facility use at least one of these dose optimization techniques: automated exposure control; mA and/or kV adjustment per patient size (includes targeted exams where dose is matched to clinical indication); or iterative reconstruction. COMPARISON: CT ABD PELVIS W/O CONTRAST 02/24/2019 8:00 PM FINDINGS: Mediastinum: Probable distal esophageal portal venous collaterals. Liver: Nodular liver. The liver attenuation is -24 Hounsfield units and the spleen is 34 Hounsfield units. Gallbladder and bile ducts: There are several gallstones in the gallbladder. Pancreas: Normal. No ductal dilation. Spleen: Normal. No splenomegaly. Adrenals: Normal. No mass. Kidneys and ureters: Normal. No hydronephrosis. Stomach and bowel: Unremarkable. No obstruction. No mucosal thickening. Appendix: There are no changes of appendicitis. A normal appendix is not seen. Intraperitoneal space: Unremarkable. No free air. No significant fluid collection. Vasculature: There is mild calcification of the abdominal aorta with extension into the iliac arteries. Lymph nodes: Unremarkable. No enlarged lymph nodes. Bladder: Unremarkable as visualized. Reproductive: Unremarkable as visualized. Bones/joints: Degenerative changes of the lumbar spine with fusion/ankylosis at L3-L4. Soft tissues: Unremarkable. IMPRESSION: 1. Cholelithiasis. 2. Hepatic cirrhosis with fatty infiltration. Some portal venous collateralization around the distal esophagus is suggested. 3. Degenerative changes of the lumbar spine. 4. There has been little change from 02/24/2019. COMMENT: Consistent with the [employer]'s Incidental Findings Committee Report (J Am Guerita Radiol 2010): Unless the patient's specific circumstances suggest otherwise, any liver lesion 0.5 cm or less, any cystic kidney lesion less than 1.0 cm, and/or any adrenal lesion 1.0 cm or less not otherwise characterized in this report as possessing suspicious or indeterminate imaging features is/are highly likely to be benign and do not require follow-up imaging or biopsy. Electronically signed by: Joe Braswell On 06/30/2019 21:58:22 PM
[2019-06-30 22:01] LABS: AMPHETAMINES LEVEL URINE NEGATIVE (NEGATIVE); BARBITURATES URINE NEGATIVE (NEGATIVE); BENZODIAZEPINES URINE NEGATIVE (NEGATIVE); CANNABINOIDS URINE NEGATIVE (NEGATIVE); COCAINE METABOLITE URINE NEGATIVE (NEGATIVE); METHADONE URINE NEGATIVE (NEGATIVE); OPIATES URINE NEGATIVE (NEGATIVE); PHENCYCLIDINE URINE NEGATIVE (NEGATIVE)
[2019-06-30 22:35] LABS: ALBUMIN 3.3 GM/DL (3.2-5.2); ALT/SGPT 161 U/L (12-78); BILIRUBIN,DIRECT 2.4 MG/DL (0.0-0.2); BILIRUBIN,TOTAL 4.1 MG/DL (0.2-1.0); BLOOD UREA NITROGEN 50 MG/DL (7-18); CALCIUM LEVEL 9.5 MG/DL (8.8-10.2); CARBON DIOXIDE LEVEL 18 MEQ/L (21-32); CHLORIDE LEVEL 107 MEQ/L (98-107); CK-MB VALUE MASS 3.3 NG/ML (<3.6); CPK CREATINE PHOSPHOKINASE 202 U/L (39-308); CREATININE FOR GFR 2.38 MG/DL (0.70-1.30); ETHYL ALCOHOL (ETHANOL) < 0.003 % (0.000-0.010); GLOMERULAR FILTRATION RATE 28.7 (>42); GLUCOSE, FASTING 167 MG/DL (70-100); MB/CK RELATIVE INDEX 1.63 (< OR =4); SODIUM LEVEL 146 MEQ/L (136-145); TROPONIN I 0.02 NG/ML (< 0.10)
[2019-06-30] MEDS ORDERED: POTASSIUM CHLORIDE 10% LIQ 20 MEQ/15 ML UDC PO ONE (22:45)
--- NOTE | 2019-06-30 22:56 | HPEPDOC ---
[facility] Medical History & Physical Date of Admission Jun 30, 2019 Date of Service: Jun 30, 2019 Primary Care Physician: A Other Provider Patient follows with the [place] [facility] for his primary care. Attending Physician: PAULINE BROOKS MD History and Physical CHIEF COMPLAINT: Altered mental status HISTORY OF PRESENT ILLNESS: Patient is a 74-year-old white male with a past medical history significant for long-standing alcohol abuse with alcoholic cirrhosis and radiographic evidence of esophageal varices, who presents to the emergency department via EMS after being found in an obtunded state by his daughter. Patient presents as obtunded and able to follow limited direction. Patient's HPI and past medical history provided by his biological daughter who was at bedside.He was recently hospitalized in April under similar conditions. Patient was then discharged to the [facility] for further rehabilitation and soon thereafter returned home to his apartment where he lives alone. Daughter states that patient has been drinking on a daily basis ever since. She notes that he usually drinks a large amount of scotch, though she is unable to provide any exact quantity. Patient was last seen by his daughter approximately one week ago at which point she was also noted as being intoxicated. She states that she presented to his apartment this afternoon at which point she found him on the floor by the sink in an obvious obtunded state. She was concerned given that his respirations appeared shallow. No vomitus, stool or urine was noted to be near the patient. She shares that the patient does not eat much at all, instead spending most of his available financial resources on alcohol. EMS was contacted transport the patient to the hospital for further evaluation and management. Upon presentation to the emergency department, patient was able to follow limited commands and his speech was particularly garbled. Sinus tachycardia noted on EKG. CBC demonstrates a slightly elevated leukocytosis of 11.5, predominantly neutrophils. A CMP significant for potassium of 3.0, albumin/creatinine of the 50/2.38. Elevated AST/ALP of 422/161. Elevated alkaline phosphatase of 176. Elevated total and direct bilirubin of 4.1 and 2.4 respectively. Ammonia level of 58. Cardiac markers negative. Albumin within normal at 3.3. Urine toxicology is negative. Ethanol alcohol level of less than 0.003. Urine is dark in color, cloudy appearance. 2+ protein, 1+ glucose, 1+ ketones, 1+ blood, 2+ bilirubin and 4+ urobilinogen. POC glucose of 189. CT imaging of the patient's abdomen/pelvis, head, chest were performed. Head and chest imaging or large unremarkable and unchanged from prior studies. Patient's abdomen/pelvis CT did demonstrate fatty infiltration of the liver with likely esophageal venous dilation. Given patient's altered mental status secondary to hepatic encephalopathy, acute kidney injury and lack of care at home, hospitalist team was contacted for admission and further evaluation and management of patient's condition. PAST MEDICAL HISTORY: Asthmatic bronchitis Esophageal varices GERD Nephrolithiasis Herniated disks and lumbar spine Diabetes mellitus type 2 Alcoholic cirrhosis Alcohol dependence with current heavy use. 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 Tobacco use: Patient reports smoking cessation in 1984. ETOH: Patient has an extensive history of alcohol abuse. Patient's daughter states that he began drinking immediately following his last discharge from the hospital in April 2019 Illicit drug use: No known of illicit or IV drug use Other relevant social factors: Patient utilizes a wheelchair for most of his ambulation. Patient does have both upper and lower dentures. Patient utilizes corrective lenses. FAMILY HISTORY: Father: , history of hypertension Mother: , history of unknown cancer Siblings: Brother, alive, asthma Children: Daughter, alive, healthy ALLERGIES: Egg Ether REVIEW OF SYSTEMS: Patient is not a good historian and given his current state altered mental status, unable to answer review of systems questions appropriately. See HPI for details provided by patient's daughter. HOME MEDICATIONS: Please see below. PHYSICAL EXAMINATION: VITAL SIGNS: Temperature 97.6, pulse 104, respiratory rate 16, blood pressure 128/79 (95), pulse oximetry 98 % on room air. GENERAL APPEARANCE: Patient is oriented to person and place. He appears confused, lethargic. He is arousable to his name. Speech is garbled. HEENT: Patient's head was normocephalic without signs of trauma. Pupils were equal patient was uncooperative for extraocular muscle examination. Sclera and conjunctivae are nonicteric. Patient is edentulous. Patient's neck does not demonstrate JVD or any significant lymphadenopathy. CARDIOVASCULAR: Slightly tachycardic, regular rhythm. Normal S1 and S2 without murmur gallops or rubs appreciated. LUNGS: Clear to auscultation in the anterior lung noriega. Patient uncooperative for posterior lung field examination.. ABDOMEN: Obese with large pannus, nondistended, nontender, no obvious signs of guarding. Fluid wave unable to be appreciated. No palpable masses. No obvious periumbilical or epigastric pains. Significant submammary intertriginous dermatitis appreciated. SKIN: Multiple abrasions and skin breakdown noted intertriginously. Particularly worse groin and sub-pannicular area. Detergents dermatitis also noted submammary and sub-pannicular bilaterally. Spider angiomata noted on nose EXTREMITIES: Trace edema in lower extremities bilaterally. NEUROLOGICAL: Alert and oriented to person and place. Able to open his eyes and respond to his name. Unable to test for asterixis even patient's condition. Cranial nerves, strength and sensation were also unable to be tested. LABORATORY DATA: See below. IMAGING: Abdomen/pelvis CT (06/30/19): Cholelithiasis, hepatic cirrhosis with fatty infiltration. Some portal venous collateralization around the distal esophagus is suggested. Degenerative changes of the lumbar spine. Little change from previous imaging study on 02/24/19. Chest CT (06/30/19): Hepatic cirrhosis with fatty infiltration. There is suggestion of portal venous collaterals around the distal esophagus. Mild interstitial coarsening with minimal scattered fibroatelectasis change. Otherwise negative CT chest. Head CT (06/30/19): No change from previous study in 04/16/19 and mild atrophy. No acute interval intracranial process. MICROBIOLOGY: Please see below. ASSESSMENT: #Acute kidney injury Cr of 2.31. Cr during previous hospitalization in March and April of 2019, Cr of <1. Patient meets RIFLE criteria with cr >2-3x above baseline and GFR >50% decrease below baseline. Consider hepatorenal syndrome (HRS) as most likely cause. Also consider compounding dehydration and poor nutrition as causes of pre-renal azotemia. Plan: Fluid rehydration with normal saline 0.45% at 100 ml/hr given patient's hypernatremia. Continue to monitor BUN/creatinine with serial BMPs. Urinary catheter to monitor urine output. Renal U/S. If unresponsive to fluid resuscitation, likelihood of HRS increases, in which case a trial of albumin challenge with 25% albumin at 1g/kg in divided doses for two days. Addition of midodrine and octreotide may be necessary depending on severity. #Hepatic encephalopathy Elevated AST/ALT. Ammonia elevated. Plan: Lactulose ordered in the emergency department, continue lactulose on the floor until 3 BM per day, consider rifaximin. Neuro checks every 4 hours Consider hepatorenal syndrome #Hypokalemia Patient was found to be hypokalemic on laboratory examination with a potassium of 3.0, likely 2/2 to poor nutrition. Magnesium WNL. Patient will be repleted with his IV fluid #Hypernatremia Likely secondary to dehydration status Plan: Patient started on maintenance fluids of 0.45 normal saline in light of his hypernatremia #Tachycardia Pulse remaining around 100 bpm, consider 2/2 to hepatic encephalopathy. Patient be placed on telemetry monitoring. Magnesium level ordered, plan to repeat if low #Alcoholic cirrhosis Esophageal varices suspected on CT imaging Plan: Consider GI consultation for EGD, PT/INR, continue to encourage ETOH abstinence Child-Buchanan Score for Cirrhosis Mortality of 10, Class C, life-expectancy 1-3 years with 82% abdominal surgery august-operative risk. #Chronic alcohol abuse Patient's daughter reports the patient has continued to consume alcohol since his previous discharge in April. Albumin WNL. Plan: Begin patient on thiamine, folic acid, multivitamin supplementation daily. CIWA Protocol Q8hr. Continue to encourage ETOH abstinence. Coag studies ordered. #Lactic Acidosis / anion-gap metabolic acidosis Minimally elevated lactic, repeat in 4 hours. Poor nutrition probably also contributory as patient did have ketouria. Will check daily phosphorus as these patients are susceptible to re-feeding syndrome and rhabdomyolysis. Plan: Continue with IV hydration #Intertriginous dermatitis Plan: Nystatin powder. Continue home oral Diflucan #GERD/GI prophylaxis Plan: IV Protonix #Debility Plan: PT and OT evaluation. Case management patient may require potential placem ent Patient's daughter states that she is his only care-commercial intelligence manager. Patient has refused in-supervisor home restoration service before. #Obesity Likely compensating care Plan: Patient should follow up with primary care for TERESSA screening DVT Prophylaxis: Nima Prediction score for risk of VTE: 5 points (Reduced mobility, Age>70, BMI>30). Pharmacologic prophylaxis is indicated. Mechanical if high risk of bleeding. Given patient low platelets, mechanical prophylaxis with TEDS and sequentials will be ordered. Vital Signs Vital Signs Date Time Temp Pulse Resp B/P (MAP) Pulse Ox O2 Delivery O2 Flow Rate FiO2 06/30/19 22:31 103 16 165/84 (111) 98 Room Air 06/30/19 21:04 97.6 Laboratory Data Labs 24H Laboratory Tests 2 06/30/19 21:28: Urine Color SHELLEY, Urine Appearance CLOUDYH, Urine pH 5.0, Urine Specific Cardwell 1.021, Urine Protein 2+H, Urine Glucose (UA) 1+H, Urine Ketones 1+H, Urine Blood 1+H, Urine Nitrite NEGATIVE, Urine Bilirubin 2+H, Urine Urobilinogen 4.0H, Urine Leukocyte Esterase NEGATIVE, Urine WBC (Auto) 2, Urine RBC (Auto) 3, Urine Hyaline Casts (Auto) 0, Urine Bacteria (Auto) NEGATIVE, Urine Squamous Epithelial Cells 0, Urine Sperm (Auto) , Urine Amphetamines Screen NEGATIVE, Urine Benzodiazepines Screen NEGATIVE, Urine Opiates Screen NEGATIVE, Urine Methadone Screen NEGATIVE, Urine Barbiturates Screen NEGATIVE, Urine Phencyclidine Screen NEGATIVE, Urine Cocaine Metabolite Screen NEGATIVE, Urine Cannabinoids Screen NEGATIVE 06/30/19 21:48: Immature Granulocyte % (Auto) 0.8, White Blood Count 11.5H, Red Blood Count 4.64, Hemoglobin 14.9, Hematocrit 42.6, Mean Corpuscular Volume 91.8, Mean Corpuscular Hemoglobin 32.1, Mean Corpuscular Hemoglobin Concent 35.0, Red Cell Distribution Width 16.0H, Platelet Count 111L, Neutrophils (%) (Auto) 89.4H, Lymphocytes (%) (Auto) 2.9L, Monocytes (%) (Auto) 6.7H, Eosinophils (%) (Auto) 0.0, Basophils (%) (Auto) 0.2, Neutrophils # (Auto) 10.3H, Lymphocytes # (Auto) 0.3L, Monocytes # (Auto) 0.8, Eosinophils # (Auto) 0.0, Basophils # (Auto) 0.0, Nucleated Red Blood Cells % (auto) 0.0, Anion Gap 21H, Glomerular Filtration Rate 28.7L, Calcium Level 9.5, Aspartate Amino Transf (AST/SGOT) 422H, Alanine Aminotransferase (ALT/SGPT) 161H, Alkaline Phosphatase 176H, Total Bilirubin 4.1H, Direct Bilirubin 2.4H, Ammonia 58H, Total Creatine Kinase 202, Creatine Kinase MB 3.3, Creatine Kinase MB Relative Index 1.63, Troponin I 0.02, Total Protein 8.0, Albumin 3.3, Albumin/Globulin Ratio 0.70L, Thyroid Stimulating Hormone (TSH) 0.540, Ethyl Alcohol Level < 0.003 06/30/19 21:56: Bedside Glucose (Misc Panel) 189H CBC/BMP Laboratory Tests 06/30/19 21:48 Red Blood Count 4.64, Mean Corpuscular Volume 91.8, Mean Corpuscular Hemoglobin 32.1, Mean Corpuscular Hemoglobin Concent 35.0, Red Cell Distribution Width 16.0 H, Neutrophils (%) (Auto) 89.4 H, Lymphocytes (%) (Auto) 2.9 L, Monocytes (%) (Auto) 6.7 H, Eosinophils (%) (Auto) 0.0, Basophils (%) (Auto) 0.2, Neutrophils # (Auto) 10.3 H, Lymphocytes # (Auto) 0.3 L, Monocytes # (Auto) 0.8, Eosinophils # (Auto) 0.0, Basophils # (Auto) 0.0 Home Medications Scheduled Aspirin (Aspirin) 325 Mg Tablet, 650 MG PO BID Bupropion HCl (Bupropion Xl) 300 Mg Tab.er.24h, 300 MG PO DAILY Fluconazole (Diflucan) 100 Mg Tablet, 100 MG PO BID Folic Acid (Folic Acid) 1 Mg Tablet, 1 MG PO DAILY Multivitamin (Multivitamins) 1 Each Capsule, 1 CAP PO DAILY Nystatin (Nystatin Powder) 15 Gm Powder, 1 APLCT TOP BID APPLY TO GROIN AND ABDOMINAL FOLDS Omeprazole (Omeprazole) 20 Mg Capsule.dr, 20 MG PO DAILY Potassium Chloride (Potassium Chloride) 10 Meq Tab.er.prt, 40 MEQ PO BID Zinc Oxide (Desitin) 454 Gm Cream..g., 1 APLCT TOP BID APPLY TO BUTTOCKS AND THEN LEAVE OPEN TO AIR Scheduled PRN Acetaminophen (Acetaminophen 8 Hour) 650 Mg Tablet.er, 650 MG PO Q4H PRN for PAIN Nystatin (Nystatin Powder) 15 Gm Powder, 1 APLCT TOP TID PRN for RASH APPLY TO RASH UNDER BREASTS Ondansetron HCl (Ondansetron HCl) 4 Mg Tablet, 4 MG PO Q8H PRN for NAUSEA OR VOMITING Miscellaneous Medications [Patient Comment] WENT OFF DISCHARGE SUMMARY FROM VISIT IN [facility] Allergies Coded Allergies: ether (Verified Allergy, Severe, ANAPHYLAXIS, 02/24/19) egg (Verified Allergy, Mild, RASH, 02/24/19) A-FIB/CHADSVASC A-FIB History Current/History of A-Fib/PAF?: No GME ATTESTATION GME ATTESTATION My faculty preceptor for this patient encounter was physically present during the encounter and was fully available. All aspects of the patient interview, examination, medical decision making process, and medical care plan development were reviewed and approved by the faculty preceptor. The faculty preceptor is aware and concurs with the plan as stated in the body of this note and will attest to such by his/her cosignature. ATTENDING NOTE I personally examined the patient at 1105 PM, discussed the case with and agree with his findings & recommendations as documented. KHADIJAH MANNING DO Jun 30, 2019 22:56 PAULINE BROOKS MD Jul 01, 2019 06:50
[2019-06-30] MEDS ORDERED: LACTULOSE 20 GM/30 ML SYRUP UD PO ONE (23:00)
[2019-07-01] VITALS (7 sets, daily range): BP systolic 130–178; BP diastolic 68–89
[2019-07-01] MEDS ORDERED: PATIENT COMMENT (00:31)
[2019-07-01] MEDS: KCL 20MEQ IN 0.45NS 1000ML 1,000 ML IV SCH ×3 (00:51→22:49)
[2019-07-01] MEDS ORDERED: ONDANSETRON 4 MG TAB (S0181) PO PRN (01:00)
[2019-07-01 01:26] LABS: INR 2.03; PROTHROMBIN TIME 22.7 SECONDS (11.8-14.0)
[2019-07-01] MEDS: FLUCONAZOLE 100 MG TAB PO SCH ×3 (01:58→22:48)
[2019-07-01] MEDS ORDERED: LORazepam 2 MG TAB PO PRN (02:45)
[2019-07-01] MEDS ORDERED: GLUCOSE 4 GM CHEW TABLET PO PRN (05:00)
[2019-07-01] MEDS ORDERED: GLUCAGON FOR INJ 1 MG VIAL (J1610) SC PRN (05:00)
[2019-07-01] MEDS ORDERED: DEXTROSE 50% 50 ML SYRINGE IV PRN (05:00)
[2019-07-01 05:39] LABS: HEMATOCRIT 41.5 % (42.0-52.0); HEMOGLOBIN 14.7 g/dl (13.5-17.5); MEAN CORPUSCULAR HEMOGLOBIN 32.3 pg (27.0-33.0); MEAN CORPUSCULAR HGB CONC 35.4 g/dl (32.0-36.5); MEAN CORPUSCULAR VOLUME 91.2 fl (80.0-96.0); RED BLOOD COUNT 4.55 10^6/uL (4.30-6.10); WHITE BLOOD COUNT 8.9 10^3/uL (4.0-10.0)
[2019-07-01] MEDS ORDERED: traMADol 50 MG TAB PO ONE (05:45)
[2019-07-01 05:55] LABS: PLATELET COUNT, AUTOMATED 93 10^3/uL (150-450)
[2019-07-01 06:02] LABS: HEMOGLOBIN A1c 4.7 %
[2019-07-01 06:03] LABS: ALBUMIN 3.2 GM/DL (3.2-5.2); BILIRUBIN,TOTAL 4.9 MG/DL (0.2-1.0); CALCIUM LEVEL 9.4 MG/DL (8.8-10.2); CREATININE FOR GFR 1.76 MG/DL (0.70-1.30); GLOMERULAR FILTRATION RATE 40.7 (>42); POTASSIUM SERUM 3.2 MEQ/L (3.5-5.1); TOTAL PROTEIN 7.4 GM/DL (6.4-8.2)
[2019-07-01] MEDS: LACTULOSE 20 GM/30 ML SYRUP UD PO SCH ×3 (06:23→17:19)
[2019-07-01] MEDS: PANTOPRAZOLE 40MG INJ (PROTONIX) (C9113) IV SCH (06:23)
[2019-07-01] MEDS ORDERED: HumaLOG INSULIN (NovoLOG) PER UNIT SC SCH ×2 (07:30→21:00)
--- NOTE | 2019-07-01 07:39 | ECGEPIP ---
[facility] - ED Test Date: 2019-06-30 Pat Name: TYSON NGUYEN Department: Room: - Gender: Male Field Secretary: : [id number] Requested By: KAYLEEN Dukes Order Number: [id number] Reading MD: Laura Lugo Measurements Intervals [place] Rate: 103 P: 35 ND: 146 QRS: 10 QRSD: 76 T: 15 QT: 285 QTc: 375 Interpretive Statements SINUS TACHYCARDIA NONSPECIFIC ST & T-WAVE ABNORMALITY ABNORMAL RHYTHM ECG POSSIBLE PRIOR INFERIOR INFARCT DECREASED ECTOPY 04/16/19 Electronically Signed on 07-01-2019 7:39:20 EDT by Laura Lugo
[2019-07-01] MEDS ORDERED: POTASSIUM CHLORIDE 10 MEQ SR TABLET PO ONE (08:45)
[2019-07-01] MEDS ORDERED: LACTULOSE 20 GM/30 ML SYRUP UD PR ONE (10:00)
[2019-07-01] MEDS: POTASSIUM CHLORIDE 10 MEQ SR TABLET PO SCH ×3 (10:30→22:48)
[2019-07-01] MEDS: buPROPion **XL** TABLET 150MG (WELLBUTRIN XL) PO SCH (11:14)
[2019-07-01] MEDS: THIAMINE 100 MG TAB PO SCH (11:14)
[2019-07-01] MEDS: FOLIC ACID 1 MG TAB PO SCH (11:14)
[2019-07-01] MEDS: MULTIVITAMINS/MINERALS THERAP 1 TAB PO SCH (11:17)
[2019-07-01 11:46] LABS: HEPATITIS B SURFACE ANTIGEN NEGATIVE (NEGATIVE)
--- NOTE | 2019-07-01 11:52 | REP ---
ABDOMINAL ULTRASOUND: Real-time sonographic evaluation of the abdomen performed. No gallstones are seen in the gallbladder and there is no definite intraluminal sludge. However this study limited due to patient body habitus, bowel gas and inability to suspend respirations. Gallbladder wall is not thickened at 3 mm. There is no pericholecystic fluid. There is no intrahepatic or extrahepatic biliary dilatation, common bile duct measuring 4 mm. The liver demonstrates diffuse heterogeneous increased echotexture compatible with diffuse fibrofatty infiltration. No gross mass is seen. Pancreas cannot be visualized. Spleen is not enlarged with a length of 11.2 cm. Kidneys are normal in size and echotexture, right kidney measuring 11.8 x 6.1 x 6.7 cm and left kidney 12.6 x 6.2 x 6.7 cm. There is no renal mass, hydronephrosis, or nephrolithiasis. Abdominal aorta could not be seen due to bowel gas. No ascites is seen. IMPRESSION: Significantly limited exam due to patient body habitus, bowel gas, and inability to suspend respirations. There is no definite sonographic evidence of cholecystitis. No definite gallstones are seen in the gallbladder. There is no biliary dilatation or free fluid. There is diffuse fibrofatty infiltration of the liver. Electronically Signed by Jean Claude Pereira MD 07/02/2019 09:02 A
[2019-07-01 12:14] LABS: HEPATITIS C VIRUS ABY INDEX 0.2 INDEX (<0.8)
[2019-07-01 12:15] LABS: HEPATITIS B CORE ANTIBODY IGM NEGATIVE (NEGATIVE)
[2019-07-01 12:16] LABS: HEPATITIS A ANTIBODY IGM NEGATIVE (NEGATIVE)
[2019-07-01 13:04] LABS: PERCENT SATURATION 91.4 % (19.7-50.0)
[2019-07-01] MEDS ORDERED: predniSONE 20 MG TAB PO ONE (17:00)
--- NOTE | 2019-07-01 18:09 | IPN ---
DATE: 07/01/2019 SUBJECTIVE: Patient is somewhat lethargic, not answering questions appropriately, disoriented to time and place. He is oriented only to his name. Denies any nausea or vomiting, abdominal pain. No fevers or chills overnight. Patient continued to have four bowel movements due to lactulose with ammonia level improving to 17 from 58 on admission. PHYSICAL EXAMINATION: VITAL SIGNS: Temperature 979.6, pulse 62, respiratory rate 18, blood pressure 139/68, 92% on room air. GENERAL: Patient is awake, alert, oriented to himself only. He is disoriented to time and place. He does not speak appropriately. His speech is fluent. He is lethargic. No respiratory distress. Patient has mild icterus with no jaundice. Pupils are round, reactive. No jugular venous distention. No thyromegaly. LUNGS: Clear to auscultation. No wheezes, rales, or rhonchi. HEART: S1, S2, sinus rhythm. ABDOMEN: Soft, slightly tender in the left upper quadrant. No rebound or guarding. Positive bowel sounds times four quadrants. No abdominal bruits. EXTREMITIES: No cyanosis or clubbing. He has positive pitting edema to the sacrum. LABORATORY DATA: White count 8.9, hemoglobin 14.7, hematocrit 41, platelet count 93. Sodium 149, potassium 3.2, chloride 111, bicarbonate 22, BUN 45, creatinine 1.76, previous creatinine 2.38, glucose 165, lactic acid of 2.6 at 5 a.m. Total bilirubin 4.9, AST 372, ALT 153, alkaline phosphatase 156. Abdominal ultrasound shows limited exam. No evidence of cholecystitis. No biliary dilatation or free fluid. Diffuse fibrofatty infiltration of the liver. ASSESSMENT AND PLAN: This is a 74-year-old male with a history of esophageal varices, alcoholic liver cirrhosis, diabetes, nephrolithiasis, reflux, and diabetic neuropathy. Was found obtunded by his daughter at home, unable to follow commands. Patient drinks large amounts of hard liquor, such as scotch, in excessive quantities. In the emergency room (ER) he was found to have abnormal liver function tests as well as acute kidney injury and hypernatremia, electrolyte abnormalities with metabolic acidosis and hypokalemia. An elevated ammonia level of 58. He was admitted for hepatic encephalopathy secondary to active alcohol use. CURRENT ISSUE: 1. Acute encephalopathy secondary to decompensated liver disease. Patient has known history of chronic alcohol use and has documented esophageal varices and liver cirrhosis. Patient's ammonia level of 58 improved to 17 with improvement in his mental status after lactulose has been administered. Urine toxicology screen was negative. Alcohol level was less than 0.003. 2. Acute kidney injury secondary to volume depletion. Patient has been fluid hydrated with improvement in creatinine from 2.38 to 1.7. He is continued on intravenous (IV) fluids and potassium supplementation. Due to risk of aspiration, patient was initially kept nothing by mouth but currently okay to continue with pureed diet and applesauce with medication. 3. Ethyl alcoholic hepatitis with elevated bilirubin and aminotransferase elevation. Ultrasound gallbladder showed no definite gallstones. No biliary ductal dilatation. There is fibrofatty infiltration of the liver. Patient may benefit from a course of prednisone. 4. Chronic alcohol abuse. Patient has been placed on Clinical Thomson Withdrawal Assessment (CIWA) protocol. He is continued on multivitamin, thiamine, and folate. IV fluids for now and lactulose. Ativan as needed for withdrawal symptoms. 5. Electrolyte abnormalities with low potassium level due to poor oral intake. IV fluid hydration and potassium supplementation. MTDD
[2019-07-02 04:00] VITALS: BP 144/78
[2019-07-02 05:05] LABS: BASO % 0.2 % (0.0-1.0); HEMATOCRIT 37.9 % (42.0-52.0); HEMOGLOBIN 13.3 g/dl (13.5-17.5); LYMPH # 0.3 10^3/uL (1.5-5.0); LYMPH % 4.8 % (24.0-44.0); MEAN CORPUSCULAR HEMOGLOBIN 31.2 pg (27.0-33.0); MEAN CORPUSCULAR HGB CONC 35.1 g/dl (32.0-36.5); MONO # 0.3 10^3/uL (0.0-0.8); MONO % 5.1 % (0.0-5.0); NEUTROPHILS # 5.9 10^3/uL (1.5-8.5); NEUTROPHILS % 89.1 % (36.0-66.0); RED BLOOD COUNT 4.26 10^6/uL (4.30-6.10); WHITE BLOOD COUNT 6.7 10^3/uL (4.0-10.0)
[2019-07-02] MEDS: LACTULOSE 20 GM/30 ML SYRUP UD PO SCH ×4 (05:15→18:29)
[2019-07-02] MEDS: PANTOPRAZOLE 40MG INJ (PROTONIX) (C9113) IV SCH (05:15)
[2019-07-02 05:16] LABS: PLATELET COUNT, AUTOMATED 80 10^3/uL (150-450)
[2019-07-02 05:27] LABS: ALT/SGPT 119 U/L (12-78); BILIRUBIN,TOTAL 6.2 MG/DL (0.2-1.0); BLOOD UREA NITROGEN 28 MG/DL (7-18); CALCIUM LEVEL 8.6 MG/DL (8.8-10.2); CARBON DIOXIDE LEVEL 27 MEQ/L (21-32); CHLORIDE LEVEL 108 MEQ/L (98-107); CREATININE FOR GFR 1.08 MG/DL (0.70-1.30); GLOMERULAR FILTRATION RATE > 60.0 (>42); GLUCOSE, FASTING 187 MG/DL (70-100); MAGNESIUM LEVEL 1.8 MG/DL (1.8-2.4); SODIUM LEVEL 144 MEQ/L (136-145); TOTAL PROTEIN 6.6 GM/DL (6.4-8.2)
[2019-07-02] MEDS: NYSTATIN 100,000 UNITS/GM TOPICAL PWD 15 GM TOP PRN (06:38)
[2019-07-02 08:00] VITALS: BP 150/84
--- NOTE | 2019-07-02 08:03 | IPN ---
DATE OF SERVICE: 07/02/2019 SUBJECTIVE: The patient is much more alert this morning. He is awake and alert to himself, able to state his name, Elio Garcia. However, he remains disoriented and does not know where he is or what the date is. This morning, he says that he does want to eat. He denies any nausea, vomiting, abdominal pain. He denies any shakes, paresthesias in the arms, nausea and epigastric discomfort. Afebrile and no chills overnight. OBJECTIVE/PHYSICAL EXAMINATION: Vital Signs: Temperature 97.8, pulse 88, respiratory rate 20, blood pressure 144/78, 100% on room air. Generally, the patient appears disheveled, disoriented. He only knows his name. He does not know place and time. He is edentulous. Quite confused, but cooperative. He has required a sitter overnight. He has no respiratory distress. Able to speak in full sentences, but again disoriented. No jugular venous distention. No thyromegaly. No cervical lymphadenopathy. Lungs are diminished, but clear to auscultation bilaterally. Heart: S1 and S2, sinus rhythm. Abdomen soft, nontender, nondistended. Positive bowel sounds. No hepatosplenomegaly. No rebound or guarding. Extremities: No cyanosis, clubbing. LABORATORY DATA: White count 6.7, hemoglobin 13, hematocrit 37, platelet count 80. Sodium and liver function tests are pending. Ammonia level is 36 from 07/01/2019. Microbiology: Two sets of blood cultures are negative. Ultrasound of the abdomen with no gallstones. No signs of cholecystitis. No biliary dilatation or free fluid. There is diffuse fibrofatty infiltration of the liver. CT of abdomen and pelvis on 06/30/2019 shows nodular liver, cholelithiasis, hepatic cirrhosis with fatty infiltration with portal venous collateralization around the distal esophagus suggested, little change from 02/24/2019. CT of the chest on 06/30/2019 hepatic cirrhosis with coarsening and scattered fibroatelectasis. Otherwise negative CT of the chest. ASSESSMENT AND PLAN: This is a 74-year-old male with chronic alcohol abuse, hepatic encephalopathy due to elevated ammonia levels who was found unresponsive at home by his daughter admitted for acute hepatic encephalopathy secondary to chronic alcohol use. Acute issues are as follows: 1. Acute hepatic encephalopathy due to decompensated alcoholic liver cirrhosis. The patient has known history of chronic alcohol use with documented esophageal varices. His ammonia level on admission was 58, which improved to 17 yesterday. He is continued on lactulose, but currently has an ammonia level that has increased overnight to greater than 30. At this time, urine tox screen was negative, alcohol level was less than 0.003. The patient has no signs of any GI bleed, fever or chills. No significant ascites on ultrasound of the abdomen to cover for spontaneous bacterial peritonitis (SBP). The patient is continued on supportive care with lactulose, frequent orientation. He is on multivitamin, thiamine and folate. Delirium tremens (DT) precautions. [place] protocol. 2. Acute alcoholic hepatitis. Currently on prednisone. Repeat CMP is still pending this morning. Will continue to monitor. 3. Acute kidney injury has improved with intravenous fluids. Most likely secondary to dehydration and hypovolemia. The patient's metabolic panel is still pending this morning. The patient is encouraged to continue with oral intake. Due to obtundation a swallow evaluation was performed yesterday. The patient was felt to be safe for pureed diet, applesauce with his medications and thin liquids. 4. Aspiration risk. Currently on alternative diet with pureed diet with applesauce with his medications. 5. Hypernatremia, acute kidney injury secondary to hypovolemia from decreased oral intake. At this time, repeat metabolic panel is still pending. He has received IV fluids overnight. 6. Electrolyte abnormalities due to decreased dietary intake of potassium. This has been supplemented yesterday. 7. Chronic thrombocytopenia. 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 Supportive care. Monitor for any signs of bleeding. 8. Disposition. The patient is medically stable for transfer to medical surgical floor. He remains encephalopathic and will continue to work with physical therapy if possible to increase his mobility. [facility]
[2019-07-02] MEDS ORDERED: MAG SULF 1GM/100ML (MAG RUN) 1 GM in IV 1 EA IV ONE (09:00)
[2019-07-02] MEDS: THIAMINE 100 MG TAB PO SCH (09:03)
[2019-07-02] MEDS: buPROPion **XL** TABLET 150MG (WELLBUTRIN XL) PO SCH (09:03)
[2019-07-02] MEDS: POTASSIUM CHLORIDE 10 MEQ SR TABLET PO SCH ×2 (09:04→21:40)
[2019-07-02] MEDS: MULTIVITAMINS/MINERALS THERAP 1 TAB PO SCH (09:04)
[2019-07-02] MEDS: predniSONE 20 MG TAB PO SCH (09:04)
[2019-07-02] MEDS: FOLIC ACID 1 MG TAB PO SCH (09:04)
[2019-07-02] MEDS: FLUCONAZOLE 100 MG TAB PO SCH ×2 (09:05→21:40)
[2019-07-02 14:00] VITALS: BP 150/84
[2019-07-02 16:00] VITALS: BP 166/83
[2019-07-03] MEDS: LACTULOSE 20 GM/30 ML SYRUP UD PO SCH ×4 (00:31→18:08)
[2019-07-03 01:32] VITALS: BP 144/86
[2019-07-03 05:48] VITALS: BP 156/74
[2019-07-03 06:05] LABS: BASO % 0.4 % (0.0-1.0); EOS # 0.2 10^3/uL (0.0-0.5); EOS % 2.2 % (0.0-3.0); HEMATOCRIT 36.5 % (42.0-52.0); LYMPH # 0.6 10^3/uL (1.5-5.0); LYMPH % 8.9 % (24.0-44.0); MEAN CORPUSCULAR HGB CONC 35.6 g/dl (32.0-36.5); MEAN CORPUSCULAR VOLUME 89.9 fl (80.0-96.0); MONO # 0.9 10^3/uL (0.0-0.8); MONO % 12.8 % (0.0-5.0); NEUTROPHILS # 5.1 10^3/uL (1.5-8.5); NEUTROPHILS % 74.1 % (36.0-66.0); RED BLOOD COUNT 4.06 10^6/uL (4.30-6.10); WHITE BLOOD COUNT 6.9 10^3/uL (4.0-10.0)
[2019-07-03 06:19] LABS: PLATELET COUNT, AUTOMATED 89 10^3/uL (150-450)
[2019-07-03 06:52] LABS: ALBUMIN 2.8 GM/DL (3.2-5.2); ALT/SGPT 102 U/L (12-78); BILIRUBIN,TOTAL 5.4 MG/DL (0.2-1.0); BLOOD UREA NITROGEN 15 MG/DL (7-18); CALCIUM LEVEL 8.8 MG/DL (8.8-10.2); CARBON DIOXIDE LEVEL 30 MEQ/L (21-32); CHLORIDE LEVEL 105 MEQ/L (98-107); CREATININE FOR GFR 0.83 MG/DL (0.70-1.30); GLOMERULAR FILTRATION RATE > 60.0 (>42); GLUCOSE, FASTING 138 MG/DL (70-100); POTASSIUM SERUM 2.6 MEQ/L (3.5-5.1); SODIUM LEVEL 142 MEQ/L (136-145); TOTAL PROTEIN 6.9 GM/DL (6.4-8.2)
[2019-07-03] MEDS: predniSONE 20 MG TAB PO SCH (09:00)
[2019-07-03] MEDS: THIAMINE 100 MG TAB PO SCH (09:17)
[2019-07-03] MEDS: buPROPion **XL** TABLET 150MG (WELLBUTRIN XL) PO SCH (09:17)
[2019-07-03] MEDS: FLUCONAZOLE 100 MG TAB PO SCH ×2 (09:17→20:13)
[2019-07-03] MEDS: MULTIVITAMINS/MINERALS THERAP 1 TAB PO SCH (09:17)
[2019-07-03] MEDS: POTASSIUM CHLORIDE 10 MEQ SR TABLET PO SCH (09:17)
[2019-07-03] MEDS: FOLIC ACID 1 MG TAB PO SCH (09:18)
[2019-07-03] MEDS: PANTOPRAZOLE 40MG TAB (PROTONIX) PO SCH (09:20)
[2019-07-03] MEDS ORDERED: POTASSIUM CHLORIDE 10% LIQ 20 MEQ/15 ML UDC PO ONE ×2 (11:00→12:00)
[2019-07-03] MEDS ORDERED: traMADol 50 MG TAB PO ONE (12:15)
[2019-07-03 12:34] LABS: MAGNESIUM LEVEL 1.7 MG/DL (1.8-2.4)
[2019-07-03] MEDS: LIDOCAINE 5% (LIDODERM) PATCH TD SCH (13:28)
[2019-07-03] MEDS: NYSTATIN 500,000 U/5 ML SUSP UDC SS SCH ×3 (14:09→20:14)
[2019-07-03 14:25] LABS: MAGNESIUM LEVEL 1.6 MG/DL (1.8-2.4); POTASSIUM SERUM 4.1 MEQ/L (3.5-5.1)
[2019-07-03 15:19] VITALS: BP 157/87
[2019-07-03] MEDS: MAG SULF 1GM/100ML (MAG RUN) 1 GM in IV 1 EA IV SCH ×2 (20:15→21:42)
[2019-07-03] MEDS: **NOTE PATIENT COMMENT** MISC XX SCH (20:16)
--- NOTE | 2019-07-03 20:36 | IPN ---
DATE: 07/03/2019 SUBJECTIVE: The patient is tolerating his diet with nausea, vomiting, abdominal pain. He appears to be much more oriented today, both to say his name and carry on a conversation. He otherwise denies any headache. Denies any paresthesias, bugs crawling on his skin or any tremors. Appears to be comfortable. Denies any restlessness. Clinical [place] Withdrawal Assessment (CIWA) protocol is still on board, but he has not needed any intervention. He still complains of back pain. VITAL SIGNS: Temperature 98.6, pulse 63, respiratory rate 19, blood pressure 157/87. GENERAL: Awake, alert, oriented to his name. Much more alert. He is cooperative. He speaks in full sentences. No slurring of speech. He does get disoriented to time and place. HEENT: No jugular venous distention (JVD). No thyromegaly. Dry mucous membranes. Poor dentition. The patient has no cervical lymphadenopathy, thyromegaly. The patient has oral thrush. LUNGS: Clear to auscultation. No wheezing, rales or rhonchi. HEART: S1, S2. Sinus. ABDOMEN: Soft, nontender, nondistended. Positive bowel sounds times four quadrants. EXTREMITIES : No cyanosis or clubbing. Trace edema bilaterally. LABORATORY DATA: White count 6.9, hemoglobin 13, hematocrit 36, platelet count of 89. Sodium 142, potassium 2.6, chloride 105, bicarbonate 30, BUN 15, creatinine 0.83, glucose of 138, magnesium 1.6, total bilirubin 5.4 (decreased from 6.2 yesterday), AST 171 (decreased from 256 yesterday), ALT 102, alkaline phosphatase 169. Microbiology: Two sets of blood cultures are negative after 48 hours. ASSESSMENT AND PLAN: This is a 74-year-old male with chronic alcohol abuse, hepatic encephalopathy with elevated ammonia level was found unresponsive at home by his daughter and admitted for acute hepatic encephalopathy. ACUTE ISSUES: 1. Acute alcoholic hepatitis, currently on prednisone with improvement in his bilirubin and aminotransferases. 2. Acute hepatic encephalopathy, decompensated alcoholic liver disease with liver cirrhosis. The patient has an elevated ammonia level of 58 and currently normal with improvement in his mentation. 3. Acute kidney injury, resolved with fluid hydration. 4. Aspiration risk. The patient had a swallow evaluation and currently on pureed diet, applesauce with medications, thin liquids. 5. Electrolyte abnormalities with low magnesium due to decrease in oral intake. 6. Chronic thrombocytopenia due to alcoholic liver disease and liver cirrhosis. No signs of bleeding. 7. Debility. Physical therapy (PT) has been consulted. He is currently on folic acid, thiamine. 8. Chronic back pain. On Lidoderm patch. Avoid more than 2 grams of acetaminophen products due to history of liver cirrhosis, possible varices. Avoid nonsteroidal antiinflammatory drugs (NSAIDS) if possible. 9. Oral thrush. Continue with Diflucan and nystatin swish and swallow. MTDD
[2019-07-03 22:00] VITALS: BP 148/88
[2019-07-04] MEDS: LACTULOSE 20 GM/30 ML SYRUP UD PO SCH ×3 (00:26→20:53)
[2019-07-04 05:59] VITALS: BP 154/87
[2019-07-04 07:07] LABS: BASO % 0.4 % (0.0-1.0); EOS # 0.2 10^3/uL (0.0-0.5); EOS % 2.6 % (0.0-3.0); HEMATOCRIT 38.8 % (42.0-52.0); HEMOGLOBIN 13.6 g/dl (13.5-17.5); LYMPH # 0.6 10^3/uL (1.5-5.0); LYMPH % 8.8 % (24.0-44.0); MEAN CORPUSCULAR HEMOGLOBIN 32.4 pg (27.0-33.0); MEAN CORPUSCULAR HGB CONC 35.1 g/dl (32.0-36.5); MEAN CORPUSCULAR VOLUME 92.4 fl (80.0-96.0); MONO # 1.1 10^3/uL (0.0-0.8); MONO % 16.4 % (0.0-5.0); NEUTROPHILS # 4.8 10^3/uL (1.5-8.5); NEUTROPHILS % 69.2 % (36.0-66.0)
[2019-07-04 07:13] LABS: PLATELET COUNT, AUTOMATED 90 10^3/uL (150-450)
[2019-07-04 07:16] LABS: ALBUMIN 2.6 GM/DL (3.2-5.2); ALT/SGPT 90 U/L (12-78); BILIRUBIN,TOTAL 3.8 MG/DL (0.2-1.0); BLOOD UREA NITROGEN 13 MG/DL (7-18); CALCIUM LEVEL 8.4 MG/DL (8.8-10.2); CARBON DIOXIDE LEVEL 30 MEQ/L (21-32); CHLORIDE LEVEL 104 MEQ/L (98-107); CREATININE FOR GFR 0.78 MG/DL (0.70-1.30); GLOMERULAR FILTRATION RATE > 60.0 (>42); GLUCOSE, FASTING 163 MG/DL (70-100); MAGNESIUM LEVEL 1.8 MG/DL (1.8-2.4); SODIUM LEVEL 142 MEQ/L (136-145); TOTAL PROTEIN 6.8 GM/DL (6.4-8.2)
[2019-07-04] MEDS: predniSONE 20 MG TAB PO SCH (08:42)
[2019-07-04] MEDS: FOLIC ACID 1 MG TAB PO SCH (08:42)
[2019-07-04] MEDS: NYSTATIN 500,000 U/5 ML SUSP UDC SS SCH ×4 (08:42→20:53)
[2019-07-04] MEDS: FLUCONAZOLE 100 MG TAB PO SCH ×2 (08:42→20:53)
[2019-07-04] MEDS: buPROPion **XL** TABLET 150MG (WELLBUTRIN XL) PO SCH (08:42)
[2019-07-04] MEDS: THIAMINE 100 MG TAB PO SCH (08:42)
[2019-07-04] MEDS: MULTIVITAMINS/MINERALS THERAP 1 TAB PO SCH (08:42)
[2019-07-04] MEDS: PANTOPRAZOLE 40MG TAB (PROTONIX) PO SCH (08:42)
[2019-07-04] MEDS: LIDOCAINE 5% (LIDODERM) PATCH TD SCH (08:43)
--- NOTE | 2019-07-04 10:09 | EEG ---
DATE OF PROCEDURE: 07/02/2019 REFERRING PHYSICIAN: Dr. Marilyn Cedillo DIAGNOSIS: Altered mental status, rule out alcohol related seizures. EEG NUMBER: [id number] HISTORY: The patient is a 74-year-old man with a history of alcoholism, alcoholic cirrhosis, esophageal varices, who was found obtunded by his daughter. This EEG was done to rule out epileptic potential. He is currently taking thiamine, folic acid, multivitamin, Wellbutrin, prednisone, Protonix, etc. TECHNICAL DESCRIPTION: This digital EEG was recorded by 21 scalp, ear and two EKG electrodes and was reviewed in bipolar and referential montages following reformatting in 10-20 international electrode placement system. INTERPRETATION: The patient was noted to be in awake and drowsy states during this EEG. Resting awake background rhythm consisted of 4-5 Hz theta activity measuring 15-40 microvolts in amplitude, which was symmetric bilaterally. No clear sleep stages were identified. Hyperventilation could not be performed. Photic stimulation remained unremarkable. EKG revealed normal sinus rhythm. No focal, lateralizing or epileptiform abnormalities were seen. No relevant clinical activity was noted. CONCLUSION: This EEG in awake and drowsy states is abnormal due to presence of generalized slowing and disorganization of background consistent with nonspecific diffuse cerebral dysfunction such as seen in moderate degree of encephalopathy due to multiple potential causes including toxic, metabolic, medication related, multifocal structural brain abnormalities, infectious or inflammatory causes. No epileptiform abnormalities were seen. Clinical correlation is recommended.
[2019-07-04] MEDS ORDERED: traMADol 50 MG TAB PO ONE (10:30)
[2019-07-04] MEDS: POTASSIUM CHLORIDE 10% LIQ 20 MEQ/15 ML UDC PO SCH ×2 (10:38→20:53)
--- NOTE | 2019-07-04 14:00 | IPN ---
DATE: 07/04/2019 Patient has no new complaints, tolerating his diet well. No confusion. No shakes. No paresthesias. No epigastric pain, nausea or vomiting. Afebrile. PHYSICAL EXAM: Temperature 98.6, pulse 63, respiratory rate 20, blood pressure 154/87, pulse oximetry 97% on room air. Generally appears disheveled. Awake, alert, oriented to person, answering questions appropriately. No icterus. No jaundice. No jugular venous distention. Moist mucous membranes. Lungs are clear to auscultation. No wheezing, rales, or rhonchi. Heart: S1, S2, sinus rhythm. Abdomen: Soft, nontender, nondistended. Positive bowel sounds. Extremities: No cyanosis or clubbing. LABORATORY DATA: White count 7, hemoglobin 13, hematocrit 38, platelet count 90. Sodium 142, potassium 3, chloride 104, bicarbonate 30, BUN 13, creatinine 0.78, glucose 163. Total bilirubin 3.8, AST 114, ALT 90, alkaline phosphatase 193, ammonia less than 10. Electroencephalogram: Abnormal with presence of generalized slowing, disorganization consistent with encephalopathy. Causes include toxic, metabolic, medication related, structural brain abnormalities, infectious or inflammatory causes. No epileptiform abnormalities are seen. ASSESSMENT AND PLAN: A 74-year-old male, chronic alcoholic, found unresponsive at home by his daughter, admitted for acute hepatic encephalopathy, acute alcoholic hepatitis, currently on prednisone with significant improvement in his bilirubin and aminotransferases. 1. Acute hepatic encephalopathy due to decompensated alcohol liver disease with liver cirrhosis. Ammonia level is normal with significant improvement in his mentation, is able to converse appropriately currently. Will change the lactulose to 30 mL by mouth twice a day for target bowel movements of 2-3 daily. 2. Acute kidney injury has resolved with IV fluid hydration. 3. He is currently tolerating a pureed diet and thin liquids. No signs of other aspiration. 4. Electrolyte abnormalities with low potassium, magnesium. Most likely due to decrease in oral intake. This has been supplemented. 5. Chronic thrombocytopenia due to alcohol liver disease and liver cirrhosis. No active signs of bleeding. No acute indication for platelet transfusion. 6. Deconditioning. Patient will need physical therapy and possible acute rehab placement. He is currently on folic acid and thiamine. 7. Chronic back pain. On Lidoderm patch. Trying to avoid more than 2 grams of acetaminophen use as well as nonsteroidal anti-inflammatory drugs (NSAIDS) due to possible varices from history of liver cirrhosis. 8. Oral thrush. On Diflucan and nystatin. The patient is medically stable and may be changed to alternate level of care (ALC) status/half-way facility (SNF) until patient is accepted to rehab. MTDD
[2019-07-04 16:00] VITALS: BP 156/86
[2019-07-04] MEDS: **NOTE PATIENT COMMENT** MISC XX SCH (20:53)
[2019-07-04 22:00] VITALS: BP 148/84
[2019-07-05 06:00] VITALS: BP 139/81
[2019-07-05] MEDS ORDERED: traMADol 50 MG TAB PO ONE (07:45)
[2019-07-05] MEDS: NYSTATIN 500,000 U/5 ML SUSP UDC SS SCH ×5 (07:51→21:00)
[2019-07-05] MEDS: LACTULOSE 20 GM/30 ML SYRUP UD PO SCH ×2 (07:51→20:19)
[2019-07-05] MEDS: POTASSIUM CHLORIDE 10% LIQ 20 MEQ/15 ML UDC PO SCH ×2 (07:51→20:19)
[2019-07-05] MEDS: FLUCONAZOLE 100 MG TAB PO SCH ×2 (07:52→20:19)
[2019-07-05] MEDS: FOLIC ACID 1 MG TAB PO SCH (07:52)
[2019-07-05] MEDS: PANTOPRAZOLE 40MG TAB (PROTONIX) PO SCH (07:52)
[2019-07-05] MEDS: buPROPion **XL** TABLET 150MG (WELLBUTRIN XL) PO SCH (07:52)
[2019-07-05] MEDS: THIAMINE 100 MG TAB PO SCH (07:52)
[2019-07-05] MEDS: MULTIVITAMINS/MINERALS THERAP 1 TAB PO SCH (07:52)
[2019-07-05] MEDS: LIDOCAINE 5% (LIDODERM) PATCH TD SCH (07:53)
[2019-07-05 08:10] LABS: ALBUMIN 2.7 GM/DL (3.2-5.2); ALT/SGPT 89 U/L (12-78); BILIRUBIN,TOTAL 3.5 MG/DL (0.2-1.0); BLOOD UREA NITROGEN 14 MG/DL (7-18); CALCIUM LEVEL 8.5 MG/DL (8.8-10.2); CARBON DIOXIDE LEVEL 30 MEQ/L (21-32); CHLORIDE LEVEL 101 MEQ/L (98-107); CREATININE FOR GFR 0.85 MG/DL (0.70-1.30); GLOMERULAR FILTRATION RATE > 60.0 (>42); GLUCOSE, FASTING 239 MG/DL (70-100); POTASSIUM SERUM 3.4 MEQ/L (3.5-5.1); SODIUM LEVEL 138 MEQ/L (136-145); TOTAL PROTEIN 6.9 GM/DL (6.4-8.2)
[2019-07-05] MEDS: **NOTE PATIENT COMMENT** MISC XX SCH (20:19)
[2019-07-06 06:00] VITALS: BP 129/73
[2019-07-06 06:27] LABS: ALBUMIN 2.3 GM/DL (3.2-5.2); ALT/SGPT 84 U/L (12-78); BILIRUBIN,TOTAL 3.3 MG/DL (0.2-1.0); BLOOD UREA NITROGEN 13 MG/DL (7-18); CALCIUM LEVEL 8.1 MG/DL (8.8-10.2); CARBON DIOXIDE LEVEL 30 MEQ/L (21-32); CHLORIDE LEVEL 103 MEQ/L (98-107); CREATININE FOR GFR 0.75 MG/DL (0.70-1.30); GLOMERULAR FILTRATION RATE > 60.0 (>42); GLUCOSE, FASTING 183 MG/DL (70-100); POTASSIUM SERUM 4.1 MEQ/L (3.5-5.1); SODIUM LEVEL 139 MEQ/L (136-145); TOTAL PROTEIN 6.1 GM/DL (6.4-8.2)
[2019-07-06] MEDS: THIAMINE 100 MG TAB PO SCH ×3 (09:00→13:51)
[2019-07-06] MEDS: PANTOPRAZOLE 40MG TAB (PROTONIX) PO SCH ×3 (09:00→13:51)
[2019-07-06] MEDS: FLUCONAZOLE 100 MG TAB PO SCH ×4 (09:00→21:53)
[2019-07-06] MEDS: FOLIC ACID 1 MG TAB PO SCH ×3 (09:00→13:52)
[2019-07-06] MEDS: buPROPion **XL** TABLET 150MG (WELLBUTRIN XL) PO SCH ×3 (09:00→13:51)
[2019-07-06] MEDS: MULTIVITAMINS/MINERALS THERAP 1 TAB PO SCH ×3 (09:00→13:51)
[2019-07-06] MEDS: NYSTATIN 500,000 U/5 ML SUSP UDC SS SCH ×4 (09:23→21:52)
[2019-07-06] MEDS: LACTULOSE 20 GM/30 ML SYRUP UD PO SCH ×2 (09:23→21:53)
[2019-07-06] MEDS: POTASSIUM CHLORIDE 10% LIQ 20 MEQ/15 ML UDC PO SCH ×2 (09:23→21:53)
[2019-07-06] MEDS: LIDOCAINE 5% (LIDODERM) PATCH TD SCH (09:24)
[2019-07-06] MEDS: traMADol 50 MG TAB PO PRN (13:45)
[2019-07-06] MEDS: OXAZEPAM 10 MG CAP PO SCH (18:15)
[2019-07-06] MEDS: **NOTE PATIENT COMMENT** MISC XX SCH (21:53)
[2019-07-07 00:11] LABS: ANCA-ATYPICAL <1:20 titer (Neg:<1:20); ANTI-MITOCHONDRIAL ANTIBODY <20.0 Units (0.0-20.0); ANTINUCLEAR ANTIBODIES DIRECT Negative (Negative); CYTOPLASMIC NEUTROP AB ANCA-C <1:20 titer (Neg:<1:20); PERINUCLEAR AB ANCA-P <1:20 titer (Neg:<1:20)
[2019-07-07] MEDS: OXAZEPAM 10 MG CAP PO SCH ×4 (00:43→17:38)
[2019-07-07 05:46] VITALS: BP 133/75
[2019-07-07 06:30] LABS: ALBUMIN 2.2 GM/DL (3.2-5.2); ALT/SGPT 87 U/L (12-78); BLOOD UREA NITROGEN 14 MG/DL (7-18); CALCIUM LEVEL 8.2 MG/DL (8.8-10.2); CARBON DIOXIDE LEVEL 29 MEQ/L (21-32); CHLORIDE LEVEL 101 MEQ/L (98-107); CREATININE FOR GFR 0.77 MG/DL (0.70-1.30); GLOMERULAR FILTRATION RATE > 60.0 (>42); GLUCOSE, FASTING 262 MG/DL (70-100); POTASSIUM SERUM 4.3 MEQ/L (3.5-5.1); SODIUM LEVEL 136 MEQ/L (136-145); TOTAL PROTEIN 6.1 GM/DL (6.4-8.2)
[2019-07-07] MEDS: LACTULOSE 20 GM/30 ML SYRUP UD PO SCH ×2 (09:37→21:28)
[2019-07-07] MEDS: NYSTATIN 500,000 U/5 ML SUSP UDC SS SCH ×4 (09:38→21:28)
[2019-07-07] MEDS: POTASSIUM CHLORIDE 10% LIQ 20 MEQ/15 ML UDC PO SCH ×2 (09:38→21:29)
[2019-07-07] MEDS: buPROPion **XL** TABLET 150MG (WELLBUTRIN XL) PO SCH (09:39)
[2019-07-07] MEDS: FOLIC ACID 1 MG TAB PO SCH (09:39)
[2019-07-07] MEDS: LIDOCAINE 5% (LIDODERM) PATCH TD SCH (09:39)
[2019-07-07] MEDS: MULTIVITAMINS/MINERALS THERAP 1 TAB PO SCH (09:39)
[2019-07-07] MEDS: THIAMINE 100 MG TAB PO SCH (09:39)
[2019-07-07] MEDS: PANTOPRAZOLE 40MG TAB (PROTONIX) PO SCH (09:39)
[2019-07-07] MEDS: FLUCONAZOLE 100 MG TAB PO SCH ×2 (09:39→21:28)
--- NOTE | 2019-07-07 10:20 | IPN ---
DATE: 07/07/2019 Patient wants to go home but still complains of generalized weakness, unable to ambulate adequately and is appropriate for rehabilitation. 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 He was brought to the [facility] by his daughter in 2006, does not really care to have many friends around, likes to be alone in his apartment in [place]. He says that he did not really have any alf plans when he moved here. Per the daughter, the patient continues to drink very heavily, often being found unresponsive with concerns for self harm on hospital discharge. The patient has been previously evaluated by a psychiatrist in the past. The patient is stating that he would like to continue with alcohol rehab. Daughter is extremely concerned that he will be discharged to rehab and that he is currently at risk of losing his house and being evicted due to poor behavior and unsanitary conditions. The patient is agreeable to going to rehab currently. He says that he would feel more comfortable if there was a medicine that would relax him. He is currently on Serax 10 mg every 6 hours, but otherwise has been doing well. Nursing have noted that he has been containing cantankerous and very difficult to deal with, often refusing his medications. PHYSICAL EXAMINATION: Temperature 97.8, pulse 73, respiratory rate 18, blood pressure 133/75, 98% on room air. Generally, patient appears disheveled. Appears older than his stated age. No respiratory distress. No cyanosis. No pallor. No icterus or jaundice. No jugular venous distention, thyromegaly. Dry mucous membranes. Lungs are clear to auscultation. No wheezing, rales, or rhonchi. Heart: S1, S2, sinus rhythm. Abdomen: Soft, nontender, nondistended. Positive bowel sounds. No abdominal bruit. No CVA tenderness. Extremities: No cyanosis or clubbing. Skin: Warm, dry, well perfused, pink in color. LABORATORY DATA: 07/04/2019 CBC, 07/07/2019 metabolic panel have been reviewed. ASSESSMENT AND PLAN: This is a 74-year-old male with a history of chronic alcoholism, alcohol dependence who was found unresponsive at home by his daughter, admitted for acute hepatic encephalopathy, acute alcoholic hepatitis, currently on prednisone with improvement in his bilirubin and aminotransferases. 1. Acute hepatic encephalopathy, resolved, due to decompensated alcoholic liver disease with liver cirrhosis. Ammonia level has been normal. His mentation is improved. He is continued on lactulose daily to target bowel movements two to three. 2. Acute alcoholic hepatitis. On prednisone. 3. Chronic alcoholism and alcohol dependence. Due to recurrent patterns of poor judgment, we will consult psychiatry for mental competence. 4. Oral thrush. Continue on Diflucan. DISPOSITION: The patient is awaiting rehabilitation, may be discharged at any point. The patient is to continue full 6 weeks of prednisone and then tapered. MTDD
[2019-07-07] MEDS ORDERED: GLUCAGON FOR INJ 1 MG VIAL (J1610) SC PRN (11:30)
[2019-07-07] MEDS ORDERED: GLUCOSE 4 GM CHEW TABLET PO PRN (11:30)
[2019-07-07] MEDS: predniSONE 20 MG TAB PO SCH (11:31)
[2019-07-07] MEDS: HumaLOG INSULIN (NovoLOG) PER UNIT SC SCH ×3 (12:57→21:29)
[2019-07-07 13:14] LABS: HEMOGLOBIN A1c 5.3 %
[2019-07-07] MEDS: NYSTATIN 100,000 UNITS/GM TOPICAL PWD 15 GM TOP PRN (14:10)
[2019-07-07 15:37] VITALS: BP 140/80
[2019-07-07] MEDS: traMADol 50 MG TAB PO PRN (17:37)
[2019-07-07] MEDS: **NOTE PATIENT COMMENT** MISC XX SCH (21:29)
[2019-07-08] MEDS: OXAZEPAM 10 MG CAP PO SCH ×4 (00:06→17:27)
[2019-07-08 06:00] VITALS: BP 146/69
[2019-07-08 06:39] LABS: ALBUMIN 2.1 GM/DL (3.2-5.2); ALT/SGPT 93 U/L (12-78); BILIRUBIN,TOTAL 2.6 MG/DL (0.2-1.0); BLOOD UREA NITROGEN 14 MG/DL (7-18); CALCIUM LEVEL 8.2 MG/DL (8.8-10.2); CARBON DIOXIDE LEVEL 27 MEQ/L (21-32); CHLORIDE LEVEL 103 MEQ/L (98-107); CREATININE FOR GFR 0.68 MG/DL (0.70-1.30); GLOMERULAR FILTRATION RATE > 60.0 (>42); GLUCOSE, FASTING 225 MG/DL (70-100); SODIUM LEVEL 136 MEQ/L (136-145); TOTAL PROTEIN 6.5 GM/DL (6.4-8.2)
[2019-07-08 08:53] LABS: BASO % 0.3 % (0.0-1.0); EOS # 0.1 10^3/uL (0.0-0.5); EOS % 0.8 % (0.0-3.0); HEMATOCRIT 37.7 % (42.0-52.0); HEMOGLOBIN 13.1 g/dl (13.5-17.5); LYMPH # 0.5 10^3/uL (1.5-5.0); LYMPH % 6.3 % (24.0-44.0); MEAN CORPUSCULAR HEMOGLOBIN 32.8 pg (27.0-33.0); MEAN CORPUSCULAR HGB CONC 34.7 g/dl (32.0-36.5); MEAN CORPUSCULAR VOLUME 94.3 fl (80.0-96.0); MONO # 0.6 10^3/uL (0.0-0.8); MONO % 6.7 % (0.0-5.0); NEUTROPHILS # 7.2 10^3/uL (1.5-8.5); NEUTROPHILS % 83.9 % (36.0-66.0); PLATELET COUNT, AUTOMATED 123 10^3/uL (150-450); WHITE BLOOD COUNT 8.6 10^3/uL (4.0-10.0)
[2019-07-08] MEDS: NYSTATIN 500,000 U/5 ML SUSP UDC SS SCH ×4 (09:28→20:46)
[2019-07-08] MEDS: LACTULOSE 20 GM/30 ML SYRUP UD PO SCH ×2 (09:28→20:47)
[2019-07-08] MEDS: POTASSIUM CHLORIDE 10% LIQ 20 MEQ/15 ML UDC PO SCH ×2 (09:29→20:46)
[2019-07-08] MEDS: FOLIC ACID 1 MG TAB PO SCH (09:29)
[2019-07-08] MEDS: FLUCONAZOLE 100 MG TAB PO SCH ×2 (09:29→20:49)
[2019-07-08] MEDS: PANTOPRAZOLE 40MG TAB (PROTONIX) PO SCH (09:29)
[2019-07-08] MEDS: THIAMINE 100 MG TAB PO SCH (09:29)
[2019-07-08] MEDS: MULTIVITAMINS/MINERALS THERAP 1 TAB PO SCH (09:29)
[2019-07-08] MEDS: buPROPion **XL** TABLET 150MG (WELLBUTRIN XL) PO SCH (09:29)
[2019-07-08] MEDS: predniSONE 20 MG TAB PO SCH (09:29)
[2019-07-08] MEDS: HumaLOG INSULIN (NovoLOG) PER UNIT SC SCH ×4 (09:30→20:49)
[2019-07-08] MEDS: LIDOCAINE 5% (LIDODERM) PATCH TD SCH (09:31)
[2019-07-08 09:34] LABS: INR 1.33; PROTHROMBIN TIME 16.2 SECONDS (11.8-14.0)
[2019-07-08] MEDS: traMADol 50 MG TAB PO PRN (20:50)
[2019-07-08] MEDS: **NOTE PATIENT COMMENT** MISC XX SCH (20:53)
[2019-07-09] MEDS: OXAZEPAM 10 MG CAP PO SCH ×4 (00:03→17:11)
[2019-07-09 06:00] VITALS: BP 145/82
[2019-07-09 07:11] LABS: ALT/SGPT 105 U/L (12-78); BILIRUBIN,TOTAL 2.5 MG/DL (0.2-1.0); BLOOD UREA NITROGEN 13 MG/DL (7-18); CALCIUM LEVEL 8.8 MG/DL (8.8-10.2); CARBON DIOXIDE LEVEL 28 MEQ/L (21-32); CHLORIDE LEVEL 102 MEQ/L (98-107); CREATININE FOR GFR 0.85 MG/DL (0.70-1.30); GLOMERULAR FILTRATION RATE > 60.0 (>42); GLUCOSE, FASTING 262 MG/DL (70-100); POTASSIUM SERUM 4.3 MEQ/L (3.5-5.1); SODIUM LEVEL 135 MEQ/L (136-145)
[2019-07-09 07:12] LABS: ALBUMIN 2.2 GM/DL (3.2-5.2); TOTAL PROTEIN 7.1 GM/DL (6.4-8.2)
[2019-07-09] MEDS: POTASSIUM CHLORIDE 10% LIQ 20 MEQ/15 ML UDC PO SCH ×2 (08:12→22:07)
[2019-07-09] MEDS: HumaLOG INSULIN (NovoLOG) PER UNIT SC SCH ×4 (08:41→22:05)
[2019-07-09 09:00] VITALS: BP 143/80
[2019-07-09] MEDS: LACTULOSE 20 GM/30 ML SYRUP UD PO SCH ×2 (09:18→22:03)
[2019-07-09] MEDS: NYSTATIN 500,000 U/5 ML SUSP UDC SS SCH ×4 (09:18→22:03)
[2019-07-09] MEDS: PANTOPRAZOLE 40MG TAB (PROTONIX) PO SCH (09:19)
[2019-07-09] MEDS: buPROPion **XL** TABLET 150MG (WELLBUTRIN XL) PO SCH (09:19)
[2019-07-09] MEDS: FLUCONAZOLE 100 MG TAB PO SCH ×2 (09:19→22:04)
[2019-07-09] MEDS: FOLIC ACID 1 MG TAB PO SCH (09:19)
[2019-07-09] MEDS: predniSONE 20 MG TAB PO SCH (09:19)
[2019-07-09] MEDS: MULTIVITAMINS/MINERALS THERAP 1 TAB PO SCH (09:19)
[2019-07-09] MEDS: THIAMINE 100 MG TAB PO SCH (09:19)
[2019-07-09] MEDS: LIDOCAINE 5% (LIDODERM) PATCH TD SCH (09:20)
[2019-07-09] MEDS: **NOTE PATIENT COMMENT** MISC XX SCH (21:00)
[2019-07-10] MEDS: OXAZEPAM 10 MG CAP PO SCH ×5 (00:31→23:58)
[2019-07-10 06:00] VITALS: BP 156/89
[2019-07-10 06:42] LABS: ALBUMIN 2.2 GM/DL (3.2-5.2); ALT/SGPT 108 U/L (12-78); BILIRUBIN,TOTAL 2.6 MG/DL (0.2-1.0); BLOOD UREA NITROGEN 17 MG/DL (7-18); CALCIUM LEVEL 8.6 MG/DL (8.8-10.2); CARBON DIOXIDE LEVEL 26 MEQ/L (21-32); CHLORIDE LEVEL 103 MEQ/L (98-107); CREATININE FOR GFR 0.76 MG/DL (0.70-1.30); GLOMERULAR FILTRATION RATE > 60.0 (>42); GLUCOSE, FASTING 251 MG/DL (70-100); POTASSIUM SERUM 4.1 MEQ/L (3.5-5.1); SODIUM LEVEL 135 MEQ/L (136-145); TOTAL PROTEIN 7.1 GM/DL (6.4-8.2)
[2019-07-10] MEDS: HumaLOG INSULIN (NovoLOG) PER UNIT SC SCH ×4 (08:09→21:55)
[2019-07-10] MEDS: NYSTATIN 500,000 U/5 ML SUSP UDC SS SCH ×4 (08:09→21:54)
[2019-07-10] MEDS: LACTULOSE 20 GM/30 ML SYRUP UD PO SCH ×2 (08:09→21:53)
[2019-07-10] MEDS: POTASSIUM CHLORIDE 10% LIQ 20 MEQ/15 ML UDC PO SCH ×2 (08:10→21:53)
[2019-07-10] MEDS: FOLIC ACID 1 MG TAB PO SCH (08:10)
[2019-07-10] MEDS: MULTIVITAMINS/MINERALS THERAP 1 TAB PO SCH (08:10)
[2019-07-10] MEDS: predniSONE 20 MG TAB PO SCH (08:10)
[2019-07-10] MEDS: THIAMINE 100 MG TAB PO SCH (08:10)
[2019-07-10] MEDS: FLUCONAZOLE 100 MG TAB PO SCH (08:10)
[2019-07-10] MEDS: PANTOPRAZOLE 40MG TAB (PROTONIX) PO SCH (08:10)
[2019-07-10] MEDS: LIDOCAINE 5% (LIDODERM) PATCH TD SCH (08:11)
[2019-07-10] MEDS: buPROPion **XL** TABLET 150MG (WELLBUTRIN XL) PO SCH (09:45)
[2019-07-10] MEDS: **NOTE PATIENT COMMENT** MISC XX SCH (21:00)
[2019-07-11] MEDS: OXAZEPAM 10 MG CAP PO SCH ×4 (05:59→23:38)
[2019-07-11 06:00] VITALS: BP 145/71
[2019-07-11 06:38] LABS: ALBUMIN 2.3 GM/DL (3.2-5.2); ALT/SGPT 117 U/L (12-78); BILIRUBIN,TOTAL 2.5 MG/DL (0.2-1.0); BLOOD UREA NITROGEN 23 MG/DL (7-18); CALCIUM LEVEL 8.3 MG/DL (8.8-10.2); CARBON DIOXIDE LEVEL 25 MEQ/L (21-32); CHLORIDE LEVEL 104 MEQ/L (98-107); CREATININE FOR GFR 0.69 MG/DL (0.70-1.30); GLOMERULAR FILTRATION RATE > 60.0 (>42); GLUCOSE, FASTING 211 MG/DL (70-100); POTASSIUM SERUM 3.9 MEQ/L (3.5-5.1); SODIUM LEVEL 136 MEQ/L (136-145); TOTAL PROTEIN 6.7 GM/DL (6.4-8.2)
[2019-07-11] MEDS: POTASSIUM CHLORIDE 10% LIQ 20 MEQ/15 ML UDC PO SCH ×2 (08:01→20:54)
[2019-07-11] MEDS: HumaLOG INSULIN (NovoLOG) PER UNIT SC SCH ×4 (08:01→20:56)
[2019-07-11] MEDS: LIDOCAINE 5% (LIDODERM) PATCH TD SCH (08:01)
[2019-07-11] MEDS: NYSTATIN 500,000 U/5 ML SUSP UDC SS SCH ×4 (08:01→20:52)
[2019-07-11] MEDS: THIAMINE 100 MG TAB PO SCH (08:02)
[2019-07-11] MEDS: LACTULOSE 20 GM/30 ML SYRUP UD PO SCH ×2 (08:02→20:52)
[2019-07-11] MEDS: buPROPion **XL** TABLET 150MG (WELLBUTRIN XL) PO SCH (08:02)
[2019-07-11] MEDS: FOLIC ACID 1 MG TAB PO SCH (08:02)
[2019-07-11] MEDS: predniSONE 20 MG TAB PO SCH (08:02)
[2019-07-11] MEDS: PANTOPRAZOLE 40MG TAB (PROTONIX) PO SCH (08:02)
[2019-07-11] MEDS: MULTIVITAMINS/MINERALS THERAP 1 TAB PO SCH (08:02)
[2019-07-11] MEDS: **NOTE PATIENT COMMENT** MISC XX SCH (20:56)
[2019-07-12 04:00] VITALS: BP 137/77
[2019-07-12] MEDS: OXAZEPAM 10 MG CAP PO SCH ×3 (06:00→17:44)
[2019-07-12] MEDS: POTASSIUM CHLORIDE 10% LIQ 20 MEQ/15 ML UDC PO SCH ×3 (09:00→21:00)
[2019-07-12] MEDS: HumaLOG INSULIN (NovoLOG) PER UNIT SC SCH ×4 (09:17→21:06)
[2019-07-12] MEDS: NYSTATIN 500,000 U/5 ML SUSP UDC SS SCH ×4 (09:17→21:05)
[2019-07-12] MEDS: LACTULOSE 20 GM/30 ML SYRUP UD PO SCH ×2 (09:18→21:05)
[2019-07-12] MEDS: THIAMINE 100 MG TAB PO SCH (09:18)
[2019-07-12] MEDS: MULTIVITAMINS/MINERALS THERAP 1 TAB PO SCH (09:19)
[2019-07-12] MEDS: FOLIC ACID 1 MG TAB PO SCH (09:19)
[2019-07-12] MEDS: PANTOPRAZOLE 40MG TAB (PROTONIX) PO SCH (09:19)
[2019-07-12] MEDS: predniSONE 20 MG TAB PO SCH (09:20)
[2019-07-12] MEDS: buPROPion **XL** TABLET 150MG (WELLBUTRIN XL) PO SCH (09:20)
[2019-07-12] MEDS: LIDOCAINE 5% (LIDODERM) PATCH TD SCH (09:21)
[2019-07-12] MEDS: **NOTE PATIENT COMMENT** MISC XX SCH (21:06)
[2019-07-13] MEDS: OXAZEPAM 10 MG CAP PO SCH ×3 (00:03→12:11)
[2019-07-13 06:00] VITALS: BP 131/84
[2019-07-13] MEDS: LACTULOSE 20 GM/30 ML SYRUP UD PO SCH (08:06)
[2019-07-13] MEDS: NYSTATIN 500,000 U/5 ML SUSP UDC SS SCH ×2 (08:06→12:11)
[2019-07-13] MEDS: HumaLOG INSULIN (NovoLOG) PER UNIT SC SCH ×2 (08:06→12:11)
[2019-07-13] MEDS: THIAMINE 100 MG TAB PO SCH (08:07)
[2019-07-13] MEDS: PANTOPRAZOLE 40MG TAB (PROTONIX) PO SCH (08:07)
[2019-07-13] MEDS: FOLIC ACID 1 MG TAB PO SCH (08:07)
[2019-07-13] MEDS: MULTIVITAMINS/MINERALS THERAP 1 TAB PO SCH (08:07)
[2019-07-13] MEDS: predniSONE 20 MG TAB PO SCH (08:07)
[2019-07-13] MEDS: buPROPion **XL** TABLET 150MG (WELLBUTRIN XL) PO SCH (08:07)
[2019-07-13] MEDS: LIDOCAINE 5% (LIDODERM) PATCH TD SCH (08:08)
[2019-07-13] MEDS: POTASSIUM CHLORIDE 10% LIQ 20 MEQ/15 ML UDC PO SCH (08:09)
[2019-07-13] MEDS: NYSTATIN 100,000 UNITS/GM TOPICAL PWD 15 GM TOP PRN (10:07)
[2019-07-13] MEDS ORDERED: PRED10TA2 PO (11:46)
[2019-07-13] MEDS ORDERED: OXAZ10CA3 PO (11:46)
[2019-07-13] MEDS ORDERED: Lactulose Syrup PO (11:46)
[2019-07-13] MEDS: traMADol 50 MG TAB PO PRN (13:44)
--- NOTE | 2019-07-13 18:41 | DS.PDOC ---
Discharge Summary General Date of Admission Jun 30, 2019 at 22:48 Date of Discharge 07/13/19 Attending Physician: CHLOÉ POTTER MD Discharge Summary PROCEDURES PERFORMED DURING STAY: [None]. ADMITTING DIAGNOSES: 1. Acute Kidney Injury 2. Hepatic Encephalopathy 3. Hypokalemia 4. Hypernatremia 5. Alcoholic Cirrhosis 6. Chronic alcohol abuse 7. Intertriginous dermatitis 8. GERD 9. Morbid Obesity DISCHARGE DIAGNOSES: 1. Acute Kidney Injury 2. Hepatic Encephalopathy 3. Hypokalemia 4. Hypernatremia 5. Alcoholic Cirrhosis 6. Chronic alcohol abuse 7. Intertriginous dermatitis 8. GERD 9. Morbid Obesity COMPLICATIONS/CHIEF COMPLAINT: Hepatic Encephalopathy. HISTORY OF PRESENT ILLNESS: Patient is a 74 year old male who presented to the [facility] ER via EMS after being found obtunded by his daughter. The patient has a long standing history of alcohol abuse with alcoholic cirrhosis and radiographic evidence of esophageal varices. The patient had recently been hospitalized in April under similar conditions. The hospital's inpatient patient was discharged to [facility] for rehabilitation and soon after he returned to his apartment where he lives alone. Patient's daughter states that he has continued to drink alcohol. Patient's daughter stated that she went to his apartment in the afternoon, where she found him on the floor by the sink in an obtunded state. EMS was contacted and the patient was transported to [facility] ER. On presentation to the ER the patient was obtunded. He had sinus tachycardia on EKG. He has elevated liver enzymes and an ammonia of 58. Patient had CT imaging of the patients abdomen/pelvis. Head and chest imaging was negative. Due to the patients altered mental status secondary to hepatic encephalopathy, acute kidney injury, and lack of care at home the patient was admitted to hospitalist service was contacted for further evaluation and management On admission the patient was treated for hepatic encephalopathy. He was treated with lactulose. He was placed on Serax for alcohol withdrawal prevention. Over the course of the patients hospitalization he demonstrated improvement. His hepatic encephalopathy resolved. Patient was found medically cleared and discharged to [facility] for ongoing rehabilitation. Patient was to continued on Serax with tapering over the next 3 days. He was continued on prednisone taper DISCHARGE MEDICATIONS: Please see below. ALLERGIES: Please see below. PHYSICAL EXAMINATION ON DISCHARGE: VITAL SIGNS: Please see below. GENERAL: Awake, alert, and oriented. He appears in no acute distress. Sitting comfortably in chair HEENT: Atraumatic normocephalic. Eyes are nonicteric. trachea is midline NECK: No palpable cervical, axillary or supraclavicular lymphadenopathy CARDIOVASCULAR EXAMINATION: Normal S1, S2. Regular rate and rhythm. No clicks rubs, or murmurs. RESPIRATORY EXAMINATION: Clear vesicular breath sounds bilaterally. Slight crackles in the bases bilaterally. No wheezes. Good respiratory effort ABDOMINAL EXAMINATION: Obese. soft. protuberant. No tenderness to palpation in all 4 quadrants. Normoactive bowel sounds EXTREMITIES: bilateral edema SKIN: No rashes or lesions NEUROLOGICAL EXAMINATION: No focal neurological deficits PSYCHIATRIC EXAMINATION: Mood and affect appear appropriate LABORATORY DATA: Please see below. IMAGING: PROCEDURE INFORMATION: Exam: CT Head without contrast Exam date and time: 06/30/2019 9:28 PM Clinical history: 74 years old, male; Altered mental status/memory loss; Confusion or disorientation TECHNIQUE: Imaging protocol: Computed tomography of the head without contrast. Radiation optimization: All CT scans at this facility use at least one of these dose optimization techniques: automated exposure control; mA and/or kV adjustment per patient size (includes targeted exams where dose is matched to clinical indication); or iterative reconstruction. COMPARISON: CT Head without contrast 04/16/2019 11:13 PM FINDINGS: Brain: There is mild prominence of the peripheral sulci. Ventricles: There is moderate prominence of the central ventricular system. Bones/joints: Unremarkable. No acute fracture. Sinuses: Visualized sinuses are unremarkable. No fluid levels. Mastoid air cells: Visualized mastoid air cells are well aerated. Soft tissues: Unremarkable. IMPRESSION: There has been no change from 04/16/2019 with mild atrophy. No acute interval intracranial process is identified. Electronically signed by: Joe Braswell On 06/30/2019 21:48:53 PM PROCEDURE INFORMATION: Exam: CT Chest Without Contrast Exam date and time: 06/30/2019 9:28 PM Clinical history: 74 years old, male; Other: AMS; Additional info: Altered mental status TECHNIQUE: Imaging protocol: Computed tomography of the chest without contrast. Radiation optimization: All CT scans at this facility use at least one of these dose optimization techniques: automated exposure control; mA and/or kV adjustment per patient size (includes targeted exams where dose is matched to clinical indication); or iterative reconstruction. COMPARISON: No relevant prior studies available. FINDINGS: Lungs: Mild interstitial coarsening with minimal scattered fibro-atelectatic change. Pleural space: Unremarkable. No pneumothorax. No pleural effusion. Heart: Unremarkable. No cardiomegaly. No pericardial effusion. Pulmonary arteries: The main pulmonary artery measures 28 mm. Aorta: The ascending thoracic aorta measures 36 mm. Other veins: Probable distal paraesophageal portal venous collaterals. Lymph nodes: Unremarkable. No enlarged lymph nodes. Liver: Nodular liver with fatty infiltration. Gallbladder and bile ducts: There are a few gallstones in the gallbladder. Bones/joints: Mild thoracic kyphosis with degenerative changes. Soft tissues: Unremarkable. IMPRESSION: 1. Hepatic cirrhosis with fatty infiltration. There is suggestion of portal venous collaterals around the distal esophagus. 2. Mild interstitial coarsening with minimal scattered fibro-atelectatic change. 3. Otherwise negative CT chest. Electronically signed by: Joe Braswell On 06/30/2019 21:52:56 PM PROCEDURE INFORMATION: Exam: CT Abdomen and pelvis without contrast Exam date and time: 06/30/2019 9:28 PM Clinical history: 74 years old, male; Other: AMS; Additional info: Gen abd pain TECHNIQUE: Imaging protocol: Computed tomography of the abdomen and pelvis without contrast. Radiation optimization: All CT scans at this facility use at least one of these dose optimization techniques: automated exposure control; mA and/or kV adjustment per patient size (includes targeted exams where dose is matched to clinical indication); or iterative reconstruction. COMPARISON: CT ABD PELVIS W/O CONTRAST 02/24/2019 8:00 PM FINDINGS: Mediastinum: Probable distal esophageal portal venous collaterals. Liver: Nodular liver. The liver attenuation is -24 Hounsfield units and the spleen is 34 Hounsfield units. Gallbladder and bile ducts: There are several gallstones in the gallbladder. Pancreas: Normal. No ductal dilation. Spleen: Normal. No splenomegaly. Adrenals: Normal. No mass. Kidneys and ureters: Normal. No hydronephrosis. Stomach and bowel: Unremarkable. No obstruction. No mucosal thickening. Appendix: There are no changes of appendicitis. A normal appendix is not seen. Intraperitoneal space: Unremarkable. No free air. No significant fluid collection. Vasculature: There is mild calcification of the abdominal aorta with extension into the iliac arteries. Lymph nodes: Unremarkable. No enlarged lymph nodes. Bladder: Unremarkable as visualized. Reproductive: Unremarkable as visualized. Bones/joints: Degenerative changes of the lumbar spine with fusion/ankylosis at L3-L4. Soft tissues: Unremarkable. IMPRESSION: 1. Cholelithiasis. 2. Hepatic cirrhosis with fatty infiltration. Some portal venous collateralization around the distal esophagus is suggested. 3. Degenerative changes of the lumbar spine. 4. There has been little change from 02/24/2019. COMMENT: Consistent with the [employer]'s Incidental Findings Committee Report (J Am Guerita Radiol 2010): Unless the patient's specific circumstances suggest otherwise, any liver lesion 0.5 cm or less, any cystic kidney lesion less than 1.0 cm, and/or any adrenal lesion 1.0 cm or less not otherwise characterized in this report as possessing suspicious or indeterminate imaging features is/are highly likely to be benign and do not require follow-up imaging or biopsy. Electronically signed by: Joe Braswell On 06/30/2019 21:58:22 PM ABDOMINAL ULTRASOUND: Real-time sonographic evaluation of the abdomen performed. No gallstones are seen in the gallbladder and there is no definite intraluminal sludge. However this study limited due to patient body habitus, bowel gas and inability to suspend respirations. Gallbladder wall is not thickened at 3 mm. There is no pericholecystic fluid. There is no intrahepatic or extrahepatic biliary dilatation, common bile duct measuring 4 mm. The liver demonstrates diffuse heterogeneous increased echotexture compatible with diffuse fibrofatty infiltration. No gross mass is seen. Pancreas cannot be visualized. Spleen is not enlarged with a length of 11.2 cm. Kidneys are normal in size and echotexture, right kidney measuring 11.8 x 6.1 x 6.7 cm and left kidney 12.6 x 6.2 x 6.7 cm. There is no renal mass, hydronephrosis, or nephrolithiasis. Abdominal aorta could not be seen due to bowel gas. No ascites is seen. IMPRESSION: Significantly limited exam due to patient body habitus, bowel gas, and inability to suspend respirations. There is no definite sonographic evidence of cholecystitis. No definite gallstones are seen in the gallbladder. There is no biliary dilatation or free fluid. There is diffuse fibrofatty infiltration of the liver. Electronically Signed by Jean Claude Pereira MD 07/02/2019 09:02 A PROGNOSIS: Given patients multiple comorbid conditions overall poor ACTIVITY: [As tolerated]. DIET: As tolerated. DISCHARGE PLAN: Patient is to be discharged to [facility] for rehabilitation. He is to continue Serax taper for 3 days as directed. He is to continue steroid taper. He is to abstain from alcohol use. He is to follow-up with his PCP in 1-2 weeks after discharge from [facility]. - Patient has been advised to return to the emergency room if he experiences any problems DISPOSITION: 01 Home, Self-Care. DISCHARGE CONDITION: [Stable]. TIME SPENT ON DISCHARGE: Greater than 40 minutes. Vital Signs/I&Os Vital Signs Date Time Temp Pulse Resp B/P (MAP) Pulse Ox O2 Delivery O2 Flow Rate FiO2 07/13/19 13:44 19 07/13/19 06:00 97.4 80 131/84 (100) 96 I&O- Last 24 Hours up to 6 AM 07/13/19 06:00 Intake Total 986 ml Output Total 0 ml Balance 986 ml Laboratory Data Labs 24H Laboratory Tests 2 07/12/19 20:29: Bedside Glucose (Misc Panel) 314H 07/13/19 05:47: Bedside Glucose (Misc Panel) 195H 07/13/19 11:34: Bedside Glucose (Misc Panel) 195H FSBS Laboratory Tests Test 07/12/19 20:29 07/13/19 05:47 07/13/19 11:34 Range/Units Bedside Glucose (Misc Panel) 314 195 195 83-110 MG/DL Discharge Medications Scheduled Bupropion HCl (Bupropion Xl) 300 Mg Tab.er.24h, 300 MG PO DAILY, (Reported) Fluconazole (Diflucan) 100 Mg Tablet, 100 MG PO BID, (Reported) Folic Acid (Folic Acid) 1 Mg Tablet, 1 MG PO DAILY, (Reported) Multivitamin (Multivitamins) 1 Each Capsule, 1 CAP PO DAILY, (Reported) Nystatin (Nystatin Powder) 15 Gm Powder, 1 APLCT TOP BID, (Reported) APPLY TO GROIN AND ABDOMINAL FOLDS Omeprazole (Omeprazole) 20 Mg Capsule.dr, 20 MG PO DAILY, (Reported) Oxazepam (Oxazepam) 10 Mg Capsule, 10 MG PO ASDIRECTED Taper Serax. Day 1 10mg Q8H for 2 days THEN 10mg Q12H for 1 day then STOP Potassium Chloride (Potassium Chloride) 10 Meq Tab.er.prt, 40 MEQ PO BID, (Reported) Prednisone (Prednisone) 10 Mg Tablet, 10 MG PO TAPER Take 4 tabs daily x 3 days, then 3 tabs daily x 3 days, then 2 tabs daily x 3 days, then 1 tab daily x 3 days and stop Zinc Oxide (Desitin) 454 Gm Cream..g., 1 APLCT TOP BID, (Reported) APPLY TO BUTTOCKS AND THEN LEAVE OPEN TO AIR [Lactulose Syrup] 30 ML SYRP, 30 ML PO BID Scheduled PRN Acetaminophen (Acetaminophen 8 Hour) 650 Mg Tablet.er, 650 MG PO Q4H PRN for PAIN, (Reported) Nystatin (Nystatin Powder) 15 Gm Powder, 1 APLCT TOP TID PRN for RASH, (Repor suzie) APPLY TO RASH UNDER BREASTS Ondansetron HCl (Ondansetron HCl) 4 Mg Tablet, 4 MG PO Q8H PRN for NAUSEA OR VOMITING, (Reported) Allergies Coded Allergies: ether (Verified Allergy, Severe, ANAPHYLAXIS, 02/24/19) egg (Verified Allergy, Mild, RASH, 02/24/19) GME ATTESTATION GME ATTESTATION My faculty preceptor for this patient encounter was physically present during the encounter and was fully available. All aspects of the patient interview, examination, medical decision making process, and medical care plan development were reviewed and approved by the faculty preceptor. The faculty preceptor is aware and concurs with the plan as stated in the body of this note and will attest to such by his/her cosignature. ATTENDING NOTE I, Chloé Potter, have independently examined this patient and performed my own physical exam, as well as reviewed the documentation and edited where necessary. I have discussed in detail with the resident / student the findings and plan of treatment as documented by the resident / student and edited their note. I agree with their findings and treatment plan and have edited their documentation. I will continue to follow the patient during this hospital stay. Time spent on discharge 25 minutes DEBBIE HOPPER DO Jul 13, 2019 18:41 CHLOÉ POTTER MD Jul 14, 2019 15:02
== END 2019-07-13 14:00 | disposition home or self-care (01) | DRG 682 ==
LOC: M ED 20:42 → M ED INP 22:48 → M PCU 07-01 03:11 → M MS5PR 07-03 00:50 → M MSPAV 07-07 15:37
PROVIDERS: ADMIT Internal Medicine; ATTEND Internal Medicine
DX: N17.9 Acute kidney failure, unspecified (principal); K72.00 Acute and subacute hepatic failure without coma; I85.10 Secondary esophageal varices without bleeding; E87.0 Hyperosmolality and hypernatremia; B37.0 Candidal stomatitis; E87.2 Acidosis; E87.6 Hypokalemia; E66.01 Morbid (severe) obesity due to excess calories; D69.59 Other secondary thrombocytopenia; K70.10 Alcoholic hepatitis without ascites; K21.9 Gastro-esophageal reflux disease without esophagitis; K70.30 Alcoholic cirrhosis of liver without ascites; L30.8 Other specified dermatitis; K80.20 Calculus of gallbladder without cholecystitis without obstruction; Z79.899 Other long term (current) drug therapy; Z91.012 Allergy to eggs; Z88.4 Allergy status to anesthetic agent; M51.26 Other intervertebral disc displacement, lumbar region; E11.40 Type 2 diabetes mellitus with diabetic neuropathy, unspecified; F10.20 Alcohol dependence, uncomplicated; Z96.651 Presence of right artificial knee joint; Z96.652 Presence of left artificial knee joint; Z87.891 Personal history of nicotine dependence; Z79.82 Long term (current) use of aspirin

== ENCOUNTER → 2019-07-20 | Outpatient (REF) ==
[~2019-07-20] MED LIST changes: +Lactulose Syrup PO; +OXAZ10CA3 PO; +PATIENT COMMENT; +PRED10TA2 PO
[2019-07-20 08:08] LABS: HEMATOCRIT 38.9 % (42.0-52.0); HEMOGLOBIN 13.2 g/dl (13.5-17.5); MEAN CORPUSCULAR HEMOGLOBIN 32.3 pg (27.0-33.0); MEAN CORPUSCULAR HGB CONC 33.9 g/dl (32.0-36.5); MEAN CORPUSCULAR VOLUME 95.1 fl (80.0-96.0); PLATELET COUNT, AUTOMATED 129 10^3/uL (150-450); RED BLOOD COUNT 4.09 10^6/uL (4.30-6.10); WHITE BLOOD COUNT 7.2 10^3/uL (4.0-10.0)
[2019-07-20 08:37] LABS: BLOOD UREA NITROGEN 17 MG/DL (7-18); CALCIUM LEVEL 8.5 MG/DL (8.8-10.2); CARBON DIOXIDE LEVEL 24 MEQ/L (21-32); CHLORIDE LEVEL 105 MEQ/L (98-107); CREATININE FOR GFR 0.61 MG/DL (0.70-1.30); GLOMERULAR FILTRATION RATE > 60.0 (>42); GLUCOSE, FASTING 158 MG/DL (70-100); MAGNESIUM LEVEL 1.5 MG/DL (1.8-2.4); POTASSIUM SERUM 3.6 MEQ/L (3.5-5.1); SODIUM LEVEL 136 MEQ/L (136-145)
== END ==
LOC: SKLAB2 07:00
PROVIDERS: ATTEND Internal Medicine
DX: D64.9 Anemia, unspecified (principal)

== ENCOUNTER → 2019-07-24 | Outpatient (REF) ==
--- NOTE | 2019-07-24 12:40 | ECGEPIP ---
[facility] Test Date: 2019-07-24 Pat Name: TYSON NGUYEN Department: Room: - Gender: Male Health Care Specialist: [facility] : 1945 Requested By: KATY TANG [facility] Order Number: [id number] Reading MD: Martin Barrientos Measurements Intervals [place] Rate: 80 P: 14 DE: 161 QRS: -28 QRSD: 81 T: 0 QT: 369 QTc: 427 Interpretive Statements Normal sinus rhythm Left axis deviation Slow precordial R-wave progression with Low precordial voltage, persistent S waves V5 and V6 and inferior Q waves; Body habitus versus pulmonary disease Rule out prior AWMI/IWMI No change from 06/30/19 Electronically Signed on 07-24-2019 12:40:07 EDT by Martin Barrientos
== END ==
LOC: SKLAB2 08:25
PROVIDERS: ATTEND Nurse Practitioner Family
DX: R00.0 Tachycardia, unspecified (principal)

== ENCOUNTER → 2019-07-27 | Outpatient (REF) ==
[2019-07-27 08:06] LABS: HEMATOCRIT 37.8 % (42.0-52.0); HEMOGLOBIN 12.9 g/dl (13.5-17.5); MEAN CORPUSCULAR HEMOGLOBIN 33.2 pg (27.0-33.0); MEAN CORPUSCULAR HGB CONC 34.1 g/dl (32.0-36.5); MEAN CORPUSCULAR VOLUME 97.2 fl (80.0-96.0); PLATELET COUNT, AUTOMATED 150 10^3/uL (150-450); RED BLOOD COUNT 3.89 10^6/uL (4.30-6.10); WHITE BLOOD COUNT 6.1 10^3/uL (4.0-10.0)
[2019-07-27 08:30] LABS: BLOOD UREA NITROGEN 9 MG/DL (7-18); CALCIUM LEVEL 8.1 MG/DL (8.8-10.2); CARBON DIOXIDE LEVEL 26 MEQ/L (21-32); CHLORIDE LEVEL 108 MEQ/L (98-107); CREATININE FOR GFR 0.58 MG/DL (0.70-1.30); GLOMERULAR FILTRATION RATE > 60.0 (>42); GLUCOSE, FASTING 134 MG/DL (70-100); POTASSIUM SERUM 3.2 MEQ/L (3.5-5.1); SODIUM LEVEL 141 MEQ/L (136-145)
== END ==
LOC: SKLAB2 07:00
PROVIDERS: ATTEND Internal Medicine
DX: D64.9 Anemia, unspecified (principal)

== ENCOUNTER → 2019-07-31 | Outpatient (REF) ==
[2019-07-31 11:02] LABS: BLOOD UREA NITROGEN 5 MG/DL (7-18); CALCIUM LEVEL 8.4 MG/DL (8.8-10.2); CARBON DIOXIDE LEVEL 28 MEQ/L (21-32); CHLORIDE LEVEL 108 MEQ/L (98-107); CREATININE FOR GFR 0.59 MG/DL (0.70-1.30); GLOMERULAR FILTRATION RATE > 60.0 (>42); GLUCOSE, FASTING 141 MG/DL (70-100); SODIUM LEVEL 141 MEQ/L (136-145)
== END ==
LOC: SKLAB2 07:00
PROVIDERS: ATTEND Internal Medicine
DX: I10 Essential (primary) hypertension (principal)

== ENCOUNTER → 2019-08-05 | Outpatient (REF) ==
[2019-08-05 09:16] LABS: BLOOD UREA NITROGEN 6 MG/DL (7-18); CALCIUM LEVEL 8.3 MG/DL (8.8-10.2); CARBON DIOXIDE LEVEL 24 MEQ/L (21-32); CHLORIDE LEVEL 106 MEQ/L (98-107); GLOMERULAR FILTRATION RATE > 60.0 (>42); GLUCOSE, FASTING 98 MG/DL (70-100); MAGNESIUM LEVEL 1.5 MG/DL (1.8-2.4); POTASSIUM SERUM 3.9 MEQ/L (3.5-5.1); SODIUM LEVEL 138 MEQ/L (136-145)
== END ==
LOC: SKLAB2 08:30
PROVIDERS: ATTEND Internal Medicine
DX: K74.60 Unspecified cirrhosis of liver (principal)

== ENCOUNTER 2019-08-11 18:27 | Inpatient (IN) | payer OTHER, MEDICARE, MEDICAID ==
[~2019-08-11] VITALS: Ht 182.9 cm; Wt 99.1 kg
[~2019-08-11 18:27] MED LIST changes: -B-1100TA2 PO; -DULC10SU2 PR; -DULO30CA9 PO; -LACT10SO29 PO; -LIDO5DIS41 TD; -MAGN64TA3 PO; -MILKSUS3 PO; -POTA20TA6 PO; -SPIR-10 PO
--- NOTE | 2019-08-11 19:19 | REPVR ---
PROCEDURE INFORMATION: Exam: CT Head Without Contrast Exam date and time: 08/11/2019 6:44 PM Clinical history: 74 years old, male; Injury or trauma; Fall; Initial encounter; Blunt trauma (contusions or hematomas) TECHNIQUE: Imaging protocol: Computed tomography of the head without contrast. Radiation optimization: All CT scans at this facility use at least one of these dose optimization techniques: automated exposure control; mA and/or kV adjustment per patient size (includes targeted exams where dose is matched to clinical indication); or iterative reconstruction. COMPARISON: CT Head without contrast 06/30/2019 9:26 PM FINDINGS: Brain: Patchy areas of hypoattenuation in the periventricular and subcortical white matter, consistent with chronic small vessel ischemic disease. No convincing CT evidence of acute intracranial hemorrhage or acute territorial infarction. No significant mass effect or midline shift. Basal cisterns patent. Ventricles: Prominence of the cortical sulci, cisterns and ventricular system, consistent with cerebral and cerebellar volume loss. Bones/joints: Comminuted, mildly displaced fractures of the right anterior inferior frontal sinus wall, extending to the orbital roof, orbital floor and anterior and medial orbital stewart, as well as the inner table of the frontal calvarium. Mildly displaced fractures of the right anterior and lateral maxillary sinus stewart. Sinuses: Minimal ethmoid mucosal thickening. Blood products in the right frontal and right maxillary sinuses. Mastoid air cells: Grossly unremarkable. Soft tissues: Right periorbital soft tissue injury and. IMPRESSION: 1. No convincing CT evidence of acute intracranial pathology. 2. Comminuted, mildly displaced fractures of the right anterior inferior frontal sinus wall, extending to the orbital roof, orbital floor and anterior and medial orbital stewart, as well as the inner table of the frontal calvarium. Mildly displaced fractures of the right anterior and lateral maxillary sinus stewart. 3. Additional findings, as above. Electronically signed by: Benito Hatch On 08/11/2019 19:19:02 PM
--- NOTE | 2019-08-11 19:23 | REPVR ---
PROCEDURE INFORMATION: Exam: CT Maxillofacial Without Contrast Exam date and time: 08/11/2019 6:44 PM Clinical history: 74 years old, male; Injury or trauma; Fall; Initial encounter; Blunt trauma (contusions or hematomas); Head/scalp; Loss of consciousness not known TECHNIQUE: Imaging protocol: Computed tomography images of the face without contrast. Axial, coronal and sagittal reformatted images were created and reviewed. Radiation optimization: All CT scans at this facility use at least one of these dose optimization techniques: automated exposure control; mA and/or kV adjustment per patient size (includes targeted exams where dose is matched to clinical indication); or iterative reconstruction. COMPARISON: No relevant prior studies available. FINDINGS: Orbits: No definite retrobulbar abnormality. Questionable mild right proptosis. Globes intact. Sinuses: Minimal ethmoid mucosal thickening. Blood products in the right frontal and right maxillary sinuses. Bones/joints: Comminuted, mildly displaced fractures of the right anterior inferior frontal sinus wall, extending to the orbital roof, orbital floor and anterior and medial orbital stewart, as well as the inner table of the frontal calvarium. Mildly displaced fractures of the right anterior and lateral maxillary sinus stewart. Soft tissues: Right periorbital soft tissue injury. IMPRESSION: 1. Comminuted, mildly displaced fractures of the right anterior inferior frontal sinus wall, extending to the orbital roof, orbital floor and anterior and medial orbital stewart, as well as the inner table of the frontal calvarium. Mildly displaced fractures of the right anterior and lateral maxillary sinus stewart. 2. Questionable mild right proptosis without definite retrobulbar abnormality. No convincing CT evidence of extraocular muscle entrapment, although clinical correlation is warranted. 3. Additional findings, as above. Electronically signed by: Benito Hatch On 08/11/2019 19:23:02 PM
--- NOTE | 2019-08-11 19:27 | REPVR ---
PROCEDURE INFORMATION: Exam: CT Cervical Spine Without Contrast Exam date and time: 08/11/2019 6:44 PM Clinical history: 74 years old, male; Injury or trauma; Fall; Initial encounter; Blunt trauma TECHNIQUE: Imaging protocol: Computed tomography images of the cervical spine without contrast. Axial, coronal and sagittal reformatted images were created and reviewed. Radiation optimization: All CT scans at this facility use at least one of these dose optimization techniques: automated exposure control; mA and/or kV adjustment per patient size (includes targeted exams where dose is matched to clinical indication); or iterative reconstruction. COMPARISON: CT Spine,cervical w/o contrast 04/16/2019 11:13 PM FINDINGS: Vertebrae: Osteopenia. Straightening of the normal cervical lordosis. Mild retrolisthesis of C2 on C3, C3 on C4, C5 on C6 and C6 on C7. Mild anterolisthesis of C7 on T1. Alignment otherwise anatomic. Levoscoliosis. No CT evidence of acute fracture or dislocation. Vertebral body heights maintained. Discs/Spinal canal/Neural foramina: Multilevel degenerative changes, characterized by disc space narrowing, osteophytosis and uncovertebral and facet joint hypertrophy. Multilevel spinal canal and neural foraminal stenosis. Soft tissues: Grossly unremarkable. Lungs: Grossly unremarkable. IMPRESSION: 1. No CT evidence of acute cervical spine traumatic injury. 2. Additional findings, as above. Electronically signed by: Benito Hatch On 08/11/2019 19:27:23 PM
[2019-08-11] MEDS ORDERED: ONDANSETRON 4MG/2ML VIAL (J2405) IV ONE (19:45)
[2019-08-11 20:09] LABS: HEMATOCRIT 40.2 % (42.0-52.0); HEMOGLOBIN 13.2 g/dl (13.5-17.5); MEAN CORPUSCULAR HEMOGLOBIN 31.1 pg (27.0-33.0); MEAN CORPUSCULAR HGB CONC 32.8 g/dl (32.0-36.5); MEAN CORPUSCULAR VOLUME 94.8 fl (80.0-96.0); PLATELET COUNT, AUTOMATED 238 10^3/uL (150-450); RED BLOOD COUNT 4.24 10^6/uL (4.30-6.10); WHITE BLOOD COUNT 10.1 10^3/uL (4.0-10.0)
[2019-08-11] MEDS ORDERED: POTA20TA6 PO (20:11)
[2019-08-11] MEDS ORDERED: ACET1TAB55 PO (20:11)
[2019-08-11] MEDS ORDERED: B-1100TA2 PO (20:11)
[2019-08-11] MEDS ORDERED: SPIR-10 PO (20:11)
[2019-08-11] MEDS ORDERED: MAGN64TA3 PO (20:16)
[2019-08-11] MEDS ORDERED: MILKSUS3 PO (20:16)
[2019-08-11] MEDS ORDERED: DULC10SU2 PR (20:16)
[2019-08-11] MEDS ORDERED: LACT10SO29 PO (20:16)
[2019-08-11] MEDS ORDERED: LIDO5DIS41 TD (20:16)
[2019-08-11] MEDS ORDERED: DULO30CA9 PO (20:16)
[2019-08-11 20:19] LABS: INR 1.37; PROTHROMBIN TIME 16.6 SECONDS (11.8-14.0)
[2019-08-11 20:35] LABS: ALBUMIN 2.7 GM/DL (3.2-5.2); ALT/SGPT 25 U/L (12-78); BILIRUBIN,DIRECT 0.6 MG/DL (0.0-0.2); BILIRUBIN,TOTAL 1.3 MG/DL (0.2-1.0); BLOOD UREA NITROGEN 7 MG/DL (7-18); CALCIUM LEVEL 8.7 MG/DL (8.8-10.2); CARBON DIOXIDE LEVEL 20 MEQ/L (21-32); CHLORIDE LEVEL 105 MEQ/L (98-107); GLOMERULAR FILTRATION RATE > 60.0 (>42); GLUCOSE, FASTING 151 MG/DL (70-100); POTASSIUM SERUM 3.6 MEQ/L (3.5-5.1); SODIUM LEVEL 137 MEQ/L (136-145); TOTAL PROTEIN 6.3 GM/DL (6.4-8.2)
[2019-08-11] MEDS: **NOTE PATIENT COMMENT** MISC XX SCH (21:00)
[2019-08-11] MEDS: MORPHINE 2 MG/ML 1ML VIAL (J2270) IV PRN ×2 (21:12→21:40)
--- NOTE | 2019-08-11 21:12 | HPEPDOC ---
[facility] Medical History & Physical Date of Admission Aug 11, 2019 Date of Service: Aug 11, 2019 Primary Care Physician: Jr Murray Collins Attending Physician: PAULINE BROOKS MD History and Physical TIME OF SERVICE: 10:03 PM CHIEF COMPLAINT: Fall HISTORY OF PRESENT ILLNESS: The patient had been given morphine, and was sedated at the time of my exam and was not able to contribute to the history. This is a 74-year-old male who is temporarily residing at [facility]; he was sent to the ER for evaluation after having an unwitnessed fall. The patient's daughter was at the bedside is unsure of why the patient fell and the events leading to the fall. She suspects that he may have fallen because both of his legs are weak. She thinks her father's unable to care for himself and would like him placed in a long-term. 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 Tobacco use: Quit smoking in 1984. ETOH: Patient has an extensive history of alcohol abuse. Illicit drug use: No known history of illicit or IV drug use Other relevant social factors: Patient utilizes a wheelchair for most of his ambulation. Patient does have both upper and lower dentures. Patient utilizes corrective lenses. FAMILY HISTORY: Father: , history of hypertension Mother: , history of unknown cancer Siblings: Brother, alive, asthma Children: Daughter, alive, healthy ALLERGIES: Please see below. HOME MEDICATIONS: Please see below. PHYSICAL EXAMINATION: VITAL SIGNS: Please see below. GENERAL APPEARANCE: Well-nourished, not in apparent distress HEENT: . Has a hematoma surrounding the right orbit, and dried blood running out of the left naris. Mucous membranes are dry. There is residual blood inside of the mouth. CARDIOVASCULAR: Regular rate and rhythm. No murmurs, rubs or gallops LUNGS: Clear to auscultation bilaterally on room air ABDOMEN: Bowel sounds are hypoactive. Abdomen is soft and nontender on palpation MUSCULOSKELETAL: Unable to assess range of motion because patient was uncooperative NEUROLOGICAL: Unable to do complete exam because of poor patient cooperation PSYCHIATRIC: The patient is listless but arousable with vocal stimuli. His able to follow simple commands but use falling asleep LABORATORY DATA: See below. IMAGING: Maxillofacial CT "IMPRESSION: 1. Comminuted, mildly displaced fractures of the right anterior inferior frontal sinus wall, extending to the orbital roof, orbital floor and anterior and medial orbital stewart, as well as the inner table of the frontal calvarium. Mildly displaced fractures of the right anterior and lateral maxillary sinus stewart. 2. Questionable mild right proptosis without definite retrobulbar abnormality. No convincing CT evidence of extraocular muscle entrapment, although clinical correlation is warranted. 3. Additional findings, as above. CT head " IMPRESSION: 1. No convincing CT evidence of acute intracranial pathology. 2. Comminuted, mildly displaced fractures of the right anterior inferior frontal sinus wall, extending to the orbital roof, orbital floor and anterior and medial orbital stewart, as well as the inner table of the frontal calvarium. Mildly displaced fractures of the right anterior and lateral maxillary sinus stewart. 3. Additional findings, as above. " CT cervical spine " IMPRESSION: 1. No CT evidence of acute cervical spine traumatic injury. 2. Additional findings, as above. " ASSESSMENT: Mr. Garcia is a 80-year-old male with a past medical history of asthma, GERD, type 2 diabetes with neuropathy, and alcohol dependence who was transferred from [facility] after he had an unwitnessed fall who's cause is to be determined. PLAN: 1. Encephalopathy Per ED staff likely 2/[address] head neg for acute bleed Plan: Admit to medical floor/ frequent neuro checks / if his mental status doesn't improve the day time team may order an MRI of the brain in the morning 2. Unwitnessed fall It is unclear what caused the fall. Differential includes lower extremity weakness vs tripping over an object due to neuropathy. Since his a diabetic we should r/o a silent OR. CT of the head was negative for an acute CVA Plan:follow-up troponin, orthostats / the day time team my consider MRI brain in the AM to r/o a subacute CVA /follow-up drug screen and ethanol/ Fall precautions/PT eval / 1:1 sitter 3. Unsteady gait Plan: PT eval/fall precautions / bed rest / PFS consult for assistance w placement 4. Multiple right facial fractures and orbital floor and roof fractures without entrapment. Per Dr. gamez ENT and ophthalmology aware and report the patient is not a surgical candidate. Plan: Pain management with scheduled acetaminophen, scheduled ibuprofen & tramadol when necessary 5. Uncontrolled hypertension. Acute elevation is likely due to pain. Plan: Control pain/resume home meds 6. Leukocytosis. Likely reactive after the fall Plan: Follow up CBC. Monitor vitals 7. NIDDM Last A1c was 5.3 in June Plan: Follow-up Accu-Cheks/sliding scale insulin/hypoglycemia protocol. 8. Hx of Alcohol abuse. Plan: Fall precautions/seizure precautions/Ativan per CIWA protocol/thiamine, multivitamins, folic acid 9. GERD. Plan: Continue PPI 10. Alcoholic liver cirrhosis. Plan: c/w spirolactone 25mg daily and add lasix 10mg daily (to maintain 100:40 ratio) DVT prophylaxis with SCDs bc of fall resulting in trauma to his head Disposition: likely placed in a group home facility after more than 2 midnight stay Vital Signs Vital Signs Date Time Temp Pulse Resp B/P (MAP) Pulse Ox O2 Delivery O2 Flow Rate FiO2 08/11/19 20:45 85 162/79 (106) 98 Room Air 08/11/19 20:00 18 08/11/19 18:35 97.3 Laboratory Data Labs 24H Laboratory Tests 2 08/11/19 19:57: Nucleated Red Blood Cells % (auto) 0.0, Prothrombin Time 16.6H, Prothromb Time International Ratio 1.37, Anion Gap 12, Glomerular Filtration Rate > 60.0, Calci um Level 8.7L, Total Bilirubin 1.3H, Direct Bilirubin 0.6H, Aspartate Amino Transf (AST/SGOT) 38H, Alanine Aminotransferase (ALT/SGPT) 25, Alkaline Phosphatase 97, Ammonia 31, Total Protein 6.3L, Albumin 2.7L, Albumin/Globulin Ratio 0.75L CBC/BMP Laboratory Tests 08/11/19 19:57 Home Medications Scheduled Bupropion HCl (Bupropion Xl) 300 Mg Tab.er.24h, 300 MG PO DAILY Duloxetine Hcl (Duloxetine HCl) 30 Mg Capsule.dr, 30 MG PO DAILY Folic Acid (Folic Acid) 1 Mg Tablet, 1 MG PO DAILY Lactulose (Lactulose) 10 Gm/15 Ml Solution, 30 ML PO BID Lidocaine (Lidoderm) 5% Adh..patch, 1 PATCH TD DAILY Apply to area of pain, Remove patch after 12 hours Magnesium Chloride (Mag Delay) 64 Mg Tablet.dr, 128 MG PO DAILY Multivitamin (Multivitamins) 1 Each Capsule, 1 CAP PO DAILY Omeprazole (Omeprazole) 20 Mg Capsule.dr, 20 MG PO DAILY Potassium Chloride (Potassium Chloride) 20 Meq Tab.er.prt, 20 MEQ PO DAILY Spironolactone (Spironolactone) 25 Mg Tablet, 25 MG PO DAILY Thiamine HCl (Vitamin B-1) 100 Mg Tablet, 100 MG PO DAILY Scheduled PRN Acetaminophen (Acetaminophen) 325 Mg Tablet, 650 MG PO Q6H PRN for PAIN Bisacodyl (Dulcolax) 10 Mg Supp.rect, 10 MG AK DAILY PRN for CONSTIPATION Magnesium Hydroxide (Milk of Magnesia) 400 Mg/5 Ml Oral.susp, 2,400 MG PO DAILY PRN for CONSTIPATION Allergies Coded Allergies: ether (Verified Allergy, Severe, ANAPHYLAXIS, 02/24/19) egg (Verified Allergy, Mild, RASH, 02/24/19) A-FIB/CHADSVASC A-FIB History Current/History of A-Fib/PAF?: No Current PO Anticoag Therapy: No PAULINE BROOKS MD Aug 11, 2019 21:12
[2019-08-11] MEDS ORDERED: DEXTROSE 50% 50 ML SYRINGE IV PRN (21:15)
[2019-08-11] MEDS ORDERED: ACETAMINOPHEN TAB 650MG DOSE (2X325MG) PO PRN (21:15)
[2019-08-11] MEDS ORDERED: LORazepam 2 MG TAB PO PRN (21:15)
[2019-08-11] MEDS ORDERED: GLUCOSE 4 GM CHEW TABLET PO PRN (21:15)
[2019-08-11] MEDS ORDERED: GLUCAGON FOR INJ 1 MG VIAL (J1610) SC PRN (21:15)
[2019-08-11] MEDS ORDERED: traMADol ER 100MG TABLET (ULTRAM ER) PO PRN (21:15)
[2019-08-11] MEDS ORDERED: LIDOCAINE W/EPINEPHRINE 1% 20ML VIAL As Ordered ONE (23:50)
[2019-08-12] MEDS ORDERED: LIDOCAINE W/EPINEPHRINE 1% 20ML VIAL SC ONE
[2019-08-12] MEDS ORDERED: MOM 30ML SUSPENSION UDC PO PRN (00:15)
[2019-08-12] MEDS ORDERED: BISACODYL 10 MG SUPP PR PRN (00:15)
[2019-08-12 00:59] LABS: TROPONIN I < 0.02 NG/ML (< 0.10)
[2019-08-12 01:00] VITALS: BP 121/74
[2019-08-12 01:26] VITALS: BP 121/74
--- NOTE | 2019-08-12 01:39 | REP ---
Clinical: Trauma. Technique: Internal rotation, external rotation, and Y view of the right shoulder. Findings: Age-related arthritic degenerative changes are appreciated. There is no evidence for acute fracture dislocation. Findings include heterogeneous sclerosis to the ossified glenoid along with inferior spurring at the glenohumeral joint and subtle cortical irregularity at the acromioclavicular joint. Subacromial space appears narrowed to approximately 7.5 mm. No obvious periarticular calcifications or loose bodies identified. Impression: Age-related arthritic changes. No acute fracture dislocation. Electronically Signed by Henry Cantu MD 08/12/2019 01:31 A
--- NOTE | 2019-08-12 01:42 | REP ---
Clinical: Trauma. Technique: Portable AP semiupright view of the chest. Findings: Evaluation is limited by technique and underpenetration as well as poor inspiratory effort. No obvious focal consolidation, effusion, or pneumothorax. Mediastinum is within normal limits. Visualized osseous structures appear intact. Impression: No obvious acute process. Electronically Signed by Henry Cantu MD 08/12/2019 01:33 A
[2019-08-12] MEDS: ACETAMINOPHEN 650MG ER TAB (TYLENOL ARTHRITIS) PO SCH ×4 (02:18→20:36)
[2019-08-12] MEDS: LACTULOSE 20 GM/30 ML SYRUP UD PO SCH ×4 (02:18→20:35)
[2019-08-12] MEDS: IBUPROFEN 600 MG TAB PO SCH ×4 (02:22→20:36)
[2019-08-12] MEDS ORDERED: NYSTATIN 100,000 UNITS/GM TOPICAL PWD 15 GM TOP PRN (03:15)
[2019-08-12 06:00] VITALS: BP 149/91
[2019-08-12] MEDS: HumaLOG INSULIN (NovoLOG) PER UNIT SC SCH ×4 (07:30→21:00)
[2019-08-12 07:51] LABS: HEMATOCRIT 37.2 % (42.0-52.0); HEMOGLOBIN 12.4 g/dl (13.5-17.5); MEAN CORPUSCULAR HEMOGLOBIN 31.3 pg (27.0-33.0); MEAN CORPUSCULAR HGB CONC 33.3 g/dl (32.0-36.5); MEAN CORPUSCULAR VOLUME 93.9 fl (80.0-96.0); PLATELET COUNT, AUTOMATED 239 10^3/uL (150-450); RED BLOOD COUNT 3.96 10^6/uL (4.30-6.10); WHITE BLOOD COUNT 8.8 10^3/uL (4.0-10.0)
[2019-08-12 08:14] LABS: BLOOD UREA NITROGEN 7 MG/DL (7-18); CALCIUM LEVEL 8.7 MG/DL (8.8-10.2); CARBON DIOXIDE LEVEL 26 MEQ/L (21-32); CHLORIDE LEVEL 108 MEQ/L (98-107); GLOMERULAR FILTRATION RATE > 60.0 (>42); GLUCOSE, FASTING 103 MG/DL (70-100); POTASSIUM SERUM 3.4 MEQ/L (3.5-5.1); SODIUM LEVEL 140 MEQ/L (136-145)
[2019-08-12] MEDS ORDERED: FOLIC ACID 1 MG TAB PO SCH (09:00)
[2019-08-12] MEDS: DULoxetine 30 MG CAP (CYMBALTA) PO SCH ×2 (09:00→09:33)
[2019-08-12] MEDS: SPIRONOLACTONE 25 MG TAB PO SCH ×2 (09:00→09:33)
[2019-08-12] MEDS: POTASSIUM CHLORIDE 10 MEQ SR TABLET PO SCH ×2 (09:00→09:33)
[2019-08-12] MEDS: FOLIC ACID 1 MG TAB PO SCH ×2 (09:00→09:32)
[2019-08-12] MEDS: LIDOCAINE 5% (LIDODERM) PATCH TD SCH ×2 (09:00→09:33)
[2019-08-12] MEDS: THIAMINE 100 MG TAB PO SCH ×3 (09:00→20:36)
[2019-08-12] MEDS ORDERED: FLUBLOK(EGG FREE)(QUAD)INFLUENZA VACC 0.5ML SYRINGE (90682)18YRS&OLDER IM ONE (09:00)
[2019-08-12] MEDS: OMEPRAZOLE 20 MG CAP PO SCH ×2 (09:00→09:33)
[2019-08-12] MEDS: MAGNESIUM CHLORIDE 64 MG TABCR (SLO MAG) PO SCH ×2 (09:00→09:31)
[2019-08-12] MEDS: buPROPion **XL** TABLET 150MG (WELLBUTRIN XL) PO SCH ×2 (09:00→09:34)
[2019-08-12] MEDS: MULTIVITAMINS/MINERALS THERAP 1 TAB PO SCH ×2 (09:00→09:33)
[2019-08-12 14:00] VITALS: BP 146/88
--- NOTE | 2019-08-12 16:43 | IPNPDOC ---
Text Note Date of Service The patient was seen on 08/12/19. NOTE Subjective: Patient more awake this morning and tell me he he is in the hospital and when he fell he hurt his right side of the head and right shoulder. Denies any nausea or vomiting PHYSICAL EXAMINATION: VITAL SIGNS: Please see below. GENERAL APPEARANCE: Well-nourished, not in apparent distress HEENT: . Has a hematoma surrounding the right orbit, and dried blood running out of the left naris. Mucous membranes are dry. There is residual blood inside of the mouth. CARDIOVASCULAR: Regular rate and rhythm. No murmurs, rubs or gallops LUNGS: Clear to auscultation bilaterally on room air ABDOMEN: Bowel sounds are hypoactive. Abdomen is soft and nontender on palpation MUSCULOSKELETAL: Unable to assess range of motion because patient was uncooperative NEUROLOGICAL: Unable to do complete exam because of poor patient cooperation PSYCHIATRIC: The patient is listless but arousable with vocal stimuli. His able to follow simple commands but use falling asleep LABORATORY And Radiology Reviewed : See below ASSESSMENT: Mr. Garcia is a 80-year-old male with a past medical history of asthma, GERD, type 2 diabetes with neuropathy, and alcohol dependence with cirrhosis , hepatic encephalopathy, varices, who was transferred from [facility] after he had an unwitnessed fall who's cause is to be determined. Encephalopathy probably due to morphine Ammonia is wnl. CT head neg for acute bleed better this am. Unwitnessed fall with injury to right forehead and right eye and right shoulder It is unclear what caused the fall. Differential includes lower extremity weakness vs tripping over an object due to neuropathy. CT of the head was negative for an acute CVA Cervical spine negative for any any fracture or dislocation Right shoulder for acute fracture or dislocation. continue tramadol, lidoderm patch ibuprofen Right orbital fracture Multiple right facial fractures and orbital floor and roof fractures without entrapment but mild displacement of bones Per Dr. gamez ENT and ophthalmology aware and report the patient is not a surgical candidate. Plan: Pain management with scheduled acetaminophen, scheduled ibuprofen & tramadol when necessary Unsteady gait PT eval/fall precautions Hypertension. Acute elevation is likely due to pain. Now controlled Leukocytosis. Likely reactive after the fall Now resolved. NIDDM with neuropathy Last A1c was 5.3 in June continue lispro sliding scale, cymbalta. Heavy Alcohol abuse. continue thiamine and folate. continue wellbutrin GERD. Continue PPI Decompensated Alcoholic liver cirrhosis with hepatic encephalopathy, varices, thrombocytopenia, hyponatremia No hyponatremia at present. spirolactone 25mg daily , lasix 10mg daily (to maintain 100:40 ratio) lactulose Asthma no issues Herniated lumbar spine disks continue pain meds. Hx of Nephrolithiasis no issues at present OA with bilateral knee replacement DVT prophylaxis with SCDs bc of fall resulting in trauma to his head Dispo: will be back to rehab when stabilized with transition to terminal superintendent care. VS,Fishbone, I+O VS, Fishbone, I+O Laboratory Tests 08/11/19 19:57 08/12/19 07:03 Vital Signs Date Time Temp Pulse Resp B/P (MAP) Pulse Ox O2 Delivery O2 Flow Rate FiO2 08/12/19 14:00 98.6 88 18 146/88 (107) 95 08/12/19 06:00 Room Air I&O- Last 24 Hours up to 6 AM 08/12/19 06:00 Intake Total 120 ml Balance 120 ml YOLANDA GRIFFITHS MD Aug 12, 2019 16:43
[2019-08-12] MEDS: **NOTE PATIENT COMMENT** MISC XX SCH (21:00)
[2019-08-12 22:00] VITALS: BP 135/81
[2019-08-13 06:00] VITALS: BP 150/84
[2019-08-13 06:40] LABS: BASO # 0.1 10^3/uL (0.0-0.2); BASO % 0.9 % (0.0-1.0); EOS # 0.3 10^3/uL (0.0-0.5); EOS % 3.9 % (0.0-3.0); HEMATOCRIT 37.7 % (42.0-52.0); HEMOGLOBIN 12.7 g/dl (13.5-17.5); LYMPH # 1.1 10^3/uL (1.5-5.0); LYMPH % 16.2 % (24.0-44.0); MEAN CORPUSCULAR HGB CONC 33.7 g/dl (32.0-36.5); MONO # 0.5 10^3/uL (0.0-0.8); NEUTROPHILS # 4.7 10^3/uL (1.5-8.5); NEUTROPHILS % 70.4 % (36.0-66.0); PLATELET COUNT, AUTOMATED 208 10^3/uL (150-450); RED BLOOD COUNT 3.97 10^6/uL (4.30-6.10); WHITE BLOOD COUNT 6.6 10^3/uL (4.0-10.0)
[2019-08-13 06:55] LABS: BLOOD UREA NITROGEN 7 MG/DL (7-18); CALCIUM LEVEL 8.7 MG/DL (8.8-10.2); CARBON DIOXIDE LEVEL 28 MEQ/L (21-32); CHLORIDE LEVEL 107 MEQ/L (98-107); CREATININE FOR GFR 0.72 MG/DL (0.70-1.30); GLOMERULAR FILTRATION RATE > 60.0 (>42); GLUCOSE, FASTING 91 MG/DL (70-100); POTASSIUM SERUM 3.5 MEQ/L (3.5-5.1); SODIUM LEVEL 142 MEQ/L (136-145)
[2019-08-13] MEDS: HumaLOG INSULIN (NovoLOG) PER UNIT SC SCH ×4 (07:17→21:00)
[2019-08-13] MEDS: OMEPRAZOLE 20 MG CAP PO SCH (08:30)
[2019-08-13] MEDS: THIAMINE 100 MG TAB PO SCH ×2 (08:30→21:44)
[2019-08-13] MEDS: LACTULOSE 20 GM/30 ML SYRUP UD PO SCH ×4 (08:30→19:27)
[2019-08-13] MEDS: IBUPROFEN 600 MG TAB PO SCH ×2 (08:30→21:44)
[2019-08-13] MEDS: POTASSIUM CHLORIDE 10 MEQ SR TABLET PO SCH (08:30)
[2019-08-13] MEDS: FOLIC ACID 1 MG TAB PO SCH (08:30)
[2019-08-13] MEDS: MULTIVITAMINS/MINERALS THERAP 1 TAB PO SCH (08:30)
[2019-08-13] MEDS: LIDOCAINE 5% (LIDODERM) PATCH TD SCH (08:30)
[2019-08-13] MEDS: DULoxetine 30 MG CAP (CYMBALTA) PO SCH (08:30)
[2019-08-13] MEDS: MAGNESIUM CHLORIDE 64 MG TABCR (SLO MAG) PO SCH (08:31)
[2019-08-13] MEDS: buPROPion **XL** TABLET 150MG (WELLBUTRIN XL) PO SCH (08:33)
[2019-08-13] MEDS: ACETAMINOPHEN 650MG ER TAB (TYLENOL ARTHRITIS) PO SCH ×2 (08:33→21:44)
[2019-08-13] MEDS: SPIRONOLACTONE 25 MG TAB PO SCH (08:33)
[2019-08-13 13:55] VITALS: BP 162/96
[2019-08-13 14:00] VITALS: BP 164/96
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
[2019-08-13] MEDS: **NOTE PATIENT COMMENT** MISC XX SCH (21:00)
[2019-08-13 22:00] VITALS: BP 136/84
[2019-08-14 06:00] VITALS: BP 137/71
[2019-08-14 06:24] LABS: BASO # 0.1 10^3/uL (0.0-0.2); BASO % 0.9 % (0.0-1.0); EOS # 0.2 10^3/uL (0.0-0.5); EOS % 3.5 % (0.0-3.0); HEMATOCRIT 37.6 % (42.0-52.0); HEMOGLOBIN 12.6 g/dl (13.5-17.5); LYMPH # 1.3 10^3/uL (1.5-5.0); LYMPH % 19.3 % (24.0-44.0); MEAN CORPUSCULAR HEMOGLOBIN 32.1 pg (27.0-33.0); MEAN CORPUSCULAR HGB CONC 33.5 g/dl (32.0-36.5); MEAN CORPUSCULAR VOLUME 95.9 fl (80.0-96.0); MONO # 0.7 10^3/uL (0.0-0.8); MONO % 9.7 % (0.0-5.0); NEUTROPHILS # 4.5 10^3/uL (1.5-8.5); PLATELET COUNT, AUTOMATED 196 10^3/uL (150-450); RED BLOOD COUNT 3.92 10^6/uL (4.30-6.10); WHITE BLOOD COUNT 6.8 10^3/uL (4.0-10.0)
[2019-08-14 06:45] LABS: BLOOD UREA NITROGEN 7 MG/DL (7-18); CALCIUM LEVEL 8.2 MG/DL (8.8-10.2); CARBON DIOXIDE LEVEL 25 MEQ/L (21-32); CHLORIDE LEVEL 106 MEQ/L (98-107); CREATININE FOR GFR 0.73 MG/DL (0.70-1.30); GLOMERULAR FILTRATION RATE > 60.0 (>42); GLUCOSE, FASTING 99 MG/DL (70-100); POTASSIUM SERUM 3.2 MEQ/L (3.5-5.1); SODIUM LEVEL 139 MEQ/L (136-145)
[2019-08-14] MEDS: HumaLOG INSULIN (NovoLOG) PER UNIT SC SCH ×4 (07:30→21:00)
[2019-08-14] MEDS: POTASSIUM CHLORIDE 10 MEQ SR TABLET PO ONE ×2 (08:45→16:50)
[2019-08-14] MEDS: LACTULOSE 20 GM/30 ML SYRUP UD PO SCH ×4 (09:00→22:40)
[2019-08-14] MEDS: ACETAMINOPHEN 650MG ER TAB (TYLENOL ARTHRITIS) PO SCH ×2 (09:00→22:40)
[2019-08-14] MEDS: DULoxetine 30 MG CAP (CYMBALTA) PO SCH ×2 (09:00→16:49)
[2019-08-14] MEDS: MAGNESIUM CHLORIDE 64 MG TABCR (SLO MAG) PO SCH ×2 (09:00→16:48)
[2019-08-14] MEDS: FOLIC ACID 1 MG TAB PO SCH ×2 (09:00→16:49)
[2019-08-14] MEDS: SPIRONOLACTONE 25 MG TAB PO SCH ×2 (09:00→16:48)
[2019-08-14] MEDS: MULTIVITAMINS/MINERALS THERAP 1 TAB PO SCH ×2 (09:00→16:49)
[2019-08-14] MEDS: buPROPion **XL** TABLET 150MG (WELLBUTRIN XL) PO SCH ×2 (09:00→16:49)
[2019-08-14] MEDS: POTASSIUM CHLORIDE 10 MEQ SR TABLET PO SCH (09:00)
[2019-08-14] MEDS: OMEPRAZOLE 20 MG CAP PO SCH ×2 (09:00→16:49)
[2019-08-14] MEDS: IBUPROFEN 600 MG TAB PO SCH ×3 (09:00→22:40)
[2019-08-14] MEDS: LIDOCAINE 5% (LIDODERM) PATCH TD SCH (09:00)
[2019-08-14] MEDS: THIAMINE 100 MG TAB PO SCH ×2 (09:00→22:40)
[2019-08-14 14:00] VITALS: BP 130/70
[2019-08-14] MEDS ORDERED: HALOPERIDOL 5 MG/ML VIAL (J1630) IV PRN (19:15)
[2019-08-14] MEDS: **NOTE PATIENT COMMENT** MISC XX SCH (21:00)
[2019-08-14 22:00] VITALS: BP 149/94
[2019-08-15 02:00] VITALS: BP 140/88
[2019-08-15 06:00] VITALS: BP 142/76
[2019-08-15] MEDS: HumaLOG INSULIN (NovoLOG) PER UNIT SC SCH ×4 (07:30→21:00)
--- NOTE | 2019-08-15 07:45 | IPNPDOC ---
Subjective Date Seen The patient was seen on 08/14/19. Subjective Chief Complaint/HPI fall Objective Physical Examination General Exam: Positive: Alert, Cooperative ENT Exam: Positive: Mucous membr. moist/pink Neck Exam: Positive: Supple Chest Exam: Positive: Clear to auscultation, Normal air movement Heart Exam: Positive: Rate Normal Abdomen Exam: Positive: Normal bowel sounds Skin Exam: Positive: Nl turgor and temperature Neuro Exam: Positive: Normal Speech Assessment /Plan Assessment 74 y/o M with PMH of asthma, GERD, type 2 diabetes with neuropathy, and alcohol dependence with cirrhosis , hepatic encephalopathy, varices, who was transferred from [facility] after he had an unwitnessed fall who's cause is to be determined. recent labs reviewed. Pt was seen and examined at bedside. Pt resting comfortably in a recliner. Pt stated that he is feeling fine and denied any physical complaint. Pt was not aware about his surrounding and could not tell where he was. Alcohol related Dementia Korsakoff syndrome He scored 17/30 in MMSE. Did poorly in orientation, recall and copying the picture. He has moderate to severe cognitive impairment. None of his answers are dependable he fills up answers when he does not know but refuses to admit that he does not know. He is oriented to only person does not know the place or year. He does not have any insight into did disease problems and refuses to follow the nurses directions. often refuses his medications. He does not have medical decisional capacity. Patient will be unable to take care of himself. 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 Encephalopathy resolved. Ammonia is wnl. CT head neg for acute bleed Unwitnessed fall with injury to right forehead and right eye and right shoulder It is unclear what caused the fall. As per daughter she was told he had a seizure. Differential includes lower extremity weakness vs tripping over an object due to neuropathy. CT of the head was negative for an acute CVA Cervical spine negative for any any fracture or dislocation continue tramadol, lidoderm patch ibuprofen Right orbital fracture Multiple right facial fractures and orbital floor and roof fractures without entrapment but mild displacement of bones Per Dr. gamez ENT and ophthalmology aware and report the patient is not a surgical candidate. Plan: Pain management with scheduled acetaminophen, scheduled ibuprofen & tramadol when necessary Unsteady gait PT eval/fall precautions Pt is not cooperating with PT Hypertension. Acute elevation is likely due to pain. Now controlled Leukocytosis. Likely reactive after the fall Now resolved. NIDDM with neuropathy Last A1c was 5.3 in June continue lispro sliding scale, cymbalta. Heavy Alcohol abuse. continue thiamine and folate. continue Wellbutrin GERD. Continue PPI Alcoholic liver cirrhosis with h/o hepatic encephalopathy, varices, thrombocytopenia, hyponatremia No hyponatremia at present. spirolactone 25mg daily , lasix 10mg daily (to maintain 100:40 ratio) lactulose Asthma stable Herniated lumbar spine disks continue pain meds. Hx of Nephrolithiasis no issues at present OA with bilateral knee replacement DVT prophylaxis with SCDs bc of fall resulting in trauma to his head Dispo: will be back to rehab when stabilized with transition to featheredger and reducer machine care. We discussed with pt's daughter who is HCP about goals of care. She requested to get neurology eval in view of questionable episode of seizure Plan/VTE VTE Prophylaxis Ordered?: Yes VS, I&O, 24H, Fishbone Vital Signs/I&O Vital Signs Date Time Temp Pulse Resp B/P (MAP) Pulse Ox O2 Delivery O2 Flow Rate FiO2 08/14/19 14:00 97.0 80 18 130/70 (90) 98 Room Air I&O- Last 24 Hours up to 6 AM 08/14/19 06:00 Intake Total 1000 ml Output Total 0 ml Balance 1000 ml Laboratory Data 24H LABS Laboratory Tests 2 08/13/19 20:45: Bedside Glucose (Misc Panel) 114H 08/14/19 05:36: Immature Granulocyte % (Auto) 0.6, Neutrophils (%) (Auto) 66.0, Lymphocytes (%) (Auto) 19.3L, Monocytes (%) (Auto) 9.7H, Eosinophils (%) (Auto) 3.5H, Basophils (%) (Auto) 0.9, Neutrophils # (Auto) 4.5, Lymphocytes # (Auto) 1.3L, Monocytes # (Auto) 0.7, Eosinophils # (Auto) 0.2, Basophils # (Auto) 0.1, Nucleated Red Blood Cells % (auto) 0.0, Anion Gap 8, Glomerular Filtration Rate > 60.0, Calcium Level 8.2L 08/14/19 11:12: Bedside Glucose (Misc Panel) 107 08/14/19 17:16: Bedside Glucose (Misc Panel) 100 CBC/BMP Laboratory Tests 08/14/19 05:36 RIK MCLEAN MD Aug 14, 2019 19:10
[2019-08-15 07:48] LABS: BASO # 0.1 10^3/uL (0.0-0.2); BASO % 0.8 % (0.0-1.0); EOS # 0.4 10^3/uL (0.0-0.5); EOS % 4.1 % (0.0-3.0); HEMATOCRIT 42.3 % (42.0-52.0); HEMOGLOBIN 14.2 g/dl (13.5-17.5); LYMPH # 1.4 10^3/uL (1.5-5.0); LYMPH % 16.2 % (24.0-44.0); MEAN CORPUSCULAR HEMOGLOBIN 31.8 pg (27.0-33.0); MEAN CORPUSCULAR HGB CONC 33.6 g/dl (32.0-36.5); MEAN CORPUSCULAR VOLUME 94.6 fl (80.0-96.0); MONO # 0.5 10^3/uL (0.0-0.8); MONO % 6.2 % (0.0-5.0); NEUTROPHILS # 6.2 10^3/uL (1.5-8.5); NEUTROPHILS % 71.7 % (36.0-66.0); PLATELET COUNT, AUTOMATED 256 10^3/uL (150-450); RED BLOOD COUNT 4.47 10^6/uL (4.30-6.10); WHITE BLOOD COUNT 8.7 10^3/uL (4.0-10.0)
[2019-08-15 08:25] LABS: BLOOD UREA NITROGEN 7 MG/DL (7-18); CALCIUM LEVEL 8.8 MG/DL (8.8-10.2); CARBON DIOXIDE LEVEL 23 MEQ/L (21-32); CHLORIDE LEVEL 109 MEQ/L (98-107); CREATININE FOR GFR 0.67 MG/DL (0.70-1.30); GLOMERULAR FILTRATION RATE > 60.0 (>42); GLUCOSE, FASTING 108 MG/DL (70-100); SODIUM LEVEL 140 MEQ/L (136-145)
[2019-08-15] MEDS: MULTIVITAMINS/MINERALS THERAP 1 TAB PO SCH (08:34)
[2019-08-15] MEDS: OMEPRAZOLE 20 MG CAP PO SCH (08:34)
[2019-08-15] MEDS: ACETAMINOPHEN 650MG ER TAB (TYLENOL ARTHRITIS) PO SCH ×2 (08:34→21:58)
[2019-08-15] MEDS: IBUPROFEN 600 MG TAB PO SCH ×2 (08:34→21:58)
[2019-08-15] MEDS: DULoxetine 30 MG CAP (CYMBALTA) PO SCH (08:34)
[2019-08-15] MEDS: SPIRONOLACTONE 25 MG TAB PO SCH (08:34)
[2019-08-15] MEDS: FOLIC ACID 1 MG TAB PO SCH (08:34)
[2019-08-15] MEDS: MAGNESIUM CHLORIDE 64 MG TABCR (SLO MAG) PO SCH (08:35)
[2019-08-15] MEDS: buPROPion **XL** TABLET 150MG (WELLBUTRIN XL) PO SCH (08:35)
[2019-08-15] MEDS: LACTULOSE 20 GM/30 ML SYRUP UD PO SCH ×4 (08:35→21:58)
[2019-08-15] MEDS: POTASSIUM CHLORIDE 10 MEQ SR TABLET PO SCH (08:35)
[2019-08-15] MEDS: LIDOCAINE 5% (LIDODERM) PATCH TD SCH (08:36)
--- NOTE | 2019-08-15 18:12 | IPNPDOC ---
Subjective Date Seen The patient was seen on 08/15/19. Subjective Chief Complaint/HPI fall Events since last encounter Pt stated that he is feeling fine. denied any physical complaint. But is still appears confused and not aware of his surroundings Objective Physical Examination General Exam: Positive: Alert, Cooperative ENT Exam: Positive: Mucous membr. moist/pink Neck Exam: Positive: Supple Chest Exam: Positive: Clear to auscultation, Normal air movement Heart Exam: Positive: Rate Normal Abdomen Exam: Positive: Normal bowel sounds Skin Exam: Positive: Nl turgor and temperature Neuro Exam: Positive: Normal Speech Assessment /Plan Assessment 74 y/o M with PMH of asthma, GERD, type 2 diabetes with neuropathy, and alcohol dependence with cirrhosis , hepatic encephalopathy, varices, who was transferred from [facility] after he had an unwitnessed fall who's cause is to be determined. recent labs reviewed. Plan 1. Alcohol related Dementia Korsakoff syndrome He scored 17/30 in MMSE. Did poorly in orientation, recall and copying the picture. He has moderate to severe cognitive impairment. None of his answers are dependable he fills up answers when he does not know but refuses to admit that he does not know. He is oriented to only person does not know the place or year. He does not have any insight into did disease problems and refuses to follow the nurses directions. often refuses his medications. He does not have medical decisional capacity. Patient will be unable to take care of himself. He will need [facility] placement. 2. Encephalopathy appears resolved. Ammonia is wnl. CT head neg for acute bleed 3, Unwitnessed fall with injury to right forehead and right eye and right shoulder It is unclear what caused the fall. As per daughter she was told he had a seizure. Differential includes lower extremity weakness vs tripping over an object due to neuropathy. CT of the head was negative for an acute CVA Cervical spine negative for any any fracture or dislocation continue tramadol, lidoderm patch ibuprofen will f/u with neurology 4. Right orbital fracture Multiple right facial fractures and orbital floor and roof fractures without entrapment but mild displacement of bones Per Dr. gamez ENT and ophthalmology aware and report the patient is not a surgical candidate. Plan: Pain management with scheduled acetaminophen, scheduled ibuprofen & tramadol when necessary 5. Unsteady gait PT eval/fall precautions Pt is not cooperating with PT 6. Hypertension. Acute elevation is likely due to pain. Now controlled 7. Leukocytosis. Likely reactive after the fall Now resolved. 8. NIDDM with neuropathy Last A1c was 5.3 in June continue lispro sliding scale, cymbalta. 9. Heavy Alcohol abuse. continue thiamine and folate. continue Wellbutrin 10. GERD. Continue PPI 11. Alcoholic liver cirrhosis with h/o hepatic encephalopathy, varices, thrombocytopenia, hyponatremia No hyponatremia at present. spirolactone 25mg daily , lasix 10mg daily (to maintain 100:40 ratio) lactulose 12. Asthma stable 13, Herniated lumbar spine disks continue pain meds. 14. Hx of Nephrolithiasis no issues at present 15. OA with bilateral knee replacement DVT prophylaxis with SCDs bc of fall resulting in trauma to his head Plan/VTE VTE Prophylaxis Ordered?: Yes VS, I&O, 24H, Fishbone Vital Signs/I&O Vital Signs Date Time Temp Pulse Resp B/P (MAP) Pulse Ox O2 Delivery O2 Flow Rate FiO2 08/15/19 06:00 99.0 83 16 142/76 (98) 97 Room Air I&O- Last 24 Hours up to 6 AM 08/15/19 06:00 Intake Total 900 ml Output Total 0 ml Balance 900 ml Laboratory Data 24H LABS Laboratory Tests 2 08/14/19 20:26: Bedside Glucose (Misc Panel) 101 08/15/19 07:40: Immature Granulocyte % (Auto) 1.0, Neutrophils (%) (Auto) 71.7H, Lymphocytes (%) (Auto) 16.2L, Monocytes (%) (Auto) 6.2H, Eosinophils (%) (Auto) 4.1H, Basophils (%) (Auto) 0.8, Neutrophils # (Auto) 6.2, Lymphocytes # (Auto) 1.4L, Monocytes # (Auto) 0.5, Eosinophils # (Auto) 0.4, Basophils # (Auto) 0.1, Nucleated Red Blood Cells % (auto) 0.0, Anion Gap 8, Glomerular Filtration Rate > 60.0, Calcium Level 8.8 08/15/19 11:44: Bedside Glucose (Misc Panel) 110 08/15/19 16:35: Bedside Glucose (Misc Panel) 108 CBC/BMP Laboratory Tests 08/15/19 07:40 RIK MCLEAN MD Aug 15, 2019 18:12
[2019-08-15] MEDS: **NOTE PATIENT COMMENT** MISC XX SCH (21:00)
[2019-08-15 22:00] VITALS: BP 138/84
[2019-08-16 06:00] VITALS: BP 160/82
[2019-08-16] MEDS: HumaLOG INSULIN (NovoLOG) PER UNIT SC SCH ×4 (07:30→21:00)
[2019-08-16] MEDS: IBUPROFEN 600 MG TAB PO SCH ×2 (10:01→21:21)
[2019-08-16] MEDS: OMEPRAZOLE 20 MG CAP PO SCH (10:01)
[2019-08-16] MEDS: buPROPion **XL** TABLET 150MG (WELLBUTRIN XL) PO SCH (10:01)
[2019-08-16] MEDS: MULTIVITAMINS/MINERALS THERAP 1 TAB PO SCH (10:01)
[2019-08-16] MEDS: ACETAMINOPHEN 650MG ER TAB (TYLENOL ARTHRITIS) PO SCH ×2 (10:02→21:21)
[2019-08-16] MEDS: DULoxetine 30 MG CAP (CYMBALTA) PO SCH (10:02)
[2019-08-16] MEDS: POTASSIUM CHLORIDE 10 MEQ SR TABLET PO SCH (10:02)
[2019-08-16] MEDS: FOLIC ACID 1 MG TAB PO SCH (10:02)
[2019-08-16] MEDS: SPIRONOLACTONE 25 MG TAB PO SCH (10:03)
[2019-08-16] MEDS: LIDOCAINE 5% (LIDODERM) PATCH TD SCH (10:03)
[2019-08-16] MEDS: LACTULOSE 20 GM/30 ML SYRUP UD PO SCH ×4 (10:03→21:21)
[2019-08-16] MEDS: MAGNESIUM CHLORIDE 64 MG TABCR (SLO MAG) PO SCH (10:03)
[2019-08-16 11:26] LABS: BASO # 0.1 10^3/uL (0.0-0.2); BASO % 0.5 % (0.0-1.0); EOS # 0.4 10^3/uL (0.0-0.5); EOS % 3.8 % (0.0-3.0); HEMATOCRIT 40.6 % (42.0-52.0); HEMOGLOBIN 13.5 g/dl (13.5-17.5); LYMPH # 0.6 10^3/uL (1.5-5.0); LYMPH % 5.8 % (24.0-44.0); MEAN CORPUSCULAR HEMOGLOBIN 31.5 pg (27.0-33.0); MEAN CORPUSCULAR HGB CONC 33.3 g/dl (32.0-36.5); MEAN CORPUSCULAR VOLUME 94.9 fl (80.0-96.0); MONO # 0.3 10^3/uL (0.0-0.8); MONO % 2.7 % (0.0-5.0); NEUTROPHILS # 8.8 10^3/uL (1.5-8.5); NEUTROPHILS % 86.9 % (36.0-66.0); PLATELET COUNT, AUTOMATED 202 10^3/uL (150-450); RED BLOOD COUNT 4.28 10^6/uL (4.30-6.10); WHITE BLOOD COUNT 10.1 10^3/uL (4.0-10.0)
[2019-08-16 11:47] LABS: BLOOD UREA NITROGEN 7 MG/DL (7-18); CARBON DIOXIDE LEVEL 25 MEQ/L (21-32); CHLORIDE LEVEL 108 MEQ/L (98-107); CREATININE FOR GFR 0.56 MG/DL (0.70-1.30); GLOMERULAR FILTRATION RATE > 60.0 (>42); GLUCOSE, FASTING 134 MG/DL (70-100); POTASSIUM SERUM 3.7 MEQ/L (3.5-5.1); SODIUM LEVEL 141 MEQ/L (136-145)
[2019-08-16 16:00] VITALS: BP 138/62
--- NOTE | 2019-08-16 16:14 | IPNPDOC ---
Subjective Date Seen The patient was seen on 08/16/19. Subjective Chief Complaint/HPI fall Events since last encounter Pt stated that he is feeling fine. Pt is weak and at fall risk. will continue PT if patient cooperate Objective Physical Examination General Exam: Positive: Alert, Cooperative ENT Exam: Positive: Mucous membr. moist/pink Neck Exam: Positive: Supple Chest Exam: Positive: Clear to auscultation, Normal air movement Heart Exam: Positive: Rate Normal Abdomen Exam: Positive: Normal bowel sounds Skin Exam: Positive: Nl turgor and temperature Neuro Exam: Positive: Normal Speech Psych Exam: Positive: Mood NL Assessment /Plan Assessment 74 y/o M with PMH of asthma, GERD, type 2 diabetes with neuropathy, and alcohol dependence with cirrhosis , hepatic encephalopathy, varices, who was transferred from [facility] after he had an unwitnessed fall who's cause is to be determined. recent labs reviewed. Plan 1. Alcohol related Dementia/ Korsakoff syndrome He scored 17/30 in MMSE. Did poorly in orientation, recall and copying the picture. He is oriented to only person does not know the place or year. He does not have any insight into did disease problems and refuses to follow the nurses directions. often refuses his medications. He does not have medical decisional capacity. Patient will be unable to take care of himself. 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 2. Encephalopathy appears resolved. Ammonia is wnl. CT head neg for acute bleed 3, Unwitnessed fall with injury to right forehead and right eye and right shoulder It is unclear what caused the fall Differential includes lower extremity weakness vs tripping over an object due to neuropathy or ? seizure CT of the head was negative for an acute CVA Cervical spine negative for any any fracture or dislocation continue tramadol, lidoderm patch ibuprofen will f/u with neurology 4. Right orbital fracture Multiple right facial fractures and orbital floor and roof fractures without entrapment but mild displacement of bones Per Dr. gamez ENT and ophthalmology aware and report the patient is not a surgical candidate. Plan: Pain management with scheduled acetaminophen, scheduled ibuprofen & tramadol when necessary 5. Unsteady gait PT eval/fall precautions 6. Hypertension. Acute elevation is likely due to pain. Now controlled 7. Leukocytosis. Likely reactive after the fall Now resolved. 8. NIDDM with neuropathy Last A1c was 5.3 in June continue lispro sliding scale, cymbalta. 9. Heavy Alcohol abuse. continue thiamine and folate. continue Wellbutrin 10. GERD. Continue PPI 11. Alcoholic liver cirrhosis with h/o hepatic encephalopathy, varices, thrombocytopenia, hyponatremia No hyponatremia at present. spirolactone 25mg daily , lasix 10mg daily (to maintain 100:40 ratio) lactulose 12. Asthma stable 13, Herniated lumbar spine disks continue pain meds. 14. Hx of Nephrolithiasis no issues at present 15. OA with bilateral knee replacement DVT prophylaxis with SCDs bc of fall resulting in trauma to his head Plan/VTE VTE Prophylaxis Ordered?: Yes VS, I&O, 24H, Fishbone Vital Signs/I&O Vital Signs Date Time Temp Pulse Resp B/P (MAP) Pulse Ox O2 Delivery O2 Flow Rate FiO2 08/16/19 06:00 97.5 83 18 160/82 (108) 97 Room Air I&O- Last 24 Hours up to 6 AM 08/16/19 05:59 Intake Total 875 ml Output Total 0 ml Balance 875 ml Laboratory Data 24H LABS Laboratory Tests 2 08/15/19 16:35: Bedside Glucose (Misc Panel) 108 08/15/19 20:15: Bedside Glucose (Misc Panel) 109 08/16/19 07:55: Bedside Glucose (Misc Panel) 88 08/16/19 11:00: Immature Granulocyte % (Auto) 0.3, Neutrophils (%) (Auto) 86.9H, Lymphocytes (%) (Auto) 5.8L, Monocytes (%) (Auto) 2.7, Eosinophils (%) (Auto) 3.8H, Basophils (%) (Auto) 0.5, Neutrophils # (Auto) 8.8H, Lymphocytes # (Auto) 0.6L, Monocytes # (Auto) 0.3, Eosinophils # (Auto) 0.4, Basophils # (Auto) 0.1, Nucleated Red Blood Cells % (auto) 0.0, Anion Gap 8, Glomerular Filtration Rate > 60.0, Calcium Level 8.0L 08/16/19 11:53: Bedside Glucose (Misc Panel) 145H CBC/BMP Laboratory Tests 08/16/19 11:00 RIK MCLEAN MD Aug 16, 2019 16:14
[2019-08-16] MEDS: **NOTE PATIENT COMMENT** MISC XX SCH (21:15)
[2019-08-16 22:00] VITALS: BP 141/81
[2019-08-17 06:00] VITALS: BP 131/82
--- NOTE | 2019-08-17 07:28 | CR ---
DATE OF CONSULTATION: 08/16/2019 REASON FOR CONSULTATION: Fall and altered mental status. HISTORY OF PRESENT ILLNESS: Elio Garcia is a 74-year-old man who was admitted at [facility] after he fell at [facility]. It is unclear why the patient fell and he even sleeping through the fall. It was suspected that he fell because of his legs being weak. The patient's daughter stated that she was unable to take care of him and would like him to be he placed in a skilled nursing. The patient was living temporarily at [facility] for rehabilitation. He was sent after the fall from [facility] to the hospital. On review office records, the patient has been visiting [facility] since 2002 for hepatic encephalopathy, cirrhosis and related problems. The patient states that his knees gave out and he fell and had fracture of his right frontal sinus and orbit. This information was obtained from electronic medical records. The patient himself is awake, alert, but is confused. He denies any dysphagia, dysarthria, diplopia, urinary incontinence. He denies any numbness, weakness of his arms and legs. He denies any tingling of his feet. The patient states that he has off-and-on headaches and neck and back pain. PAST MEDICAL HISTORY: Asthma. Back pain due to lumbosacral disc disease. Type 2 diabetes with neuropathy. Alcoholic liver disease with cirrhosis. Esophageal varices. Acid reflux. History of kidney stones. Appendectomy. Bilateral knee replacement. SOCIAL HISTORY: The patient is living at [facility]. He quit smoking in 1984. He used to drink a quart of liquor every day for many years. He states that he quit drinking alcohol a year ago. The patient uses a wheelchair. FAMILY HISTORY: Father had hypertension. Mother of unknown cancer. REVIEW OF SYSTEMS: Complete review of system was obtained and was found to be noncontributory except as mentioned in the history present illness. All systems were reviewed. CURRENT MEDICATIONS: - Wellbutrin 300 mg by mouth daily - Cymbalta 30 mg by mouth daily - Folic acid 1 mg by mouth daily - magnesium chloride 128 mg by mouth daily - multivitamin one tablet by mouth daily - Prilosec 20 mg by mouth daily - potassium chloride 20 mEq by mouth daily - spironolactone 25 mg by mouth daily - thiamine 1 mg by mouth daily ALLERGIES: Egg, ether. PHYSICAL EXAMINATION: Blood pressure 160/82, pulse 83, respiratory 18, temperature 97.5. Heart: Regular rate and rhythm. Lungs: Clear to auscultation. Abdomen: Soft, nontender, nondistended. No pedal edema. No musculoskeletal abnormalities. The patient is awake, alert, but oriented to self only. He thinks that he is at [facility] in [place], [place]. He knows the name of the president. He thinks that it is June 19, 2020 today. The day, he thinks is . He states that he was living at an apartment in [place], [place] before he came to this hospital. He is unable to spell world backwards. He is unable to do serial sevens. His recall is 0/3 at 5 minutes. He is able to follow one-step commands. Speech is normal with normal comprehension and expression. Extraocular muscles are intact. No facial weakness. Tongue and uvula are midline. 5/5 strength in all four extremities. Deep tendon flexes are 1+ in arms and knees and absent at ankles. He has decreased cold pinprick vibration sensation in his feet. His gait is unsteady. DIAGNOSTIC STUDIES: CT scan of head was reviewed and showed right orbital rim frontal sinus fracture. There is no intracranial bleeding. CT scan of cervical spine showed multilevel cervical spondylosis and stenosis. ASSESSMENT: 1. Suspected advanced dementia. 2. 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 3. History of alcoholism in past with alcoholic cirrhosis and encephalopathy. PLAN: 1. Trial of Aricept 5 mg by mouth in the morning for 2 weeks and it can be increased to 10 mg in the morning. It may provide only mild symptomatic improvement without altering the course of his illness. He likely has advanced dementia. He was able to answer only couple of questions on mental status examination. 2. Physical and occupational therapy and exercise fall precautions and use wheelchair. Use walker and discussion of physical therapist, if he is even able to do that. His gait difficulty is multifactorial. Likely, has diabetic peripheral neuropathy and lumbosacral disc disease. The diabetes is .
[2019-08-17] MEDS: HumaLOG INSULIN (NovoLOG) PER UNIT SC SCH ×4 (07:30→22:35)
[2019-08-17 07:44] LABS: BASO # 0.1 10^3/uL (0.0-0.2); BASO % 0.8 % (0.0-1.0); EOS # 0.4 10^3/uL (0.0-0.5); EOS % 6.2 % (0.0-3.0); HEMATOCRIT 39.5 % (42.0-52.0); LYMPH # 1.1 10^3/uL (1.5-5.0); MEAN CORPUSCULAR HEMOGLOBIN 31.6 pg (27.0-33.0); MEAN CORPUSCULAR HGB CONC 32.9 g/dl (32.0-36.5); MEAN CORPUSCULAR VOLUME 96.1 fl (80.0-96.0); MONO # 0.4 10^3/uL (0.0-0.8); MONO % 6.1 % (0.0-5.0); NEUTROPHILS # 4.3 10^3/uL (1.5-8.5); NEUTROPHILS % 69.1 % (36.0-66.0); PLATELET COUNT, AUTOMATED 169 10^3/uL (150-450); RED BLOOD COUNT 4.11 10^6/uL (4.30-6.10); WHITE BLOOD COUNT 6.3 10^3/uL (4.0-10.0)
[2019-08-17 08:15] LABS: BLOOD UREA NITROGEN 10 MG/DL (7-18); CALCIUM LEVEL 8.6 MG/DL (8.8-10.2); CARBON DIOXIDE LEVEL 25 MEQ/L (21-32); CHLORIDE LEVEL 110 MEQ/L (98-107); CREATININE FOR GFR 0.52 MG/DL (0.70-1.30); GLOMERULAR FILTRATION RATE > 60.0 (>42); GLUCOSE, FASTING 84 MG/DL (70-100); POTASSIUM SERUM 3.6 MEQ/L (3.5-5.1); SODIUM LEVEL 140 MEQ/L (136-145)
[2019-08-17] MEDS: ACETAMINOPHEN 650MG ER TAB (TYLENOL ARTHRITIS) PO SCH ×2 (10:18→22:34)
[2019-08-17] MEDS: buPROPion **XL** TABLET 150MG (WELLBUTRIN XL) PO SCH (10:18)
[2019-08-17] MEDS: OMEPRAZOLE 20 MG CAP PO SCH (10:18)
[2019-08-17] MEDS: SPIRONOLACTONE 25 MG TAB PO SCH (10:19)
[2019-08-17] MEDS: POTASSIUM CHLORIDE 10 MEQ SR TABLET PO SCH (10:19)
[2019-08-17] MEDS: MULTIVITAMINS/MINERALS THERAP 1 TAB PO SCH (10:19)
[2019-08-17] MEDS: IBUPROFEN 600 MG TAB PO SCH ×2 (10:19→22:34)
[2019-08-17] MEDS: LACTULOSE 20 GM/30 ML SYRUP UD PO SCH ×4 (10:19→22:34)
[2019-08-17] MEDS: FOLIC ACID 1 MG TAB PO SCH (10:19)
[2019-08-17] MEDS: DULoxetine 30 MG CAP (CYMBALTA) PO SCH (10:20)
[2019-08-17] MEDS: MAGNESIUM CHLORIDE 64 MG TABCR (SLO MAG) PO SCH (10:20)
[2019-08-17] MEDS: LIDOCAINE 5% (LIDODERM) PATCH TD SCH (10:21)
[2019-08-17 14:00] VITALS: BP 120/45
--- NOTE | 2019-08-17 17:40 | IPNPDOC ---
Subjective Date Seen The patient was seen on 08/17/19. Subjective Chief Complaint/HPI fall Events since last encounter Pt was seen having breakfast. pt stated that he is feeling fine. Denied any physical complaint. Pt is not aware about his surroundings Objective Physical Examination General Exam: Positive: Alert, Cooperative ENT Exam: Positive: Mucous membr. moist/pink Neck Exam: Positive: Supple Chest Exam: Positive: Clear to auscultation, Normal air movement Heart Exam: Positive: Rate Normal Abdomen Exam: Positive: Normal bowel sounds Skin Exam: Positive: Nl turgor and temperature Neuro Exam: Positive: Normal Speech Psych Exam: Positive: Mood NL, Other (oriented to person only) Assessment /Plan Assessment 74 y/o M with PMH of asthma, GERD, type 2 diabetes with neuropathy, and alcohol dependence with cirrhosis , hepatic encephalopathy, varices, who was transferred from [facility] after he had an unwitnessed fall who's cau se is to be determined. recent labs reviewed. Plan 1. Alcohol related Dementia/ Korsakoff syndrome He scored 17/30 in MMSE. Did poorly in orientation, recall and copying the picture. He is oriented to only person does not know the place or year. He does not have any insight into did disease problems and refuses to follow the nurses directions. often refuses his medications. He does not have medical decisional capacity. supportive care neurology recommendations appreciated 2. Encephalopathy appears resolved. Ammonia is wnl. CT head neg for acute bleed 3, Unwitnessed fall with injury to right forehead and right eye and right shoulder It is unclear what caused the fall Differential includes lower extremity weakness vs tripping over an object due to neuropathy or ? seizure CT of the head was negative for an acute CVA Cervical spine negative for any any fracture or dislocation continue tramadol, lidoderm patch ibuprofen neurology recommendations appreciated 4. Right orbital fracture Multiple right facial fractures and orbital floor and roof fractures without entrapment but mild displacement of bones Per Dr. gamez ENT and ophthalmology aware and report the patient is not a surgical candidate. Plan: Pain management with scheduled acetaminophen, scheduled ibuprofen & tr amadol when necessary 5. Unsteady gait PT eval/fall precautions 6. Hypertension. Acute elevation is likely due to pain. Now controlled 7. Leukocytosis. Likely reactive after the fall Now resolved. 8. NIDDM with neuropathy Last A1c was 5.3 in June continue lispro sliding scale, cymbalta. 9. Heavy Alcohol abuse. continue thiamine and folate. continue Wellbutrin 10. GERD. Continue PPI 11. Alcoholic liver cirrhosis with h/o hepatic encephalopathy, varices, thrombocytopenia, hyponatremia No hyponatremia at present. spirolactone 25mg daily , lasix 10mg daily (to maintain 100:40 ratio) lactulose 12. Asthma stable 13, Herniated lumbar spine disks continue pain meds. 14. Hx of Nephrolithiasis no issues at present 15. OA with bilateral knee replacement DVT prophylaxis with SCDs bc of fall resulting in trauma to his head Patient will be unable to take care of himself. He will need assisted placement. We discussed again this with pts daughter today over phone will f/u with discharge planning services Plan/VTE VTE Prophylaxis Ordered?: Yes VS, I&O, 24H, Fishbone Vital Signs/I&O Vital Signs Date Time Temp Pulse Resp B/P (MAP) Pulse Ox O2 Delivery O2 Flow Rate FiO2 08/17/19 14:00 97.4 88 16 120/45 (70) 98 08/17/19 06:00 Room Air I&O- Last 24 Hours up to 6 AM 08/17/19 06:00 Intake Total 840 ml Output Total 0 ml Balance 840 ml Laboratory Data 24H LABS Laboratory Tests 2 08/16/19 21:01: Bedside Glucose (Misc Panel) 101 08/17/19 06:36: Immature Granulocyte % (Auto) 0.8, Neutrophils (%) (Auto) 69.1H, Lymphocytes (%) (Auto) 17.0L, Monocytes (%) (Auto) 6.1H, Eosinophils (%) (Auto) 6.2H, Basophils (%) (Auto) 0.8, Neutrophils # (Auto) 4.3, Lymphocytes # (Auto) 1.1L, Monocytes # (Auto) 0.4, Eosinophils # (Auto) 0.4, Basophils # (Auto) 0.1, Nucleated Red Blood Cells % (auto) 0.0, Anion Gap 5L, Glomerular Filtration Rate > 60.0, Calcium Level 8.6L 08/17/19 11:51: Bedside Glucose (Misc Panel) 99 08/17/19 16:42: Bedside Glucose (Misc Panel) 104 CBC/BMP Laboratory Tests 08/17/19 06:36 RIK MCLEAN MD Aug 17, 2019 17:40
[2019-08-17 18:00] VITALS: BP 123/76
[2019-08-17 22:00] VITALS: BP 130/78
[2019-08-17] MEDS: **NOTE PATIENT COMMENT** MISC XX SCH (22:35)
[2019-08-18 06:00] VITALS: BP 149/79
[2019-08-18 06:16] LABS: BASO # 0.1 10^3/uL (0.0-0.2); EOS # 0.5 10^3/uL (0.0-0.5); EOS % 7.8 % (0.0-3.0); HEMATOCRIT 39.5 % (42.0-52.0); LYMPH # 1.3 10^3/uL (1.5-5.0); LYMPH % 21.6 % (24.0-44.0); MEAN CORPUSCULAR HEMOGLOBIN 31.8 pg (27.0-33.0); MEAN CORPUSCULAR HGB CONC 32.9 g/dl (32.0-36.5); MEAN CORPUSCULAR VOLUME 96.6 fl (80.0-96.0); MONO # 0.5 10^3/uL (0.0-0.8); MONO % 8.3 % (0.0-5.0); NEUTROPHILS # 3.8 10^3/uL (1.5-8.5); NEUTROPHILS % 60.7 % (36.0-66.0); PLATELET COUNT, AUTOMATED 168 10^3/uL (150-450); RED BLOOD COUNT 4.09 10^6/uL (4.30-6.10); WHITE BLOOD COUNT 6.2 10^3/uL (4.0-10.0)
[2019-08-18 06:42] LABS: BLOOD UREA NITROGEN 11 MG/DL (7-18); CALCIUM LEVEL 8.5 MG/DL (8.8-10.2); CARBON DIOXIDE LEVEL 24 MEQ/L (21-32); CHLORIDE LEVEL 110 MEQ/L (98-107); CREATININE FOR GFR 0.62 MG/DL (0.70-1.30); GLOMERULAR FILTRATION RATE > 60.0 (>42); GLUCOSE, FASTING 109 MG/DL (70-100); SODIUM LEVEL 141 MEQ/L (136-145)
[2019-08-18] MEDS: HumaLOG INSULIN (NovoLOG) PER UNIT SC SCH (07:30)
[2019-08-18] MEDS: IBUPROFEN 600 MG TAB PO SCH (08:50)
[2019-08-18] MEDS: DULoxetine 30 MG CAP (CYMBALTA) PO SCH (08:51)
[2019-08-18] MEDS: POTASSIUM CHLORIDE 10 MEQ SR TABLET PO SCH (08:51)
[2019-08-18] MEDS: MULTIVITAMINS/MINERALS THERAP 1 TAB PO SCH (08:51)
[2019-08-18] MEDS: ACETAMINOPHEN 650MG ER TAB (TYLENOL ARTHRITIS) PO SCH (08:51)
[2019-08-18] MEDS: LACTULOSE 20 GM/30 ML SYRUP UD PO SCH (08:51)
[2019-08-18] MEDS: FOLIC ACID 1 MG TAB PO SCH (08:51)
[2019-08-18] MEDS: SPIRONOLACTONE 25 MG TAB PO SCH (08:51)
[2019-08-18] MEDS: OMEPRAZOLE 20 MG CAP PO SCH (08:51)
[2019-08-18] MEDS: MAGNESIUM CHLORIDE 64 MG TABCR (SLO MAG) PO SCH (08:52)
[2019-08-18] MEDS: LIDOCAINE 5% (LIDODERM) PATCH TD SCH (08:52)
[2019-08-18] MEDS: buPROPion **XL** TABLET 150MG (WELLBUTRIN XL) PO SCH (09:09)
--- NOTE | 2019-08-18 09:40 | DS.PDOC ---
Discharge Summary General Date of Admission Aug 11, 2019 at 18:28 Date of Discharge 08/18/19 Primary Care Physician: Jr Murray Collins Attending Physician: KAVYA HAM MD Specialist/Consultants Involve: ZEINAB SALAZAR MD Discharge Summary PROCEDURES PERFORMED DURING STAY: None. ADMITTING DIAGNOSES: 1. Unwitnessed fall. DISCHARGE DIAGNOSES: 1. Unwitnessed fall, worsening Wernicke Korsakoff dementia. COMPLICATIONS/CHIEF COMPLAINT: Chronic Alcoholism;Fall;Fx Of Orbital Floor Closed. HISTORY OF PRESENT ILLNESS: Patient is a 74-year-old male with past medical history of Wernicke Korsakoffs dementia, herniated disks of the lumbar spine, street of alcoholic liver cirrhosis complicated by esophageal varices, GERD, on insulin dependent diabetes complicated by neuropathy as admitted to [facility] on 08/11/2019 for unwitnessed fall at [facility]. HOSPITAL COURSE: Patient is a 74-year-old male with past medical history of Wernicke Korsakoffs dementia, herniated disks of the lumbar spine, street of alcoholic liver cirrhosis complicated by esophageal varices, GERD, on insulin dependent diabetes complicated by neuropathy as admitted to [facility] on 08/11/2019 for unwitnessed fall at [facility]. CT head was negative for bleed, encephalopathy, likely secondary to morphine with ammonia level within normal limits, 31. CT maxillofacial, did reveal comminuted, mildly displaced fractures of the right anterior-inferior until sinus wall extending into the orbital roof, floor, anterior medial stewart as well as the frontal calvarium, with mild displaced fractures on the right anterior and lateral maxillary sinus stewart area. CT cervical neck negative for any fractures, no fractures on right shoulder x-ray, no acute processes on chest x-ray. MMSE 17/30. Neurology was consult with request by daughter 08/16/19 to recommendations for trial of Aricept 5 mg by mouth for 2 weeks with increase to 10 mg, A1c was 5.3 on 08/07/2019. Encephalopathy, resolved. It is noted that patient does refuse nursing directions and refuses medications often, Aricept was subsequently not started. Physician for short-term rehabilitation, with possible long-term rehabilitation, patient is full code, daughter is health care proxy. He needs to be discharged to rehabilitation today, no additional changes in medications, he does report occasional soft stools, currently on lactulose, will continue and hold with parameters of more than 4 loose bowel movements per day. DISCHARGE MEDICATIONS: Please see below. ALLERGIES: Please see below. PHYSICAL EXAMINATION ON DISCHARGE: VITAL SIGNS: Please see below. GENERAL: Pleasant male in no acute distress, able to speak in full sentences HEENT:. Right appear orbit has a clean, dry and intact Laceration, moist mucous membranes NECK:. No cervical lymphadenopathy CARDIOVASCULAR EXAMINATION:. S1, S2 RESPIRATORY EXAMINATION: Clear to auscultation bilaterally ABDOMINAL EXAMINATION: + bowel sounds, nontender to palpation EXTREMITIES: no edema SKIN: +bruising on R face NEUROLOGICAL EXAMINATION: AOx1, oriented to self PSYCHIATRIC EXAMINATION: does not have capacity, appropriate affect LABORATORY DATA: Please see below. IMAGING: see hospital course for details PROGNOSIS: fair ACTIVITY: As tolerated. DIET: Dm diet DISCHARGE PLAN: rehab DISPOSITION: rehab. DISCHARGE INSTRUCTIONS: 1. Follow-up with PCP in 1-2 weeks after discharge. ITEMS TO FOLLOWUP ON ON OUTPATIENT: 1. see above. DISCHARGE CONDITION: Stable. TIME SPENT ON DISCHARGE: greater than 30 minutes. Vital Signs/I&Os Vital Signs Date Time Temp Pulse Resp B/P (MAP) Pulse Ox O2 Delivery O2 Flow Rate FiO2 08/18/19 06:00 98.2 75 19 149/79 (102) 95 Room Air I&O- Last 24 Hours up to 6 AM 08/18/19 06:00 Intake Total 2242 ml Output Total 0 ml Balance 2242 ml Laboratory Data Labs 24H Laboratory Tests 2 08/17/19 11:51: Bedside Glucose (Misc Panel) 99 08/17/19 16:42: Bedside Glucose (Misc Panel) 104 08/17/19 20:34: Bedside Glucose (Misc Panel) 99 08/18/19 06:03: Immature Granulocyte % (Auto) 0.6, Neutrophils (%) (Auto) 60.7, Lymphocytes (%) (Auto) 21.6L, Monocytes (%) (Auto) 8.3H, Eosinophils (%) (Auto) 7.8H, Basophils (%) (Auto) 1.0, Neutrophils # (Auto) 3.8, Lymphocytes # (Auto) 1.3L, Monocytes # (Auto) 0.5, Eosinophils # (Auto) 0.5, Basophils # (Auto) 0.1, Nucleated Red Blood Cells % (auto) 0.0, Anion Gap 7L, Glomerular Filtration Rate > 60.0, Calcium Level 8.5L CBC/BMP Laboratory Tests 08/18/19 06:03 FSBS Laboratory Tests Test 08/17/19 11:51 08/17/19 16:42 08/17/19 20:34 Range/Units Bedside Glucose (Misc Panel) 99 104 99 83-110 MG/DL Discharge Medications Scheduled Bupropion HCl (Bupropion Xl) 300 Mg Tab.er.24h, 300 MG PO DAILY, (Reported) Duloxetine Hcl (Duloxetine HCl) 30 Mg Capsule.dr, 30 MG PO DAILY, (Reported) Folic Acid (Folic Acid) 1 Mg Tablet, 1 MG PO DAILY, (Reported) Lactulose (Lactulose) 10 Gm/15 Ml Solution, 30 ML PO BID, (Reported) Lidocaine (Lidoderm) 5% Adh..patch, 1 PATCH TD DAILY, (Reported) Apply to area of pain, Remove patch after 12 hours Magnesium Chloride (Mag Delay) 64 Mg Tablet.dr, 128 MG PO DAILY, (Reported) Multivitamin (Multivitamins) 1 Each Capsule, 1 CAP PO DAILY, (Reported) Omeprazole (Omeprazole) 20 Mg Capsule.dr, 20 MG PO DAILY, (Reported) Potassium Chloride (Potassium Chloride) 20 Meq Tab.er.prt, 20 MEQ PO DAILY, (Reported) Spironolactone (Spironolactone) 25 Mg Tablet, 25 MG PO DAILY, (Reported) Thiamine HCl (Vitamin B-1) 100 Mg Tablet, 100 MG PO DAILY, (Reported) Scheduled PRN Acetaminophen (Acetaminophen) 325 Mg Tablet, 650 MG PO Q6H PRN for PAIN, (Reported) Bisacodyl (Dulcolax) 10 Mg Supp.rect, 10 MG WI DAILY PRN for CONSTIPATION, (Reported) Magnesium Hydroxide (Milk of Magnesia) 400 Mg/5 Ml Oral.susp, 2,400 MG PO DAILY PRN for CONSTIPATION, (Reported) Allergies Coded Allergies: ether (Verified Allergy, Severe, ANAPHYLAXIS, 02/24/19) egg (Verified Allergy, Mild, RASH, 02/24/19) KAVYA HAM MD Aug 18, 2019 09:40
== END 2019-08-18 12:04 | DRG 86 ==
LOC: M ED 18:27 → EDBD 18:27 → OBSVTOIN 18:28 → M ED INP 18:28 → M MSPAV 08-12 00:59
PROVIDERS: ADMIT Internal Medicine; ATTEND Family Medicine
DX: S02.121A Fracture of orbital roof, right side, initial encounter for closed fracture (principal); I85.10 Secondary esophageal varices without bleeding; G93.40 Encephalopathy, unspecified; S02.92XA Unspecified fracture of facial bones, initial encounter for closed fracture; F10.97 Alcohol use, unspecified with alcohol-induced persisting dementia; F10.96 Alcohol use, unspecified with alcohol-induced persisting amnestic disorder; K70.30 Alcoholic cirrhosis of liver without ascites; K21.9 Gastro-esophageal reflux disease without esophagitis; E11.40 Type 2 diabetes mellitus with diabetic neuropathy, unspecified; M51.26 Other intervertebral disc displacement, lumbar region; W18.30XA Fall on same level, unspecified, initial encounter; Y92.009 Unspecified place in unspecified non-institutional (private) residence as the place of occurrence of the external cause; Z79.899 Other long term (current) drug therapy; Z91.012 Allergy to eggs; Z96.651 Presence of right artificial knee joint; Z96.652 Presence of left artificial knee joint; Z87.891 Personal history of nicotine dependence; D72.829 Elevated white blood cell count, unspecified; J45.909 Unspecified asthma, uncomplicated

== ENCOUNTER → 2019-08-11 | Outpatient (REF) ==
[~2019-08-11] MED LIST changes: +B-1100TA2 PO; +DULC10SU2 PR; +DULO30CA9 PO; +LACT10SO29 PO; +LIDO5DIS41 TD; +MAGN64TA3 PO; +MILKSUS3 PO; +POTA20TA6 PO; +SPIR-10 PO
[2019-08-11 13:15] LABS: BLOOD UREA NITROGEN 8 MG/DL (7-18); CALCIUM LEVEL 8.7 MG/DL (8.8-10.2); CARBON DIOXIDE LEVEL 24 MEQ/L (21-32); CHLORIDE LEVEL 103 MEQ/L (98-107); CREATININE FOR GFR 0.76 MG/DL (0.70-1.30); GLOMERULAR FILTRATION RATE > 60.0 (>42); GLUCOSE, FASTING 109 MG/DL (70-100); POTASSIUM SERUM 3.9 MEQ/L (3.5-5.1); SODIUM LEVEL 138 MEQ/L (136-145)
== END ==
LOC: SKLAB2 10:39
PROVIDERS: ATTEND Internal Medicine
DX: R29.6 Repeated falls (principal)

== ENCOUNTER → 2019-08-24 | Outpatient (REF) ==
[~2019-08-24] MED LIST changes: +B-1100TA2 PO; +DULC10SU2 PR; +DULO30CA9 PO; +LACT10SO29 PO; +LIDO5DIS41 TD; +MAGN64TA3 PO; +MILKSUS3 PO; +POTA20TA6 PO; +SPIR-10 PO
[2019-08-24 08:06] LABS: BLOOD UREA NITROGEN 12 MG/DL (7-18); CALCIUM LEVEL 8.7 MG/DL (8.8-10.2); CARBON DIOXIDE LEVEL 26 MEQ/L (21-32); CHLORIDE LEVEL 105 MEQ/L (98-107); GLOMERULAR FILTRATION RATE > 60.0 (>42); GLUCOSE, FASTING 112 MG/DL (70-100); POTASSIUM SERUM 3.8 MEQ/L (3.5-5.1); SODIUM LEVEL 139 MEQ/L (136-145)
== END ==
LOC: SKLAB2 07:00
PROVIDERS: ATTEND Internal Medicine
DX: E87.6 Hypokalemia (principal)

== ENCOUNTER → 2019-09-07 | Outpatient (REF) ==
[~2019-09-07] MED LIST changes: +OMEP-172 PO; -OMEP20CA4 PO; -SIMV20TA2 PO; +SIMV20TA22 PO
[2019-09-07 08:18] LABS: HEMATOCRIT 40.4 % (42.0-52.0); HEMOGLOBIN 13.6 g/dl (13.5-17.5); MEAN CORPUSCULAR HEMOGLOBIN 31.8 pg (27.0-33.0); MEAN CORPUSCULAR HGB CONC 33.7 g/dl (32.0-36.5); MEAN CORPUSCULAR VOLUME 94.4 fl (80.0-96.0); PLATELET COUNT, AUTOMATED 218 10^3/uL (150-450); RED BLOOD COUNT 4.28 10^6/uL (4.30-6.10); WHITE BLOOD COUNT 5.7 10^3/uL (4.0-10.0)
[2019-09-07 08:53] LABS: ALBUMIN 2.9 GM/DL (3.2-5.2); ALT/SGPT 22 U/L (12-78); BILIRUBIN,TOTAL 0.7 MG/DL (0.2-1.0); BLOOD UREA NITROGEN 13 MG/DL (7-18); CALCIUM LEVEL 8.6 MG/DL (8.8-10.2); CARBON DIOXIDE LEVEL 23 MEQ/L (21-32); CHLORIDE LEVEL 108 MEQ/L (98-107); CREATININE FOR GFR 0.55 MG/DL (0.70-1.30); GLOMERULAR FILTRATION RATE > 60.0 (>42); GLUCOSE, FASTING 98 MG/DL (70-100); MAGNESIUM LEVEL 1.8 MG/DL (1.8-2.4); POTASSIUM SERUM 3.8 MEQ/L (3.5-5.1); SODIUM LEVEL 140 MEQ/L (136-145); TOTAL PROTEIN 6.6 GM/DL (6.4-8.2)
[2019-09-07 10:43] LABS: HEMOGLOBIN A1c 5.5 %
== END ==
LOC: SKLAB2 07:00
PROVIDERS: ATTEND Internal Medicine
DX: D64.9 Anemia, unspecified (principal); K74.60 Unspecified cirrhosis of liver; E11.9 Type 2 diabetes mellitus without complications; R25.1 Tremor, unspecified

== ENCOUNTER → 2019-10-12 | Outpatient (REF) | payer OTHER, MEDICARE, MEDICAID ==
[~2019-10-12] MED LIST changes: -ARTH650T11 PO; +ARTH650T4 PO; -BUPR300T34 PO; +BUPR300T92 PO; -OMEP-172 PO; +OMEP1CAP73 PO; +ONDA-83 PO; -ONDA4TAB5 PO
[2019-10-12 10:05] LABS: HEMOGLOBIN A1c 5.6 %
[2019-10-12 16:06] LABS: MALB URINE SIEMENS 13.1 MG/L; MAU/CREAT RATIO 7.1 MCG/MG (0.0-30.0)
== END ==
LOC: SKLAB2 07:30
PROVIDERS: ATTEND Internal Medicine
DX: E11.9 Type 2 diabetes mellitus without complications (principal)

== ENCOUNTER → 2019-12-07 | Outpatient (REF) | payer OTHER, MEDICARE, MEDICAID ==
[2019-12-07 08:05] LABS: HEMATOCRIT 40.8 % (42.0-52.0); HEMOGLOBIN 14.2 g/dl (13.5-17.5); MEAN CORPUSCULAR HEMOGLOBIN 30.2 pg (27.0-33.0); MEAN CORPUSCULAR HGB CONC 34.8 g/dl (32.0-36.5); MEAN CORPUSCULAR VOLUME 86.8 fl (80.0-96.0); PLATELET COUNT, AUTOMATED 185 10^3/uL (150-450); WHITE BLOOD COUNT 6.6 10^3/uL (4.0-10.0)
[2019-12-07 08:15] LABS: ALBUMIN 3.2 GM/DL (3.2-5.2); ALT/SGPT 16 U/L (12-78); BILIRUBIN,TOTAL 0.7 MG/DL (0.2-1.0); BLOOD UREA NITROGEN 12 MG/DL (7-18); CALCIUM LEVEL 8.5 MG/DL (8.8-10.2); CARBON DIOXIDE LEVEL 24 MEQ/L (21-32); CHLORIDE LEVEL 106 MEQ/L (98-107); GLOMERULAR FILTRATION RATE > 60.0 (>42); GLUCOSE, FASTING 155 MG/DL (70-100); MAGNESIUM LEVEL 1.9 MG/DL (1.8-2.4); POTASSIUM SERUM 3.7 MEQ/L (3.5-5.1); SODIUM LEVEL 138 MEQ/L (136-145)
== END ==
LOC: SKLAB2 07:00
PROVIDERS: ATTEND Internal Medicine
DX: D64.9 Anemia, unspecified (principal)

== ENCOUNTER → 2019-12-14 | Outpatient (REF) | payer OTHER, MEDICARE, MEDICAID | LOC: SKLAB2 07:30 | PROVIDERS: ATTEND Internal Medicine | DX: K74.60 Unspecified cirrhosis of liver (principal) ==

== ENCOUNTER → 2020-02-09 | Outpatient (REF) | LOC: SKLAB2 07:30 | PROVIDERS: ATTEND Internal Medicine | DX: Z03.818 Encounter for observation for suspected exposure to other biological agents ruled out (principal) ==

== ENCOUNTER → 2020-03-08 | Outpatient (REF) | payer OTHER, MEDICARE, MEDICAID ==
[~2020-03-08] MED LIST changes: -LACT10SO29 PO; +LACT20EL PO
[2020-03-08 09:13] LABS: HEMATOCRIT 41.9 % (42.0-52.0); HEMOGLOBIN 14.8 g/dl (13.5-17.5); MEAN CORPUSCULAR HEMOGLOBIN 30.9 pg (27.0-33.0); MEAN CORPUSCULAR HGB CONC 35.3 g/dl (32.0-36.5); MEAN CORPUSCULAR VOLUME 87.5 fl (80.0-96.0); PLATELET COUNT, AUTOMATED 171 10^3/uL (150-450); RED BLOOD COUNT 4.79 10^6/uL (4.30-6.10); WHITE BLOOD COUNT 6.1 10^3/uL (4.0-10.0)
[2020-03-08 09:24] LABS: ALBUMIN 3.1 GM/DL (3.2-5.2); ALT/SGPT 20 U/L (12-78); BILIRUBIN,TOTAL 0.9 MG/DL (0.2-1.0); BLOOD UREA NITROGEN 12 MG/DL (7-18); CALCIUM LEVEL 8.7 MG/DL (8.8-10.2); CARBON DIOXIDE LEVEL 27 MEQ/L (21-32); CHLORIDE LEVEL 107 MEQ/L (98-107); CREATININE FOR GFR 0.69 MG/DL (0.70-1.30); GLOMERULAR FILTRATION RATE > 60.0 (>42); GLUCOSE, FASTING 84 MG/DL (70-100); POTASSIUM SERUM 3.9 MEQ/L (3.5-5.1); SODIUM LEVEL 140 MEQ/L (136-145); TOTAL PROTEIN 6.8 GM/DL (6.4-8.2)
== END ==
LOC: SKLAB2 07:30
PROVIDERS: ATTEND Internal Medicine
DX: D64.9 Anemia, unspecified (principal); E11.9 Type 2 diabetes mellitus without complications; K74.60 Unspecified cirrhosis of liver

== ENCOUNTER → 2020-04-12 | Outpatient (REF) | payer OTHER, MEDICARE, MEDICAID ==
[2020-04-12 15:15] LABS: HEMOGLOBIN A1c 5.6 %
== END ==
LOC: SKLAB2 07:00
PROVIDERS: ATTEND Internal Medicine
DX: E11.9 Type 2 diabetes mellitus without complications (principal)

== ENCOUNTER → 2020-05-12 | Outpatient (CLI) | payer MEDICARE, MEDICAID ==
[~2020-05-12] MED LIST changes: +ARTH650T11 PO; -ARTH650T4 PO; -VITA100T88 PO; +VITAMIN B-1100 M4 PO
== END ==
LOC: M RAD 09:37
PROVIDERS: ATTEND Internal Medicine
DX: M25.711 Osteophyte, right shoulder (principal)

== ENCOUNTER → 2020-06-14 | Outpatient (REF) | payer MEDICARE, MEDICAID ==
[2020-06-14 08:16] LABS: HEMATOCRIT 42.9 % (42.0-52.0); HEMOGLOBIN 14.7 g/dl (13.5-17.5); MEAN CORPUSCULAR HEMOGLOBIN 30.6 pg (27.0-33.0); MEAN CORPUSCULAR HGB CONC 34.3 g/dl (32.0-36.5); MEAN CORPUSCULAR VOLUME 89.2 fl (80.0-96.0); PLATELET COUNT, AUTOMATED 187 10^3/uL (150-450); RED BLOOD COUNT 4.81 10^6/uL (4.30-6.10); WHITE BLOOD COUNT 6.2 10^3/uL (4.0-10.0)
[2020-06-14 08:51] LABS: ALBUMIN 3.2 GM/DL (3.2-5.2); ALT/SGPT 15 U/L (12-78); BILIRUBIN,TOTAL 0.5 MG/DL (0.2-1.0); BLOOD UREA NITROGEN 9 MG/DL (7-18); CALCIUM LEVEL 9.1 MG/DL (8.8-10.2); CARBON DIOXIDE LEVEL 27 MEQ/L (21-32); CHLORIDE LEVEL 107 MEQ/L (98-107); CREATININE FOR GFR 0.75 MG/DL (0.70-1.30); GLOMERULAR FILTRATION RATE > 60.0 (>42); GLUCOSE, FASTING 93 MG/DL (70-100); MAGNESIUM LEVEL 1.8 MG/DL (1.8-2.4); POTASSIUM SERUM 3.8 MEQ/L (3.5-5.1); SODIUM LEVEL 140 MEQ/L (136-145); TOTAL PROTEIN 6.8 GM/DL (6.4-8.2)
== END ==
LOC: SKLAB2 07:00
PROVIDERS: ATTEND Internal Medicine
DX: K74.60 Unspecified cirrhosis of liver (principal)

== ENCOUNTER → 2020-06-27 | Outpatient (CLI) | payer MEDICARE, MEDICAID ==
--- NOTE | 2020-07-06 13:57 | REP ---
MRI RIGHT SHOULDER HISTORY: Osteoarthritis. Pain. TECHNIQUE: Multiple sequences obtained in the axial, coronal, oblique, and sagittal oblique planes. FINDINGS: Supraspinatus tendon demonstrates a full-thickness partial tear anteriorly of the distal tendon. There is also a partial undersurface tear of the more posterior aspect of the tendon. There is a partial tear of the distal subscapularis tendon. Acromioclavicular joint is not completely visualized on coronal oblique images. There does appear to be mild hypertrophy degenerative change of the acromioclavicular joint with mild fluid in the joint. Acromion appears to be type 2. The biceps tendon is in the bicipital groove with mild surrounding fluid. There is no Hill-Sachs deformity. The deltoid muscle demonstrates no abnormal signal. There is significant fraying of the biceps labral complex. There is a diffuse SLAP tear noted. There is a focal tear of the inferior labrum. There is also a tear of the anterior labrum. The posterior labrum appears diffusely frayed. 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 There is moderate spurring of the humeral head. There is moderate chondromalacia of the humeral head. Mild subcortical cystic change is seen in the superolateral humeral head. There is a moderate joint effusion. A very small amount of fluid is seen in the subacromial subdeltoid bursa. IMPRESSION: Full thickness partial tear anterior supraspinatus tendon with partial undersurface tear of the more posterior supraspinatus tendon. There is a partial-thickness tear of the subscapularis tendon. Mild hypertrophic degenerative changes of the acromioclavicular joint with a type 2 acromion. Significant fraying of the biceps labral complex. Diffuse SLAP tear. There are tears of the anterior and inferior labrum. There is diffuse fraying of the posterior labrum. MTDD
== END ==
LOC: M RAD 11:33
PROVIDERS: ATTEND Orthopaedic Surgery
DX: M19.011 Primary osteoarthritis, right shoulder (principal); S43.431A Superior glenoid labrum lesion of right shoulder, initial encounter; M75.101 Unspecified rotator cuff tear or rupture of right shoulder, not specified as traumatic; X58.XXXA Exposure to other specified factors, initial encounter; Y92.89 Other specified places as the place of occurrence of the external cause

== ENCOUNTER → 2020-08-11 | Outpatient (REF) | payer MEDICAID, MEDICARE | LOC: SKLAB2 12:59 | PROVIDERS: ATTEND Internal Medicine | DX: Z20.828 Contact with and (suspected) exposure to other viral communicable diseases (principal) ==

== ENCOUNTER → 2020-08-17 | Outpatient (REF) | payer MEDICARE, MEDICAID | LOC: SKLAB2 08-16 11:31 → EDSTATUS 09-08 06:40 | PROVIDERS: ATTEND Internal Medicine | DX: Z20.828 Contact with and (suspected) exposure to other viral communicable diseases (principal) ==

== ENCOUNTER → 2020-08-31 | Outpatient (REF) | payer MEDICARE, MEDICAID | LOC: SKLAB2 08:00 | PROVIDERS: ATTEND Internal Medicine | DX: Z20.828 Contact with and (suspected) exposure to other viral communicable diseases (principal) ==

== ENCOUNTER → 2020-09-07 | Outpatient (REF) | payer MEDICARE, MEDICAID | LOC: SKLAB2 07:38 | PROVIDERS: ATTEND Internal Medicine | DX: Z20.828 Contact with and (suspected) exposure to other viral communicable diseases (principal) ==

== ENCOUNTER → 2020-09-13 | Outpatient (REF) | payer MEDICARE, MEDICAID ==
[2020-09-13 10:44] LABS: ALBUMIN 3.2 GM/DL (3.2-5.2); ALT/SGPT 15 U/L (12-78); BILIRUBIN,TOTAL 0.7 MG/DL (0.2-1.0); BLOOD UREA NITROGEN 11 MG/DL (7-18); CALCIUM LEVEL 8.3 MG/DL (8.8-10.2); CARBON DIOXIDE LEVEL 23 MEQ/L (21-32); CHLORIDE LEVEL 107 MEQ/L (98-107); CREATININE FOR GFR 0.75 MG/DL (0.70-1.30); GLOMERULAR FILTRATION RATE > 60.0 (>42); GLUCOSE, FASTING 182 MG/DL (70-100); MAGNESIUM LEVEL 1.7 MG/DL (1.8-2.4); POTASSIUM SERUM 3.8 MEQ/L (3.5-5.1); SODIUM LEVEL 139 MEQ/L (136-145); TOTAL PROTEIN 6.5 GM/DL (6.4-8.2)
== END ==
LOC: SKLAB2 08:00
PROVIDERS: ATTEND Internal Medicine
DX: K74.60 Unspecified cirrhosis of liver (principal); E11.9 Type 2 diabetes mellitus without complications; R25.1 Tremor, unspecified

== ENCOUNTER → 2020-09-14 | Outpatient (REF) | payer MEDICARE, MEDICAID | LOC: SKLAB2 11:30 | PROVIDERS: ATTEND Internal Medicine | DX: Z20.828 Contact with and (suspected) exposure to other viral communicable diseases (principal) ==

== ENCOUNTER → 2020-09-21 | Outpatient (REF) | payer MEDICARE, MEDICAID | LOC: SKLAB2 08:12 | PROVIDERS: ATTEND Internal Medicine | DX: Z20.828 Contact with and (suspected) exposure to other viral communicable diseases (principal) ==

== ENCOUNTER → 2020-09-28 | Outpatient (REF) | payer MEDICARE, MEDICAID | LOC: SKLAB2 11:05 | PROVIDERS: ATTEND Internal Medicine | DX: Z20.828 Contact with and (suspected) exposure to other viral communicable diseases (principal) ==

== ENCOUNTER → 2020-10-05 | Outpatient (REF) | payer MEDICARE, MEDICAID | LOC: SKLAB2 07:00 | PROVIDERS: ATTEND Internal Medicine | DX: Z11.52 Encounter for screening for COVID-19 (principal) ==

== ENCOUNTER → 2020-10-11 | Outpatient (REF) | payer MEDICARE, MEDICAID ==
[~2020-10-11] MED LIST changes: -BUPR150T3 PO; +BUPR150T4 PO
[2020-10-11 16:00] LABS: HEMOGLOBIN A1c 5.7 %
== END ==
LOC: SKLAB2 07:00
PROVIDERS: ATTEND Internal Medicine
DX: E11.9 Type 2 diabetes mellitus without complications (principal)

== ENCOUNTER → 2020-10-12 | Outpatient (REF) | payer MEDICARE, MEDICAID | LOC: SKLAB2 07:00 | PROVIDERS: ATTEND Internal Medicine | DX: Z20.822 Contact with and (suspected) exposure to COVID-19 (principal) ==

== ENCOUNTER → 2020-10-19 | Outpatient (REF) | payer MEDICARE, MEDICAID | LOC: SKLAB2 07:00 | PROVIDERS: ATTEND Internal Medicine | DX: Z20.822 Contact with and (suspected) exposure to COVID-19 (principal) ==

== ENCOUNTER → 2020-10-25 | Outpatient (REF) | payer MEDICARE, MEDICAID | LOC: SKLAB2 07:00 | PROVIDERS: ATTEND Internal Medicine | DX: E83.42 Hypomagnesemia (principal) ==

== ENCOUNTER → 2020-10-26 | Outpatient (REF) | payer MEDICARE, MEDICAID | LOC: SKLAB2 14:21 | PROVIDERS: ATTEND Internal Medicine | DX: Z20.822 Contact with and (suspected) exposure to COVID-19 (principal) ==

== ENCOUNTER → 2020-11-02 | Outpatient (REF) | payer MEDICARE, MEDICAID | LOC: SKLAB2 10:58 | PROVIDERS: ATTEND Internal Medicine | DX: Z20.822 Contact with and (suspected) exposure to COVID-19 (principal) ==

== ENCOUNTER → 2020-11-09 | Outpatient (REF) | payer MEDICARE, MEDICAID | LOC: SKLAB2 09:42 | PROVIDERS: ATTEND Internal Medicine | DX: Z20.822 Contact with and (suspected) exposure to COVID-19 (principal) ==

== ENCOUNTER → 2020-11-16 | Outpatient (REF) | payer MEDICARE, MEDICAID | LOC: SKLAB2 08:13 | PROVIDERS: ATTEND Internal Medicine | DX: Z20.822 Contact with and (suspected) exposure to COVID-19 (principal) ==

== ENCOUNTER → 2020-11-23 | Outpatient (REF) | payer MEDICARE, MEDICAID | LOC: SKLAB2 09:30 | PROVIDERS: ATTEND Internal Medicine | DX: Z20.822 Contact with and (suspected) exposure to COVID-19 (principal) ==

== ENCOUNTER → 2020-12-06 | Outpatient (REF) | payer MEDICARE, MEDICAID ==
[~2020-12-06] MED LIST changes: +ASPI-569 PO; -ASPI81TAEC PO; +BUPR150T12 PO; -BUPR150T4 PO
[2020-12-06 07:44] LABS: HEMATOCRIT 42.8 % (42.0-52.0); HEMOGLOBIN 14.4 g/dl (13.5-17.5); MEAN CORPUSCULAR HEMOGLOBIN 29.9 pg (27.0-33.0); MEAN CORPUSCULAR HGB CONC 33.6 g/dl (32.0-36.5); MEAN CORPUSCULAR VOLUME 88.8 fl (80.0-96.0); PLATELET COUNT, AUTOMATED 214 10^3/uL (150-450); RED BLOOD COUNT 4.82 10^6/uL (4.30-6.10); WHITE BLOOD COUNT 8.3 10^3/uL (4.0-10.0)
[2020-12-06 08:05] LABS: ALBUMIN 3.3 GM/DL (3.2-5.2); ALT/SGPT 14 U/L (12-78); BILIRUBIN,TOTAL 0.9 MG/DL (0.2-1.0); BLOOD UREA NITROGEN 12 MG/DL (7-18); CALCIUM LEVEL 8.9 MG/DL (8.8-10.2); CARBON DIOXIDE LEVEL 24 MEQ/L (21-32); CHLORIDE LEVEL 106 MEQ/L (98-107); CREATININE FOR GFR 0.73 MG/DL (0.70-1.30); GLOMERULAR FILTRATION RATE > 60.0 (>42); GLUCOSE, FASTING 121 MG/DL (70-100); POTASSIUM SERUM 3.7 MEQ/L (3.5-5.1); SODIUM LEVEL 138 MEQ/L (136-145); TOTAL PROTEIN 6.5 GM/DL (6.4-8.2)
== END ==
LOC: SKLAB2 10:31
PROVIDERS: ATTEND Internal Medicine
DX: D64.9 Anemia, unspecified (principal)

== ENCOUNTER → 2020-12-07 | Outpatient (REF) | payer MEDICARE, MEDICAID | LOC: SKLAB2 08:00 | PROVIDERS: ATTEND Internal Medicine | DX: Z11.52 Encounter for screening for COVID-19 (principal) ==

== ENCOUNTER → 2020-12-14 | Outpatient (REF) | payer MEDICARE, MEDICAID | LOC: SKLAB2 10:50 | PROVIDERS: ATTEND Internal Medicine | DX: Z20.822 Contact with and (suspected) exposure to COVID-19 (principal) ==

== ENCOUNTER → 2020-12-30 | Outpatient (REF) | payer MEDICARE, MEDICAID | LOC: SKLAB2 14:30 | PROVIDERS: ATTEND Internal Medicine | DX: Z20.822 Contact with and (suspected) exposure to COVID-19 (principal) ==

== ENCOUNTER → 2021-03-07 | Outpatient (REF) | payer MEDICARE, MEDICAID ==
[2021-03-07 11:07] LABS: HEMATOCRIT 47.5 % (42.0-52.0); HEMOGLOBIN 15.7 g/dl (13.5-17.5); MEAN CORPUSCULAR HGB CONC 33.1 g/dl (32.0-36.5); MEAN CORPUSCULAR VOLUME 90.6 fl (80.0-96.0); PLATELET COUNT, AUTOMATED 231 10^3/uL (150-450); RED BLOOD COUNT 5.24 10^6/uL (4.30-6.10); WHITE BLOOD COUNT 7.5 10^3/uL (4.0-10.0)
[2021-03-07 12:19] LABS: ALBUMIN 3.5 GM/DL (3.2-5.2); ALT/SGPT 20 U/L (12-78); BLOOD UREA NITROGEN 10 MG/DL (7-18); CALCIUM LEVEL 9.2 MG/DL (8.8-10.2); CARBON DIOXIDE LEVEL 24 MEQ/L (21-32); CHLORIDE LEVEL 109 MEQ/L (98-107); CREATININE FOR GFR 0.69 MG/DL (0.70-1.30); GLOMERULAR FILTRATION RATE > 60.0 (>42); GLUCOSE, FASTING 102 MG/DL (70-100); POTASSIUM SERUM 4.3 MEQ/L (3.5-5.1); SODIUM LEVEL 144 MEQ/L (136-145); TOTAL PROTEIN 7.3 GM/DL (6.4-8.2)
== END ==
LOC: SKLAB2 13:17
PROVIDERS: ATTEND Internal Medicine
DX: K74.60 Unspecified cirrhosis of liver (principal); D64.9 Anemia, unspecified

== ENCOUNTER → 2021-04-11 | Outpatient (REF) | payer MEDICARE, MEDICAID ==
[2021-04-11 10:21] LABS: HEMOGLOBIN A1c 5.4 %
== END ==
LOC: SKLAB2 16:08
PROVIDERS: ATTEND Internal Medicine
DX: E11.9 Type 2 diabetes mellitus without complications (principal)

== ENCOUNTER → 2021-06-13 | Outpatient (REF) | payer MEDICARE, MEDICAID ==
[~2021-06-13] MED LIST changes: -KLOR10TA76 PO; +POTA-136 PO
[2021-06-13 12:37] LABS: HEMATOCRIT 43.2 % (42.0-52.0); HEMOGLOBIN 14.6 g/dl (13.5-17.5); MEAN CORPUSCULAR HEMOGLOBIN 30.4 pg (27.0-33.0); MEAN CORPUSCULAR HGB CONC 33.8 g/dl (32.0-36.5); MEAN CORPUSCULAR VOLUME 89.8 fl (80.0-96.0); PLATELET COUNT, AUTOMATED 219 10^3/uL (150-450); RED BLOOD COUNT 4.81 10^6/uL (4.30-6.10)
[2021-06-13 12:55] LABS: BLOOD UREA NITROGEN 8 MG/DL (7-18); CALCIUM LEVEL 8.7 MG/DL (8.8-10.2); CARBON DIOXIDE LEVEL 26 MEQ/L (21-32); CHLORIDE LEVEL 108 MEQ/L (98-107); CREATININE FOR GFR 0.61 MG/DL (0.70-1.30); GLOMERULAR FILTRATION RATE > 60.0 (>42); GLUCOSE, FASTING 116 MG/DL (70-100); POTASSIUM SERUM 4.6 MEQ/L (3.5-5.1); SODIUM LEVEL 141 MEQ/L (136-145)
[2021-06-13 12:56] LABS: ALT/SGPT 16 U/L (12-78); BILIRUBIN,TOTAL 0.6 MG/DL (0.2-1.0); MAGNESIUM LEVEL 1.9 MG/DL (1.8-2.4); TOTAL PROTEIN 6.2 GM/DL (6.4-8.2)
== END ==
LOC: SKLAB2 10:44
PROVIDERS: ATTEND Internal Medicine
DX: D64.9 Anemia, unspecified (principal)

== ENCOUNTER → 2021-07-20 | Outpatient (REF) | payer MEDICARE, MEDICAID | LOC: SKLAB6 09:21 | PROVIDERS: ATTEND Internal Medicine | DX: Z20.822 Contact with and (suspected) exposure to COVID-19 (principal) ==

== ENCOUNTER → 2021-07-24 | Outpatient (REF) | payer MEDICARE, MEDICAID | LOC: SKLAB6 06:23 | PROVIDERS: ATTEND Internal Medicine | DX: Z20.822 Contact with and (suspected) exposure to COVID-19 (principal) ==

== ENCOUNTER → 2021-07-27 | Outpatient (REF) | payer MEDICARE, MEDICAID | LOC: SKLAB6 06:40 | PROVIDERS: ATTEND Internal Medicine | DX: Z20.822 Contact with and (suspected) exposure to COVID-19 (principal) ==

== ENCOUNTER → 2021-07-31 | Outpatient (REF) | payer MEDICARE, MEDICAID | LOC: SKLAB6 05:54 | PROVIDERS: ATTEND Internal Medicine | DX: Z20.822 Contact with and (suspected) exposure to COVID-19 (principal); Z53.8 Procedure and treatment not carried out for other reasons ==

== ENCOUNTER → 2021-08-03 | Outpatient (REF) | payer MEDICARE, MEDICAID | LOC: SKLAB6 05:40 | PROVIDERS: ATTEND Internal Medicine | DX: Z20.822 Contact with and (suspected) exposure to COVID-19 (principal) ==

== ENCOUNTER → 2021-08-09 | Outpatient (REF) | payer MEDICARE, MEDICAID | LOC: SKLAB6 13:35 | PROVIDERS: ATTEND Internal Medicine | DX: Z20.822 Contact with and (suspected) exposure to COVID-19 (principal) ==

== ENCOUNTER → 2021-08-16 | Outpatient (REF) | payer MEDICARE, MEDICAID | LOC: SKLAB6 07:55 | PROVIDERS: ATTEND Internal Medicine | DX: Z20.822 Contact with and (suspected) exposure to COVID-19 (principal) ==

== ENCOUNTER → 2021-09-06 | Outpatient (REF) | payer MEDICARE, MEDICAID | LOC: SKLAB3 09:00 | PROVIDERS: ATTEND Internal Medicine | DX: Z20.822 Contact with and (suspected) exposure to COVID-19 (principal) ==

== ENCOUNTER → 2021-09-13 | Outpatient (REF) | payer MEDICARE, MEDICAID | LOC: SKLAB3 11:39 | PROVIDERS: ATTEND Internal Medicine | DX: Z20.822 Contact with and (suspected) exposure to COVID-19 (principal) ==

== ENCOUNTER → 2021-09-19 | Outpatient (REF) | payer MEDICARE, MEDICAID ==
[2021-09-19 10:16] LABS: HEMOGLOBIN 14.9 g/dl (13.5-17.5); MEAN CORPUSCULAR HEMOGLOBIN 30.2 pg (27.0-33.0); MEAN CORPUSCULAR HGB CONC 33.1 g/dl (32.0-36.5); MEAN CORPUSCULAR VOLUME 91.1 fl (80.0-96.0); PLATELET COUNT, AUTOMATED 211 10^3/uL (150-450); RED BLOOD COUNT 4.94 10^6/uL (4.30-6.10); WHITE BLOOD COUNT 6.9 10^3/uL (4.0-10.0)
[2021-09-19 10:42] LABS: ALBUMIN 3.1 GM/DL (3.2-5.2); ALT/SGPT 12 U/L (12-78); BILIRUBIN,TOTAL 0.5 MG/DL (0.2-1.0); BLOOD UREA NITROGEN 13 MG/DL (7-18); CALCIUM LEVEL 8.6 MG/DL (8.8-10.2); CARBON DIOXIDE LEVEL 29 MEQ/L (21-32); CHLORIDE LEVEL 109 MEQ/L (98-107); CREATININE FOR GFR 0.55 MG/DL (0.70-1.30); GLOMERULAR FILTRATION RATE > 60.0 (>42); GLUCOSE, FASTING 77 MG/DL (70-100); MAGNESIUM LEVEL 1.8 MG/DL (1.8-2.4); POTASSIUM SERUM 3.5 MEQ/L (3.5-5.1); SODIUM LEVEL 143 MEQ/L (136-145); TOTAL PROTEIN 6.1 GM/DL (6.4-8.2)
== END ==
LOC: SKLAB3 07:00
PROVIDERS: ATTEND Internal Medicine
DX: D69.6 Thrombocytopenia, unspecified (principal); E11.9 Type 2 diabetes mellitus without complications; E87.6 Hypokalemia

== ENCOUNTER → 2021-09-20 | Outpatient (REF) | payer MEDICARE, MEDICAID | LOC: SKLAB3 10:00 | PROVIDERS: ATTEND Internal Medicine | DX: Z20.822 Contact with and (suspected) exposure to COVID-19 (principal) ==

== ENCOUNTER → 2021-09-27 | Outpatient (REF) | payer MEDICARE, MEDICAID | LOC: SKLAB3 09:07 | PROVIDERS: ATTEND Internal Medicine | DX: Z20.822 Contact with and (suspected) exposure to COVID-19 (principal) ==

== ENCOUNTER → 2021-10-17 | Outpatient (REF) | payer MEDICARE, MEDICAID ==
[~2021-10-17] MED LIST changes: +OMEP-173 PO; -OMEP-218 PO; +POTA-151 PO; -POTA20TA6 PO
[2021-10-17 08:51] LABS: HEMOGLOBIN A1c 5.4 %
== END ==
LOC: SKLAB3 13:55
PROVIDERS: ATTEND Internal Medicine
DX: E11.9 Type 2 diabetes mellitus without complications (principal)

== ENCOUNTER → 2021-11-10 | Outpatient (REF) | payer MEDICARE, MEDICAID ==
[2021-11-10 16:20] LABS: HEMATOCRIT 47.2 % (42.0-52.0); HEMOGLOBIN 15.6 g/dl (13.5-17.5); MEAN CORPUSCULAR HGB CONC 33.1 g/dl (32.0-36.5); MEAN CORPUSCULAR VOLUME 90.8 fl (80.0-96.0); PLATELET COUNT, AUTOMATED 237 10^3/uL (150-450); WHITE BLOOD COUNT 7.9 10^3/uL (4.0-10.0)
[2021-11-10 16:41] LABS: BLOOD UREA NITROGEN 14 MG/DL (7-18); CARBON DIOXIDE LEVEL 28 MEQ/L (21-32); CHLORIDE LEVEL 109 MEQ/L (98-107); CREATININE FOR GFR 0.68 MG/DL (0.70-1.30); GLOMERULAR FILTRATION RATE > 60.0 (>42); GLUCOSE, FASTING 84 MG/DL (70-100); POTASSIUM SERUM 4.5 MEQ/L (3.5-5.1); SODIUM LEVEL 144 MEQ/L (136-145)
== END ==
LOC: SKLAB3 07:00
PROVIDERS: ATTEND Internal Medicine
DX: E87.6 Hypokalemia (principal)

== ENCOUNTER → 2021-12-12 | Outpatient (REF) | payer MEDICARE, MEDICAID ==
[2021-12-12 09:29] LABS: ALBUMIN 3.3 GM/DL (3.2-5.2); ALT/SGPT 16 U/L (12-78); BILIRUBIN,TOTAL 0.4 MG/DL (0.2-1.0); BLOOD UREA NITROGEN 15 MG/DL (7-18); CALCIUM LEVEL 8.9 MG/DL (8.8-10.2); CARBON DIOXIDE LEVEL 28 MEQ/L (21-32); CHLORIDE LEVEL 108 MEQ/L (98-107); GLOMERULAR FILTRATION RATE > 60.0 (>42); GLUCOSE, FASTING 76 MG/DL (70-100); POTASSIUM SERUM 3.8 MEQ/L (3.5-5.1); SODIUM LEVEL 141 MEQ/L (136-145); TOTAL PROTEIN 6.4 GM/DL (6.4-8.2)
== END ==
LOC: SKLAB3 07:01
PROVIDERS: ATTEND Internal Medicine
DX: E11.9 Type 2 diabetes mellitus without complications (principal); E87.6 Hypokalemia

== ENCOUNTER → 2021-12-26 | Outpatient (REF) | payer MEDICARE, MEDICAID ==
[2021-12-26 09:59] LABS: HEMATOCRIT 49.7 % (42.0-52.0); HEMOGLOBIN 17.1 g/dl (13.5-17.5); MEAN CORPUSCULAR HGB CONC 34.4 g/dl (32.0-36.5); MEAN CORPUSCULAR VOLUME 87.2 fl (80.0-96.0); PLATELET COUNT, AUTOMATED 231 10^3/uL (150-450); WHITE BLOOD COUNT 8.2 10^3/uL (4.0-10.0)
[2021-12-26 10:29] LABS: ALBUMIN 3.3 GM/DL (3.2-5.2); ALT/SGPT 11 U/L (12-78); BILIRUBIN,TOTAL 0.8 MG/DL (0.2-1.0); BLOOD UREA NITROGEN 17 MG/DL (7-18); CARBON DIOXIDE LEVEL 26 MEQ/L (21-32); CHLORIDE LEVEL 107 MEQ/L (98-107); CREATININE FOR GFR 0.73 MG/DL (0.70-1.30); GLOMERULAR FILTRATION RATE > 60.0 (>42); GLUCOSE, FASTING 135 MG/DL (70-100); POTASSIUM SERUM 3.8 MEQ/L (3.5-5.1); SODIUM LEVEL 140 MEQ/L (136-145); TOTAL PROTEIN 7.5 GM/DL (6.4-8.2)
== END ==
LOC: SKLAB3 09:16
PROVIDERS: ATTEND Internal Medicine
DX: K74.60 Unspecified cirrhosis of liver (principal); R50.9 Fever, unspecified

== ENCOUNTER → 2022-02-13 | Outpatient (REF) | payer MEDICARE, MEDICAID ==
[2022-02-13 08:15] LABS: HEMATOCRIT 45.5 % (42.0-52.0); HEMOGLOBIN 15.3 g/dl (13.5-17.5); MEAN CORPUSCULAR HEMOGLOBIN 30.7 pg (27.0-33.0); MEAN CORPUSCULAR HGB CONC 33.6 g/dl (32.0-36.5); MEAN CORPUSCULAR VOLUME 91.2 fl (80.0-96.0); PLATELET COUNT, AUTOMATED 214 10^3/uL (150-450); RED BLOOD COUNT 4.99 10^6/uL (4.30-6.10); WHITE BLOOD COUNT 7.4 10^3/uL (4.0-10.0)
== END ==
LOC: SKLAB3 11:27
PROVIDERS: ATTEND Internal Medicine
DX: D69.6 Thrombocytopenia, unspecified (principal)

== ENCOUNTER → 2022-03-15 | Outpatient (REF) | payer MEDICARE, MEDICAID ==
[2022-03-15 10:05] LABS: ALBUMIN 3.2 GM/DL (3.2-5.2); ALT/SGPT 13 U/L (12-78); BILIRUBIN,TOTAL 0.7 MG/DL (0.2-1.0); BLOOD UREA NITROGEN 14 MG/DL (7-18); CALCIUM LEVEL 9.1 MG/DL (8.8-10.2); CARBON DIOXIDE LEVEL 24 MEQ/L (21-32); CHLORIDE LEVEL 109 MEQ/L (98-107); CREATININE FOR GFR 0.72 MG/DL (0.70-1.30); GLOMERULAR FILTRATION RATE > 60.0 (>42); GLUCOSE, FASTING 104 MG/DL (70-100); MAGNESIUM LEVEL 1.8 MG/DL (1.8-2.4); POTASSIUM SERUM 3.9 MEQ/L (3.5-5.1); SODIUM LEVEL 141 MEQ/L (136-145); TOTAL PROTEIN 6.5 GM/DL (6.4-8.2)
== END ==
LOC: SKLAB3 08:59
PROVIDERS: ATTEND Internal Medicine
DX: E11.9 Type 2 diabetes mellitus without complications (principal); E87.6 Hypokalemia

== ENCOUNTER → 2022-04-17 | Outpatient (REF) | payer MEDICARE, MEDICAID ==
[2022-04-17 10:00] LABS: HEMOGLOBIN A1c 5.7 %
== END ==
LOC: SKLAB3 07:00
PROVIDERS: ATTEND Nurse Practitioner Family
DX: E11.9 Type 2 diabetes mellitus without complications (principal)

== ENCOUNTER → 2022-04-27 | Outpatient (REF) | payer MEDICARE, MEDICAID | LOC: SKLAB3 11:30 | PROVIDERS: ATTEND Internal Medicine | DX: Z20.822 Contact with and (suspected) exposure to COVID-19 (principal) ==

== ENCOUNTER → 2022-05-15 | Outpatient (REF) | payer MEDICARE, MEDICAID ==
[~2022-05-15] MED LIST changes: +NYST-13 EXT; -NYST10CR EXT; +POTA-150 PO; -POTA10TA17 PO; +SIMV-253 PO; -ZOCO20TA PO
[2022-05-15 09:58] LABS: HEMATOCRIT 44.8 % (42.0-52.0); HEMOGLOBIN 15.2 g/dl (13.5-17.5); MEAN CORPUSCULAR HEMOGLOBIN 30.3 pg (27.0-33.0); MEAN CORPUSCULAR HGB CONC 33.9 g/dl (32.0-36.5); MEAN CORPUSCULAR VOLUME 89.4 fl (80.0-96.0); PLATELET COUNT, AUTOMATED 220 10^3/uL (150-450); RED BLOOD COUNT 5.01 10^6/uL (4.30-6.10); WHITE BLOOD COUNT 6.6 10^3/uL (4.0-10.0)
== END ==
LOC: SKLAB3 09:34
PROVIDERS: ATTEND Nurse Practitioner Family
DX: D69.6 Thrombocytopenia, unspecified (principal)

== ENCOUNTER → 2022-06-19 | Outpatient (REF) | payer MEDICARE, MEDICAID ==
[2022-06-19 12:07] LABS: ALBUMIN 3.2 GM/DL (3.2-5.2); ALT/SGPT 13 U/L (12-78); BILIRUBIN,TOTAL 0.7 MG/DL (0.2-1.0); BLOOD UREA NITROGEN 10 MG/DL (7-18); CALCIUM LEVEL 8.4 MG/DL (8.8-10.2); CARBON DIOXIDE LEVEL 24 MEQ/L (21-32); CHLORIDE LEVEL 111 MEQ/L (98-107); CREATININE FOR GFR 0.66 MG/DL (0.70-1.30); GLOMERULAR FILTRATION RATE > 60.0 (>42); GLUCOSE, FASTING 137 MG/DL (70-100); MAGNESIUM LEVEL 1.8 MG/DL (1.8-2.4); POTASSIUM SERUM 2.9 MEQ/L (3.5-5.1); SODIUM LEVEL 143 MEQ/L (136-145); TOTAL PROTEIN 6.5 GM/DL (6.4-8.2)
== END ==
LOC: SKLAB3 09:43
PROVIDERS: ATTEND Nurse Practitioner Family
DX: E11.9 Type 2 diabetes mellitus without complications (principal); E87.6 Hypokalemia

== ENCOUNTER → 2022-06-21 | Outpatient (REF) | payer MEDICARE, MEDICAID ==
[2022-06-21 14:09] LABS: POTASSIUM SERUM 4.2 MEQ/L (3.5-5.1)
== END ==
LOC: SKLAB3 12:37
PROVIDERS: ATTEND Nurse Practitioner Family
DX: E87.6 Hypokalemia (principal)

== ENCOUNTER → 2022-08-14 | Outpatient (REF) | payer MEDICARE, MEDICAID ==
[2022-08-14 10:11] LABS: HEMATOCRIT 44.3 % (42.0-52.0); HEMOGLOBIN 14.6 g/dl (13.5-17.5); PLATELET COUNT, AUTOMATED 200 10^3/uL (150-450); RED BLOOD COUNT 4.87 10^6/uL (4.30-6.10); WHITE BLOOD COUNT 5.7 10^3/uL (4.0-10.0)
== END ==
LOC: SKLAB3 09:31
PROVIDERS: ATTEND Nurse Practitioner Family
DX: D69.6 Thrombocytopenia, unspecified (principal)

== ENCOUNTER → 2022-09-14 | Outpatient (REF) | payer MEDICARE, MEDICAID | LOC: SKLAB3 11:41 | PROVIDERS: ATTEND Nurse Practitioner Family | DX: E11.9 Type 2 diabetes mellitus without complications (principal); E87.6 Hypokalemia ==

== ENCOUNTER → 2022-09-18 | Outpatient (REF) | payer MEDICARE, MEDICAID ==
[2022-09-18 10:31] LABS: MAGNESIUM LEVEL 1.6 MG/DL (1.8-2.4)
[2022-09-18 10:34] LABS: ALBUMIN 3.1 G/DL (3.2-5.2); ALKALINE PHOSPHATASE 78 U/L (46-116); ALT/SGPT < 9 U/L (7.0-40); AST/SGOT 18 U/L (<34); BILIRUBIN,TOTAL 0.8 MG/DL (0.3-1.2); BLOOD UREA NITROGEN 15 MG/DL (9-23); CALCIUM LEVEL 8.8 MG/DL (8.3-10.6); CARBON DIOXIDE LEVEL 24 MMOL/L (20-31); CHLORIDE LEVEL 106 MMOL/L (98-107); CREATININE FOR GFR 0.57 MG/DL (0.70-1.30); GLOMERULAR FILTRATION RATE > 60.0 (>42); GLUCOSE, FASTING 152 MG/DL (74-106); POTASSIUM SERUM 3.8 MMOL/L (3.5-5.1); SODIUM LEVEL 140 MMOL/L (136-145); TOTAL PROTEIN 6.4 G/DL (5.7-8.2)
== END ==
LOC: SKLAB3 09:15
PROVIDERS: ATTEND Nurse Practitioner Family
DX: E11.9 Type 2 diabetes mellitus without complications (principal); E87.6 Hypokalemia

== ENCOUNTER → 2022-11-20 | Outpatient (REF) | payer MEDICARE, MEDICAID ==
[~2022-11-20] MED LIST changes: +ACET650T15 PO; +DICL1GEL3 TOP; +NORT10CA2 PO; +PANT20TA6 PO; +SUCR1ORA PO
[2022-11-20 09:42] LABS: HEMOGLOBIN A1c 5.7 % (4.0-6.0)
== END ==
LOC: SKLAB3 09:52
PROVIDERS: ATTEND Internal Medicine
DX: E11.9 Type 2 diabetes mellitus without complications (principal)

== ENCOUNTER → 2022-11-21 | Outpatient (REF) | payer MEDICARE, MEDICAID | LOC: SKLAB3 08:49 | PROVIDERS: ATTEND Nurse Practitioner | DX: J02.9 Acute pharyngitis, unspecified (principal) ==

== ENCOUNTER → 2023-02-12 | Outpatient (REF) | payer MEDICARE, MEDICAID ==
[2023-02-12 08:03] LABS: HEMOGLOBIN 14.2 g/dl (13.5-17.5); MEAN CORPUSCULAR HGB CONC 33.8 g/dl (32.0-36.5); MEAN CORPUSCULAR VOLUME 88.8 fl (80.0-96.0); PLATELET COUNT, AUTOMATED 230 10^3/uL (150-450); RED BLOOD COUNT 4.73 10^6/uL (4.30-6.10); WHITE BLOOD COUNT 8.4 10^3/uL (4.0-10.0)
[2023-02-12 08:35] LABS: ALBUMIN 3.2 G/DL (3.2-5.2); ALKALINE PHOSPHATASE 82 U/L (46-116); ALT/SGPT 11 U/L (7.0-40); AST/SGOT 15 U/L (<34); BILIRUBIN,TOTAL 0.8 MG/DL (0.3-1.2); BLOOD UREA NITROGEN 10 MG/DL (9-23); CALCIUM LEVEL 8.2 MG/DL (8.3-10.6); CARBON DIOXIDE LEVEL 25 MMOL/L (20-31); CHLORIDE LEVEL 109 MMOL/L (98-107); CREATININE FOR GFR 0.61 MG/DL (0.70-1.30); GLOMERULAR FILTRATION RATE > 60.0 (>42); GLUCOSE, FASTING 97 MG/DL (74-106); MAGNESIUM LEVEL 1.7 MG/DL (1.8-2.4); POTASSIUM SERUM 3.7 MMOL/L (3.5-5.1); SODIUM LEVEL 141 MMOL/L (136-145); TOTAL PROTEIN 5.9 G/DL (5.7-8.2)
== END ==
LOC: SKLAB3 09:32
PROVIDERS: ATTEND Internal Medicine
DX: E11.9 Type 2 diabetes mellitus without complications (principal); E87.6 Hypokalemia; D69.6 Thrombocytopenia, unspecified

== ENCOUNTER → 2023-05-14 | Outpatient (REF) | payer MEDICARE, MEDICAID ==
[~2023-05-14] MED LIST changes: +DICL100G10 TOP; -DICL1GEL3 TOP
[2023-05-14 08:41] LABS: HEMATOCRIT 43.4 % (42.0-52.0); HEMOGLOBIN 14.4 g/dl (13.5-17.5); MEAN CORPUSCULAR HEMOGLOBIN 29.8 pg (27.0-33.0); MEAN CORPUSCULAR HGB CONC 33.2 g/dl (32.0-36.5); MEAN CORPUSCULAR VOLUME 89.7 fl (80.0-96.0); PLATELET COUNT, AUTOMATED 241 10^3/uL (150-450); RED BLOOD COUNT 4.84 10^6/uL (4.30-6.10); WHITE BLOOD COUNT 8.5 10^3/uL (4.0-10.0)
[2023-05-14 09:00] LABS: HEMOGLOBIN A1c 5.8 % (4.0-6.0)
[2023-05-14 09:12] LABS: ALBUMIN 3.2 G/DL (3.2-5.2); ALKALINE PHOSPHATASE 91 U/L (46-116); ALT/SGPT 10 U/L (7.0-40); AST/SGOT 11 U/L (<34); BLOOD UREA NITROGEN 13 MG/DL (9-23); CALCIUM LEVEL 8.8 MG/DL (8.3-10.6); CARBON DIOXIDE LEVEL 28 MMOL/L (20-31); CHLORIDE LEVEL 105 MMOL/L (98-107); CREATININE FOR GFR 0.63 MG/DL (0.70-1.30); GLOMERULAR FILTRATION RATE > 60.0 (>42); GLUCOSE, FASTING 113 MG/DL (74-106); MAGNESIUM LEVEL 1.8 MG/DL (1.8-2.4); POTASSIUM SERUM 4.1 MMOL/L (3.5-5.1); SODIUM LEVEL 141 MMOL/L (136-145); TOTAL PROTEIN 6.2 G/DL (5.7-8.2)
== END ==
LOC: SKLAB3 14:35
PROVIDERS: ATTEND Internal Medicine
DX: D69.6 Thrombocytopenia, unspecified (principal); E11.9 Type 2 diabetes mellitus without complications; E87.6 Hypokalemia

== ENCOUNTER → 2023-06-18 | Outpatient (REF) | payer MEDICARE, MEDICAID | LOC: SKLAB3 07:00 | PROVIDERS: ATTEND Internal Medicine | DX: E11.9 Type 2 diabetes mellitus without complications (principal); D69.6 Thrombocytopenia, unspecified; E87.6 Hypokalemia; Z53.8 Procedure and treatment not carried out for other reasons ==

== ENCOUNTER → 2023-08-20 | Outpatient (REF) | payer MEDICARE, MEDICAID ==
[2023-08-20 07:59] LABS: HEMATOCRIT 41.3 % (42.0-52.0); HEMOGLOBIN 14.2 g/dl (13.5-17.5); MEAN CORPUSCULAR HEMOGLOBIN 30.3 pg (27.0-33.0); MEAN CORPUSCULAR HGB CONC 34.4 g/dl (32.0-36.5); MEAN CORPUSCULAR VOLUME 88.1 fl (80.0-96.0); PLATELET COUNT, AUTOMATED 227 10^3/uL (150-450); RED BLOOD COUNT 4.69 10^6/uL (4.30-6.10); WHITE BLOOD COUNT 7.7 10^3/uL (4.0-10.0)
[2023-08-20 08:30] LABS: ALBUMIN 3.1 G/DL (3.2-5.2); ALKALINE PHOSPHATASE 87 U/L (46-116); ALT/SGPT 11 U/L (7.0-40); AST/SGOT 15 U/L (<34); BILIRUBIN,TOTAL 0.9 MG/DL (0.3-1.2); BLOOD UREA NITROGEN 10 MG/DL (9-23); CALCIUM LEVEL 8.5 MG/DL (8.3-10.6); CARBON DIOXIDE LEVEL 26 MMOL/L (20-31); CHLORIDE LEVEL 105 MMOL/L (98-107); CREATININE FOR GFR 0.64 MG/DL (0.70-1.30); GLOMERULAR FILTRATION RATE > 60.0 (>42); GLUCOSE, FASTING 97 MG/DL (74-106); MAGNESIUM LEVEL 1.6 MG/DL (1.8-2.4); POTASSIUM SERUM 3.8 MMOL/L (3.5-5.1); SODIUM LEVEL 139 MMOL/L (136-145); TOTAL PROTEIN 6.2 G/DL (5.7-8.2)
== END ==
LOC: SKLAB3 07:00
PROVIDERS: ATTEND Internal Medicine
DX: D69.6 Thrombocytopenia, unspecified (principal); E11.9 Type 2 diabetes mellitus without complications; E87.6 Hypokalemia

== ENCOUNTER → 2023-11-04 | Outpatient (REF) | payer MEDICARE, MEDICAID ==
[2023-11-04 11:51] LABS: HEMOGLOBIN 14.1 g/dl (13.5-17.5); MEAN CORPUSCULAR HEMOGLOBIN 30.2 pg (27.0-33.0); MEAN CORPUSCULAR HGB CONC 33.6 g/dl (32.0-36.5); MEAN CORPUSCULAR VOLUME 89.9 fl (80.0-96.0); PLATELET COUNT, AUTOMATED 249 10^3/uL (150-450); RED BLOOD COUNT 4.67 10^6/uL (4.30-6.10); WHITE BLOOD COUNT 7.7 10^3/uL (4.0-10.0)
[2023-11-04 12:19] LABS: ALBUMIN 2.9 G/DL (3.2-5.2); ALKALINE PHOSPHATASE 91 U/L (46-116); ALT/SGPT 12 U/L (7.0-40); AST/SGOT 13 U/L (<34); BILIRUBIN,TOTAL 0.6 MG/DL (0.3-1.2); BLOOD UREA NITROGEN 10 MG/DL (9-23); CALCIUM LEVEL 8.4 MG/DL (8.3-10.6); CARBON DIOXIDE LEVEL 27 MMOL/L (20-31); CHLORIDE LEVEL 107 MMOL/L (98-107); CREATININE FOR GFR 0.64 MG/DL (0.70-1.30); GLOMERULAR FILTRATION RATE > 60.0 (>42); GLUCOSE, FASTING 109 MG/DL (74-106); POTASSIUM SERUM 4.2 MMOL/L (3.5-5.1); SODIUM LEVEL 139 MMOL/L (136-145)
[2023-11-04 12:20] LABS: THYROID STIMULATING HORMONE 2.207 uIU/ML (0.55-4.78)
[2023-11-04 12:21] LABS: VITAMIN B12 LEVEL 377 PG/ML (211-911)
== END ==
LOC: SKLAB3 11:03
PROVIDERS: ATTEND Internal Medicine
DX: R41.82 Altered mental status, unspecified (principal)

== ENCOUNTER → 2023-11-19 | Outpatient (REF) | payer MEDICARE, MEDICAID ==
[2023-11-19 13:13] LABS: HEMATOCRIT 43.3 % (42.0-52.0); HEMOGLOBIN 14.6 g/dl (13.5-17.5); MEAN CORPUSCULAR HEMOGLOBIN 30.3 pg (27.0-33.0); MEAN CORPUSCULAR HGB CONC 33.7 g/dl (32.0-36.5); MEAN CORPUSCULAR VOLUME 89.8 fl (80.0-96.0); PLATELET COUNT, AUTOMATED 256 10^3/uL (150-450); RED BLOOD COUNT 4.82 10^6/uL (4.30-6.10)
[2023-11-19 13:40] LABS: ALBUMIN 3.1 G/DL (3.2-5.2); ALKALINE PHOSPHATASE 99 U/L (46-116); ALT/SGPT 13 U/L (7.0-40); AST/SGOT 13 U/L (<34); BILIRUBIN,TOTAL 0.7 MG/DL (0.3-1.2); BLOOD UREA NITROGEN 14 MG/DL (9-23); CALCIUM LEVEL 8.5 MG/DL (8.3-10.6); CARBON DIOXIDE LEVEL 25 MMOL/L (20-31); CHLORIDE LEVEL 108 MMOL/L (98-107); CREATININE FOR GFR 0.57 MG/DL (0.70-1.30); GLOMERULAR FILTRATION RATE > 60.0 (>42); GLUCOSE, FASTING 94 MG/DL (74-106); MAGNESIUM LEVEL 1.6 MG/DL (1.8-2.4); POTASSIUM SERUM 3.9 MMOL/L (3.5-5.1); SODIUM LEVEL 140 MMOL/L (136-145)
== END ==
LOC: SKLAB3 09:51
PROVIDERS: ATTEND Internal Medicine
DX: D69.6 Thrombocytopenia, unspecified (principal)

== ENCOUNTER → 2024-03-17 | Outpatient (REF) | payer MEDICARE, MEDICAID ==
[~2024-03-17] MED LIST changes: +BUPR-597 PO; -BUPR300T92 PO
== END ==
LOC: SKLAB3 08:15
PROVIDERS: ATTEND Internal Medicine
DX: Z53.8 Procedure and treatment not carried out for other reasons (principal)

== ENCOUNTER → 2024-03-30 | Outpatient (REF) | payer MEDICARE, MEDICAID ==
[2024-03-30 09:22] LABS: HEMATOCRIT 45.4 % (42.0-52.0); HEMOGLOBIN 15.2 g/dl (13.5-17.5); MEAN CORPUSCULAR HEMOGLOBIN 29.7 pg (27.0-33.0); MEAN CORPUSCULAR HGB CONC 33.5 g/dl (32.0-36.5); MEAN CORPUSCULAR VOLUME 88.8 fl (80.0-96.0); PLATELET COUNT, AUTOMATED 252 10^3/uL (150-450); RED BLOOD COUNT 5.11 10^6/uL (4.30-6.10)
[2024-03-30 09:27] LABS: ALBUMIN 3.4 G/DL (3.2-5.2); ALKALINE PHOSPHATASE 103 U/L (46-116); ALT/SGPT 13 U/L (7.0-40); AST/SGOT 13 U/L (<34); BILIRUBIN,TOTAL 0.9 MG/DL (0.3-1.2); BLOOD UREA NITROGEN 10 MG/DL (9-23); CALCIUM LEVEL 8.8 MG/DL (8.3-10.6); CARBON DIOXIDE LEVEL 30 MMOL/L (20-31); CHLORIDE LEVEL 105 MMOL/L (98-107); CREATININE FOR GFR 0.64 MG/DL (0.70-1.30); GLOMERULAR FILTRATION RATE > 60.0 (>42); GLUCOSE, FASTING 103 MG/DL (74-106); MAGNESIUM LEVEL 1.6 MG/DL (1.8-2.4); POTASSIUM SERUM 4.1 MMOL/L (3.5-5.1); SODIUM LEVEL 138 MMOL/L (136-145); TOTAL PROTEIN 6.4 G/DL (5.7-8.2)
== END ==
LOC: SKLAB3 07:07
PROVIDERS: ATTEND Internal Medicine
DX: E87.6 Hypokalemia (principal)

== ENCOUNTER → 2024-05-09 | Outpatient (REF) | payer MEDICARE, MEDICAID ==
[2024-05-09 13:59] LABS: HEMOGLOBIN A1c 5.5 % (4.0-6.0)
== END ==
LOC: SKLAB3 05-08 13:51
PROVIDERS: ATTEND Internal Medicine
DX: E11.9 Type 2 diabetes mellitus without complications (principal)

== ENCOUNTER → 2024-06-23 | Outpatient (REF) | payer MEDICARE, MEDICAID ==
[2024-06-23 13:50] LABS: BASO # 0.1 10^3/uL (0.0-0.2); BASO % 0.8 % (0.0-1.0); EOS # 0.3 10^3/uL (0.0-0.5); EOS % 4.4 % (0.0-3.0); HEMATOCRIT 43.9 % (42.0-52.0); HEMOGLOBIN 15.1 g/dl (13.5-17.5); LYMPH # 1.4 10^3/uL (1.5-5.0); LYMPH % 17.6 % (24.0-44.0); MEAN CORPUSCULAR HGB CONC 34.4 g/dl (32.0-36.5); MEAN CORPUSCULAR VOLUME 87.3 fl (80.0-96.0); MONO # 0.5 10^3/uL (0.0-0.8); MONO % 6.5 % (2.0-8.0); NEUTROPHILS # 5.5 10^3/uL (1.5-8.5); NEUTROPHILS % 70.3 % (36.0-66.0); PLATELET COUNT, AUTOMATED 254 10^3/uL (150-450); RED BLOOD COUNT 5.03 10^6/uL (4.30-6.10); WHITE BLOOD COUNT 7.7 10^3/uL (4.0-10.0)
[2024-06-23 14:20] LABS: ALBUMIN 3.1 G/DL (3.2-5.2); ALKALINE PHOSPHATASE 112 U/L (46-116); ALT/SGPT 12 U/L (7.0-40); AST/SGOT 11 U/L (<34); BILIRUBIN,TOTAL 0.5 MG/DL (0.3-1.2); BLOOD UREA NITROGEN 11 MG/DL (9-23); CALCIUM LEVEL 8.6 MG/DL (8.3-10.6); CARBON DIOXIDE LEVEL 26 MMOL/L (20-31); CHLORIDE LEVEL 106 MMOL/L (98-107); CREATININE FOR GFR 0.55 MG/DL (0.70-1.30); GLOMERULAR FILTRATION RATE > 60.0 (>42); GLUCOSE, FASTING 135 MG/DL (74-106); MAGNESIUM LEVEL 1.6 MG/DL (1.8-2.4); SODIUM LEVEL 136 MMOL/L (136-145); TOTAL PROTEIN 6.6 G/DL (5.7-8.2)
[2024-06-23 14:31] LABS: VITAMIN B12 LEVEL 462 PG/ML (211-911)
== END ==
LOC: SKLAB3 13:05
PROVIDERS: ATTEND Internal Medicine
DX: E83.42 Hypomagnesemia (principal); F03.90 Unspecified dementia, unspecified severity, without behavioral disturbance, psychotic disturbance, mood disturbance, and anxiety; R41.82 Altered mental status, unspecified

== ENCOUNTER → 2024-07-23 | Outpatient (REF) | payer MEDICARE, MEDICAID ==
[2024-07-23 14:45] LABS: HEMATOCRIT 44.5 % (42.0-52.0); HEMOGLOBIN 15.6 g/dl (13.5-17.5); MEAN CORPUSCULAR HEMOGLOBIN 29.9 pg (27.0-33.0); MEAN CORPUSCULAR HGB CONC 35.1 g/dl (32.0-36.5); MEAN CORPUSCULAR VOLUME 85.4 fl (80.0-96.0); PLATELET COUNT, AUTOMATED 237 10^3/uL (150-450); RED BLOOD COUNT 5.21 10^6/uL (4.30-6.10); WHITE BLOOD COUNT 7.5 10^3/uL (4.0-10.0)
[2024-07-23 15:08] LABS: ALBUMIN 3.2 G/DL (3.2-5.2); ALKALINE PHOSPHATASE 113 U/L (46-116); ALT/SGPT 12 U/L (7.0-40); AST/SGOT 14 U/L (<34); BILIRUBIN,TOTAL 0.5 MG/DL (0.3-1.2); BLOOD UREA NITROGEN 17 MG/DL (9-23); CARBON DIOXIDE LEVEL 25 MMOL/L (20-31); CHLORIDE LEVEL 107 MMOL/L (98-107); CREATININE FOR GFR 0.64 MG/DL (0.70-1.30); GLOMERULAR FILTRATION RATE > 60.0 (>42); GLUCOSE, FASTING 129 MG/DL (74-106); MAGNESIUM LEVEL 1.6 MG/DL (1.8-2.4); POTASSIUM SERUM 4.3 MMOL/L (3.5-5.1); SODIUM LEVEL 138 MMOL/L (136-145); TOTAL PROTEIN 6.5 G/DL (5.7-8.2)
== END ==
LOC: SKLAB3 07:00
PROVIDERS: ATTEND Internal Medicine
DX: E87.6 Hypokalemia (principal)

== ENCOUNTER → 2024-10-30 | Outpatient (REF) | payer MEDICARE, MEDICAID ==
[~2024-10-30] MED LIST changes: +BUPR-332 PO; +CYAN1000VL IM; +NYST1POW3 TOP; -NYST1POW9 TOP; +SPIR50TA4 PO
[2024-10-30 10:57] LABS: HEMATOCRIT 45.3 % (42.0-52.0); HEMOGLOBIN 15.4 g/dl (13.5-17.5); MEAN CORPUSCULAR HEMOGLOBIN 29.5 pg (27.0-33.0); MEAN CORPUSCULAR VOLUME 86.8 fl (80.0-96.0); PLATELET COUNT, AUTOMATED 250 10^3/uL (150-450); RED BLOOD COUNT 5.22 10^6/uL (4.30-6.10)
[2024-10-30 11:38] LABS: ALBUMIN 3.2 G/DL (3.2-5.2); ALKALINE PHOSPHATASE 112 U/L (40-129); ALT/SGPT 12 U/L (7.0-40); AST/SGOT 14 U/L (<34); BILIRUBIN,TOTAL 0.8 MG/DL (0.3-1.2); BLOOD UREA NITROGEN 10 MG/DL (9-23); CALCIUM LEVEL 8.8 MG/DL (8.3-10.6); CARBON DIOXIDE LEVEL 22 MMOL/L (20-31); CHLORIDE LEVEL 105 MMOL/L (98-107); CREATININE FOR GFR 0.54 MG/DL (0.70-1.30); GLOMERULAR FILTRATION RATE > 60.0 (>42); GLUCOSE, FASTING 172 MG/DL (74-106); MAGNESIUM LEVEL 1.4 MG/DL (1.8-2.4); POTASSIUM SERUM 4.1 MMOL/L (3.5-5.1); SODIUM LEVEL 138 MMOL/L (136-145); TOTAL PROTEIN 6.6 G/DL (5.7-8.2)
== END ==
LOC: SKLAB3 07:00
PROVIDERS: ATTEND Internal Medicine
DX: E87.6 Hypokalemia (principal)

== ENCOUNTER 2024-10-31 10:58 | Emergency (ER) | payer MEDICARE, MEDICAID ==
[~2024-10-31 10:58] MED LIST changes: -BUPR-332 PO; -CYAN1000VL IM; -SPIR50TA4 PO
[2024-10-31 11:13] VITALS: TEMP 97.1
[2024-10-31 11:41] LABS: VENOUS BASE EXCESS -2.1 (-2.0-2.0); VENOUS HCO3 23.1 MMOL/L (23.0-27.0); VENOUS O2 SATURATION 80.8 % (60.0-80.0); VENOUS PARTIAL PRESSURE CO2 41.2 mmHg (38.0-50.0); VENOUS PARTIAL PRESSURE O2 43.3 mmHg (30.0-50.0); VENOUS PH 7.367 UNITS (7.330-7.430); VENOUS STANDARD HCO3 22.3 MMOL/L; VENOUS TOTAL CO2 24.4 MMOL/L (24.0-28.0)
[2024-10-31 11:48] LABS: BASO # 0.1 10^3/uL (0.0-0.2); BASO % 0.7 % (0.0-1.0); EOS # 0.5 10^3/uL (0.0-0.5); EOS % 5.6 % (0.0-3.0); HEMATOCRIT 47.3 % (42.0-52.0); HEMOGLOBIN 16.3 g/dl (13.5-17.5); LYMPH # 1.2 10^3/uL (1.5-5.0); LYMPH % 14.1 % (24.0-44.0); MEAN CORPUSCULAR HEMOGLOBIN 29.7 pg (27.0-33.0); MEAN CORPUSCULAR HGB CONC 34.5 g/dl (32.0-36.5); MEAN CORPUSCULAR VOLUME 86.3 fl (80.0-96.0); MONO # 0.8 10^3/uL (0.0-0.8); NEUTROPHILS # 5.9 10^3/uL (1.5-8.5); NEUTROPHILS % 70.2 % (36.0-66.0); PLATELET COUNT, AUTOMATED 227 10^3/uL (150-450); RED BLOOD COUNT 5.48 10^6/uL (4.30-6.10); WHITE BLOOD COUNT 8.4 10^3/uL (4.0-10.0)
[2024-10-31 12:13] LABS: OSMOLALITY SERUM 289 MOSM/KG (280-301)
[2024-10-31 12:16] LABS: ALBUMIN 3.1 G/DL (3.2-5.2); ALKALINE PHOSPHATASE 102 U/L (40-129); ALT/SGPT 14 U/L (7.0-40); AST/SGOT 14 U/L (<34); BILIRUBIN,DIRECT 0.3 MG/DL (<0.4); BILIRUBIN,TOTAL 1.1 MG/DL (0.3-1.2); BLOOD UREA NITROGEN 10 MG/DL (9-23); CALCIUM LEVEL 8.7 MG/DL (8.3-10.6); CARBON DIOXIDE LEVEL 26 MMOL/L (20-31); CHLORIDE LEVEL 106 MMOL/L (98-107); CREATININE FOR GFR 0.55 MG/DL (0.70-1.30); GLOMERULAR FILTRATION RATE > 60.0 (>42); GLUCOSE, FASTING 124 MG/DL (74-106); POTASSIUM SERUM 4.4 MMOL/L (3.5-5.1); SODIUM LEVEL 140 MMOL/L (136-145); TOTAL PROTEIN 6.9 G/DL (5.7-8.2)
[2024-10-31 12:19] LABS: THYROID STIMULATING HORMONE 2.049 uIU/ML (0.55-4.78)
[2024-10-31] MEDS ORDERED: BUPR-332 PO (13:52)
[2024-10-31] MEDS ORDERED: DULO30CA9 PO (14:03)
[2024-10-31] MEDS ORDERED: SPIR50TA4 PO (14:03)
[2024-10-31] MEDS ORDERED: CYAN1000VL IM (14:03)
[2024-10-31] MEDS ORDERED: HOME MED LIST COMPLETE! XX SCH (14:05)
[2024-10-31 14:46] VITALS: BP 179/92; O2SAT 98
== END 2024-10-31 14:59 | disposition home or self-care (01) ==
LOC: EDBD 10:58 → M ED 10:58
DX: J06.9 Acute upper respiratory infection, unspecified (principal); B34.2 Coronavirus infection, unspecified; I45.10 Unspecified right bundle-branch block; F03.90 Unspecified dementia, unspecified severity, without behavioral disturbance, psychotic disturbance, mood disturbance, and anxiety; K74.60 Unspecified cirrhosis of liver; Z79.2 Long term (current) use of antibiotics; Z79.899 Other long term (current) drug therapy; J81.1 Chronic pulmonary edema

== ENCOUNTER → 2024-11-17 | Outpatient (REF) | payer MEDICARE, MEDICAID ==
[~2024-11-17] MED LIST changes: +BUPR-332 PO; +CYAN1000VL IM; +SPIR50TA4 PO
[2024-11-17 08:53] LABS: HEMOGLOBIN A1c 5.7 % (4.0-6.0)
== END ==
LOC: SKLAB3 07:00
PROVIDERS: ATTEND Internal Medicine
DX: E11.9 Type 2 diabetes mellitus without complications (principal)

== ENCOUNTER → 2024-12-21 | Outpatient (REF) | payer MEDICARE, MEDICAID ==
[2024-12-21 10:36] LABS: BLOOD UREA NITROGEN 12 MG/DL (9-23); CALCIUM LEVEL 8.7 MG/DL (8.3-10.6); CARBON DIOXIDE LEVEL 26 MMOL/L (20-31); CHLORIDE LEVEL 102 MMOL/L (98-107); CREATININE FOR GFR 0.58 MG/DL (0.70-1.30); GLOMERULAR FILTRATION RATE > 60.0 (>42); GLUCOSE, FASTING 118 MG/DL (74-106); MAGNESIUM LEVEL 1.8 MG/DL (1.8-2.4); POTASSIUM SERUM 4.3 MMOL/L (3.5-5.1); SODIUM LEVEL 134 MMOL/L (136-145)
== END ==
LOC: SKLAB3 07:00
PROVIDERS: ATTEND Internal Medicine
DX: E83.42 Hypomagnesemia (principal)

== ENCOUNTER → 2024-12-28 | Outpatient (REF) | payer MEDICARE, MEDICAID ==
[2024-12-28 09:26] LABS: BASO % 0.5 % (0.0-1.0); EOS # 0.1 10^3/uL (0.0-0.5); EOS % 1.1 % (0.0-3.0); HEMATOCRIT 49.4 % (42.0-52.0); HEMOGLOBIN 16.5 g/dl (13.5-17.5); LYMPH # 0.4 10^3/uL (1.5-5.0); LYMPH % 4.6 % (24.0-44.0); MEAN CORPUSCULAR HEMOGLOBIN 29.3 pg (27.0-33.0); MEAN CORPUSCULAR HGB CONC 33.4 g/dl (32.0-36.5); MEAN CORPUSCULAR VOLUME 87.6 fl (80.0-96.0); MONO # 0.4 10^3/uL (0.0-0.8); NEUTROPHILS # 7.4 10^3/uL (1.5-8.5); NEUTROPHILS % 88.3 % (36.0-66.0); PLATELET COUNT, AUTOMATED 228 10^3/uL (150-450); RED BLOOD COUNT 5.64 10^6/uL (4.30-6.10); WHITE BLOOD COUNT 8.4 10^3/uL (4.0-10.0)
[2024-12-28 09:46] LABS: BLOOD UREA NITROGEN 15 MG/DL (9-23); CALCIUM LEVEL 8.4 MG/DL (8.3-10.6); CARBON DIOXIDE LEVEL 23 MMOL/L (20-31); CHLORIDE LEVEL 104 MMOL/L (98-107); CREATININE FOR GFR 0.66 MG/DL (0.70-1.30); GLOMERULAR FILTRATION RATE > 60.0 (>42); GLUCOSE, FASTING 158 MG/DL (74-106); POTASSIUM SERUM 3.8 MMOL/L (3.5-5.1); SODIUM LEVEL 136 MMOL/L (136-145)
== END ==
LOC: SKLAB3 08:46
PROVIDERS: ATTEND Internal Medicine
DX: R11.10 Vomiting, unspecified (principal); R19.7 Diarrhea, unspecified

== ENCOUNTER → 2025-01-19 | Outpatient (REF) | payer MEDICARE, MEDICAID ==
[~2025-01-19] MED LIST changes: -BUPR-597 PO; +BUPR-766 PO; -NYST-13 EXT; +NYST0.1C EXT
[2025-01-19 07:51] LABS: HEMATOCRIT 47.6 % (42.0-52.0); HEMOGLOBIN 15.9 g/dl (13.5-17.5); MEAN CORPUSCULAR HEMOGLOBIN 28.7 pg (27.0-33.0); MEAN CORPUSCULAR HGB CONC 33.4 g/dl (32.0-36.5); MEAN CORPUSCULAR VOLUME 85.9 fl (80.0-96.0); PLATELET COUNT, AUTOMATED 261 10^3/uL (150-450); RED BLOOD COUNT 5.54 10^6/uL (4.30-6.10); WHITE BLOOD COUNT 7.8 10^3/uL (4.0-10.0)
[2025-01-19 08:18] LABS: ALBUMIN 3.3 G/DL (3.2-5.2); ALKALINE PHOSPHATASE 109 U/L (40-129); ALT/SGPT 23 U/L (7.0-40); AST/SGOT 21 U/L (<34); BILIRUBIN,TOTAL 1.2 MG/DL (0.3-1.2); BLOOD UREA NITROGEN 11 MG/DL (9-23); CARBON DIOXIDE LEVEL 28 MMOL/L (20-31); CHLORIDE LEVEL 103 MMOL/L (98-107); CREATININE FOR GFR 0.67 MG/DL (0.70-1.30); GLOMERULAR FILTRATION RATE > 90.0 (>42); GLUCOSE, FASTING 117 MG/DL (74-106); MAGNESIUM LEVEL 1.7 MG/DL (1.8-2.4); POTASSIUM SERUM 4.2 MMOL/L (3.5-5.1); SODIUM LEVEL 139 MMOL/L (136-145); TOTAL PROTEIN 6.9 G/DL (5.7-8.2)
== END ==
LOC: SKLAB3 07:00
PROVIDERS: ATTEND Internal Medicine
DX: E87.6 Hypokalemia (principal)

== ENCOUNTER → 2025-04-20 | Outpatient (REF) | payer MEDICARE, MEDICAID ==
[~2025-04-20] MED LIST changes: +ACET-1515 PO; -ACET650T15 PO; +LIDO1ADH93 TD; -LIDO5DIS41 TD
[2025-04-20 08:30] LABS: PLATELET COUNT, AUTOMATED 224 10^3/uL (150-450)
[2025-04-20 08:53] LABS: ALT/SGPT 17 U/L (7.0-40); AST/SGOT 22 U/L (<34); CALCIUM LEVEL 8.6 MG/DL (8.3-10.6); CARBON DIOXIDE LEVEL 28 MMOL/L (20-31); CHLORIDE LEVEL 105 MMOL/L (98-107); CREATININE FOR GFR 0.65 MG/DL (0.70-1.30); GLOMERULAR FILTRATION RATE > 90.0 (>42); MAGNESIUM LEVEL 1.8 MG/DL (1.8-2.4); POTASSIUM SERUM 4.0 MMOL/L (3.5-5.1); SODIUM LEVEL 144 MMOL/L (136-145)
== END ==
LOC: SKLAB3 07:00
PROVIDERS: ATTEND Internal Medicine
DX: E87.6 Hypokalemia (principal)

== ENCOUNTER → 2025-05-25 | Outpatient (REF) | payer MEDICARE, MEDICAID ==
[~2025-05-25] MED LIST changes: -HEPA500011 SQ; +HEPA50002 SQ
[2025-05-25 09:17] LABS: ESTIMATED AVERAGE GLUCOSE 117.0 MG/DL (60-110)
== END ==
LOC: SKLAB3 07:00
PROVIDERS: ATTEND Internal Medicine
DX: E11.9 Type 2 diabetes mellitus without complications (principal)

== ENCOUNTER → 2025-07-08 | Outpatient (REF) | payer MEDICARE, MEDICAID | LOC: SKLAB3 15:48 | PROVIDERS: ATTEND Family Medicine | DX: R06.02 Shortness of breath (principal); J98.4 Other disorders of lung ==

== ENCOUNTER → 2025-07-08 | Outpatient (REF) | payer MEDICARE, MEDICAID ==
[2025-07-08 14:04] LABS: PLATELET COUNT, AUTOMATED 288 10^3/uL (150-450)
[2025-07-08 14:31] LABS: CALCIUM LEVEL 8.3 MG/DL (8.3-10.6); CARBON DIOXIDE LEVEL 30 MMOL/L (20-31); CHLORIDE LEVEL 101 MMOL/L (98-107); CREATININE FOR GFR 0.63 MG/DL (0.70-1.30); GLOMERULAR FILTRATION RATE > 90.0 (>42); POTASSIUM SERUM 3.6 MMOL/L (3.5-5.1); SODIUM LEVEL 139 MMOL/L (136-145)
== END ==
LOC: SKLAB3 13:07
PROVIDERS: ATTEND Family Medicine
DX: J98.4 Other disorders of lung (principal); R06.02 Shortness of breath

== ENCOUNTER → 2025-07-27 | Outpatient (REF) | payer MEDICARE, MEDICAID ==
[2025-07-27 08:21] LABS: PLATELET COUNT, AUTOMATED 279 10^3/uL (150-450)
[2025-07-27 08:45] LABS: ALT/SGPT 24 U/L (7.0-40); AST/SGOT 27 U/L (<34); CALCIUM LEVEL 8.4 MG/DL (8.3-10.6); CARBON DIOXIDE LEVEL 28 MMOL/L (20-31); CHLORIDE LEVEL 103 MMOL/L (98-107); CREATININE FOR GFR 0.68 MG/DL (0.70-1.30); GLOMERULAR FILTRATION RATE > 90.0 (>42); MAGNESIUM LEVEL 1.7 MG/DL (1.8-2.4); POTASSIUM SERUM 3.7 MMOL/L (3.5-5.1); SODIUM LEVEL 140 MMOL/L (136-145)
== END ==
LOC: SKLAB3 07:00
PROVIDERS: ATTEND Family Medicine
DX: E87.6 Hypokalemia (principal)

== ENCOUNTER → 2025-08-08 | Outpatient (REF) | payer MEDICARE, MEDICAID ==
[2025-08-08 19:03] LABS: PLATELET COUNT, AUTOMATED 235 10^3/uL (150-450)
[2025-08-08 19:34] LABS: CALCIUM LEVEL 8.1 MG/DL (8.3-10.6); CARBON DIOXIDE LEVEL 25 MMOL/L (20-31); CHLORIDE LEVEL 103 MMOL/L (98-107); CREATININE FOR GFR 0.60 MG/DL (0.70-1.30); GLOMERULAR FILTRATION RATE > 90.0 (>42); POTASSIUM SERUM 3.5 MMOL/L (3.5-5.1); SODIUM LEVEL 140 MMOL/L (136-145)
== END ==
LOC: SKLAB3 07:00
PROVIDERS: ATTEND Family Medicine
DX: R39.89 Other symptoms and signs involving the genitourinary system (principal)

== ENCOUNTER → 2025-08-13 | Outpatient (REF) | payer MEDICARE, MEDICAID | LOC: SKLAB3 09:49 | PROVIDERS: ATTEND Family Medicine | DX: R53.81 Other malaise (principal); R63.0 Anorexia ==